=== PATIENT | female | born 1970 | race Caucasian/White ===

== ENCOUNTER 2017-05-11 08:45 | Outpatient (RCR) | payer MEDICAID, SELFPAY | END 2017-06-03 23:59 | LOC: NS 08:45 | PROVIDERS: Family Provider Family Medicine; PCP Family Medicine; Visit Provider Family Medicine | DX: E66.01 Morbid (severe) obesity due to excess calories (principal); Z68.41 Body mass index [BMI] 40.0-44.9, adult; Z71.3 Dietary counseling and surveillance | CPT/HCPCS: 97803 ==

== ENCOUNTER → 2017-06-09 14:36 | Outpatient (CLI) | payer MEDICAID, SELFPAY ==
[2017-06-09 14:39] LABS: Bacteria 0 SEEN /hpf (None Seen); Mucous, Urine 0 SEEN /hpf (<or=2+); Red Blood Cells-Urine 0 SEEN /hpf (0-5)
[2017-06-09 15:11] LABS: Color, Urine Yellow (Yellow); Glucose, Dipstick Normal (Normal); Ketone-Dipstick Negative (Negative); Leukocyte Esterase-Dipstick 25 /ul (Negative); Nitrite-Dipstick Negative (Negative); Occult Blood-Urine Negative /ul (Negative); Protein-Dipstick Negative (Negative); Urine Bilirubin Dipstick Negative (Negative); Urine Clarity Sl. Cloudy (Clear); Urine Urobilinogen Normal (Normal)
[2017-06-09 15:24] LABS: Squamous Epithelial Cells - UA 0-5 SEEN /hpf (5-10); White Blood Cells 0-5 SEEN /hpf (0-5)
== END ==
PROVIDERS: Family Provider Family Medicine; Visit Provider Physician Assistant Surgical
DX: R30.0 Dysuria (principal); J02.9 Acute pharyngitis, unspecified
CPT/HCPCS: 81001; 87081; 87086

== ENCOUNTER 2017-07-03 10:59 | Emergency (ER) | payer MEDICAID, SELFPAY ==
[2017-07-03 11:00] VITALS: BP 158/98; PULSE 75; RESP 18; TEMP 36.6; O2SAT 97; BMI 42.2
--- NOTE | 2017-07-03 11:25 | CT_ITS ---
STUDY: CT FACIAL BONES WITHOUT CONTRAST REASON FOR EXAM: Female, 46 years old. Trauma RADIATION DOSAGE (If Supplied By Facility): CTDIvol = ( 29.38 ) mGy, DLP = ( 525.42 ) mGycm TECHNIQUE: The patient was scanned in a multi detector CT scanner. Sagittal and coronal images were reconstructed. Individualized dose optimization techniques were used for this CT. COMPARISON: None. FINDINGS: Normal soft tissue structures. Normal orbital jalloh and orbital contents. Normal nasal bones and anterior nasal spine. Normal facial bones. There is no demonstrated fracture. Normal visualized paranasal sinuses. CT/Sinus/Facial Bone IMPRESSION: Normal unenhanced CT of the facial bones. Electronically Signed: Nino Ricci MD at 12:21 EDT , Service support ,
[2017-07-03] MEDS: proMETHazine 25 MG/ML Syringe 12.5 MG IV (11:50)
[2017-07-03] MEDS: DiphenhydrAMINE 50 MG/ML Syringe 25 MG IV (11:50)
[2017-07-03] MEDS: Ketorolac 30 MG/ML Syringe IV (11:50)
[2017-07-03] MEDS: 0.9% Normal Saline 1,000 ML 1000 ML IV (11:50)
--- NOTE | 2017-07-03 12:37 | ED.DCSUM_ITS ---
- ER Visit Summary Date of Service: 07/03/17 Chief Complaint: [Head injury and headache] History of Present Illness: The patient is a 46 F [presents to the emergency department with an injury that occurred yesterday. Patient states that she was getting something out of the trunk of her car when she accidentally slammed her face against the hatchback trunk. Patient states she had bleeding from the right side of her nose. She denies loss of consciousness. Patient subsequently developed a headache with nausea and photophobia. Patient thought that she was having a typical migraine but given her head injury she became concerned and comes in for evaluation. HEENT-PERRLA, EOMI. Cranial nerves II through XII grossly intact. TMs clear. Mucous membranes moist. No adenopathy. She has tenderness over the right inferior medial orbit as well as over the nasal bone. No obvious deformity. No ecchymosis or bruising noted. Patient did have small amount of dried blood within the right nasal vault. Cardiovascular-regular rate and rhythm without murmur or ectopy Lungs-clear to auscultation, chest wall stable without crepitus or subcu emphysema Abdomen-normoactive bowel sounds, soft, nontender, no rebound or rigidity, no peritoneal signs. Extremities-intact ?4, normal range of motion, normal pulses, atraumatic] Physical Examination: [] Test Results: [CT facial bones obtained showed no acute fractures] Emergency Department Course and Treatment: [Patient was medicated with Phenergan , Toradol, liter normal saline fluid bolus, and Benadryl and her headache mostly resolved. Treatment Plan: [Patient to follow-up with primary care physician 3-5 days.] Disposition: [Discharged home in stable condition] Impression: [Nasal contusion Migrainous cephalgia-resolved] This note was generated with [employer] dictation software. It may contain incorrect words, spelling, and punctuation that were not noted in review of the chart prior to signing ED Disposition - Plan for ED Patient: Chief Complaint: Head Injury Referrals: Misael Frank III, MD [Primary Care Provider] -
--- NOTE | 2017-07-03 12:37 | ED.DEP ---
ED Disposition - Plan for ED Patient: Chief Complaint: Head Injury Instructions: ED Contusion Face, ED Headache Migraine Referrals: Misael Frank III, MD [Primary Care Provider] - 3-5 Days
[2017-07-03 12:57] VITALS: BP 134/70; PULSE 88; RESP 14; O2SAT 96
== END 2017-07-03 12:59 | disposition home or self-care (01) ==
LOC: ED 11:36
PROVIDERS: Emergency Provider Emergency Medicine; Family Provider Family Medicine; PCP Family Medicine
DX: S00.33XA Contusion of nose, initial encounter (principal); G43.909 Migraine, unspecified, not intractable, without status migrainosus; W22.8XXA Striking against or struck by other objects, initial encounter; Y93.9 Activity, unspecified; Y92.9 Unspecified place or not applicable; I10 Essential (primary) hypertension; Z87.19 Personal history of other diseases of the digestive system; Z79.899 Other long term (current) drug therapy
CPT/HCPCS: 70486; 96361; 96374; 96375; 99283; J7030

== ENCOUNTER 2017-07-06 09:56 | Emergency (ER) | payer MEDICAID, SELFPAY ==
[2017-07-06 09:58] VITALS: BP 153/93; PULSE 90; RESP 16; TEMP 36.6; O2SAT 98; BMI 42.1
--- NOTE | 2017-07-06 10:07 | ED.DCSUM_ITS ---
- ER Visit Summary Date of Service: 07/06/17 Chief Complaint: Panic attack History of Present Illness: The patient is a 46 F who said that she had a panic attack that started 15 minutes ago. She had called the police to get her daughter to go to school today. This caused her a lot of anxiety. She took a Vistaril at home but it is not working. Her symptoms only started about 15 minutes ago. When I asked her if she had any thoughts of wanting to harm herself she states that she does not want to live.. She has no specific plan. She has a history of anxiety and manic depressive disorder. She does see a counselor. Physical Examination: Vital signs reviewed. HEENT exam unremarkable. Heart is regular rate and rhythm without murmurs. Lungs are clear to auscultation. Abdomen is soft and nontender. Extremities reveal no edema. Skin exam normal. Neurologic exam normal. Does appear to be anxious. She does voice suicidal thoughts. No specific plan. Test Results: Screening labs are negative Emergency Department Course and Treatment: Patient did admit that she was having thoughts of not wanting to live. I did consult crisis. They evaluated the patient. They will follow up with her as an outpatient. They, as well as myself, do not feel she needs to be admitted at this time. Treatment Plan: [] Disposition: Discharge Impression: Panic attack This note was generated with [employer] dictation software. It may contain incorrect words, spelling, and punctuation that were not noted in review of the chart prior to signing ED Disposition - Plan for ED Patient: Chief Complaint: Anxiety Referrals: Misael Frank III, MD [Primary Care Provider] -
[2017-07-06 10:44] LABS: Absolute Lymphocyte Count 2.44 X10^3/ul (0.83-4.51); Absolute Neutrophil Count 4.2 X10^3/uL (2.0-7.7); Basophil# 0.04 X10^3/uL; Basophil% 0.6 % (0-1); Eosinophil# 0.14 X10^3/uL; Eosinophils% 1.9 % (0-5); Hematocrit 39.3 % (37-47); Hemoglobin 13.2 g/dl (12.0-15.0); Lymphocyte # 2.44 X10^3/ul (4.0); Lymphocyte % 33.6 % (19-41); Mean Corp Hgb Conc 33.6 g/gl (32-36); Mean Corpuscular Hgb 31.6 pg (27.0-32.0); Mean Platelet Vol. 9.5 fl (6.2-12.0); Monocyte# 0.45 X10^3/uL; Monocyte% 6.2 % (0-10); Neutrophil # 4.19 X10^3/uL (2.7-7.7); Neutrophil % 57.6 % (47-70); Platelet Count 237 K/mm3 (150-450); RBC Distribution Width SD 40.2 fl (35.1-43.9); Red Blood Count 4.18 M/mm3 (4.2-5.4); White Blood Count 7.3 K/mm3 (4.4-11.0)
[2017-07-06 10:45] LABS: POSITIVE COUNT NO; POSITIVE DIFFERENTIAL NO; POSITIVE MORPHOLOGY NO
[2017-07-06 10:55] VITALS: PULSE 91; RESP 18; O2SAT 97
[2017-07-06 10:56] LABS: ALB/GLOB Ratio 1.2 RATIO (0.9-2.4); AST(SGOT) 16 U/L (15-37); Alanine Aminotransfer ALT/SGPT 24 U/L (13-56); Albumin, Serum 3.6 g/dL (3.2-5.0); Alkaline Phosphatase 70 U/L (45-117); Anion Gap 6 (5-15); BUN 13 mg/dL (7-18); Calcium,Total 8.5 mg/dL (8.5-10.1); Chloride 109 mmol/L (98-107); Creatinine, Serum 0.62 mg/dL (0.55-1.02); EST Glomerular Filtration Rate 111 mL/min (>60); Est Glom Filt Rate - Afr Amer 134 mL/min (>60); Estimated Creatinine Clearance 99.99 ml/min; Globulin 3.1 g/dL (2.2-4.2); Glucose 72 mg/dL (74-106); Potassium 3.9 mmol/L (3.5-5.1); Protein, Total 6.7 g/dL (6.4-8.2); Sodium Level 141 mmol/L (136-145)
[2017-07-06 11:02] LABS: Pregnancy, Serum, hCG Quali. NEGATIVE Negative (0-9 Nonpreg)
[2017-07-06 11:05] LABS: Amphetamine Urine VISTA NEGATIVE (<1000 ng/mL); Barbiturate Urine VISTA NEGATIVE (< 200 ng/mL); Benzodiazepine Urine VISTA NEGATIVE (< 200 ng/mL); Cocaine Urine VISTA NEGATIVE (< 300 ng/mL); Ecstacy Urine VISTA NEGATIVE (< 500 ng/mL); Methadone Urine VISTA NEGATIVE (< 300 ng/mL); PCP Urine VISTA NEGATIVE (< 25 ng/mL); THC Urine VISTA NEGATIVE (< 50 ng/mL); Vista UDS pH Range 7
[2017-07-06 11:32] VITALS: RESP 18
--- NOTE | 2017-07-06 11:58 | ED.RN ---
SPOKE WITH SARAH WITH [facility]; THEY WILL HAVE SOMEONE OVER TO EVALUATE PT
[2017-07-06 12:09] VITALS: BP 105/61; PULSE 65; RESP 18; O2SAT 98
[2017-07-06 13:00] VITALS: RESP 18
--- NOTE | 2017-07-06 13:20 | ED.RN ---
[facility]EDSIDE
--- NOTE | 2017-07-06 14:09 | ED.DEP ---
ED Disposition - Plan for ED Patient: Disposition: Home or Assisted Living Chief Complaint: Suicidal Instructions: ED Panic Attack Referrals: Misael Frank III, MD [Primary Care Provider] -
[2017-07-06 14:22] VITALS: BP 117/59; PULSE 71; RESP 16; O2SAT 99
== END 2017-07-06 14:23 | disposition home or self-care (01) ==
PROVIDERS: Emergency Provider Emergency Medicine; Family Provider Family Medicine; PCP Family Medicine
DX: F41.0 Panic disorder [episodic paroxysmal anxiety] (principal); R45.851 Suicidal ideations; K21.9 Gastro-esophageal reflux disease without esophagitis; I10 Essential (primary) hypertension; F33.9 Major depressive disorder, recurrent, unspecified; Z79.899 Other long term (current) drug therapy
CPT/HCPCS: 80053; 80307; 80320; 84703; 85025; 99284; J7030; G0480

== ENCOUNTER 2017-07-07 18:40 | Emergency (ER) | payer MEDICAID, SELFPAY ==
[2017-07-07 18:41] VITALS: BP 132/70; PULSE 79; RESP 14; TEMP 36.7; O2SAT 97; BMI 40.7
[2017-07-07 20:01] LABS: Absolute Lymphocyte Count 2.59 X10^3/ul (0.83-4.51); Absolute Neutrophil Count 4.7 X10^3/uL (2.0-7.7); Basophil# 0.03 X10^3/uL; Basophil% 0.4 % (0-1); Eosinophil# 0.24 X10^3/uL; Hematocrit 41.7 % (37-47); Hemoglobin 13.7 g/dl (12.0-15.0); Lymphocyte # 2.59 X10^3/ul (4.0); Mean Corp Hgb Conc 32.9 g/gl (32-36); Mean Corpuscular Hgb 31.2 pg (27.0-32.0); Mean Platelet Vol. 9.6 fl (6.2-12.0); Monocyte# 0.54 X10^3/uL; Monocyte% 6.7 % (0-10); Neutrophil # 4.69 X10^3/uL (2.7-7.7); Neutrophil % 57.8 % (47-70); Platelet Count 233 K/mm3 (150-450); RBC Distribution Width CV 12.2 % (11.6-14.6); RBC Distribution Width SD 41.9 fl (35.1-43.9); Red Blood Count 4.39 M/mm3 (4.2-5.4); White Blood Count 8.1 K/mm3 (4.4-11.0)
[2017-07-07 20:16] LABS: POSITIVE COUNT NO; POSITIVE DIFFERENTIAL NO; POSITIVE MORPHOLOGY NO
[2017-07-07 20:19] LABS: Anion Gap 8 (5-15); BUN 14 mg/dL (7-18); BUN/Creat Ratio 22.8 RATIO (10-20); Calcium,Total 9.3 mg/dL (8.5-10.1); Chloride 109 mmol/L (98-107); Creatinine, Serum 0.61 mg/dL (0.55-1.02); EST Glomerular Filtration Rate 112 mL/min (>60); Est Glom Filt Rate - Afr Amer 136 mL/min (>60); Glucose 66 mg/dL (74-106); Potassium 3.8 mmol/L (3.5-5.1); Sodium Level 142 mmol/L (136-145)
[2017-07-07 20:26] LABS: Pregnancy, Serum, hCG Quali. NEGATIVE Negative (0-9 Nonpreg)
[2017-07-07 20:28] LABS: Alcohol, Blood (Medical)-Serum < 3.0 mg/dL
[2017-07-07 20:49] LABS: Amphetamine Urine VISTA NEGATIVE (<1000 ng/mL); Barbiturate Urine VISTA NEGATIVE (< 200 ng/mL); Benzodiazepine Urine VISTA NEGATIVE (< 200 ng/mL); Cocaine Urine VISTA NEGATIVE (< 300 ng/mL); Ecstacy Urine VISTA NEGATIVE (< 500 ng/mL); Methadone Urine VISTA NEGATIVE (< 300 ng/mL); PCP Urine VISTA NEGATIVE (< 25 ng/mL); THC Urine VISTA NEGATIVE (< 50 ng/mL); Vista UDS pH Range 5
[2017-07-07 22:10] VITALS: BP 140/67; PULSE 89; RESP 18; O2SAT 98
--- NOTE | 2017-07-07 22:21 | ED.DCSUM_ITS ---
- ER Visit Summary Date of Service: 07/07/17 Chief Complaint: Depression and suicidal ideation History of Present Illness: The patient is a 46 F who presents with depression and suicidal ideation. She states that she has had these ever since her father about 9 months ago. This has been increasing recently. Today she sent some text of family members stating that she wanted to . She reports suicidal thoughts but no specific plan. She has been hospitalized previously for similar symptoms. She denies any homicidal ideation. She denies any recent medical illness such as fever chest pain shortness of breath nausea vomiting diarrhea. Physical Examination: Afebrile vitals are stable Moist mucous membranes Heart regular rate and rhythm Lungs are clear Abdomen soft Alert and oriented Patient has normal speech pattern she does report suicidal ideations without specific plan. Test Results: CBC BMP unremarkable. Drug screen and alcohol normal. negative. Emergency Department Course and Treatment: She has been calm and cooperative here. This is her second visit in a short period of time for similar symptoms. We will have crisis evaluate the patient. Treatment Plan: [] Disposition: Pending crisis evaluation Impression: Depression Suicidal ideation This note was generated with [employer] dictation software. It may contain incorrect words, spelling, and punctuation that were not noted in review of the chart prior to signing ED Disposition - Plan for ED Patient: Chief Complaint: Suicidal Referrals: Misael Frank III, MD [Primary Care Provider] -
[2017-07-07 23:00] VITALS: BP 133/80; PULSE 78; RESP 16; O2SAT 98
--- NOTE | 2017-07-08 00:36 | ED.DEP ---
ED Disposition - Plan for ED Patient: Chief Complaint: Suicidal Instructions: ED Depression Referrals: Misael Frank III, MD [Primary Care Provider] -
--- NOTE | 2017-07-08 00:41 | ED.RN ---
DISCHARGE INSTRUCTIONS GIVEN TO AND REVIEWED WITH PATIENT, PATIENT DENIES QUESTIONS OR CONCERNS AND VOICES UNDERSTANDING OF DISCHARGE INSTRUCTIONS. PT AMBULATES OUT OF ROOM WITHOUT DIFFICULTY.
== END 2017-07-08 00:42 | disposition home or self-care (01) ==
PROVIDERS: Emergency Provider Emergency Medicine; Family Provider Family Medicine; PCP Family Medicine
DX: F32.9 Major depressive disorder, single episode, unspecified (principal); R45.851 Suicidal ideations; F31.9 Bipolar disorder, unspecified; I10 Essential (primary) hypertension; N39.3 Stress incontinence (female) (male); F43.10 Post-traumatic stress disorder, unspecified; Z87.19 Personal history of other diseases of the digestive system; Z79.899 Other long term (current) drug therapy
CPT/HCPCS: 80048; 80307; 80320; 84703; 85025; 99283; G0480

== ENCOUNTER 2017-07-25 11:00 | Outpatient (RCR) | payer MEDICAID, SELFPAY | END 2017-07-25 23:59 | LOC: NS 11:00 | PROVIDERS: Family Provider Family Medicine; PCP Family Medicine; Visit Provider Family Medicine | DX: E66.01 Morbid (severe) obesity due to excess calories (principal); Z68.41 Body mass index [BMI] 40.0-44.9, adult; Z71.3 Dietary counseling and surveillance | CPT/HCPCS: 97803 ==

== ENCOUNTER 2017-08-14 13:17 | Outpatient (RCR) | payer MEDICAID, SELFPAY ==
--- NOTE | 2017-08-14 13:17 | DT_ITS ---
This patient was seen during an EMR downtime August 07, 2017 - August 14, 2017. This patient may have a combination of paper and electronic documentation or all paper documentation. All documentation is viewable within the e-chart portion of the[employer] for each patient visit.
== END 2017-09-02 23:59 ==
LOC: NS 13:17
PROVIDERS: Family Provider Family Medicine; PCP Family Medicine; Visit Provider Family Medicine
DX: E66.01 Morbid (severe) obesity due to excess calories (principal); Z68.41 Body mass index [BMI] 40.0-44.9, adult; Z71.3 Dietary counseling and surveillance

== ENCOUNTER → 2017-11-08 13:26 | Outpatient (CLI) | payer MEDICAID, SELFPAY ==
[2017-11-08 15:06] LABS: Mucous, Urine 0 SEEN /hpf (<or=2+); Red Blood Cells-Urine 0 SEEN /hpf (0-5)
[2017-11-08 15:09] LABS: Color, Urine Yellow (Yellow); Glucose, Dipstick Normal (Normal); Ketone-Dipstick Negative (Negative); Leukocyte Esterase-Dipstick 25 /ul (Negative); Nitrite-Dipstick Negative (Negative); Occult Blood-Urine Negative /ul (Negative); Protein-Dipstick Negative (Negative); Specific Gravity, Urine 1.015 (1.002-1.030); Urine Bilirubin Dipstick Negative (Negative); Urine Clarity Clear (Clear); Urine Urobilinogen Normal (Normal)
[2017-11-08 15:18] LABS: Bacteria 2+ /hpf (None Seen); Squamous Epithelial Cells - UA 0-5 SEEN /hpf (5-10); White Blood Cells 0-5 SEEN /hpf (0-5)
== END ==
PROVIDERS: Family Provider Family Medicine; PCP Family Medicine; Visit Provider Physician Assistant Surgical
DX: R30.0 Dysuria (principal)
CPT/HCPCS: 81001; 87086

== ENCOUNTER → 2017-11-15 10:18 | Outpatient (CLI) | payer MEDICAID, SELFPAY ==
--- NOTE | 2017-11-15 10:22 | RAD_ITS ---
CLINICAL HISTORY: Female, 46 years old. Chronic right hip pain. PROCEDURE: ARTHROGRAM - RIGHT HIP CONSENT: The procedure as well as the benefits and possible complications including infection and bleeding were explained to the patient. Informed consent was obtained. FLUOROSCOPY TIME (if supplied): (0:42) minutes/seconds Injection Information: 10 cc of dilute Magnevist. Number of images obtained: 1 TECHNIQUE: (All elements of maximal sterile barrier technique followed, including US elements as applicable) The patient was in the supine position. The overlying skin was prepped and draped in usual sterile fashion. Following local anesthetic application and under direct fluoroscopic guidance, a 22-gauge spinal needle was advanced into the right hip joint. 2 cc of Isovue-300 was injected for confirmation. Following this, 10 cc of dilute Magnevist was injected. The patient tolerated the procedure well. MRI scan will follow. RAD/Arthrogram Hip w/ MRI IMPRESSION: Successful right hip injection for MRI examination. The patient tolerated the procedure well. Electronically Signed: Carlton Armas MD at 12:52 EDT Tel [phone], Service support ,
--- NOTE | 2017-11-15 10:54 | MRI_ITS ---
STUDY: MR RIGHT HIP ARTHROGRAPHY REASON FOR EXAM: Right hip pain and popping. TECHNIQUE: Standardized fat and water weighted pulse sequences were obtained in all 3 orthogonal planes after intra-articular instillation of dilute Magnevist. COMPARISON: Fluoroscopic view from arthrogram. FINDINGS: Normal hip joint without articular joint space narrowing. Normal acetabulum. Normal labrum. There is a dysplastic bump at the lateral aspect of the proximal femoral physeal scar (T2 coronal image 11). Normal femoral neck and intratrochanteric region. Normal gluteus minimus, medius and iliopsoas tendons and distal insertions. There is no trochanteric, iliopsoas or iliopectineal bursitis. Normal superior and inferior pubic rami. Normal pubic symphysis. Normal ischial tuberosity. Normal origin of the hamstring tendons. Normal visualized iliac wing. Normal visualized soft tissue structures of the pelvis. MRI/Lower Ext/Jt Only/W Contrast IMPRESSION: Dysplastic bump at the lateral aspect of the proximal femoral physeal scar, a possible MRI manifestation of femoroacetabular impingement. No demonstrated labral tear. Electronically Signed: Braxton Baeza MD at 12:48 EDT Tel , Service support ,
== END ==
PROVIDERS: Family Provider Family Medicine; PCP Family Medicine; Visit Provider Physician Assistant
DX: M25.551 Pain in right hip (principal)
CPT/HCPCS: 27093; 73722; 77002; A9577; Q9967

== ENCOUNTER 2018-01-02 12:01 | Emergency (ER) | payer MEDICAID, SELFPAY ==
[2018-01-02 12:01] VITALS: BP 149/102; PULSE 62; RESP 16; TEMP 36.7; O2SAT 99; BMI 40.7
--- NOTE | 2018-01-02 12:19 | ED.VISSUMM ---
- ER Visit Summary Date of Service: 01/02/18 Chief Complaint: Acute on chronic depression History of Present Illness: The patient is a 47 F history of depression and bipolar disorder. States the last 5 days she has been more depressed. States yesterday she has a considered suicide attempt but did not actually do anything. She was considering carbon monoxide poisoning. She states when she was 18 she had an actual attempt with a wrist laceration. Currently she is taking her bipolar and antidepressant medications. She is following up with a counseling center. She denies being suicidal today. She also states that she has some burning with urination. Physical Examination: Well-appearing middle-age female. Vital signs eyebrow. H EENT exam unremarkable atraumatic. Neck nontender no signs of trauma. Lungs clear to auscultation bilaterally. Heart regular rate and rhythm no murmur. Chest: Tender. Abdomen soft nontender. Normal bowel sounds no peritoneal signs. She is moving all 4 extremities. They are neurovascularly intact. Currently no signs of acute trauma. No track chavez. Normal range of motion. 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 Normal dorsi plantarflexion bilaterally. Back nontender. Neurologically she is awake and alert. Medically she is cleared. Test Results: BC normal. Chemistries normal. Normal gap and creatinine. UA normal no signs of infection. Serum test negative. Tox screen negative. Alcohol level negative. Emergency Department Course and Treatment: Patient will undergo ED mental health screening labs and urinalysis for her dysuria. She will be evaluated by the counseling center. Treatment Plan: Patient doing well on repeat exam at 1432. Crisis is in the emergency department and is evaluating her. Patient is willing to contract for safety with the crisis personnel. Again ensure close follow-up with her tomorrow morning. Both day, the patient and myself are comfortable with her being discharged home. Patient denies being suicidal at this time. Disposition: discharge Impression: Acute on chronic depression Suicidal ideation History depression and bipolar disorder This note was generated with [employer] software. It may contain incorrect words, spelling, and punctuation that were not noted in review of the chart prior to signing ED Disposition - Plan for ED Patient: Chief Complaint: Depression Referrals: Misael Frank III, MD [Primary Care Provider] -
--- NOTE | 2018-01-02 12:22 | ED.DCSUM_ITS ---
- ER Visit Summary Date of Service: 01/02/18 Chief Complaint: Acute on chronic depression History of Present Illness: The patient is a 47 F history of depression and bipolar disorder. States the last 5 days she has been more depressed. States yesterday she has a considered suicide attempt but did not actually do anything. She was considering carbon monoxide poisoning. She states when she was 18 she had an actual attempt with a wrist laceration. Currently she is taking her bipolar and antidepressant medications. She is following up with a counseling center. She denies being suicidal today. She also states that she has some burning with urination. Physical Examination: Well-appearing middle-age female. Vital signs eyebrow. H EENT exam unremarkable atraumatic. Neck nontender no signs of trauma. Lungs clear to auscultation bilaterally. Heart regular rate and rhythm no murmur. Chest: Tender. Abdomen soft nontender. Normal bowel sounds no peritoneal signs. She is moving all 4 extremities. They are neurovascularly intact. Currently no signs of acute trauma. No track chavez. Normal range of motion. 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 Normal dorsi plantarflexion bilaterally. Back nontender. Neurologically she is awake and alert. Medically she is cleare d. Test Results: BC normal. Chemistries normal. Normal gap and creatinine. UA normal no signs of infection. Serum test negative. Tox screen negative. Alcohol level negative. Emergency Department Course and Treatment: Patient will undergo ED mental health screening labs and urinalysis for her dysuria. She will be evaluated by the counseling center. Treatment Plan: Patient doing well on repeat exam at 1432. Crisis is in the emergency department and is evaluating her. Patient is willing to contract for safety with the crisis personnel. Again ensure close follow-up with her tomorrow morning. Both day, the patient and myself are comfortable with her being discharged home. Patient denies being suicidal at this time. Disposition: discharge Impression: Acute on chronic depression Suicidal ideation History depression and bipolar disorder This note was generated with [employer] software. It may contain incorrect words, spelling, and punctuation that were not noted in review of the chart prior to signing ED Disposition - Plan for ED Patient: Chief Complaint: Depression Referrals: Misael Frank III, MD [Primary Care Provider] -
--- NOTE | 2018-01-02 13:06 | NURSING ---
CALLED [facility]. LEFT MESSAGE WITH PERSON THAT ANSWERED PHONE
[2018-01-02 13:15] LABS: Bacteria 0 SEEN /hpf (None Seen); Mucous, Urine 0 SEEN /hpf (<or=2+); Red Blood Cells-Urine 0 SEEN /hpf (0-5); White Blood Cells 0 SEEN /hpf (0-5)
[2018-01-02 13:17] LABS: Color, Urine Yellow (Yellow); Glucose, Dipstick Normal (Normal); Ketone-Dipstick Negative (Negative); Leukocyte Esterase-Dipstick Negative /ul (Negative); Nitrite-Dipstick Negative (Negative); Occult Blood-Urine Negative /ul (Negative); Protein-Dipstick Negative (Negative); Urine Bilirubin Dipstick Negative (Negative); Urine Clarity Sl. Cloudy (Clear); Urine Urobilinogen Normal (Normal); Urine pH 6.5 (5.0 - 8.0)
[2018-01-02 13:17] LABS: Absolute Lymphocyte Count 2.66 X10^3/ul (0.83-4.51); Absolute Neutrophil Count 3.3 X10^3/uL (2.0-7.7); Basophil# 0.04 X10^3/uL; Basophil% 0.6 % (0-1); Eosinophil# 0.13 X10^3/uL; Hemoglobin 14.2 g/dl (12.0-15.0); Lymphocyte # 2.66 X10^3/ul (4.0); Lymphocyte % 40.8 % (19-41); Mean Corp Hgb Conc 33.8 g/gl (32-36); Mean Corpuscular Hgb 32.1 pg (27.0-32.0); Mean Corpuscular Volume 94.8 fL (81-99); Mean Platelet Vol. 9.5 fl (6.2-12.0); Monocyte# 0.34 X10^3/uL; Monocyte% 5.2 % (0-10); Neutrophil # 3.34 X10^3/uL (2.7-7.7); Neutrophil % 51.2 % (47-70); Platelet Count 218 K/mm3 (150-450); RBC Distribution Width CV 12.3 % (11.6-14.6); RBC Distribution Width SD 42.2 fl (35.1-43.9); Red Blood Count 4.43 M/mm3 (4.2-5.4); White Blood Count 6.5 K/mm3 (4.4-11.0)
[2018-01-02 13:18] LABS: POSITIVE COUNT NO; POSITIVE DIFFERENTIAL NO; POSITIVE MORPHOLOGY NO
[2018-01-02 13:24] LABS: Squamous Epithelial Cells - UA 0-5 SEEN /hpf (5-10)
[2018-01-02 13:29] LABS: Anion Gap 6 (5-15); BUN 12 mg/dL (7-18); Calcium,Total 8.8 mg/dL (8.5-10.1); Chloride 106 mmol/L (98-107); EST Glomerular Filtration Rate 96 mL/min (>60); Est Glom Filt Rate - Afr Amer 116 mL/min (>60); Estimated Creatinine Clearance 91.32 ml/min; Glucose 74 mg/dL (74-106); Potassium 3.9 mmol/L (3.5-5.1); Sodium Level 141 mmol/L (136-145)
[2018-01-02 13:38] LABS: Amphetamine Urine VISTA NEGATIVE (<1000 ng/mL); Barbiturate Urine VISTA NEGATIVE (< 200 ng/mL); Benzodiazepine Urine VISTA NEGATIVE (< 200 ng/mL); Cocaine Urine VISTA NEGATIVE (< 300 ng/mL); Ecstacy Urine VISTA NEGATIVE (< 500 ng/mL); Methadone Urine VISTA NEGATIVE (< 300 ng/mL); PCP Urine VISTA NEGATIVE (< 25 ng/mL); Pregnancy, Serum, hCG Quali. NEGATIVE Negative (0-9 Nonpreg); THC Urine VISTA NEGATIVE (< 50 ng/mL); Vista UDS pH Range 5
--- NOTE | 2018-01-02 14:00 | PCA ---
[facility] WILL BE HERE SHORTLY TO EVALUATE PT
--- NOTE | 2018-01-02 14:31 | NURSING ---
JENNIFER, [facility], HERE
--- NOTE | 2018-01-02 15:03 | ED.DEP ---
ED Disposition - Plan for ED Patient: Disposition: Home or Assisted Living Chief Complaint: Depression Instructions: ED Depression Referrals: Counseling,Center [GROUP OF PHYSICIANS] - 1 Day Additional Instructions: Return if feeling worse or feel like you may hurt yourself. Follow-up with a counseling center tomorrow.
== END 2018-01-02 15:50 | disposition home or self-care (01) ==
PROVIDERS: Emergency Provider Emergency Medicine; Family Provider Family Medicine; PCP Family Medicine
DX: F32.9 Major depressive disorder, single episode, unspecified (principal); R45.851 Suicidal ideations; F31.9 Bipolar disorder, unspecified; R30.0 Dysuria; R11.2 Nausea with vomiting, unspecified; Z98.84 Bariatric surgery status; Z79.899 Other long term (current) drug therapy
CPT/HCPCS: 80048; 80307; 80320; 81001; 84703; 85025; 99284; G0480

== ENCOUNTER → 2018-01-21 10:31 | Outpatient (CLI) | payer MEDICAID, SELFPAY ==
[2018-01-21 13:54] VITALS: BMI 40.6
[2018-01-22 10:39] LABS: Bacteria 0 SEEN /hpf (None Seen); Mucous, Urine 0 SEEN /hpf (<or=2+); Red Blood Cells-Urine 0 SEEN /hpf (0-5); White Blood Cells 0 SEEN /hpf (0-5)
[2018-01-22 10:46] LABS: Color, Urine Yellow (Yellow); Glucose, Dipstick Normal (Normal); Ketone-Dipstick Negative (Negative); Leukocyte Esterase-Dipstick Negative /ul (Negative); Nitrite-Dipstick Negative (Negative); Occult Blood-Urine Negative /ul (Negative); Protein-Dipstick Negative (Negative); Urine Bilirubin Dipstick Negative (Negative); Urine Clarity Sl. Cloudy (Clear); Urine Urobilinogen Normal (Normal)
[2018-01-22 11:14] LABS: Squamous Epithelial Cells - UA 0-5 SEEN /hpf (5-10)
== END ==
PROVIDERS: Family Provider Family Medicine; PCP Family Medicine; Referring Provider Nurse Practitioner Family; Visit Provider Nurse Practitioner Family
DX: Z87.440 Personal history of urinary (tract) infections (principal)
CPT/HCPCS: 81001; 87086

== ENCOUNTER → 2018-02-13 14:17 | Outpatient (CLI) | payer MEDICAID, SELFPAY ==
[2018-02-12 14:56] VITALS: BMI 40.6
[2018-02-13 15:07] LABS: Bacteria 0 SEEN /hpf (None Seen); Mucous, Urine 0 SEEN /hpf (<or=2+); Red Blood Cells-Urine 0 SEEN /hpf (0-5); White Blood Cells 0 SEEN /hpf (0-5)
[2018-02-13 15:21] LABS: Color, Urine Yellow (Yellow); Glucose, Dipstick Normal (Normal); Ketone-Dipstick Negative (Negative); Leukocyte Esterase-Dipstick Negative /ul (Negative); Nitrite-Dipstick Negative (Negative); Occult Blood-Urine Negative /ul (Negative); Protein-Dipstick Negative (Negative); Urine Bilirubin Dipstick Negative (Negative); Urine Clarity Clear (Clear); Urine Urobilinogen Normal (Normal)
[2018-02-13 16:10] LABS: Squamous Epithelial Cells - UA 0-5 SEEN /hpf (5-10)
--- OUTSIDE RECORDS SUMMARY | 2018-04-01 19:46 | XMS RPT_ITS ---
:1970 Author Organization OHIP Support Name Relationship Address Phone BORA, KIANA Unavailable [address] + [address] [facility] Unavailable [address] + [place] [address] DANNY AARON Unavailable [address] + [place] [address] BORA, KIANA Unavailable [address] + [place] [address] [facility] Unavailable [address] + [place] [address] DANNY AARON Unavailable [address] + [place] [address] BORA, KIANA Unavailable [address] + [place] [address] [facility] Unavailable [address] + [place] [address] DANNY AARON Unavailable [address] + [place] [address] BORA, KIANA Unavailable [address] + [place] [address] [facility] Unavailable [address] + [place] [address] DANNY AARON Unavailable [address] + [place] [address] BORA, KIANA Unavailable [address] + [place] [address] [facility] Unavailable [address] + [place] [address] TAWNYMILANADANNY CHANCE Unavailable [address] + [place] [address] BORA, KIANA Unavailable [address] + [address] [facility] Unavailable [address] + [place] [address] DANNY AARON Unavailable [address] + [place] [address] BORA, KIANA Unavailable [address] + [address] [facility] Unavailable [address] + [place] [address] SHASHIDANNY CHANCE Unavailable [address] + [place] [address] BORA, KIANA Unavailable [address] + [address] [facility] Unavailable [address] + [place] [address] SHASHIDANNY CHANCE Unavailable [address] + [place] [address] BORA, KIANA Unavailable [address] + [address] [facility] Unavailable [address] + [place] [address] SHASHIDANNY CHANCE Unavailable [address] + [place] [address] BORA, KIANA Unavailable [address] + [place] [phone] [facility] Unavailable [address] + [place] [address] SHASHIDANNY CHANCE Unavailable [address] + [place] [address] BORA, KIANA Unavailable [address] + [place] [phone] [facility] Unavailable [address] + [place] [address] SHASHIDANNY CHANCE Unavailable [address] + [place] [address] BORA, KIANA Unavailable [address] + [place] [address] [facility] Unavailable [address] + [place] [address] SHASHIDANNY CHANCE Unavailable [address] + [place] [address] BORA, KIANA Unavailable [address] + [place] [address] [facility] Unavailable [address] + [place] [address] SHASHIDANNY CHANCE Unavailable [address] + [place] [address] BORA, KIANA Unavailable [address] + [place] [address] [facility] Unavailable [address] + [place] [address] AGNIESZKADANNY Unavailable [address] + [place] [address] BORA, KIANA Unavailable [address] + [place] [address] [facility] Unavailable [address] + [place] [address] AGNIESZKADANNY Unavailable [address] + [place] [address] BORA, KIANA Unavailable [address] + [place] [address] [facility] Unavailable [address] +. [place] [address] DANNY AARON Unavailable [address] + [place] [address] BORA, KIANA Unavailable [address] + [place] [address] [facility] Unavailable [address] + [place] [address] DANNY AARON Unavailable [address] + [place] [address] BORA, KIANA Unavailable [address] + [place] [address] [facility] Unavailable [address] + [place] [address] AGNIESZKADANNY Unavailable [address] + [place] [address] BORA, KIANA Unavailable [phone] [place] [address] [facility] Unavailable [address] + [place] [address] AGNIESZKADANNY Unavailable [address] + [place] [address] BORA, KIANA Unavailable [address] + [place] [address] [facility] Unavailable [address] + [place] [address] AGNIESZKADANNY Unavailable [address] + [place] [address] BORA, KIANA Unavailable [phone] [place] [address] [facility] Unavailable [address] + [place] [address] AGNIESZKADANNY Unavailable [address] + [place] [address] BORA, KIANA Unavailable [phone] [place] [address] [facility] Unavailable [address] + [place] [address] SHASHIDANNY CHANCE Unavailable [address] + [place] [address] Care Team Providers Name Role Phone SANTI LOPES (LABELER) Attending Unavailable CEBUL IIINEIL Referring Unavailable SANTI LOPES (LABELER) Referring Unavailable MARTA PUENTES (PIPELINER) Attending Unavailable MARTA PUENTES (PIPELINER) Referring Unavailable CEBUL III, NEIL Thurman Attending Unavailable NATY IRWIN (PIPELINER) Referring Unavailable Sher Tristan Attending Unavailable Cebul III, Neil Referring Unavailable Sher Tristan Attending Unavailable Sher Tristan Referring Unavailable Cebul III, Neil Primary Care Unavailable Cebul III, Neil Attending Unavailable Cebul III, Neil Referring Unavailable Cebul III, Neil Primary Care Unavailable Sher Tristan Attending Unavailable Cebul III, Neil Referring Unavailable Cebul III, Neil Primary Care Unavailable Juan Carlos Carrion Attending Unavailable Cebul III, Neil Referring Unavailable Cebul III, Neil Primary Care Unavailable Juan Carlos Carrion Attending Unavailable Cebul III, Neil Primary Care Unavailable Juan Carlos Carrion Attending Unavailable Cebul III, Neil Primary Care Unavailable Cebul III, Neil Attending Unavailable Cebul III, Neil Referring Unavailable Cebul III, Neil Primary Care Unavailable Cebul III, Neil Primary Care Unavailable Tree Dickens Attending Unavailable Cebul III, Neil Primary Care Unavailable Abhi Harp Attending Unavailable Cebul III, Neil Primary Care Unavailable Luca Evangelista Attending Unavailable Cebul III, Neil Attending Unavailable Cebul III, Neil Referring Unavailable Cebul III, Neil Primary Care Unavailable Cebul III, Neil Attending Unavailable Cebul III, Neil Referring Unavailable Cebul III, Neil Primary Care Unavailable Sher Tristan Attending Unavailable Cebul III, Neil Referring Unavailable Cebul III, Neil Primary Care Unavailable Juan Carlos Carrion Attending Unavailable Cebul III, Neil Referring Unavailable Cebul III, Neil Primary Care Unavailable Juan Carlos Carrion Attending Unavailable Juan Carlos Carrion Referring Unavailable Cebul III, Neil Primary Care Unavailable Jason, Andrea Attending Unavailable Janjeny, Andrea Referring Unavailable Cebul III, Neil Primary Care Unavailable Cebul III, Neil Primary Care Unavailable Cristino Barraza Attending Unavailable Josep Romero LABELER-C Attending Unavailable Cebul III, Neil Referring Unavailable Josep Romero LABELER-C Attending Unavailable Romero, Josep LABELER-C Attending Unavailable Romero, Josep LABELER-C Referring Unavailable Cebul III, Neil Primary Care Unavailable Cebul III, Neil Primary Care Unavailable Atul Hayden Attending Unavailable PROBLEMS PROBLEMS DATE TYPE CONDITION / CODE ATTENDING STATUS SOURCE 02/13/2018 Unknown R30.0 - Dysuria / Sher Tristan Active [facility] R30.0(ICD-10) [facility] Rep[facility] 02/12/2018 Unknown N39.0 - Urinary Sher Tristan Active [facility] tract infection, Community site not specified Hospital / N39.0(ICD-10) Repository 01/22/2018 Unknown Z87.440 - Personal Josep Romero Active [facility] history of urinary LABELER-C Community (tract) infections Hospital / Z87.440(ICD-10) Repository 01/04/2018 Active Unspecified injury NA Active [facility] of left foot, [facility] initial encounter / Repository S99.922A(ICD-10) 09/20/2017 Unknown R35.0 - Frequency Sher Tristan Active [facility] of micturition / Community R35.0(ICD-10) Hospital Repository 08/31/2017 Active Encounter for Active [facility] gynecological [facility] examination Repository (general) (routine) without abnormal findings / Z01.419(ICD-10) 07/28/2017 Active Encounter for NA Active [facility] screening mammogram [facility] for malignant Repository neoplasm of breast / Z12.31(ICD-10) 01/03/2018 Unknown E66.01 - Morbid Cebul III, Active [facility] (severe) obesity [facility] due to excess Hospital calories / Repository E66.01(ICD-10) 11/25/2008 Active Vitamin D [facility] deficiency, [facility] unspecified / Repository E55.9(ICD-10) 07/12/2017 Active Unspecified NA Active [facility] disorder of nose [facility] and nasal sinuses / Repository J34.9(ICD-10) 07/12/2017 Active Cutaneous abscess NA Active [facility] of left axilla / [facility] L02.412(ICD-10) Repository 06/13/2017 Unknown J02.9 - Acute Murali, Juan Carlos Active [facility] pharyngitis, Community unspecified / Hospital J02.9(ICD-10) Repository 06/09/2017 Unknown J01.90 - Acute Murali, Juan Carlos Active [facility] sinusitis, Community unspecified / Hospital J01.90(ICD-10) Repository PROCEDURES PROCEDURES No Procedure Records FoundRESULTS RESULTS PROGRESS Observed: 03/19/2018 Status: COMPLETED Source: [place] 10:15 AM [facility] RE[facility] HNO ID: [id number] Author: Stevie Machado Service: (none) Author Type: Physician Type: Progress Notes Filed: 03/19/2018 10:33 AM Note Text: Patient presents with: Sinus Problem: sinus pressure and drainage, red and matting eyes x 2 weeks HPI: Feeling sick for 2 weeks. Her daughter has been sick 2 weeks also. Positive symptoms: Sinus pressure/headache, Nasal Congestion, Rhinorrhea, Post nasal drainage, AM eye discharge, Negative symptoms: Fever, Chills, OTC: aleve, flonase PAST MEDICAL HISTORY Diagnosis Date - Adjustment disorder with depressed mood ANXIETY/DEPRESSION - Arrhythmia as a child-no current problems - Bariatric surgery status 06-29-09 lrygbp - Benign hypertension 05/05/2015 - Bipolar 2 disorder (HCC) 04/12/2017 - Celiac disease 06/2005 - Excessive or frequent menstruation Heavy periods - Fatty liver disease, nonalcoholic 04/19/2012 - Generalized anxiety disorder - GERD (gastroesophageal reflux disease) - Hemorrhage of rectum and anus - Lumbago - Midline low back pain without sciatica 09/24/2014 - Migraine, unspecified, with intractable migraine, so stated, without mention of status migrainosus Migraine - Mild dysplasia of cervix 04/05/06 mild dysplasia of cervix on biopsy 12, 7 oclock - Morbid obesity (HCC) 05-19-09 BMI 51.83 Ht: 64.75 Wt: 309 lbs - Other and unspecified hyperlipidemia - Other chronic nonalcoholic liver disease - Other chronic nonalcoholic liver disease - Overactive bladder 12/11/2012 - Pain in joint, multiple sites knees,hips - Papanicolaou smear of cervix with low grade squamous intraepithelial lesion (LGSIL) 03/08/06 - PCOS (polycystic ovarian syndrome) - PMH - PAST MEDICAL HISTORY OF Carpal tunnel syndrome - PMH - PAST MEDICAL HISTORY OF PELVIC FLOOR DISORDER WITH URINARY RETENTION - Sleep apnea, obstructive 2010 resolved with weight loss - Snoring - Urinary tract infection, site not specified Recurrent UTI's - Vitamin D deficiency MEDICATIONS: Current Outpatient Prescriptions: sucralfate (CARAFATE) 1 gram tablet DISSOLVE 1 TABLET IN 2 TEASPOONS OF WATER, STIR, AND SWALLOW AND TAKE BEFORE MEALS AND BED naltrexone-bupropion (CONTRAVE) 8-90 mg TbER 1 po qAM x 1 wk. then 1 po BID ferrous sulfate EC 324 mg (65 mg iron) TbEC Take 1 tablet by mouth once daily. lisinopril (ZESTRIL, PRINIVIL) 5 mg tablet Take 1 tablet by mouth once daily. SUMAtriptan (IMITREX) 50 mg tablet TAKE 1 TABLET BY MOUTH NEEDED (MAY REPEAT DOSE IN 2 HOURS IF HEADACHE PERSISTS.). oxybutynin ER (DITROPAN XL) 10 mg 24 hr tablet Take 1 tablet by mouth once daily. Cholecalciferol, Vitamin D3, 5,000 unit cap Take 1 capsule by mouth once daily. cetirizine (ZYRTEC) 10 mg tablet Take 1 tablet by mouth once daily. DULoxetine (CYMBALTA) 60 mg capsule Take 1 capsule by mouth once daily. traZODone (DESYREL) 50 mg tablet Take 50 mg by mouth daily at bedtime. As needed lamoTRIgine (LAMICTAL) 25 mg tablet Take 25 mg by mouth twice daily. hydrOXYzine pamoate (VISTARIL) 25 mg capsule Take 1 capsule by mouth three times daily as needed for Anxiety. dibucaine (NUPERCAINAL) 1 % ointment 1 application as needed. Apply to the anus as needed before and following a bowel movement to decrease pain. calcium carbonate (CALTRATE 600) 600 mg (1,500 mg) tab Take 0.5 tablets by mouth once daily. ascorbic acid (VITAMIN C) 500 mg tablet Take 500 mg by mouth once daily. cyanocobalamin(VITAMIN B-12 1,000 MCG TAB) Take one(1) tablet daily. MULTIVITAMIN TAB Take one(1) tablet daily. No current facility-administered medications for this visit. ALLERGIES: ALLERGIES Allergen Reactions - Bees Intolerance - Asa [Salicylates] Rash - Asprin [Aspirin] Rash Also makes pt really sleepy - Ibuprofen Swelling throat swelling - Wheat Gluten GI Upset VITALS: BP 122/68 Pulse 64 Temp 36.2 ?C (97.2 ?F) (Tympanic) Resp 16 Wt 109.3 kg (241 lb) BMI 40.41 kg/m? PHYSICAL EXAM: GEN: mildly ill appearing HEENT: PERRL, EOMI, conjunctiva clear Ears: canals clear, TMs without erythema, bulge, or effusion Sinuses: non-tender frontal sinus, tender maxillary sinuses Throat: moist mucous membranes, mild erythema, no exudate Neck: supple, no thyromegaly, no lymphadenopathy HEART: regular rate and rhythm, no murmurs LUNGS: clear to auscultation, no wheezes or crackles, no increased WOB ASSESSMENT/PLAN: 1. Acute non-recurrent sinusitis, unspecified location - ICD9: 461.9, ICD10: J01.90 - Will begin treatment with - AMOXICILLIN 875 MG TABLET Stevie Machado MD CNOV Observed: 03/19/2018 Status: COMPLETED Source: [place] 10:00 AM [facility] REPOSITORY Office Visit (WSTR) KRYS AARON ([id number]) 1970 F Date Time Provider Department 03/19/18 10:00 AM STEVIE MACHADO [facility] During your visit today, we recorded the following information about you: Temperature Pulse Respiration Blood pressure 97.2 degrees 64/minute 16/minute 122/68 Weight 109.3 kg Stevie Machado MD 03/19/2018 10:33 AM Signed Patient presents with: Sinus Problem: sinus pressure and drainage, red and matting eyes x 2 weeks HPI: Feeling sick for 2 weeks. Her daughter has been sick 2 weeks also. Positive symptoms: Sinus pressure/headache, Nasal Congestion, Rhinorrhea, Post nasal drainage, AM eye discharge, Negative symptoms: Fever, Chills, OTC: aleve, flonase PAST MEDICAL HISTORY Diagnosis Date - Adjustment disorder with depressed mood ANXIETY/DEPRESSION - Arrhythmia as a child-no current problems - Bariatric surgery status 06-29-09 lrygbp - Benign hypertension 05/05/2015 - Bipolar 2 disorder (HCC) 04/12/2017 - Celiac disease 06/2005 - Excessive or frequent menstruation Heavy periods - Fatty liver disease, nonalcoholic 04/19/2012 - Generalized anxiety disorder - GERD (gastroesophageal reflux disease) - Hemorrhage of rectum and anus - Lumbago - Midline low back pain without sciatica 09/24/2014 - Migraine, unspecified, with intractable migraine, so stated, without mention of status migrainosus Migraine - Mild dysplasia of cervix 04/05/06 mild dysplasia of cervix on biopsy 12, 7 oclock - Morbid obesity (HCC) 316 BMI 51.83 Ht: 64.75 Wt: 309 lbs - Other and unspecified hyperlipidemia - Other chronic nonalcoholic liver disease - Other chronic nonalcoholic liver disease - Overactive bladder 12/11/2012 - Pain in joint, multiple sites knees,hips - Papanicolaou smear of cervix with low grade squamous intraepithelial lesion (LGSIL) 03/08/06 - PCOS (polycystic ovarian syndrome) - PMH - PAST MEDICAL HISTORY OF Carpal tunnel syndrome - PMH - PAST MEDICAL HISTORY OF PELVIC FLOOR DISORDER WITH URINARY RETENTION - Sleep apnea, obstructive 2010 resolved with weight loss - Snoring - Urinary tract infection, site not specified Recurrent UTI's - Vitamin D deficiency MEDICATIONS: Current Outpatient Prescriptions: sucralfate (CARAFATE) 1 gram tablet DISSOLVE 1 TABLET IN 2 TEASPOONS OF WATER, STIR, AND SWALLOW AND TAKE BEFORE MEALS AND BED naltrexone-bupropion (CONTRAVE) 8-90 mg TbER 1 po qAM x 1 wk. then 1 po BID ferrous sulfate EC 324 mg (65 mg iron) TbEC Take 1 tablet by mouth once daily. lisinopril (ZESTRIL, PRINIVIL) 5 mg tablet Take 1 tablet by mouth once daily. SUMAtriptan (IMITREX) 50 mg tablet TAKE 1 TABLET BY MOUTH NEEDED (MAY REPEAT DOSE IN 2 HOURS IF HEADACHE PERSISTS.). oxybutynin ER (DITROPAN XL) 10 mg 24 hr tablet Take 1 tablet by mouth once daily. Cholecalciferol, Vitamin D3, 5,000 unit cap Take 1 capsule by mouth once daily. cetirizine (ZYRTEC) 10 mg tablet Take 1 tablet by mouth once daily. DULoxetine (CYMBALTA) 60 mg capsule Take 1 capsule by mouth once daily. traZODone (DESYREL) 50 mg tablet Take 50 mg by mouth daily at bedtime. As needed lamoTRIgine (LAMICTAL) 25 mg tablet Take 25 mg by mouth twice daily. hydrOXYzine pamoate (VISTARIL) 25 mg capsule Take 1 capsule by mouth three times daily as needed for Anxiety. dibucaine (NUPERCAINAL) 1 % ointment 1 application as needed. Apply to the anus as needed before and following a bowel movement to decrease pain. calcium carbonate (CALTRATE 600) 600 mg (1,500 mg) tab Take 0.5 tablets by mouth once daily. ascorbic acid (VITAMIN C) 500 mg tablet Take 500 mg by mouth once daily. cyanocobalamin(VITAMIN B-12 1,000 MCG TAB) Take one(1) tablet daily. MULTIVITAMIN TAB Take one(1) tablet daily. No current facility-administered medications for this visit. ALLERGIES: ALLERGIES Allergen Reactions - Bees Intolerance - Asa [Salicylates] Rash - Asprin [Aspirin] Rash Also makes pt really sleepy - Ibuprofen Swelling throat swelling - Wheat Gluten GI Upset VITALS: BP 122/68 Pulse 64 Temp 36.2 ?C (97.2 ?F) (Tympanic) Resp 16 Wt 109.3 kg (241 lb) BMI 40.41 kg/m? PHYSICAL EXAM: GEN: mildly ill appearing HEENT: PERRL, EOMI, conjunctiva clear Ears: canals clear, TMs without erythema, bulge, or effusion Sinuses: non-tender frontal sinus, tender maxillary sinuses Throat: moist mucous membranes, mild erythema, no exudate Neck: supple, no thyromegaly, no lymphadenopathy HEART: regular rate and rhythm, no murmurs LUNGS: clear to auscultation, no wheezes or crackles, no increased WOB ASSESSMENT/PLAN: 1. Acute non-recurrent sinusitis, unspecified location - ICD9: 461.9, ICD10: J01.90 - Will begin treatment with - AMOXICILLIN 875 MG TABLET Stevie Machado MD Referring Provider: SELF [200] Allergies As of Date: 03/19/2018 Noted Allergy Reaction BEES 02/02/2005 5 - Intolerance ASA (SALICYLATES) 12/30/2004 2 - Rash ASPRIN (ASPIRIN) 03/07/2012 2 - Rash Comments: Also makes pt really sleepy IBUPROFEN 12/30/2004 7 - Swelling Comments: throat swelling WHEAT GLUTEN 11/25/2005 8 - GI Upset Date Reviewed: 03/19/2018 Reviewed by: Nicolle Coats Ma - Fully Assessed Reason for Visit: Sinus Problem [99] Cmt: sinus pressure and drainage, red and matting eyes x 2 weeks Primary Visit Diagnosis:Acute non-recurrent sinusitis, unspecified location [J01.90] Order(s):amoxicillin (AMOXIL) 875 mg tabletTake 1 tablet by mouth twice daily for 7 days.Disp: 14 tabletRfl: 0 Prescriptions as of 03/19/2018 Sig: SUCRALFATE 1 GRAM TABLET DISSOLVE 1 TABLET IN 2 TEASPO* NALTREXONE 8 MG-BUPROPION 90 * 1 po qAM x 1 wk. then 1 po BID FERROUS SULFATE 324 MG (65 MG* Take 1 tablet by mouth once d* LISINOPRIL 5 MG TABLET Take 1 tablet by mouth once d* SUMATRIPTAN 50 MG TABLET TAKE 1 TABLET BY MOUTH NEE* OXYBUTYNIN CHLORIDE ER 10 MG * Take 1 tablet by mouth once d* CHOLECALCIFEROL (VITAMIN D3) * Take 1 capsule by mouth once * CETIRIZINE 10 MG TABLET Take 1 tablet by mouth once d* DULOXETINE 60 MG CAPSULE,ABIGAIL* Take 1 capsule by mouth once * TRAZODONE 50 MG TABLET Take 50 mg by mouth daily at * LAMOTRIGINE 25 MG TABLET Take 25 mg by mouth twice lux* HYDROXYZINE PAMOATE 25 MG CAP* Take 1 capsule by mouth three* DIBUCAINE 1 % TOPICAL OINTMENT 1 application as needed. Appl* CALCIUM CARBONATE 600 MG CALC* Take 0.5 tablets by mouth onc* ASCORBIC ACID (VITAMIN C) 500* Take 500 mg by mouth once lux* VITAMIN B-12 1,000 MCG TABLET Take one(1) tablet daily. MULTIVITAMIN TABLET Take one(1) tablet daily. AMOXICILLIN 875 MG TABLET Take 1 tablet by mouth twice * Problem List As Of Date 03/19/2018 Noted Resolved Morbid obesity [E66.01] INVALID FOR*01/11/2011 Irregular menstrual cycle [N92.6] INVALID FOR*01/11/2011 BONE AND CARTILAGE DIS NOS [M89.9, M94.9] INVALID FOR* CELIAC DISEASE [K90.0] INVALID FOR* POLYCYSTIC OVARIES [E28.2] INVALID FOR* THREATENED ANTEPARTUM CONDITN/COMPL [O*INVALID FOR*01/11/2011 Supervision of other normal [Z34.80] INVALID FOR*01/11/2011 Unspecified high-risk [O09.90] INVALID FOR*01/11/2011 Dizziness and giddiness [R42] INVALID FOR*04/19/2012 Previous delivery, antepartum conditio*INVALID FOR*01/11/2011 Mild or unspecified pre-eclampsia, antepartum [*INVALID FOR*01/11/2011 MILD DYSPLASIA OF CERVIX [N87.0] INVALID FOR* Sprain of neck [S13.9XXA] INVALID FOR*04/19/2012 ADJUSTMENT DISORDER WITH DEPRESSED MOOD [F43.21]INVALID FOR* GENERALIZED ANXIETY DIS [F41.1] INVALID FOR* DYSMETABOLIC SYNDROME X [E88.81] INVALID FOR* Essential hypertension, benign [I10] INVALID FOR*04/19/2012 Sprain of ankle, unspecified site [S93.409A] INVALID FOR*04/19/2012 Eating disorder, unspecified [F50.9] INVALID FOR*04/19/2012 Major depressive disorder, recurrent episode, m*INVALID FOR*05/20/2016 Internal hemorrhoids without mention of complic*INVALID FOR*04/19/2012 Anal fissure [K60.2] INVALID FOR*04/19/2012 Bulimia nervosa [F50.2] INVALID FOR*04/19/2012 Vitamin D Deficiency [E55.9] INVALID FOR* GERD (Gastroesophageal Reflux Disease) [K21.9] INVALID FOR* More... RB (rectal bleeding) [K62.5] INVALID FOR*04/19/2012 Scoliosis (and kyphoscoliosis), idiopathic [M41*INVALID FOR* Sprain of lumbar region [S33.5XXA] INVALID FOR*04/19/2012 Sleep apnea, obstructive [G47.33] INVALID FOR*04/19/2012 Lump or mass in breast [N63.0] INVALID FOR*08/17/2015 Mastodynia [N64.4] INVALID FOR*08/17/2015 Galactorrhea not associated with childbirth [N6*INVALID FOR*08/17/2015 Abnormal mammogram, unspecified [R92.8] INVALID FOR*08/17/2015 Abnormal ultrasound of breast [R92.8] INVALID FOR*08/17/2015 Fatty liver disease, nonalcoholic [K76.0] INVALID FOR* Overactive bladder [N32.81] INVALID FOR* Arthritis, 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 Letter Text [facility] [address] [place] [id number] 03/19/2018 Krys Aaron [facility]# [id number] [facility] [address] TO WHOM IT MAY CONCERN: This is to confirm that Krys Aaron had an appointment and was seen at the [facility] in the Department of Urgent Care by Stevie Machado MD on 03/19/2018 for illness. Sincerely , Stevie Machado MD Encounter Status:Closed by STEVIE MACHADO MD on 03/19/18 URINALYSIS, COMPLETE Collected: 02/13/2018 Status: F Source: [facility] 3:06 PM [facility] REPOSITORY Order Comment: How was Urine Obtained? CLEAN CATCH TYPE CODE TESTS RESULT OUT OF RANGE REFERENCE UNITS LAB L400.3000 Yellow COLOR Normal Yellow LAB L400.3050 Clear Normal CLARITY Clear LAB L400.3200 Normal mg/dl Normal GLUCOSE, UR Normal LAB L400.3300 Negative mg/dL Normal BILIRUBIN URINE Negative LAB L400.3400 Negative mg/dl Normal KETONE UR Negative LAB L400.3465 1.002-1.030 Normal SP.GR. DIPSTX 1.020 LAB L400.3550 5.0 - 8.0 pH UR Normal 6.0 LAB L400.3600 Negative mg/dl PROT Normal DIPSTX Negative LAB L400.3700 Normal mg/dl Normal UROBILI Normal LAB L400.3750 Negative Normal NITRITE UR Negative LAB L400.3780 Negative /ul Normal OCCULT BLOOD-UR Negative LAB L400.3800 Negative /ul LEUK Normal ESTERASE Negative LAB L400.4050 0-5 /hpf WBC 0 Normal SEEN LAB L400.4100 0-5 /hpf 0 Normal RBC-UA SEEN LAB L400.4150 5-10 /hpf SQUAM Normal EPI 0-5 SEEN LAB L400.4300 None Seen /hpf 0 Normal BACTERIA SEEN LAB L400.4350 <or=2+ /hpf 0 Normal MUCUS, URINE SEEN Performed By: #### L400.0001 #### [facility] [address] [place], [address] Observed: 02/13/2018 Status: F Source: [place] CULTURE, URINE 3:06 PM [facility] REPOSITORY Urine Culture Below infection level. ORGANISM 1: Mixed Gram Positive Organisms Cinebar Count 1000-10,000 Performed By: #### M100.0650 #### [facility] [address] [place], [address] URGENT CARE VISIT Observed: 02/12/2018 Status: F Source: [place] REPORT 3:48 PM [facility] REPOSITORY [facility] [place] [address] OFFICE VISIT Date of Service: 02/12/18 MR#: [id number] Acct: [id number] Name: KRYS AARON Rep #: [id number] : 1970 Provider: Sher DUNHAM Age/Sex: 47/F Location[place] [facility] Status: Signed Intake Vital Signs02/12/18 Body Mass Index (BMI) 40.6 02/12/18 Height 5 ft 5 in Intake Visit Reasons: Urinary tract infection Chief Complaint: Dysuria Unload Associate Required: No Accompanied by: Daughter Is patient in pain?: No Allergies aspirin Allergy (Verified 02/12/18 14:55) Rash hydrocodone [From Vicodin] Allergy (Verified 02/12/18 14:55) Hives ibuprofen Allergy (Verified 02/12/18 14:55) Anaphylaxis venom-honey bee [bee venom (honey bee)] Allergy (Verified 02/12/18 14:55) Anaphylaxis gluten Adverse Reaction (Verified 02/12/18 14:55) Upset Stomach Medications Duloxetine Hcl [Cymbalta] 20 mg PO DAILY 12/30/12 [History Confirmed 01/21/18] Oxybutynin [Ditropan] 5 mg PO DAILY 02/01/13 [History Confirmed 01/21/18] Ferrous Sulfate 325 mg PO DAILY@0800 07/27/16 [History Confirmed 01/21/18] Fexofenadine/Pseudoephedrine [Katerin-D 24 Hour Tablet] 1 ea PO DAILY 07/27/16 [History Confirmed 01/21/18] hydrOXYzine pamoate capsule [Vistaril] 25 mg PO TID PRN PRN #10 cap 07/27/16 [Rx Confirmed 01/21/18] cholecalciferol (vitamin D3) 1,000 unit capsule 1,000 unit PO ONCE 02/17/17 [History Confirmed 01/21/18] cyanocobalamin (vit B-12) 1,000 mcg/mL oral drops 1,000 mcg PO QDAY 02/17/17 [History Confirmed 01/21/18] lisinopril 2.5 mg tablet 2.5 mg PO QDAY 02/17/17 [History Confirmed 01/21/18] multivitamin tablet 1 tab PO QAM 02/17/17 [History Confirmed 01/21/18] naproxen sodium 220 mg capsule 220 mg PO Q12H 02/17/17 [History Confirmed 01/21/18] Lamotrigine 25 mg PO DAILY 07/06/17 [History Confirmed 01/21/18] traZODone [Desyrel] 50 mg PO QHS PRN 07/07/17 [History Confirmed 01/21/18] PFSH Medical History Anemia (Acute) Arthritis (Acute) Back pain (Acute) Celiac disease (Acute) Hemorrhoids (Acute) Incontinence (Acute) Knee pain (Acute) Liver disease (Acute) Migraines (Acute) Shoulder pain (Acute) HTN (hypertension) (Chronic) Surgical History History of carpal tunnel surgery (Acute) History of sinus surgery (Acute) History of tonsillectomy and adenoidectomy (Acute) Personal history of gastric bypass (Acute) Family History Other Arthritis COPD (chronic obstructive pulmonary disease) Cancer Diabetes Osteoporosis Parkinson disease Social History Smoking Status: Never smoker alcohol intake: never HPI HPI Chief Complaint: Dysuria Details: KRYS AARON, is a 47 F who presents to the office today for 1 week history of intermittent mild dysuria. Patient notes no complaints of fever, chills, sweats, rash, cough, chest pain/shortness of breath, back pain, urethral/vaginal discharge. Patient notes otherwise being asymptomatic, taking no jsre-bga-xvjkcej products to assist with symptoms. She notes no other associated symptoms no other alleviating or aggravating factors. ROS Const Constitutional: No other (ROS negative x10 other than as noted above) Exam Const General: cooperative, healthy appearing, no acute distress, comfortable Nutritional Appearance: obese Orientation: alert, awake, oriented x3 HENMT Head: normocephalic, atraumatic Neck Neck: normal visual inspection, full ROM, no lymphadenopathy, no meningeal signs, supple Neck mass: No Thyroid: thyroid normal Lymphatic: no lymphadenopathy noted Chest Chest palpation AND inspection: normal inspection of the chest Resp Effort AND Inspection: normal respiratory effort, able to speak in complete sentences, symmetric chest movement Auscultation: Bilateral: Clear to Auscultation Cardio Palpation: normal PMI Rate: regular rate Rhythm: regular rhythm Heart Sounds: S1 normal, S2 normal, no gallops, no murmurs, no rubs Pulses: radial pulses present GI Inspection: normal to inspection Palpation: soft, no hepatosplenomegaly, nontender, not firm, no guarding General: No CVA tenderness, other (See urinalysis dip and urine hCG results) Skin General: no rashes or lesions noted Neuro General: alert, awake, oriented x3, gait normal Cognition: normal cognition Speech: speech normal Gait: normal gait Motor: muscle tone normal throughout Sensory Exam: no sensory deficits noted Extrem General: normal to inspection Psych Appearance: grossly normal Mental Status: mental status grossly normal Mood: congruent mood Affect: normal affect Speech and Movement: speech and movement normal Attitude: cooperative Thought Process: normal Thought Content: normal Judgment: judgment good Results [facility] Office Urine Color Yellow Last Edit by Tanvi Thorpe on 02/12/18 15:00 [facility] Office , Urine Negative Last Edit by Tanvi Thorpe on 02/12/18 15:00 Assessment AND Plan 1. Urinary tract infection N39.0 2. Dysuria R30.0 Plan Negative urine analysis dip and urine hCG results today; urine sample sent to lab for culture and sensitivity. Appropriate hygiene care is reinforced today. Follow-up with PCP in 3-5 days should symptoms not improve, sooner should symptoms worsen or any other concerns develop. Patient states acknowledging understanding all the above. This note was generated with Tsukulink dictation software. It may contain incorrect words, spelling, and punctuation that were not noted in checking the note before signing. Orders Orders: Coding Level of Care Code Off vis,est,level 3 Diagnoses Urinary tract infection N39.0 Dysuria R30.0 02/12/18 1548 <Electronically signed by Sher DUNHAM> Date Sher DUNHAM Cosigner Signature: Date (if applicable) CC: URGENT CARE VISIT Observed: 01/22/2018 Status: F Source: [place] REPORT 2:37 PM [facility] [address] [place] [address] [address] [place] [address] OFFICE VISIT Date of Service: 01/21/18 MR#: [id number] Acct: [id number] Name: KRYS AARON Rep #: [id number] : 1970 Provider: Josep Romero NP Age/Sex: 47/F Location[place] [facility] Status: Signed Intake Vital Signs01/21/18 Height 5 ft 5 in 01/21/18 Weight: 244 lb 01/21/18 Body Mass Index (BMI) 40.6 01/21/18 Blood Pressure 134/82 H Intake Visit Reasons: fever 3 weeks Chief Complaint: Cough and sinus drainage Unload Associate Required: No Accompanied by: self Is patient in pain?: No Allergies aspirin Allergy (Verified 01/21/18 13:56) Rash hydrocodone [From Vicodin] Allergy (Verified 01/21/18 13:56) Hives ibuprofen Allergy (Verified 01/21/18 13:56) Anaphylaxis venom-honey bee [bee venom (honey bee)] Allergy (Verified 01/21/18 13:56) Anaphylaxis gluten Adverse Reaction (Verified 01/21/18 13:56) Upset Stomach Medications Duloxetine Hcl [Cymbalta] 20 mg PO DAILY 12/30/12 [History Confirmed 01/21/18] Oxybutynin [Ditropan] 5 mg PO DAILY 02/01/13 [History Confirmed 01/21/18] Ferrous Sulfate 325 mg PO DAILY@0800 07/27/16 [History Confirmed 01/21/18] Fexofenadine/Pseudoephedrine [Katerin-D 24 Hour Tablet] 1 ea PO DAILY 07/27/16 [History Confirmed 01/21/18] hydrOXYzine pamoate capsule [Vistaril] 25 mg PO TID PRN PRN #10 cap 07/27/16 [Rx Confirmed 01/21/18] cholecalciferol (vitamin D3) 1,000 unit capsule 1,000 unit PO ONCE 02/17/17 [History Confirmed 01/21/18] cyanocobalamin (vit B-12) 1,000 mcg/mL oral drops 1,000 mcg PO QDAY 02/17/17 [History Confirmed 01/21/18] lisinopril 2.5 mg tablet 2.5 mg PO QDAY 02/17/17 [History Confirmed 01/21/18] multivitamin tablet 1 tab PO QAM 02/17/17 [History Confirmed 01/21/18] naproxen sodium 220 mg capsule 220 mg PO Q12H 02/17/17 [History Confirmed 01/21/18] Lamotrigine 25 mg PO DAILY 07/06/17 [History Confirmed 01/21/18] traZODone [Desyrel] 50 mg PO QHS PRN 07/07/17 [History Confirmed 01/21/18] amoxicillin 875 mg-potassium clavulanate 125 mg tablet 1 tab PO BID #14 tab 01/21/18 [Rx Confirmed 01/21/18] PFS Medical History Anemia (Acute) Arthritis (Acute) Back pain (Acute) Celiac disease (Acute) Hemorrhoids (Acute) Incontinence (Acute) Knee pain (Acute) Liver disease (Acute) Migraines (Acute) Shoulder pain (Acute) HTN (hypertension) (Chronic) Surgical History History of carpal tunnel surgery (Acute) History of sinus surgery (Acute) History of tonsillectomy and adenoidectomy (Acute) Personal history of gastric bypass (Acute) Family History Other Arthritis COPD (chronic obstructive pulmonary disease) Cancer Diabetes Osteoporosis Parkinson disease Social History Smoking Status: Never smoker alcohol intake: never HPI HPI Chief Complaint: Cough and sinus drainage Details: KRYS AARON, is a 47 F who presents to the office today for acute onset cough sinus drainage with intermittent subjective fever times 3 weeks. She has a past medical history is as above. The patient notes her symptoms of nonproductive cough, postnasal drainage, nasal congestion, sinus pressure, and occasional intermittent subjective fever has been going on for approximately 3 weeks now. She admits to pressure in the ethmoid sinus area. 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 She has attempted to remedy her symptoms with Tylenol Cold and sinus with mild relief. She denies any symptom aggravators or other alleviating factors. She denies any chest pain or shortness of breath. She does note that she has had UTI in the recent past and has had fever with UTIs before. The patient otherwise denies any chills, nausea, vomiting, shortness of breath, chest pain or pressure, palpitations, orthopnea, lower extremity edema, syncope or presyncopal episodes. ROS Const Constitutional: No fever(s), chills, weakness, change in appetite, sleep problems, fatigue, malaise or frequent falls Eyes Eyes: No blurry vision, change in vision, double vision or discharge ENT ENT: Positive for nasal discharge, sinus pain, sinus pressure and post nasal drip; no abnormal hearing, ear pain, ear pressure, dizziness/vertigo or sore throat Resp Respiratory: Positive for cough; no wheezing or shortness of breath Cardio Cardiology: No chest pain at rest, chest pain with exertion, shortness of breath, dyspnea on exertion, lightheadedness, irregular heart rhythm, fast heart rate, palpitations, orthopnea or generalized swelling Gastro GI: No abdominal pain, change in bowel habits, constipation, diarrhea, vomiting or nausea/dyspepsia Musc Musculoskeletal: No joint pain, back pain, limited range of motion, joint swelling, muscle weakness, tingling or numbness Skin Skin: No change in skin color, wounds, rash or itching Neuro Neurology: No weakness, frequent falls, abnormal hearing, tingling, numbness, unsteady gait/balance, dizziness, loss of vision or memory loss Psych Psychiatric: No change in appetite, No memory loss, No anxiety, No depression, No Thoughts of harming yourself/Others Endo Endocrine: No fatigue, increased thirst/drinking, increased urination, increased hunger or heat intolerance Aller/Imm Allergy/Immunologic: No wheezing, itchy eyes or seasonal allergy symptoms Cash/Lymp Hematologic/Lymphatic: No easy bleeding, easy bruising or enlarged lymph nodes Exam Const General: cooperative, comfortable, no acute distress Nutritional Appearance: average body habitus, well nourished Orientation: alert, oriented x3 Limitations: mental status not altered HENMT Head: normal to inspection, normocephalic Ears: hearing grossly normal bilaterally, TM's normal bilaterally Nose: external nose normal, mucous membranes and turbinates abnormal erythematous, nasal discharge clear bilaterally Face and sinus: sinus tenderness frontal and ethmoid Mouth: oral mucosae normal Throat: posterior oropharynx normal, postnasal drainage Neck Neck: no lymphadenopathy Resp Effort AND Inspection: normal respiratory effort, able to speak in complete sentences, normal respiratory pattern, symmetric chest movement, no audible wheezes, no cough Auscultation: Bilateral: Clear to Auscultation Cardio Palpation: normal PMI Rate: regular rate Heart Sounds: S1 normal, S2 normal, normal S1 and S2, no click, no gallops, no murmurs, no rubs Musc Musculoskeletal: No muscle weakness Skin General: no rashes or lesions noted, elasticity normal, turgor normal Lesions: no lesions Rashes: no rashes Extrem General: normal to inspection, normal gait, no edema, no pedal edema Psych Appearance: grossly normal Mental Status: mental status grossly normal Affect: normal affect Attitude: cooperative Thought Process: normal Assessment AND Plan Problems 1. Acute ethmoidal sinusitis J01.20 2. Fever R50.9 Plan Patient symptoms are consistent with acute ethmoidal sinusitis. She is currently afebrile in office and has had complaints of subject to fevers at home. A UA was negative, will send to lab for evaluation. Will empirically for sinusitis given the fact that the duration of her symptoms have been 3 weeks now. Rx sent in for Augmentin and discussed how to take this and potential side effects of medication. Also discussed conservative management as well such as increasing fluids, rest and hand hygiene. Advised on the use of fdip-pns-vxdcfip antipyretics if she does develop a measurable fever and on the use of Flonase for sinus pain and pressure. Discussed following up with PCP or ENT if condition progresses or worsens. This note was generated with Tsukulink dictation software. It may contain incorrect words, spelling, and punctuation that were not noted in checking the note before signing. Orders Orders: Medications New: amoxicillin-pot clavulanate 875-125 mg (Augmenti1 tab PO BID 14 tabs 0RF STORMY Wood n) Discontinued: amoxicillin-pot clavulanate 875-125 mg Discont1 tab PO Q12H 10 days 20 tabs 0RF J01.90 inued Reason: By Stop Date Plan Detail Follow Up PCP Coding Level of Care Code Off vis,est,level 3 Diagnoses Acute ethmoidal sinusitis J01.20 Fever R50.9 01/22/18 1437 <Electronically signed by Josep Romero LABELER-C> Date Josep Romero LABELER-C Cosigner Signature: Date (if applicable) CC: URINALYSIS, COMPLETE Collected: 01/22/2018 Status: F Source: [place]GER 10:39 AM [facility] Order Comment: How was Urine Obtained? CLEAN CATCH TYPE CODE TESTS RESULT OUT OF RANGE REFERENCE UNITS LAB L400.3000 Yellow COLOR Normal Yellow LAB L400.3050 Clear Normal CLARITY Sl. Cloudy LAB L400.3200 Normal mg/dl Normal GLUCOSE, UR Normal LAB L400.3300 Negative mg/dL Normal BILIRUBIN URINE Negative LAB L400.3400 Negative mg/dl Normal KETONE UR Negative LAB L400.3465 1.002-1.030 Normal SP.GR. DIPSTX 1.010 LAB L400.3550 5.0 - 8.0 pH UR Normal 6.0 LAB L400.3600 Negative mg/dl PROT Normal DIPSTX Negative LAB L400.3700 Normal mg/dl Normal UROBILI Normal LAB L400.3750 Negative Normal NITRITE UR Negative LAB L400.3780 Negative /ul Normal OCCULT BLOOD-UR Negative LAB L400.3800 Negative /ul LEUK Normal ESTERASE Negative LAB L400.4050 0-5 /hpf WBC 0 Normal SEEN LAB L400.4100 0-5 /hpf 0 Normal RBC-UA SEEN LAB L400.4150 5-10 /hpf SQUAM Normal EPI 0-5 SEEN LAB L400.4300 None Seen /hpf 0 Normal BACTERIA SEEN LAB L400.4350 <or=2+ /hpf 0 Normal MUCUS, URINE SEEN Performed By: #### L400.0001 #### [facility] [address] [place], [address] Observed: 01/22/2018 Status: F Source: [place] CULTURE, URINE 10:39 AM [facility] Urine Culture Culture exhibits no growth. Performed By: #### M100.0650 #### [facility] [address] [place], [address] PROGRESS Observed: 01/15/2018 Status: COMPLETED Source: JOINER 10:04 AM [facility] REPOSITORY HNO ID: [id number] Author: Domi Gomez (Francesca) Dinesh Service: (none) Author Type: Nurse Practitioner Type: Progress Notes Filed: 01/15/2018 10:05 AM Note Text: Subjective HPI Patient presents with: Head Congestion: cough, sore throat, ear pain, larynigitis x 10 days Admits ill contacts in the home. Denies any otc treatment for symptoms. Review of Systems Constitutional: Negative for chills, fever and malaise/fatigue. HENT: Positive for congestion, ear pain and sore throat (lose of voice). Eyes: Negative for discharge and redness. Respiratory: Positive for cough. Negative for hemoptysis, sputum production, shortness of breath and wheezing. Gastrointestinal: Negative for abdominal pain, diarrhea, nausea and vomiting. Skin: Negative for rash. Neurological: Negative for headaches. PAST MEDICAL HISTORY Diagnosis Date - Adjustment disorder with depressed mood ANXIETY/DEPRESSION - Arrhythmia as a child-no current problems - Bariatric surgery status 06-29-09 lrygbp - Benign hypertension 05/05/2015 - Bipolar 2 disorder (HCC) 04/12/2017 - Celiac disease 06/2005 - Excessive or frequent menstruation Heavy periods - Fatty liver disease, nonalcoholic 04/19/2012 - Generalized anxiety disorder - GERD (gastroesophageal reflux disease) - Hemorrhage of rectum and anus - Lumbago - Midline low back pain without sciatica 09/24/2014 - Migraine, unspecified, with intractable migraine, so stated, without mention of status migrainosus Migraine - Mild dysplasia of cervix 04/05/06 mild dysplasia of cervix on biopsy 12, 7 oclock - Morbid obesity (HCC) 316- BMI 51.83 Ht: 64.75 Wt: 309 lbs - Other and unspecified hyperlipidemia - Other chronic nonalcoholic liver disease - Other chronic nonalcoholic liver disease - Overactive bladder 12/11/2012 - Pain in joint, multiple sites knees,hips - Papanicolaou smear of cervix with low grade squamous intraepithelial lesion (LGSIL) 03/08/06 - PCOS (polycystic ovarian syndrome) - PMH - PAST MEDICAL HISTORY OF Carpal tunnel syndrome - PMH - PAST MEDICAL HISTORY OF PELVIC FLOOR DISORDER WITH URINARY RETENTION - Sleep apnea, obstructive 2010 resolved with weight loss - Snoring - Urinary tract infection, site not specified Recurrent UTI's - Vitamin D deficiency PAST SURGICAL HISTORY Procedure Laterality Date - BX OF BREAST; INCISIONAL 04-04-12 left - DELIVERY ONLY 2003; 2006 , low cervical X2 - COLONOSCOP W/ OR W/O BRSH SPEC 03/31/2014 Colonoscopy - COLPOSCOPY W BX CERVIX 04/05/06 mild dysplasia of cervix - DANDC, DIAG AND/OR THERAPEUTIC Dilation AND curettage - EGD W/O OR W/BRUSH/WASH 03/28/2016 EGD - FNA WITH IMAGING 10/16/12 Left breast retroareolar old hematoma cavity - LAP GASTRIC BYPASS/BRISA-EN-Y 06-29-09 P Lauren - LIGATE FALLOPIAN TUBE Tubal ligation 2006 - PAST SURGICAL HISTORY OF BILATERAL carpal tunnel surgery - PAST SURGICAL HISTORY OF Sinus surgery - REMOVAL ADENOIDS,PRIMARY,<12 Y/O Adenoidectomy - REMOVAL OF TONSILS,<12 Y/O Tonsillectomy - SIGMOIDOSCOPY FLEX DIAG 02/03/10 Min. internal hemorrhoids ALLERGIES Bees; Asa [Salicylates]; Asprin [Aspirin]; Ibuprofen; Wheat Gluten MEDICATIONS sucralfate (CARAFATE) 1 gram tablet DISSOLVE 1 TABLET IN 2 TEASPOONS OF WATER, STIR, AND SWALLOW AND TAKE BEFORE MEALS AND BED naltrexone-bupropion (CONTRAVE) 8-90 mg TbER 1 po qAM x 1 wk. then 1 po BID ferrous sulfate EC 324 mg (65 mg iron) TbEC Take 1 tablet by mouth once daily. lisinopril (ZESTRIL, PRINIVIL) 5 mg tablet Take 1 tablet by mouth once daily. SUMAtriptan (IMITREX) 50 mg tablet TAKE 1 TABLET BY MOUTH NEEDED (MAY REPEAT DOSE IN 2 HOURS IF HEADACHE PERSISTS.). oxybutynin ER (DITROPAN XL) 10 mg 24 hr tablet Take 1 tablet by mouth once daily. Cholecalciferol, Vitamin D3, 5,000 unit cap Take 1 capsule by mouth once daily. cetirizine (ZYRTEC) 10 mg tablet Take 1 tablet by mouth once daily. DULoxetine (CYMBALTA) 60 mg capsule Take 1 capsule by mouth once daily. traZODone (DESYREL) 50 mg tablet Take 50 mg by mouth daily at bedtime. As needed lamoTRIgine (LAMICTAL) 25 mg tablet Take 25 mg by mouth twice daily. hydrOXYzine pamoate (VISTARIL) 25 mg capsule Take 1 capsule by mouth three times daily as needed for Anxiety. dibucaine (NUPERCAINAL) 1 % ointment 1 application as needed. Apply to the anus as needed before and following a bowel movement to decrease pain. calcium carbonate (CALTRATE 600) 600 mg (1,500 mg) tab Take 0.5 tablets by mouth once daily. ascorbic acid (VITAMIN C) 500 mg tablet Take 500 mg by mouth once daily. cyanocobalamin(VITAMIN B-12 1,000 MCG TAB) Take one(1) tablet daily. MULTIVITAMIN TAB Take one(1) tablet daily. predniSONE (DELTASONE) 20 mg tablet Take 2 tablets by mouth once daily for 5 days. Take daily with food. Qajqrzoszgztkup-Abtowvvqy-YM (BROMFED DM) 2-30-10 mg/5 mL syrup Take 10 mL by mouth four times daily as needed for up to 7 days. FAMILY HISTORY Problem Relation Age of Onset - Hypertension Mother - other (Parkinson's disease) Mother - other (COPD, smoker) Father - Cervical Cancer Paternal Grandmother - Stroke Paternal Grandmother DVT - Cancer Paternal Grandfather LUNG - Hypertension Brother - Diabetes Brother - Cancer Brother KIDNEY - Cancer Brother BONE - Heart Paternal Uncle - Cerebral Embolism Other - Breast Cancer Paternal Aunt Social History Substance Use Topics - Smoking status: Never Smoker - Smokeless tobacco: Never Used - Alcohol use Yes Comment: rare Objective Physical Exam Constitutional: She is well-developed, well-nourished, and in no distress. HENT: Head: Normocephalic. Right Ear: Tympanic membrane, external ear and ear canal normal. Left Ear: Tympanic membrane, external ear and ear canal normal. Nose: Rhinorrhea present. Right sinus exhibits no maxillary sinus tenderness and no frontal sinus tenderness. Left sinus exhibits no maxillary sinus tenderness and no frontal sinus tenderness. Mouth/Throat: Posterior oropharyngeal erythema (PND) present. Eyes: Conjunctivae are normal. Neck: Normal range of motion. Neck supple. Cardiovascular: Normal rate, regular rhythm and normal heart sounds. Pulmonary/Chest: Effort normal and breath sounds normal. No respiratory distress. She has no wheezes. Abdominal: Soft. She exhibits no distension. There is no tenderness. Lymphadenopathy: She has no cervical adenopathy. Skin: Skin is warm and dry. No rash noted. Nursing note and vitals reviewed. ASSESSMENT/PLAN: 1. Viral URI with cough - ICD9: 465.9, ICD10: J06.9, B97.89 - Discussed viral etiology and rationale for treatment. - Symptomatic treatment with prn analgesia - Supportive care with fluids and rest - The patient may also use OTC decongestants prn, OTC cough and cold meds as needed, warm salt water gargles, throat lozenges and/or OTC throat spray as needed and nasal saline gtts and suction prn. - Follow up in 3-5 days if symptoms persist or sooner if worsening of symptoms Prescription instructions reviewed with patient as applicable. Patient advised if symptoms do not improve or if symptoms worsen sooner, to contact their primary care physician. Potential red flag symptoms discussed with the patient. Reviewed appropriate action plan to take if red flag symptoms occur. Patient agreeable to treatment plan. Domi Montiel APRN.PIPELINER CNOV Observed: 01/15/2018 Status: COMPLETED Source: [place]UBURN 9:45 AM [facility] REPOSITORY Office Visit (WSTR) KRYS AARON ([id number]) 1970 F Date Time Provider Department 01/15/18 9:45 AM DOMI MONTIEL (LABELER) WSTR During your visit today, we recorded the following information about you: Temperature Pulse Respiration Blood pressure 97 degrees 74/minute 16/minute 128/82 Weight 111.1 kg Domi Montiel APRN.CNP 01/15/2018 9:54 AM Signed Treatment for Viral Upper Respiratory Tract Infections Your body will kill off the virus by itself. Additionally, you can prime your body's immune system. This may help you get better more quickly. 1. Drink lots of fluids - at least one gallon of non-caffeinated liquids per day 2. Make sure you are eating well 3. Get plenty of rest - at least 8 hours of sleep per night for adults and more for children We do not have any medications that kill off these viruses. Antibiotics are used to treat bacterial infections; however, they are not active against viral infections. There are some things that might help you feel better, though. 1. Vaporizers, humidifiers, hot showers, and hot fluids help open respiratory and sinus passages 2. Sudafed is a safe and effective decongestant 3. [place] Nasal Locke may offer relief of nasal and head congestion 4. Lavelle's Vapor Rub placed on a hot towel and draped over the head may relieve congestion 5. Tylenol and Advil help control fevers and headaches 6. Salt water gargles help relieve sore throats 7. Chloraceptic spray or throat lozenges may also help relieve sore throat symptoms 8. Robitussin DM will help loosen up secretions and also provide relief from a cough Occasionally, viral infections turn into something more serious. You should see your doctor or return to the Urgent Care if: 1. You have fevers for longer than five days 2. You have fevers above 102 degrees 3. You are still sick after 10 days 4. You have shortness of breath or wheezing 5. After several days you are getting worse rather than better Domi Montiel APRN.OFELIA 01/15/2018 10:05 AM Signed Subjective HPI Patient presents with: Head Congestion: cough, sore throat, ear pain, larynigitis x 10 days Admits ill contacts in the home. Denies any otc treatment for symptoms. Review of Systems Constitutional: Negative for chills, fever and malaise/fatigue. HENT: Positive for congestion, ear pain and sore throat (lose of voice). Eyes: Negative for discharge and redness. Respiratory: Positive for cough. Negative for hemoptysis, sputum production, shortness of breath and wheezing. Gastrointestinal: Negative for abdominal pain, diarrhea, nausea and vomiting. Skin: Negative for rash. Neurological: Negative for headaches. PAST MEDICAL HISTORY Diagnosis Date - Adjustment disorder with depressed mood ANXIETY/DEPRESSION - Arrhythmia as a child-no current problems - Bariatric surgery status 06-29-09 lrygbp - Benign hypertension 05/05/2015 - Bipolar 2 disorder (HCC) 04/12/2017 - Celiac disease 06/2005 - Excessive or frequent menstruation Heavy periods - Fatty liver disease, nonalcoholic 04/19/2012 - Generalized anxiety disorder - GERD (gastroesophageal reflux disease) - Hemorrhage of rectum and anus - Lumbago - Midline low back pain without sciatica 09/24/2014 - Migraine, unspecified, with intractable migraine, so stated, without mention of status migrainosus Migraine - Mild dysplasia of cervix 04/05/06 mild dysplasia of cervix on biopsy 12, 7 oclock - Morbid obesity (HCC) 05-19-09 BMI 51.83 Ht: 64.75 Wt: 309 lbs - Other and unspecified hyperlipidemia - Other chronic nonalcoholic liver disease - Other chronic nonalcoholic liver disease - Overactive bladder 12/11/2012 - Pain in joint, multiple sites knees,hips - Papanicolaou smear of cervix with low grade squamous intraepithelial lesion (LGSIL) 03/08/06 - PCOS (polycystic ovarian syndrome) - PMH - PAST MEDICAL HISTORY OF Carpal tunnel syndrome - PMH - PAST MEDICAL HISTORY OF PELVIC FLOOR DISORDER WITH URINARY RETENTION - Sleep apnea, obstructive 2010 resolved with weight loss - Snoring - Urinary tract infection, site not specified Recurrent UTI's - Vitamin D deficiency PAST SURGICAL HISTORY Procedure Laterality Date - BX OF BREAST; INCISIONAL 04-04-12 left - DELIVERY ONLY 2003; 2006 , low cervical X2 - COLONOSCOP W/ OR W/O BRSH SPEC 03/31/2014 Colonoscopy - COLPOSCOPY W BX CERVIX 04/05/06 mild dysplasia of cervix - DANDC, DIAG AND/OR THERAPEUTIC Dilation AND curettage - EGD W/O OR W/BRUSH/WASH 03/28/2016 EGD - FNA WITH IMAGING 10/16/12 Left breast retroareolar old hematoma cavity - LAP GASTRIC BYPASS/BRISA-EN-Y 06-29-09 P Lauren - LIGATE FALLOPIAN TUBE Tubal ligation 2006 - PAST SURGICAL HISTORY OF BILATERAL carpal tunnel surgery - PAST SURGICAL HISTORY OF Sinus surgery - REMOVAL ADENOIDS,PRIMARY,<12 Y/O Adenoidectomy - REMOVAL OF TONSILS,<12 Y/O Tonsillectomy - SIGMOIDOSCOPY FLEX DIAG 02/03/10 Min. internal hemorrhoids ALLERGIES Bees; Asa [Salicylates]; Asprin [Aspirin]; Ibuprofen; Wheat Gluten MEDICATIONS sucralfate (CARAFATE) 1 gram tablet DISSOLVE 1 TABLET IN 2 TEASPOONS OF WATER, STIR, AND SWALLOW AND TAKE BEFORE MEALS AND BED naltrexone-bupropion (CONTRAVE) 8-90 mg TbER 1 po qAM x 1 wk. then 1 po BID ferrous sulfate EC 324 mg (65 mg iron) TbEC Take 1 tablet by mouth once daily. lisinopril (ZESTRIL, PRINIVIL) 5 mg tablet Take 1 tablet by mouth once daily. SUMAtriptan (IMITREX) 50 mg tablet TAKE 1 TABLET BY MOUTH NEEDED (MAY REPEAT DOSE IN 2 HOURS IF HEADACHE PERSISTS.). oxybutynin ER (DITROPAN XL) 10 mg 24 hr tablet Take 1 tablet by mouth once daily. Cholecalciferol, Vitamin D3, 5,000 unit cap Take 1 capsule by mouth once daily. cetirizine (ZYRTEC) 10 mg tablet Take 1 tablet by mouth once daily. DULoxetine (CYMBALTA) 60 mg capsule Take 1 capsule by mouth once daily. traZODone (DESYREL) 50 mg tablet Take 50 mg by mouth daily at bedtime. As needed lamoTRIgine (LAMICTAL) 25 mg tablet Take 25 mg by mouth twice daily. hydrOXYzine pamoate (VISTARIL) 25 mg capsule Take 1 capsule by mouth three times daily as needed for Anxiety. dibucaine (NUPERCAINAL) 1 % ointment 1 application as needed. Apply to the anus as needed before and following a bowel movement to decrease pain. calcium carbonate (CALTRATE 600) 600 mg (1,500 mg) tab Take 0.5 tablets by mouth once daily. ascorbic acid (VITAMIN C) 500 mg tablet Take 500 mg by mouth once daily. cyanocobalamin(VITAMIN B-12 1,000 MCG TAB) Take one(1) tablet daily. MULTIVITAMIN TAB Take one(1) tablet daily. predniSONE (DELTASONE) 20 mg tablet Take 2 tablets by mouth once daily for 5 days. Take daily with food. Ltnmatrnjvrwask-Virsgweyb-RL (BROMFED DM) 2-30-10 mg/5 mL syrup Take 10 mL by mouth four times daily as needed for up to 7 days. FAMILY HISTORY Problem Relation Age of Onset - Hypertension Mother - other (Parkinson's disease) Mother - other (COPD, smoker) Father - Cervical Cancer Paternal Grandmother - Stroke Paternal Grandmother DVT - Cancer Paternal Grandfather LUNG - Hypertension Brother - Diabetes Brother - Cancer Brother KIDNEY - Cancer Brother BONE - Heart Paternal Uncle - Cerebral Embolism Other - Breast Cancer Paternal Aunt Social History Substance Use Topics - Smoking status: Never Smoker - Smokeless tobacco: Never Used - Alcohol use Yes Comment: rare Objective Physical Exam Constitutional: She is well-developed, well-nourished, and in no distress. HENT: Head: Normocephalic. Right Ear: Tympanic membrane, external ear and ear canal normal. Left Ear: Tympanic membrane, external ear and ear canal normal. Nose: Rhinorrhea present. Right sinus exhibits no maxillary sinus tenderness and no frontal sinus tenderness. Left sinus exhibits no maxillary sinus tenderness and no frontal sinus tenderness. Mouth/Throat: Posterior oropharyngeal erythema (PND) present. Eyes: Conjunctivae are normal. Neck: Normal range of motion. Neck supple. Cardiovascular: Normal rate, regular rhythm and normal heart sounds. Pulmonary/Chest: Effort normal and breath sounds normal. No respiratory distress. She has no wheezes. Abdominal: Soft. She exhibits no distension. There is no tenderness. Lymphadenopathy: She has no cervical adenopathy. Skin: Skin is warm and dry. No rash noted. Nursing note and vitals reviewed. ASSESSMENT/PLAN: 1. Viral URI with cough - ICD9: 465.9, ICD10: J06.9, B97.89 - Discussed viral etiology and rationale for treatment. - Symptomatic treatment with prn analgesia - Supportive care with fluids and rest - The patient may also use OTC decongestants prn, OTC cough and cold meds as needed, warm salt water gargles, throat lozenges and/or OTC throat spray as needed and nasal saline gtts and suction prn. - Follow up in 3-5 days if symptoms persist or sooner if worsening of symptoms Prescription instructions reviewed with patient as applicable. Patient advised if symptoms do not improve or if symptoms worsen sooner, to contact their primary care physician. Potential red flag symptoms discussed with the patient. Reviewed appropriate action plan to take if red flag symptoms occur. Patient agreeable to treatment plan. Domi Montiel APRN.PIPELINER Referring Provider: SELF [[id number]] Allergies As of Date: 01/15/2018 Noted Allergy Reaction BEES 02/02/2005 5 - Intolerance ASA (SALICYLATES) 12/30/2004 2 - Rash ASPRIN (ASPIRIN) 03/07/2012 2 - Rash Comments: Also makes pt really sleepy IBUPROFEN 12/30/2004 7 - Swelling Comments: throat swelling WHEAT GLUTEN 11/25/2005 8 - GI Upset Date Reviewed: 01/15/2018 Reviewed by: Nicolle Coats Ma - Fully Assessed Reason for Visit: Head Congestion [234] Cmt: cough, sore throat, ear pain, larynigitis x 10 days Primary Visit Diagnosis:Viral URI with cough [J06.9, B97.89] Order(s):predniSONE (DELTASONE) 20 mg tabletTake 2 tablets by mouth once daily for 5 days. Take daily with food.Disp: 10 tabletRfl: 0 Ouainuyfhwskwum-Lxsxysiml-JX (BROMFED DM) 2-30-10 mg/5 mL syrupTake 10 mL by mouth four times daily as needed for up to 7 days.Disp: 240 mLRfl: 0 Prescriptions as of 01/15/2018 Sig: SUCRALFATE 1 GRAM TABLET DISSOLVE 1 TABLET IN 2 TEASPO* NALTREXONE 8 MG-BUPROPION 90 * 1 po qAM x 1 wk. then 1 po BID FERROUS SULFATE 324 MG (65 MG* Take 1 tablet by mouth once d* LISINOPRIL 5 MG TABLET Take 1 tablet by mouth once d* SUMATRIPTAN 50 MG TABLET TAKE 1 TABLET BY MOUTH NEE* OXYBUTYNIN CHLORIDE ER 10 MG * Take 1 tablet by mouth once d* CHOLECALCIFEROL (VITAMIN D3) * Take 1 capsule by mouth once * CETIRIZINE 10 MG TABLET Take 1 tablet by mouth once d* DULOXETINE 60 MG CAPSULE,ABIGAIL* Take 1 capsule by mouth once * TRAZODONE 50 MG TABLET Take 50 mg by mouth daily at * LAMOTRIGINE 25 MG TABLET Take 25 mg by mouth twice lux* HYDROXYZINE PAMOATE 25 MG CAP* Take 1 capsule by mouth three* DIBUCAINE 1 % TOPICAL OINTMENT 1 application as needed. Appl* CALCIUM CARBONATE 600 MG CALC* Take 0.5 tablets by mouth onc* ASCORBIC ACID (VITAMIN C) 500* Take 500 mg by mouth once lux* VITAMIN B-12 1,000 MCG TABLET Take one(1) tablet daily. MULTIVITAMIN TABLET Take one(1) tablet daily. PREDNISONE 20 MG TABLET Take 2 tablets by mouth once * BROMPHENIRAMINE-PSEUDOEPHEDRI* Take 10 mL by mouth four time* Problem List As Of Date 01/15/2018 Noted Resolved Morbid obesity [E66.01] INVALID FOR*01/11/2011 Irregular menstrual cycle [N92.6] INVALID FOR*01/11/2011 BONE AND CARTILAGE DIS NOS [M89.9, M94.9] INVALID FOR* CELIAC DISEASE [K90.0] INVALID FOR* POLYCYSTIC OVARIES [E28.2] INVALID FOR* THREATENED ANTEPARTUM CONDITN/COMPL [O*INVALID FOR*01/11/2011 Supervision of other normal [Z34.80] INVALID FOR*01/11/2011 Unspecified high-risk [O09.90] INVALID FOR*01/11/2011 Dizziness and giddiness [R42] INVALID FOR*04/19/2012 Previous delivery, antepartum conditio*INVALID FOR*01/11/2011 Mild or unspecified pre-eclampsia, antepartum [*INVALID FOR*01/11/2011 MILD DYSPLASIA OF CERVIX [N87.0] INVALID FOR* Sprain of neck [S13.9XXA] INVALID FOR*04/19/2012 ADJUSTMENT DISORDER WITH DEPRESSED MOOD [F43.21]INVALID FOR* GENERALIZED ANXIETY DIS [F41.1] INVALID FOR* DYSMETABOLIC SYNDROME X [E88.81] INVALID FOR* Essential hypertension, benign [I10] INVALID FOR*04/19/2012 Sprain of ankle, unspecified site [S93.409A] INVALID FOR*04/19/2012 Eating disorder, unspecified [F50.9] INVALID FOR*04/19/2012 Major depressive disorder, recurrent episode, m*INVALID FOR*05/20/2016 Internal hemorrhoids without mention of complic*INVALID FOR*04/19/2012 Anal fissure [K60.2] INVALID FOR*04/19/2012 Bulimia nervosa [F50.2] INVALID FOR*04/19/2012 Vitamin D Deficiency [E55.9] INVALID FOR* GERD (Gastroesophageal Reflux Disease) [K21.9] INVALID FOR* More... RB (rectal bleeding) [K62.5] INVALID FOR*04/19/2012 Scoliosis (and kyphoscoliosis), idiopathic [M41*INVALID FOR* Sprain of lumbar region [S33.5XXA] INVALID FOR*04/19/2012 Sleep apnea, obstructive [G47.33] INVALID FOR*04/19/2012 Lump or mass in breast [N63.0] INVALID FOR*08/17/2015 Mastodynia [N64.4] INVALID FOR*08/17/2015 Galactorrhea not associated with childbirth [N6*INVALID FOR*08/17/2015 Abnormal mammogram, unspecified [R92.8] INVALID FOR*08/17/2015 Abnormal ultrasound of breast [R92.8] INVALID FOR*08/17/2015 Fatty liver disease, nonalcoholic [K76.0] INVALID FOR* Overactive bladder [N32.81] INVALID FOR* Arthritis, lumbar spine [M47.816] INVALID FOR* Benign hypertension [I10] INVALID FOR* Occipital neuralgia of left side [M54.81] INVALID FOR*05/20/2016 Migraine with aura and without status migrainos*INVALID FOR* RUQ pain [R10.11] INVALID FOR*05/20/2016 Morbid obesity due to excess calories (HCC) [E6*INVALID FOR* History of bariatric surgery [Z98.84] INVALID FOR* Dyspepsia [R10.13] INVALID FOR* Other instructions from your clinician: Treatment for Viral Upper Respiratory Tract Infections Your body will kill off the virus by itself. Additionally, you can prime your body's immune system. This may help you get better more quickly. 1. Drink lots of fluids - at least one gallon of non-caffeinated liquids per day 2. Make sure you are eating well 3. Get plenty of rest - at least 8 hours of sleep per night for adults and more for children We do not have any medications that kill off these viruses. Antibiotics are used to treat bacterial infections; however, they are not active against viral infections. There are some things that might help you feel better, though. 1. Vaporizers, humidifiers, hot showers, and hot fluids help open respiratory and sinus passages 2. Sudafed is a safe and effective decongestant 3. [place] Nasal [place] may offer relief of nasal and head congestion 4. Lavelle's Vapor Rub placed on a hot towel and draped over the head may relieve congestion 5. Tylenol and Advil help control fevers and headaches 6. Salt water gargles help relieve sore throats 7. Chloraceptic spray or throat lozenges may also help relieve sore throat symptoms 8. Robitussin DM will help loosen up secretions and also provide relief from a cough Occasionally, viral infections turn into something more serious. You should see your doctor or return to the Urgent Care if: 1. You have fevers for longer than five days 2. You have fevers above 102 degrees 3. You are still sick after 10 days 4. You have shortness of breath or wheezing 5. After several days you are getting worse rather than better Prescriptions ordered this encounter Disp Refills Start End PREDNISONE 20 MG TABLET 10 t* 0 01/15/2018 01/20/2018 Route: ORAL Sig: Take 2 tablets by mouth once daily for 5 days. Take daily with food. DHJAVNMKYEUCGES-JRTWZCAGHOZPJAR-DI 2* 240 * 0 01/15/2018 01/22/2018 Route: ORAL Sig: Take 10 mL by mouth four times daily as needed for up to 7 days. Disposition: Return if symptoms worsen or fail to improve. Follow-up and Disposition History Recorded Letter Text Domi Montiel APRN.[facility] [address] [facility] [address] Dept: [phone] 01/15/2018 Krys Aaron [address] [facility] [address] To Whom it May Concern: This is to certify that Krys Aaron was seen at our office for medical care. Krys may return to work on 01/16/2018. If you have any questions please feel free to call. Sincerely: Domi Montiel APRN.[facility] Encounter Status:Closed by DOMI MONTIEL on 01/15/18 XR TOE 3V AP/LAT/OBL Observed: 01/04/2018 Status: F Source: [facility] 3:27 PM [facility] REPOSITORY * * *Final Report* * * DATE OF EXAM: Jan 04 2018 3:27PM WOX [id number] - XR TOE 3V AP/LAT/OBL LT / PROCEDURE REASON: Toe injury, left, initial encounter * * * * Physician Interpretation * * * * EXAM: XR TOE 3V AP/LAT/OBL LT HISTORY: Toe injury, left, initial encounter . VIEWS: AP, oblique and lateral left second toe. COMPARISON: No relevant comparison. FINDINGS: Oblique nonarticular fracture through the midshaft of left second toe proximal phalanx. Joint spaces are preserved. No soft tissue calcification. IMPRESSION: Fractured left second toe proximal phalanx. Internet Architect: PSCB Transcribe Date/Time: Jan 04 2018 3:33P Dictated by : Rylee NAVARRETE MD This examination was interpreted and the report reviewed and electronically signed by: Rylee NAVARRETE MD on Jan 04 2018 3:34PM EST [id number] PROGRESS Observed: 01/04/2018 Status: COMPLETED Source: [place] 3:14 PM [facility] REPOSITORY HNO ID: [id number] Author: Nasrin Goodman Service: (none) Author Type: (none) Type: Progress Notes Filed: 01/04/2018 3:27 PM Note Text: Radiology Service Progress Note PATIENT NAME: Krys Aaron DATE OF SERVICE: January 04, 2018 TIME: 3:14 PM PATIENT IDENTITY VERIFICATION COMPLETED USING TWO (2) METHODS: Patient confirmed name verbally and Date of . PATIENT GENDER DATA: Female. status: : No status: NO. PATIENT RELEVANT IMPLANT DATA REVIEWED: Not Applicable RADIOLOGY DEPARTMENT: General X-ray: Exam(s) Completed: Lower Extremity X-Ray(s): Toes, Left: 2nd PERIPHERAL IV DATA: Not applicable SIGNED BY: Nasrin Goodman January 04, 2018 3:14 PM PROGRESS Observed: 01/04/2018 Status: COMPLETED Source: [place] 3:12 PM [facility] REPOSITORY HNO ID: [id number] Author: Naty Irwin Service: (none) Author Type: Nurse Practitioner Type: Progress Notes Filed: 01/04/2018 4:32 PM Note Text: Subjective The history is provided by the patient. Krys Aaron is a 47 year old female who presents with pain in her left 2nd toe, she hit her toe against a coffee table. She has some bruising and swelling. She has taken Aleve for pain. She rates the pain 5/10. She also states she has a vaginal yeast infection, has recently been on an antibiotic for an ear infection. She has had itching and increased vaginal discharge. Review of Systems Constitutional: Negative. Negative for fever. Musculoskeletal: Positive for joint pain. See HPI Skin: Negative. BP 112/84 Pulse 62 Temp (!) 35.8 ?C (96.5 ?F) (Left Tympanic) Resp 16 Wt 110.4 kg (243 lb 6.4 oz) SpO2 98% BMI 40.82 kg/m? PAST MEDICAL HISTORY Diagnosis Date - Adjustment disorder with depressed mood ANXIETY/DEPRESSION - Arrhythmia as a child-no current problems - Bariatric surgery status 06-29-09 lrygbp - Benign hypertension 05/05/2015 - Bipolar 2 disorder (HCC) 04/12/2017 - Celiac disease 06/2005 - Excessive or frequent menstruation Heavy periods - Fatty liver disease, nonalcoholic 04/19/2012 - Generalized anxiety disorder - GERD (gastroesophageal reflux disease) - Hemorrhage of rectum and anus - Lumbago - Midline low back pain without sciatica 09/24/2014 - Migraine, unspecified, with intractable migraine, so stated, without mention of status migrainosus Migraine - Mild dysplasia of cervix 04/05/06 mild dysplasia of cervix on biopsy 12, 7 oclock - Morbid obesity (HCC) 05-19-09 BMI 51.83 Ht: 64.75 Wt: 309 lbs - Other and unspecified hyperlipidemia - Other chronic nonalcoholic liver disease - Other chronic nonalcoholic liver disease - Overactive bladder 12/11/2012 - Pain in joint, multiple sites knees,hips - Papanicolaou smear of cervix with low grade squamous intraepithelial lesion (LGSIL) 03/08/06 - PCOS (polycystic ovarian syndrome) - PMH - PAST MEDICAL HISTORY OF Carpal tunnel syndrome - PMH - PAST MEDICAL HISTORY OF PELVIC FLOOR DISORDER WITH URINARY RETENTION - Sleep apnea, obstructive 2010 resolved with weight loss - Snoring - Urinary tract infection, site not specified Recurrent UTI's - Vitamin D deficiency PAST SURGICAL HISTORY Procedure Laterality Date - BX OF BREAST; INCISIONAL 04-04-12 left - DELIVERY ONLY 2003; 2006 , low cervical X2 - COLONOSCOP W/ OR W/O BRSH SPEC 03/31/2014 Colonoscopy - COLPOSCOPY W BX CERVIX 1/31/07 mild dysplasia of cervix - DANDC, DIAG AND/OR THERAPEUTIC Dilation AND curettage - EGD W/O OR W/BRUSH/WASH 03/28/2016 EGD - FNA WITH IMAGING 10/16/12 Left breast retroareolar old hematoma cavity - LAP GASTRIC BYPASS/BRISA-EN-Y 06-29-09 P Lauren - LIGATE FALLOPIAN TUBE Tubal ligation 2006 - PAST SURGICAL HISTORY OF BILATERAL carpal tunnel surgery - PAST SURGICAL HISTORY OF Sinus surgery - REMOVAL ADENOIDS,PRIMARY,<12 Y/O Adenoidectomy - REMOVAL OF TONSILS,<12 Y/O Tonsillectomy - SIGMOIDOSCOPY FLEX DIAG 02/03/10 Min. internal hemorrhoids ALLERGIES Bees; Asa [Salicylates]; Asprin [Aspirin]; Ibuprofen; Wheat Gluten MEDICATIONS naltrexone-bupropion (CONTRAVE) 8-90 mg TbER 1 po qAM x 1 wk. then 1 po BID ferrous sulfate EC 324 mg (65 mg iron) TbEC Take 1 tablet by mouth once daily. lisinopril (ZESTRIL, PRINIVIL) 5 mg tablet Take 1 tablet by mouth once daily. sucralfate (CARAFATE) 1 gram tablet Take 1 tablet by mouth before meals and at bedtime. Dissolve one tablet in 2 teaspoons of water, stir and swallow. SUMAtriptan (IMITREX) 50 mg tablet TAKE 1 TABLET BY MOUTH NEEDED (MAY REPEAT DOSE IN 2 HOURS IF HEADACHE PERSISTS.). oxybutynin ER (DITROPAN XL) 10 mg 24 hr tablet Take 1 tablet by mouth once daily. Cholecalciferol, Vitamin D3, 5,000 unit cap Take 1 capsule by mouth once daily. cetirizine (ZYRTEC) 10 mg tablet Take 1 tablet by mouth once daily. DULoxetine (CYMBALTA) 60 mg capsule Take 1 capsule by mouth once daily. traZODone (DESYREL) 50 mg tablet Take 50 mg by mouth daily at bedtime. As needed lamoTRIgine (LAMICTAL) 25 mg tablet Take 25 mg by mouth twice daily. hydrOXYzine pamoate (VISTARIL) 25 mg capsule Take 1 capsule by mouth three times daily as needed for Anxiety. dibucaine (NUPERCAINAL) 1 % ointment 1 application as needed. Apply to the anus as needed before and following a bowel movement to decrease pain. calcium carbonate (CALTRATE 600) 600 mg (1,500 mg) tab Take 0.5 tablets by mouth once daily. ascorbic acid (VITAMIN C) 500 mg tablet Take 500 mg by mouth once daily. cyanocobalamin(VITAMIN B-12 1,000 MCG TAB) Take one(1) tablet daily. MULTIVITAMIN TAB Take one(1) tablet daily. fluconazole (DIFLUCAN) 150 mg tablet Take 1 tablet by mouth once daily for 1 day. FAMILY HISTORY Problem Relation Age of Onset - Hypertension Mother - other (Parkinson's disease) Mother - other (COPD, smoker) Father - Cervical Cancer Paternal Grandmother - Stroke Paternal Grandmother DVT - Cancer Paternal Grandfather LUNG - Hypertension Brother - Diabetes Brother - Cancer Brother KIDNEY - Cancer Brother BONE - Heart Paternal Uncle - Cerebral Embolism Other - Breast Cancer Paternal Aunt Social History Substance Use Topics - Smoking status: Never Smoker - Smokeless tobacco: Never Used - Alcohol use Yes Comment: rare Objective Physical Exam Constitutional: She is well-developed, well-nourished, and in no distress. Genitourinary: Genitourinary Comments: Exam deferred. Musculoskeletal: Left foot: There is tenderness, bony tenderness and swelling. There is normal range of motion, normal capillary refill, no crepitus and no deformity. Feet: Skin: Skin is warm and dry. No erythema. Nursing note and vitals reviewed. ASSESSMENT/PLAN: 1. Antibiotic-induced yeast infection - ICD9: 112.9, E930.9, ICD10: B37.9, T36.95XA (primary diagnosis) - will treat based on symptoms - FLUCONAZOLE 150 MG TABLET 2. Toe injury, left, initial encounter - ICD9: 959.7, ICD10: S99.922A - XR TOE AP/LAT/OBL LT. My reading: fracture (nondisplaced) at proximal phalanx left 2nd toe. Radiologist FINDINGS: Oblique nonarticular fracture through the midshaft of left second toe proximal phalanx. ?Joint spaces are preserved. ?No soft tissue calcification. Impression IMPRESSION: Fractured left second toe proximal phalanx. Dictated by : Rylee NAVARRETE MD This examination was interpreted and the report reviewed and electronically signed by: Rylee NAVARRETE MD on Jan ?2017 ?3:34PM ?EST - CONSULT TO PODIATRY - Post op shoe applied. - 2nd and 3rd toes tamiko taped. - RICE therapy as directed. - Follow-up with podiatry if symptoms have not improved or sooner if symptoms worsen - Discussed red flags and need for immediate medical evaluation if any occur. - Discussed supportive care treatment with fluids, rest and analgesia. - Discussed expected course of illness Naty Irwin APRN.CNP CNOV Observed: 01/04/2018 Status: COMPLETED Source: [place] 3:00 PM [facility] REPOSITORY Office Visit (WSTR) KRYS AARON ([id number]) 1970 F Date Time Provider Department 01/04/18 3:00 PM NATY IRWIN (OFELIA) [facility] During your visit today, we recorded the following information about you: Temperature Pulse Respiration Blood pressure 96.5 degrees 62/minute 16/minute 112/84 Weight 110.4 kg Naty Irwin APRN.CNP 01/04/2018 4:32 PM Signed Subjective The history is provided by the patient. Krys Aaron is a 47 year old female who presents with pain in her left 2nd toe, she hit her toe against a coffee table. She has some bruising and swelling. She has taken Aleve for pain. She rates the pain 5/10. She also states she has a vaginal yeast infection, has recently been on an antibiotic for an ear infection. She has had itching and increased vaginal discharge. Review of Systems Constitutional: Negative. Negative for fever. Musculoskeletal: Positive for joint pain. See HPI Skin: Negative. BP 112/84 Pulse 62 Temp (!) 35.8 ?C (96.5 ?F) (Left Tympanic) Resp 16 Wt 110.4 kg (243 lb 6.4 oz) SpO2 98% BMI 40.82 kg/m? PAST MEDICAL HISTORY Diagnosis Date - Adjustment disorder with depressed mood ANXIETY/DEPRESSION - Arrhythmia as a child-no current problems - Bariatric surgery status 06-29-09 lrygbp - Benign hypertension 05/05/2015 - Bipolar 2 disorder (HCC) 04/12/2017 - Celiac disease 06/2005 - Excessive or frequent menstruation Heavy periods - Fatty liver disease, nonalcoholic 04/19/2012 - Generalized anxiety disorder - GERD (gastroesophageal reflux disease) - Hemorrhage of rectum and anus - Lumbago - Midline low back pain without sciatica 09/24/2014 - Migraine, unspecified, with intractable migraine, so stated, without mention of status migrainosus Migraine - Mild dysplasia of cervix 04/05/06 mild dysplasia of cervix on biopsy 12, 7 oclock - Morbid obesity (HCC) 05-19-09 BMI 51.83 Ht: 64.75 Wt: 309 lbs - Other and unspecified hyperlipidemia - Other chronic nonalcoholic liver disease - Other chronic nonalcoholic liver disease - Overactive bladder 12/11/2012 - Pain in joint, multiple sites knees,hips - Papanicolaou smear of cervix with low grade squamous intraepithelial lesion (LGSIL) 03/08/06 - PCOS (polycystic ovarian syndrome) - PMH - PAST MEDICAL HISTORY OF Carpal tunnel syndrome - PMH - PAST MEDICAL HISTORY OF PELVIC FLOOR DISORDER WITH URINARY RETENTION - Sleep apnea, obstructive 2010 resolved with weight loss - Snoring - Urinary tract infection, site not specified Recurrent UTI's - Vitamin D deficiency PAST SURGICAL HISTORY Procedure Laterality Date - BX OF BREAST; INCISIONAL 04-04-12 left - DELIVERY ONLY 2003; 2006 , low cervical X2 - COLONOSCOP W/ OR W/O BRSH SPEC 03/31/2014 Colonoscopy - COLPOSCOPY W BX CERVIX 04/05/06 mild dysplasia of cervix - DANDC, DIAG AND/OR THERAPEUTIC Dilation AND curettage - EGD W/O OR W/BRUSH/WASH 03/28/2016 EGD - FNA WITH IMAGING 10/16/12 Left breast retroareolar old hematoma cavity - LAP GASTRIC BYPASS/BRISA-EN-Y 06-29-09 P Lauren - LIGATE FALLOPIAN TUBE Tubal ligation 2006 - PAST SURGICAL HISTORY OF BILATERAL carpal tunnel surgery - PAST SURGICAL HISTORY OF Sinus surgery - REMOVAL ADENOIDS,PRIMARY,<12 Y/O Adenoidectomy - REMOVAL OF TONSILS,<12 Y/O Tonsillectomy - SIGMOIDOSCOPY FLEX DIAG 02/03/10 Min. internal hemorrhoids ALLERGIES Bees; Asa [Salicylates]; Asprin [Aspirin]; Ibuprofen; Wheat Gluten MEDICATIONS naltrexone-bupropion (CONTRAVE) 8-90 mg TbER 1 po qAM x 1 wk. then 1 po BID ferrous sulfate EC 324 mg (65 mg iron) TbEC Take 1 tablet by mouth once daily. lisinopril (ZESTRIL, PRINIVIL) 5 mg tablet Take 1 tablet by mouth once daily. sucralfate (CARAFATE) 1 gram tablet Take 1 tablet by mouth before meals and at bedtime. Dissolve one tablet in 2 teaspoons of water, stir and swallow. SUMAtriptan (IMITREX) 50 mg tablet TAKE 1 TABLET BY MOUTH NEEDED (MAY REPEAT DOSE IN 2 HOURS IF HEADACHE PERSISTS.). oxybutynin ER (DITROPAN XL) 10 mg 24 hr tablet Take 1 tablet by mouth once daily. Cholecalciferol, Vitamin D3, 5,000 unit cap Take 1 capsule by mouth once daily. cetirizine (ZYRTEC) 10 mg tablet Take 1 tablet by mouth once daily. DULoxetine (CYMBALTA) 60 mg capsule Take 1 capsule by mouth once daily. traZODone (DESYREL) 50 mg tablet Take 50 mg by mouth daily at bedtime. As needed lamoTRIgine (LAMICTAL) 25 mg tablet Take 25 mg by mouth twice daily. hydrOXYzine pamoate (VISTARIL) 25 mg capsule Take 1 capsule by mouth three times daily as needed for Anxiety. dibucaine (NUPERCAINAL) 1 % ointment 1 application as needed. Apply to the anus as needed before and following a bowel movement to decrease pain. calcium carbonate (CALTRATE 600) 600 mg (1,500 mg) tab Take 0.5 tablets by mouth once daily. ascorbic acid (VITAMIN C) 500 mg tablet Take 500 mg by mouth once daily. cyanocobalamin(VITAMIN B-12 1,000 MCG TAB) Take one(1) tablet daily. MULTIVITAMIN TAB Take one(1) tablet daily. fluconazole (DIFLUCAN) 150 mg tablet Take 1 tablet by mouth once daily for 1 day. FAMILY HISTORY Problem Relation Age of Onset - Hypertension Mother - other (Parkinson's disease) Mother - other (COPD, smoker) Father - Cervical Cancer Paternal Grandmother - Stroke Paternal Grandmother DVT - Cancer Paternal Grandfather LUNG - Hypertension Brother - Diabetes Brother - Cancer Brother KIDNEY - Cancer Brother BONE - Heart Paternal Uncle - Cerebral Embolism Other - Breast Cancer Paternal Aunt Social History Substance Use Topics - Smoking status: Never Smoker - Smokeless tobacco: Never Used - Alcohol use Yes Comment: rare Objective Physical Exam Constitutional: She is well-developed, well-nourished, and in no distress. Genitourinary: Genitourinary Comments: Exam deferred. Musculoskeletal: Left foot: There is tenderness, bony tenderness and swelling. There is normal range of motion, normal capillary refill, no crepitus and no deformity. Feet: Skin: Skin is warm and dry. No erythema. Nursing note and vitals reviewed. ASSESSMENT/PLAN: 1. Antibiotic-induced yeast infection - ICD9: 112.9, E930.9, ICD10: B37.9, T36.95XA (primary diagnosis) - will treat based on symptoms - FLUCONAZOLE 150 MG TABLET 2. Toe injury, left, initial encounter - ICD9: 959.7, ICD10: S99.922A - XR TOE AP/LAT/OBL LT. My reading: fracture (nondisplaced) at proximal phalanx left 2nd toe. Radiologist FINDINGS: Oblique nonarticular fracture through the midshaft of left second toe proximal phalanx. ?Joint spaces are preserved. ?No soft tissue calcification. Impression IMPRESSION: Fractured left second toe proximal phalanx. Dictated by : Rylee NAVARRETE MD This examination was interpreted and the report reviewed and electronically signed by: Rylee NAVARRETE MD on Jan ?2017 ?3:34PM ?EST - CONSULT TO PODIATRY - Post op shoe applied. - 2nd and 3rd toes tamiko taped. - RICE therapy as directed. - Follow-up with podiatry if symptoms have not improved or sooner if symptoms worsen - Discussed red flags and need for immediate medical evaluation if any occur. - Discussed supportive care treatment with fluids, rest and analgesia. - Discussed expected course of illness ANITA Tsang APRN.OFELIA 01/04/2018 4:02 PM Signed FINDINGS: Oblique nonarticular fracture through the midshaft of left second toe proximal phalanx. ?Joint spaces are preserved. ?No soft tissue calcification. Impression IMPRESSION: Fractured left second toe proximal phalanx. Internet Architect: KARLIE ? Transcribe Date/Time: Jan ?3:33P Dictated by : Rylee NAVARRETE MD FRACTURES GENERAL INFORMATION: A fracture is a break in a bone. The length of time the cast will be on depends on how much time is needed for the bone to heal. Sometimes a temporary splint is placed to allow the swelling to come down. If this is the case, you must follow up to have the actual cast applied. INSTRUCTIONS: 1. To minimize swelling, keep the injured limb above the level of your heart as much as possible. 2. Apply ice to the injury for 15 minutes each hour for the first two days. Put the ice in a plastic bag and place a thin towel between the bag of ice and your cast. 3. Keep your cast or splint dry. It can be protected during bathing with a plastic bag. If a fiberglass cast gets a little wet, it can be dried with a language and literature division chair. 4. Do not put pressure on any part of your cast or splint as it may break. 5. Plaster or fiberglass cast: Do not try to scratch the skin under the cast using a sharp or pointed object. Check the skin around the cast every day. You may put lotion on any red or sore area. Plaster splint: Wear the splint until you are seen in follow-up. If your fingers or toes become numb or tingle, you may loosen the elastic around your splint. If you broke your toe, it has been taped to the toe next to it. After bathing you may place a small piece of cotton between the toes and retape them. 6. You may take ibuprofen, acetaminophen, or other prescribed pain medication as needed. 7. If you have been instructed to use crutches, do not bear weight and use crutches until the orthopedist tells you to stop. 8. If you are a woman who is post-menopausal or a man greater than 50 years old, contact your Primary Care Physician about having a bone density test. CONTACT YOUR DOCTOR OR RETURN TO THE ED IF: 1. Your cast gets damaged or breaks. 2. You have continued severe pain or more swelling than you did before the cast was placed. 3. Your skin or nails turn blue, gorman, or feel cold or numb. 4. There is a bad smell or discharge coming from under the cast. Referring Provider: SELF [200] Allergies As of Date: 01/04/2018 Noted Allergy Reaction BEES 02/02/2005 5 - Intolerance ASA (SALICYLATES) 12/30/2004 2 - Rash ASPRIN (ASPIRIN) 03/07/2012 2 - Rash Comments: Also makes pt really sleepy IBUPROFEN 12/30/2004 7 - Swelling Comments: throat swelling WHEAT GLUTEN 11/25/2005 8 - GI Upset Date Reviewed: 01/04/2018 Reviewed by: Amira Conti Ma - Fully Assessed Reason for Visit: Toe Injury [1995] Cmt: 2nd toe on left foot x 2 days Primary Visit Diagnosis:Antibiotic-induced yeast infection [B37.9, T36.95XA] Other Visit Diagnosis:Toe injury, left, initial encounter [S99.922A] Order(s):fluconazole (DIFLUCAN) 150 mg tabletTake 1 tablet by mouth once daily for 1 day.Disp: 1 tabletRfl: 0 XR TOE AP/LAT/OBL LT [9082813] Order #: [id number] FUTURE CONSULT TO PODIATRY [9034] Order #: [id number]: 1 Prescriptions as of 01/04/2018 Sig: NALTREXONE 8 MG-BUPROPION 90 * 1 po qAM x 1 wk. then 1 po BID FERROUS SULFATE 324 MG (65 MG* Take 1 tablet by mouth once d* LISINOPRIL 5 MG TABLET Take 1 tablet by mouth once d* SUCRALFATE 1 GRAM TABLET Take 1 tablet by mouth before* SUMATRIPTAN 50 MG TABLET TAKE 1 TABLET BY MOUTH NEE* OXYBUTYNIN CHLORIDE ER 10 MG * Take 1 tablet by mouth once d* CHOLECALCIFEROL (VITAMIN D3) * Take 1 capsule by mouth once * CETIRIZINE 10 MG TABLET Take 1 tablet by mouth once d* DULOXETINE 60 MG CAPSULE,ABIGAIL* Take 1 capsule by mouth once * TRAZODONE 50 MG TABLET Take 50 mg by mouth daily at * LAMOTRIGINE 25 MG TABLET Take 25 mg by mouth twice lux* HYDROXYZINE PAMOATE 25 MG CAP* Take 1 capsule by mouth three* DIBUCAINE 1 % TOPICAL OINTMENT 1 application as needed. Appl* CALCIUM CARBONATE 600 MG CALC* Take 0.5 tablets by mouth onc* ASCORBIC ACID (VITAMIN C) 500* Take 500 mg by mouth once lux* VITAMIN B-12 1,000 MCG TABLET Take one(1) tablet daily. MULTIVITAMIN TABLET Take one(1) tablet daily. FLUCONAZOLE 150 MG TABLET Take 1 tablet by mouth once d* Problem List As Of Date 01/04/2018 Noted Resolved Morbid obesity [E66.01] INVALID FOR*01/11/2011 Irregular menstrual cycle [N92.6] INVALID FOR*01/11/2011 BONE AND CARTILAGE DIS NOS [M89.9, M94.9] INVALID FOR* CELIAC DISEASE [K90.0] INVALID FOR* POLYCYSTIC OVARIES [E28.2] INVALID FOR* THREATENED ANTEPARTUM CONDITN/COMPL [O*INVALID FOR*01/11/2011 Supervision of other normal [Z34.80] INVALID FOR*01/11/2011 Unspecified high-risk [O09.90] INVALID FOR*01/11/2011 Dizziness and giddiness [R42] INVALID FOR*04/19/2012 Previous delivery, antepartum conditio*INVALID FOR*01/11/2011 Mild or unspecified pre-eclampsia, antepartum [*INVALID FOR*01/11/2011 MILD DYSPLASIA OF CERVIX [N87.0] INVALID FOR* Sprain of neck [S13.9XXA] INVALID FOR*04/19/2012 ADJUSTMENT DISORDER WITH DEPRESSED MOOD [F43.21]INVALID FOR* GENERALIZED ANXIETY DIS [F41.1] INVALID FOR* DYSMETABOLIC SYNDROME X [E88.81] INVALID FOR* Essential hypertension, benign [I10] INVALID FOR*04/19/2012 Sprain of ankle, unspecified site [S93.409A] INVALID FOR*04/19/2012 Eating disorder, unspecified [F50.9] INVALID FOR*04/19/2012 Major depressive disorder, recurrent episode, m*INVALID FOR*05/20/2016 Internal hemorrhoids without mention of complic*INVALID FOR*04/19/2012 Anal fissure [K60.2] INVALID FOR*04/19/2012 Bulimia nervosa [F50.2] INVALID FOR*04/19/2012 Vitamin D Deficiency [E55.9] INVALID FOR* GERD (Gastroesophageal Reflux Disease) [K21.9] INVALID FOR* More... RB (rectal bleeding) [K62.5] INVALID FOR*04/19/2012 Scoliosis (and kyphoscoliosis), idiopathic [M41*INVALID FOR* Sprain of lumbar region [S33.5XXA] INVALID FOR*04/19/2012 Sleep apnea, obstructive [G47.33] INVALID FOR*04/19/2012 Lump or mass in breast [N63.0] INVALID FOR*08/17/2015 Mastodynia [N64.4] INVALID FOR*08/17/2015 Galactorrhea not associated with childbirth [N6*INVALID FOR*08/17/2015 Abnormal mammogram, unspecified [R92.8] INVALID FOR*08/17/2015 Abnormal ultrasound of breast [R92.8] INVALID FOR*08/17/2015 Fatty liver disease, nonalcoholic [K76.0] INVALID FOR* Overactive bladder [N32.81] INVALID FOR* Arthritis, lumbar spine [M47.816] INVALID FOR* Benign hypertension [I10] INVALID FOR* Occipital neuralgia of left side [M54.81] INVALID FOR*05/20/2016 Migraine with aura and without status migrainos*INVALID FOR* RUQ pain [R10.11] INVALID FOR*05/20/2016 Morbid obesity due to excess calories (HCC) [E6*INVALID FOR* History of bariatric surgery [Z98.84] INVALID FOR* Dyspepsia [R10.13] INVALID FOR* Other instructions from your clinician: FINDINGS: Oblique nonarticular fracture through the midshaft of left second toe proximal phalanx. ?Joint spaces are preserved. ?No soft tissue calcification. Impression IMPRESSION: Fractured left second toe proximal phalanx. Internet Architect: KARLIE ? Transcribe Date/Time: Jan ?2017 ?3:33P Dictated by : Rylee NAVARRETE MD FRACTURES GENERAL INFORMATION: A fracture is a break in a bone. The length of time the cast will be on depends on how much time is needed for the bone to heal. Sometimes a temporary splint is placed to allow the swelling to come down. If this is the case, you must follow up to have the actual cast applied. INSTRUCTIONS: 1. To minimize swelling, keep the injured limb above the level of your heart as much as possible. 2. Apply ice to the injury for 15 minutes each hour for the first two days. Put the ice in a plastic bag and place a thin towel between the bag of ice and your cast. 3. Keep your cast or splint dry. It can be protected during bathing with a plastic bag. If a fiberglass cast gets a little wet, it can be dried with a language and literature division chair. 4. Do not put pressure on any part of your cast or splint as it may break. 5. Plaster or fiberglass cast: Do not try to scratch the skin under the cast using a sharp or pointed object. Check the skin around the cast every day. You may put lotion on any red or sore area. Plaster splint: Wear the splint until you are seen in follow-up. If your fingers or toes become numb or tingle, you may loosen the elastic around your splint. If you broke your toe, it has been taped to the toe next to it. After bathing you may place a small piece of cotton between the toes and retape them. 6. You may take ibuprofen, acetaminophen, or other prescribed pain medication as needed. 7. If you have been instructed to use crutches, do not bear weight and use crutches until the orthopedist tells you to stop. 8. If you are a woman who is post-menopausal or a man greater than 50 years old, contact your Primary Care Physician about having a bone density test. CONTACT YOUR DOCTOR OR RETURN TO THE ED IF: 1. Your cast gets damaged or breaks. 2. You have continued severe pain or more swelling than you did before the cast was placed. 3. Your skin or nails turn blue, gorman, or feel cold or numb. 4. There is a bad smell or discharge coming from under the cast. Prescriptions ordered this encounter Disp Refills Start End FLUCONAZOLE 150 MG TABLET 1 ta* 0 01/04/2018 01/05/2018 Route: ORAL Sig: Take 1 tablet by mouth once daily for 1 day. Letter Text Naty Irwin APRN.CNP Urgent Care [address] [facility] [address] Dept: [phone] 01/04/2018 Krys Aaron [address] [facility] [address] To Whom it May Concern: This is to certify that Krys Islasmilanamukesh was seen at our office for medical care. Krys may return to work on 01/08/2018. If you have any questions please feel free to call. Sincerely: Naty Irwin APRN.CNP Encounter Status:Closed by NATY IRWIN on 01/04/18 DISCHARGE INSTRUCTION Observed: 01/02/2018 Status: F Source: [place] 5:21 PM [facility] REPOSITORY [facility] Medical Records Department [address] [place] [address] Discharge Instruction 01/02/18 1503 MR#: [id number] Acct: [id number] Name: KRYS AARON Rep #: [id number] : 1970 47 From: Cristino Barraza MD PCP: Neil Benjamin III, MD Status: DEP ER ED Disposition - Plan for ED Patient: Disposition: Home or Assisted Living Chief Complaint: Depression Instructions: ED Depression Referrals: Counseling,Center [GROUP OF PHYSICIANS] - 1 Day Additional Instructions: Return if feeling worse or feel like you may hurt yourself. Follow-up with a counseling center tomorrow. What to do if you have Problems For any increased pain, shortness of breath, bleeding, nausea or vomiting, chest pain, or any unexpected problems, contact your Primary Care Provider. Call [employer] ([phone]) or report to the closest Emergency Room. Call 911 if necessary. 01/02/18 1721 <Electronically signed by Cristino Barraza MD> Date Cristino Barraza MD Cosigner Signature (If Indicated): Date CC: Neil Benjamin III, MD EMERGENCY DEPARTMENT Observed: 01/02/2018 Status: F Source: [place] SUMMARY 5:21 PM [facility] REPOSITORY [facility] Medical Records Department [address] [place] [address] Emergency Department Summary 01/02/18 1219 MR#: [id number] Acct: [id number] Name: KRYS AARON Rep #: [id number] : 1970 47 From: Cristino Barraza MD PCP: Neil Benjamin III, MD Status: DEP ER - ER Visit Summary Date of Service: 01/02/18 Chief Complaint: Acute on chronic depression History of Present Illness: The patient is a 47 F history of depression and bipolar disorder. States the last 5 days she has been more depressed. States yesterday she has a considered suicide attempt but did not actually do anything. She was considering carbon monoxide poisoning. She states when she was 18 she had an actual attempt with a wrist laceration. Currently she is taking her bipolar and antidepressant medications. She is following up with a counseling center. She denies being suicidal today. She also states that she has some burning with urination. Physical Examination: Well-appearing middle-age female. Vital signs eyebrow. H EENT exam unremarkable atraumatic. Neck nontender no signs of trauma. Lungs clear to auscultation bilaterally. Heart regular rate and rhythm no murmur. Chest: Tender. Abdomen soft nontender. Normal bowel sounds no peritoneal signs. She is moving all 4 extremities. They are neurovascularly intact. Currently no signs of acute trauma. No track chavez. Normal range of motion. Normal application release manager strength bilaterally. Normal dorsi plantarflexion bilaterally. Back nontender. Neurologically she is awake and alert. Medically she is cleared. Test Results: BC normal. Chemistries normal. Normal gap and creatinine. UA normal no signs of infection. Serum test negative. Tox screen negative. Alcohol level negative. Emergency Department Course and Treatment: Patient will undergo ED mental health screening labs and urinalysis for her dysuria. She will be evaluated by the counseling center. Treatment Plan: Patient doing well on repeat exam at 1432. Crisis is in the emergency department and is evaluating her. Patient is willing to contract for safety with the crisis personnel. Again ensure close follow-up with her tomorrow morning. Both day, the patient and myself are comfortable with her being discharged home. Patient denies being suicidal at this time. Disposition: discharge Impression: Acute on chronic depression Suicidal ideation History depression and bipolar disorder This note was generated with Zingkuation software. It may contain incorrect words, spelling, and punctuation that were not noted in review of the chart prior to signing ED Disposition - Plan for ED Patient: Chief Complaint: Depression Referrals: Neil Benjamin III, MD [Primary Care Provider] - What to do if you have Problems For any increased pain, shortness of breath, bleeding, nausea or vomiting, chest pain, or any unexpected problems, contact your Primary Care Provider. Call [facility] ([phone]) or report to the closest Emergency Room. Call 911 if necessary. 01/02/18 1721 <Electronically signed by Cristino Barraza MD> Date Cristino Barraza MD Cosigner Signature (If Indicated): Date CC: Neil Benjamin III, MD URINE DRUG SCREEN Collected: 01/02/2018 Status: F Source: [place] (VISTA) 1:10 PM [facility] REPOSITORY TYPE CODE TESTS RESULT OUT OF RANGE REFERENCE UNITS LAB L505.0075 TO BE Normal CONFIRMED Result Comment: CONFIRMATORY TESTING FOR ALL POSITIVE URINE DRUG SCREEN RESULTS WILL ONLY BE SENT OUT UPON PHYSICIAN ORDER. VISTA Urine Drug Screen methods provide only preliminary analytical test results. A more specific alternate chemical method must be used in order to obtain a confirmed analytical result. Gas chromatography/mass spectrometery (GC/MS) is the preferred confirmatory method. Clinical consideration and professional judgement should be applied to any drug of abuse test result, particularly when preliminary positive results are used. URINE TCA TESTING MUST BE ORDERED SEPARATELY. USE TEST MNEMONIC: [facility] LAB L505.5005 VISTA UDS PH 5 Normal LAB L505.5015 <1000 ng/mL AMPHETAMINES Normal NEGATIVE LAB L505.5025 < 200 ng/mL BARBITIURATES Normal NEGATIVE LAB L505.5035 < 200 ng/mL BENZODIAZIPINE Normal NEGATIVE LAB L505.5045 < 300 ng/mL COCAINE Normal NEGATIVE LAB L505.5055 < 500 ng/mL ECSTACY Normal NEGATIVE LAB L505.5065 < 300 ng/mL METHADONE Normal NEGATIVE LAB L505.5075 < 300 ng/mL OPIATES Normal NEGATIVE LAB L505.5085 < 25 ng/mL PCP Normal NEGATIVE LAB L505.5095 < 50 ng/mL THC Normal NEGATIVE Performed By: #### L505.5000 #### [facility] [address] [place], [address] CBC W/DIFF, AUTOMATED Collected: 01/02/2018 Status: F Source: [place] 1:10 PM [facility] REPOSITORY TYPE CODE TESTS RESULT OUT OF RANGE REFERENCE UNITS LAB L100.1000 4.4-11.0 K/mm3 Normal WBC 6.5 LAB L100.1200 4.2-5.4 M/mm3 Normal RBC 4.43 LAB L100.1300 12.0-15.0 g/dl Normal HGB 14.2 LAB L100.1400 37-47 % Normal HCT 42.0 LAB L100.1500 81-99 fL Normal MCV 94.8 LAB L100.1600 27.0-32.0 pg High MCH 32.1 LAB L100.1700 32-36 g/gl Normal MCHC 33.8 LAB L100.1810 11.6-14.6 % Normal RDW CV 12.3 LAB L100.1820 35.1-43.9 fl Normal RDW SD 42.2 LAB L100.1900 150-450 K/mm3 Normal PLT 218 LAB L100.2000 6.2-12.0 fl Normal MPV 9.5 LAB L100.2100 47-70 % Normal NEUT% 51.2 LAB L100.2200 19-41 % Normal LY% 40.8 LAB L100.2300 0-10 % Normal MONO% 5.2 LAB L100.2400 0-5 % Normal EO% 2.0 LAB L100.2500 0-1 % Normal BASO% 0.6 LAB L100.2550 0.0-0.9 % Normal IM GRAN % 0.200 Result Comment: IG% - Immature Granulocytes (promyelocytes, myelocytes and metamyelocytes) > 1% indicates that a LEFT SHIFT is Present. LAB L100.2620 2.0-7.7 X10 3/uL Normal Absolute Neut 3.3 LAB L100.2720 0.83-4.51 X10 3/ul Normal Absolute Lymph 2.66 Performed By: #### L100.0100 #### [facility] [address] [place], [address] BASIC METABOLIC Collected: 01/02/2018 Status: F Source: BRIDGER PROFILE (BMP) 1:10 PM [facility] REPOSITORY TYPE CODE TESTS RESULT OUT OF RANGE REFERENCE UNITS LAB L501.0100 74-106 mg/dL Normal GLU 74 Result Comment: Please note revised GLUCOSE reference range effective 2017. LAB L501.1000 7-18 mg/dL Normal BUN 12 LAB L501.1100 0.55-1.02 mg/dL Normal CREAT,SERUM 0.70 Result Comment: The validity of the calculated GFR AND GFRAA in patients over 70 years has not been determined. Clinical correlation is essential. LAB L501.1110 >60 mL/min Normal EST GFR 96 Result Comment: Non- GFR Calc LAB L501.1115 >60 mL/min Normal EST GFR - AA 116 Result Comment: GFR Calc LAB L501.1255 ml/min Normal Estimated CRCL 91.32 LAB L501.1300 10-20 RATIO Normal BUN/CRE 17.0 LAB L501.2200 8.5-10 mg/dL Normal .1 CA 8.8 LAB L501.5300 136-14 mmol/L Normal 5 NA 141 LAB L501.5600 3.5-5. mmol/L Normal 1 K 3.9 LAB L501.5900 98-107 mmol/L Normal CL 106 LAB L501.6100 21.0-3 mmol/L Normal 2.0 CO2 29.0 LAB L501.6200 5-15 Normal GAP 6 Performed By: #### L500.2500 #### [facility] [address] [facility] [place], [place], [id number] ALCOHOL, BLOOD Collected: 01/02/2018 Status: F Source: BRIDGER (MEDICAL)-SERUM 1:10 PM [facility] REPOSITORY TYPE CODE TESTS RESULT OUT OF RANGE REFERENCE UNITS LAB L501.9100 mg/dL Normal SERUM 4.0 ETOH Result Comment: The serum:whole blood ethanol ratio is approximately 1.14 and varies slightly with hematocrit. Medical Alcohol reference interval and critical value in non-tolerant individuals; 50 - 100 Impairment 100 Intoxication 100 - 250 Severe Poisoning 250 - 400 Deep/possible fatal coma Performed By: #### L501.9100 #### [facility] [address] [place], [place], [id number] ,SERUM,HCG QUALI. Collected: Status: C Source: GILBERT 01/02/2018 1:10 PM [facility] REPOSITORY TYPE CODE TESTS RESULT OUT OF REFERENCE UNITS RANGE LAB L700.6700 =>Qualitative mIU/mL Normal HCG Qual 1 triggr LAB L700.7000 0-9 Nonpreg Negative Normal HCGSQUAL NEGATIVE Performed By: #### L700.6800 #### [facility] [address] [place], [place], [address] URINALYSIS, COMPLETE Collected: 01/02/2018 Status: F Source: GILBERT 12:50 PM [facility] REPOSITORY Order Comment: How was Urine Obtained? CLEAN CATCH TYPE CODE TESTS RESULT OUT OF RANGE REFERENCE UNITS LAB L400.3000 Yellow COLOR Normal Yellow LAB L400.3050 Clear Normal CLARITY Sl. Cloudy LAB L400.3200 Normal mg/dl Normal GLUCOSE, UR Normal LAB L400.3300 Negative mg/dL Normal BILIRUBIN URINE Negative LAB L400.3400 Negative mg/dl Normal KETONE UR Negative LAB L400.3465 1.002-1.030 Normal SP.GR. DIPSTX 1.010 LAB L400.3550 5.0 - 8.0 pH UR Normal 6.5 LAB L400.3600 Negative mg/dl PROT Normal DIPSTX Negative LAB L400.3700 Normal mg/dl Normal UROBILI Normal LAB L400.3750 Negative Normal NITRITE UR Negative LAB L400.3780 Negative /ul Normal OCCULT BLOOD-UR Negative LAB L400.3800 Negative /ul LEUK Normal ESTERASE Negative LAB L400.4050 0-5 /hpf WBC 0 Normal SEEN LAB L400.4100 0-5 /hpf 0 Normal RBC-UA SEEN LAB L400.4150 5-10 /hpf SQUAM Normal EPI 0-5 SEEN LAB L400.4300 None Seen /hpf 0 Normal BACTERIA SEEN LAB L400.4350 <or=2+ /hpf 0 Normal MUCUS, URINE SEEN Performed By: #### L400.0001 #### [facility] [address] [place], [place], [address] PROGRESS Observed: 12/18/2017 Status: COMPLETED Source: [place] 6:45 PM [facility] REPOSITORY HNO ID: [id number] Author: Sarai Hernandez Service: (none) Author Type: Nurse Practitioner Type: Progress Notes Filed: 12/18/2017 8:22 PM Note Text: Subjective HPI HPI Krys Aaron is a 47 year old female who presents today for CC of bilateral ear pain. This started 10 days ago. Has tried otc medication without relief. Symptoms are worsened by nothing. Risk factors hx of ear problems/infections. .Patient presents with: Ear Pain: bilateral left worse x 10 days PAST MEDICAL HISTORY Diagnosis Date - Adjustment disorder with depressed mood ANXIETY/DEPRESSION - Arrhythmia as a child-no current problems - Bariatric surgery status 06-29-09 lrygbp - Benign hypertension 05/05/2015 - Bipolar 2 disorder (HCC) 04/12/2017 - Celiac disease 06/2005 - Excessive or frequent menstruation Heavy periods - Fatty liver disease, nonalcoholic 04/19/2012 - Generalized anxiety disorder - GERD (gastroesophageal reflux disease) - Hemorrhage of rectum and anus - Lumbago - Midline low back pain without sciatica 09/24/2014 - Migraine, unspecified, with intractable migraine, so stated, without mention of status migrainosus Migraine - Mild dysplasia of cervix 04/05/06 mild dysplasia of cervix on biopsy 12, 7 oclock - Morbid obesity (HCC) 05-19-09 BMI 51.83 Ht: 64.75 Wt: 309 lbs - Other and unspecified hyperlipidemia - Other chronic nonalcoholic liver disease - Other chronic nonalcoholic liver disease - Overactive bladder 12/11/2012 - Pain in joint, multiple sites knees,hips - Papanicolaou smear of cervix with low grade squamous intraepithelial lesion (LGSIL) 03/08/06 - PCOS (polycystic ovarian syndrome) - PMH - PAST MEDICAL HISTORY OF Carpal tunnel syndrome - PMH - PAST MEDICAL HISTORY OF PELVIC FLOOR DISORDER WITH URINARY RETENTION - Sleep apnea, obstructive 2010 resolved with weight loss - Snoring - Urinary tract infection, site not specified Recurrent UTI's - Vitamin D deficiency PAST SURGICAL HISTORY Procedure Laterality Date - BX OF BREAST; INCISIONAL 04-04-12 left - DELIVERY ONLY 2003; 2006 , low cervical X2 - COLONOSCOP W/ OR W/O BRSH SPEC 03/31/2014 Colonoscopy - COLPOSCOPY W BX CERVIX 04/05/06 mild dysplasia of cervix - DANDC, DIAG AND/OR THERAPEUTIC Dilation AND curettage - EGD W/O OR W/BRUSH/WASH 03/28/2016 EGD - FNA WITH IMAGING 10/16/12 Left breast retroareolar old hematoma cavity - LAP GASTRIC BYPASS/BRISA-EN-Y 06-29-09 P Lauren - LIGATE FALLOPIAN TUBE Tubal ligation 2006 - PAST SURGICAL HISTORY OF BILATERAL carpal tunnel surgery - PAST SURGICAL HISTORY OF Sinus surgery - REMOVAL ADENOIDS,PRIMARY,<12 Y/O Adenoidectomy - REMOVAL OF TONSILS,<12 Y/O Tonsillectomy - SIGMOIDOSCOPY FLEX DIAG 02/03/10 Min. internal hemorrhoids ALLERGIES Bees; Asa [Salicylates]; Asprin [Aspirin]; Ibuprofen; Wheat Gluten MEDICATIONS naltrexone-bupropion (CONTRAVE) 8-90 mg TbER 1 po qAM x 1 wk. then 1 po BID ferrous sulfate EC 324 mg (65 mg iron) TbEC Take 1 tablet by mouth once daily. lisinopril (ZESTRIL, PRINIVIL) 5 mg tablet Take 1 tablet by mouth once daily. sucralfate (CARAFATE) 1 gram tablet Take 1 tablet by mouth before meals and at bedtime. Dissolve one tablet in 2 teaspoons of water, stir and swallow. SUMAtriptan (IMITREX) 50 mg tablet TAKE 1 TABLET BY MOUTH NEEDED (MAY REPEAT DOSE IN 2 HOURS IF HEADACHE PERSISTS.). oxybutynin ER (DITROPAN XL) 10 mg 24 hr tablet Take 1 tablet by mouth once daily. Cholecalciferol, Vitamin D3, 5,000 unit cap Take 1 capsule by mouth once daily. cetirizine (ZYRTEC) 10 mg tablet Take 1 tablet by mouth once daily. DULoxetine (CYMBALTA) 60 mg capsule Take 1 capsule by mouth once daily. traZODone (DESYREL) 50 mg tablet Take 50 mg by mouth daily at bedtime. As needed lamoTRIgine (LAMICTAL) 25 mg tablet Take 25 mg by mouth twice daily. hydrOXYzine pamoate (VISTARIL) 25 mg capsule Take 1 capsule by mouth three times daily as needed for Anxiety. dibucaine (NUPERCAINAL) 1 % ointment 1 application as needed. Apply to the anus as needed before and following a bowel movement to decrease pain. calcium carbonate (CALTRATE 600) 600 mg (1,500 mg) tab Take 0.5 tablets by mouth once daily. ascorbic acid (VITAMIN C) 500 mg tablet Take 500 mg by mouth once daily. cyanocobalamin(VITAMIN B-12 1,000 MCG TAB) Take one(1) tablet daily. MULTIVITAMIN TAB Take one(1) tablet daily. FAMILY HISTORY Problem Relation Age of Onset - Hypertension Mother - other (Parkinson's disease) Mother - other (COPD, smoker) Father - Cervical Cancer Paternal Grandmother - Stroke Paternal Grandmother DVT - Cancer Paternal Grandfather LUNG - Hypertension Brother - Diabetes Brother - Cancer Brother KIDNEY - Cancer Brother BONE - Heart Paternal Uncle - Cerebral Embolism Other - Breast Cancer Paternal Aunt Social History Substance Use Topics - Smoking status: Never Smoker - Smokeless tobacco: Never Used - Alcohol use Yes Comment: rare Review of Systems Constitutional: Negative for chills, fever and weight loss. HENT: Positive for congestion and ear pain. Negative for ear discharge, nosebleeds and sore throat. Respiratory: Negative for cough, shortness of breath and wheezing. Musculoskeletal: Negative for neck pain. Objective Blood pressure 124/72, pulse 70, temperature 36.7 ?C (98 ?F), temperature source Tympanic, resp. rate 16, weight 109.8 kg (242 lb). Physical Exam Constitutional: She is oriented to person, place, and time and well-developed, well-nourished, and in no distress. Non-toxic appearance. She does not have a sickly appearance. No distress. HENT: Head: Normocephalic and atraumatic. Right Ear: Hearing, external ear and ear canal normal. Tympanic membrane is erythematous and bulging. Tympanic membrane is not perforated. Left Ear: Hearing, external ear and ear canal normal. Tympanic membrane is erythematous and bulging. Tympanic membrane is not perforated. Nose: Nose normal. Mouth/Throat: Uvula is midline, oropharynx is clear and moist and mucous membranes are normal. Eyes: Pupils are equal, round, and reactive to light. Conjunctivae and lids are normal. Right eye exhibits no discharge. Left eye exhibits no discharge. No scleral icterus. Neck: Trachea normal and normal range of motion. Neck supple. Cardiovascular: Normal rate, regular rhythm and normal heart sounds. Pulmonary/Chest: Effort normal and breath sounds normal. Lymphadenopathy: She has no cervical adenopathy. Neurological: She is alert and oriented to person, place, and time. Skin: No rash noted. She is not diaphoretic. ASSESSMENT/PLAN: 1. Acute otitis media, bilateral - ICD9: 382.9, ICD10: H66.93 - Will begin treatment with Amoxicillin for 10 days - Supportive care with plenty of fluids, rest, and analgesia prn. - Follow up in 3-5 days if symptoms persist or worsen. - AMOXICILLIN 875 MG TABLET Prescription instructions reviewed with patient as applicable. Patient advised if symptoms do not improve or if symptoms worsen sooner, to contact the office for further evaluation by their primary care physician. Potential red flag symptoms discussed with the patient. Reviewed appropriate action plan to take if red flag symptoms occur. Patient agreeable to treatment plan. ANITA VazquezOV Observed: 12/18/2017 Status: COMPLETED Source: [place] 6:30 PM [facility] REPOSITORY Office Visit ([facility]) KRYS AARON ([id number]) 1970 F Date Time Provider Department 12/18/17 6:30 PM SARAI HERNANDEZ (OFELIA) [facility] During your visit today, we recorded the following information about you: Temperature Pulse Respiration Blood pressure 98 degrees 70/minute 16/minute 124/72 Weight 109.8 kg Sarai Hernandez APRN.CNP 12/18/2017 8:22 PM Signed Subjective HPI HPI Krys Matutesaramukesh is a 47 year old female who presents today for CC of bilateral ear pain. This started 10 days ago. Has tried otc medication without relief. Symptoms are worsened by nothing. Risk factors hx of ear problems/infections. .Patient presents with: Ear Pain: bilateral left worse x 10 days PAST MEDICAL HISTORY Diagnosis Date - Adjustment disorder with depressed mood ANXIETY/DEPRESSION - Arrhythmia as a child-no current problems - Bariatric surgery status 4-10 lrygbp - Benign hypertension 05/05/2015 - Bipolar 2 disorder (HCC) 04/12/2017 - Celiac disease 06/2005 - Excessive or frequent menstruation Heavy periods - Fatty liver disease, nonalcoholic 04/19/2012 - Generalized anxiety disorder - GERD (gastroesophageal reflux disease) - Hemorrhage of rectum and anus - Lumbago - Midline low back pain without sciatica 09/24/2014 - Migraine, unspecified, with intractable migraine, so stated, without mention of status migrainosus Migraine - Mild dysplasia of cervix 04/05/06 mild dysplasia of cervix on biopsy 12, 7 oclock - Morbid obesity (HCC) 3-16-10 BMI 51.83 Ht: 64.75 Wt: 309 lbs - Other and unspecified hyperlipidemia - Other chronic nonalcoholic liver disease - Other chronic nonalcoholic liver disease - Overactive bladder 12/11/2012 - Pain in joint, multiple sites knees,hips - Papanicolaou smear of cervix with low grade squamous intraepithelial lesion (LGSIL) 03/08/06 - PCOS (polycystic ovarian syndrome) - PMH - PAST MEDICAL HISTORY OF Carpal tunnel syndrome - PMH - PAST MEDICAL HISTORY OF PELVIC FLOOR DISORDER WITH URINARY RETENTION - Sleep apnea, obstructive 2010 resolved with weight loss - Snoring - Urinary tract infection, site not specified Recurrent UTI's - Vitamin D deficiency PAST SURGICAL HISTORY Procedure Laterality Date - BX OF BREAST; INCISIONAL 04-04-12 left - DELIVERY ONLY 2003; 2006 , low cervical X2 - COLONOSCOP W/ OR W/O BRSH SPEC 03/31/2014 Colonoscopy - COLPOSCOPY W BX CERVIX 04/05/06 mild dysplasia of cervix - DANDC, DIAG AND/OR THERAPEUTIC Dilation AND curettage - EGD W/O OR W/BRUSH/WASH 03/28/2016 EGD - FNA WITH IMAGING 10/16/12 Left breast retroareolar old hematoma cavity - LAP GASTRIC BYPASS/BRISA-EN-Y 06-29-09 P Lauren - LIGATE FALLOPIAN TUBE Tubal ligation 2006 - PAST SURGICAL HISTORY OF BILATERAL carpal tunnel surgery - PAST SURGICAL HISTORY OF Sinus surgery - REMOVAL ADENOIDS,PRIMARY,<12 Y/O Adenoidectomy - REMOVAL OF TONSILS,<12 Y/O Tonsillectomy - SIGMOIDOSCOPY FLEX DIAG 02/03/10 Min. internal hemorrhoids ALLERGIES Bees; Asa [Salicylates]; Asprin [Aspirin]; Ibuprofen; Wheat Gluten MEDICATIONS naltrexone-bupropion (CONTRAVE) 8-90 mg TbER 1 po qAM x 1 wk. then 1 po BID ferrous sulfate EC 324 mg (65 mg iron) TbEC Take 1 tablet by mouth once daily. lisinopril (ZESTRIL, PRINIVIL) 5 mg tablet Take 1 tablet by mouth once daily. sucralfate (CARAFATE) 1 gram tablet Take 1 tablet by mouth before meals and at bedtime. Dissolve one tablet in 2 teaspoons of water, stir and swallow. SUMAtriptan (IMITREX) 50 mg tablet TAKE 1 TABLET BY MOUTH NEEDED (MAY REPEAT DOSE IN 2 HOURS IF HEADACHE PERSISTS.). oxybutynin ER (DITROPAN XL) 10 mg 24 hr tablet Take 1 tablet by mouth once daily. Cholecalciferol, Vitamin D3, 5,000 unit cap Take 1 capsule by mouth once daily. cetirizine (ZYRTEC) 10 mg tablet Take 1 tablet by mouth once daily. DULoxetine (CYMBALTA) 60 mg capsule Take 1 capsule by mouth once daily. traZODone (DESYREL) 50 mg tablet Take 50 mg by mouth daily at bedtime. As needed lamoTRIgine (LAMICTAL) 25 mg tablet Take 25 mg by mouth twice daily. hydrOXYzine pamoate (VISTARIL) 25 mg capsule Take 1 capsule by mouth three times daily as needed for Anxiety. dibucaine (NUPERCAINAL) 1 % ointment 1 application as needed. Apply to the anus as needed before and following a bowel movement to decrease pain. calcium carbonate (CALTRATE 600) 600 mg (1,500 mg) tab Take 0.5 tablets by mouth once daily. ascorbic acid (VITAMIN C) 500 mg tablet Take 500 mg by mouth once daily. cyanocobalamin(VITAMIN B-12 1,000 MCG TAB) Take one(1) tablet daily. MULTIVITAMIN TAB Take one(1) tablet daily. FAMILY HISTORY Problem Relation Age of Onset - Hypertension Mother - other (Parkinson's disease) Mother - other (COPD, smoker) Father - Cervical Cancer Paternal Grandmother - Stroke Paternal Grandmother DVT - Cancer Paternal Grandfather LUNG - Hypertension Brother - Diabetes Brother - Cancer Brother KIDNEY - Cancer Brother BONE - Heart Paternal Uncle - Cerebral Embolism Other - Breast Cancer Paternal Aunt Social History Substance Use Topics - Smoking status: Never Smoker - Smokeless tobacco: Never Used - Alcohol use Yes Comment: rare Review of Systems Constitutional: Negative for chills, fever and weight loss. HENT: Positive for congestion and ear pain. Negative for ear discharge, nosebleeds and sore throat. Respiratory: Negative for cough, shortness of breath and wheezing. Musculoskeletal: Negative for neck pain. Objective Blood pressure 124/72, pulse 70, temperature 36.7 ?C (98 ?F), temperature source Tympanic, resp. rate 16, weight 109.8 kg (242 lb). Physical Exam Constitutional: She is oriented to person, place, and time and well-developed, well-nourished, and in no distress. Non-toxic appearance. She does not have a sickly appearance. No distress. HENT: Head: Normocephalic and atraumatic. Right Ear: Hearing, external ear and ear canal normal. Tympanic membrane is erythematous and bulging. Tympanic membrane is not perforated. Left Ear: Hearing, external ear and ear canal normal. Tympanic membrane is erythematous and bulging. Tympanic membrane is not perforated. Nose: Nose normal. Mouth/Throat: Uvula is midline, oropharynx is clear and moist and mucous membranes are normal. Eyes: Pupils are equal, round, and reactive to light. Conjunctivae and lids are normal. Right eye exhibits no discharge. Left eye exhibits no discharge. No scleral icterus. Neck: Trachea normal and normal range of motion. Neck supple. Cardiovascular: Normal rate, regular rhythm and normal heart sounds. Pulmonary/Chest: Effort normal and breath sounds normal. Lymphadenopathy: She has no cervical adenopathy. Neurological: She is alert and oriented to person, place, and time. Skin: No rash noted. She is not diaphoretic. ASSESSMENT/PLAN: 1. Acute otitis media, bilateral - ICD9: 382.9, ICD10: H66.93 - Will begin treatment with Amoxicillin for 10 days - Supportive care with plenty of fluids, rest, and analgesia prn. - Follow up in 3-5 days if symptoms persist or worsen. - AMOXICILLIN 875 MG TABLET Prescription instructions reviewed with patient as applicable. Patient advised if symptoms do not improve or if symptoms worsen sooner, to contact the office for further evaluation by their primary care physician. Potential red flag symptoms discussed with the patient. Reviewed appropriate action plan to take if red flag symptoms occur. Patient agreeable to treatment plan. Sarai Hernandez APRN.OFELIA Hernandez APRN.CNP 12/18/2017 6:58 PM Signed OTITIS MEDIA GENERAL INFORMATION: Otitis media is an infection of the middle ear. The middle ear sits behind the eardrum. This infection may be caused by a virus or bacteria and often follows a cold. Children often have repeat ear infections. Otitis media is not contagious. INSTRUCTIONS: 1. An antibiotic has been prescribed. It should be taken exactly as prescribed. Do not stop the medicine even if the symptoms go away. 2. Sexn-dve-xikktdx pain medication may be taken or other pain medication as prescribed by the doctor. 3. Nothing should be placed in the ear unless instructed by your doctor. 4. The patient may return to school/daycare or work when the temperature is normal (98.6 F or 37 C). 5. The patient should not swim while the ear is infected. CONTACT YOUR DOCTOR IF YOU OR YOUR CHILD: 1. Does not feel better within 36 hours. 2. Develops a temperature over 102E F (39E C). 3. Starts vomiting or has diarrhea. 4. Develops drainage from the affected ear. 5. Has any new problem that may be related to the medicine prescribed. RETURN TO THE ED IF: 1. You or your child has a severe headache or pain around the ear. 2. You or your child notice swelling around the ear. 3. You or your child has a seizure (convulsion), twitching of the facial muscles, or passes out. 4. You or your child is dizzy, has a stiff neck, or cannot walk or talk normally. 5. Your child becomes more irritable or listless (not interested in his or her surroundings, does not get soothed by you holding him or her). Referring Provider: SELF [[id number]] Allergies As of Date: 12/18/2017 Noted Allergy Reaction BEES 02/02/2005 5 - Intolerance ASA (SALICYLATES) 12/30/2004 2 - Rash ASPRIN (ASPIRIN) 03/07/2012 2 - Rash Comments: Also makes pt really sleepy IBUPROFEN 12/30/2004 7 - Swelling Comments: throat swelling WHEAT GLUTEN 11/25/2005 8 - GI Upset Date Reviewed: 12/18/2017 Reviewed by: Sarai (Emma Hernandez - Fully Assessed Reason for Visit: Ear Pain [817] Cmt: bilateral left worse x 10 days Primary Visit Diagnosis:Acute otitis media, bilateral [H66.93] Order(s):amoxicillin (AMOXIL) 875 mg tabletTake 1 tablet by mouth twice daily for 10 days.Disp: 20 tabletRfl: 0 Prescriptions as of 12/18/2017 Sig: NALTREXONE 8 MG-BUPROPION 90 * 1 po qAM x 1 wk. then 1 po BID FERROUS SULFATE 324 MG (65 MG* Take 1 tablet by mouth once d* LISINOPRIL 5 MG TABLET Take 1 tablet by mouth once d* SUCRALFATE 1 GRAM TABLET Take 1 tablet by mouth before* SUMATRIPTAN 50 MG TABLET TAKE 1 TABLET BY MOUTH NEE* OXYBUTYNIN CHLORIDE ER 10 MG * Take 1 tablet by mouth once d* CHOLECALCIFEROL (VITAMIN D3) * Take 1 capsule by mouth once * CETIRIZINE 10 MG TABLET Take 1 tablet by mouth once d* DULOXETINE 60 MG CAPSULE,ABIGAIL* Take 1 capsule by mouth once * TRAZODONE 50 MG TABLET Take 50 mg by mouth daily at * LAMOTRIGINE 25 MG TABLET Take 25 mg by mouth twice lux* HYDROXYZINE PAMOATE 25 MG CAP* Take 1 capsule by mouth three* DIBUCAINE 1 % TOPICAL OINTMENT 1 application as needed. Appl* CALCIUM CARBONATE 600 MG CALC* Take 0.5 tablets by mouth onc* ASCORBIC ACID (VITAMIN C) 500* Take 500 mg by mouth once lux* VITAMIN B-12 1,000 MCG TABLET Take one(1) tablet daily. MULTIVITAMIN TABLET Take one(1) tablet daily. AMOXICILLIN 875 MG TABLET Take 1 tablet by mouth twice * Problem List As Of Date 12/18/2017 Noted Resolved Morbid obesity [E66.01] INVALID FOR*01/11/2011 Irregular menstrual cycle [N92.6] INVALID FOR*01/11/2011 BONE AND CARTILAGE DIS NOS [M89.9, M94.9] INVALID FOR* CELIAC DISEASE [K90.0] INVALID FOR* POLYCYSTIC OVARIES [E28.2] INVALID FOR* THREATENED ANTEPARTUM CONDITN/COMPL [O*INVALID FOR*01/11/2011 Supervision of other normal [Z34.80] INVALID FOR*01/11/2011 Unspecified high-risk [O09.90] INVALID FOR*01/11/2011 Dizziness and giddiness [R42] INVALID FOR*04/19/2012 Previous delivery, antepartum conditio*INVALID FOR*01/11/2011 Mild or unspecified pre-eclampsia, antepartum [*INVALID FOR*01/11/2011 MILD DYSPLASIA OF CERVIX [N87.0] INVALID FOR* Sprain of neck [S13.9XXA] INVALID FOR*04/19/2012 ADJUSTMENT DISORDER WITH DEPRESSED MOOD [F43.21]INVALID FOR* GENERALIZED ANXIETY DIS [F41.1] INVALID FOR* DYSMETABOLIC SYNDROME X [E88.81] INVALID FOR* Essential hypertension, benign [I10] INVALID FOR*04/19/2012 Sprain of ankle, unspecified site [S93.409A] INVALID FOR*04/19/2012 Eating disorder, unspecified [F50.9] INVALID FOR*04/19/2012 Major depressive disorder, recurrent episode, m*INVALID FOR*05/20/2016 Internal hemorrhoids without mention of complic*INVALID FOR*04/19/2012 Anal fissure [K60.2] INVALID FOR*04/19/2012 Bulimia nervosa [F50.2] INVALID FOR*04/19/2012 Vitamin D Deficiency [E55.9] INVALID FOR* GERD (Gastroesophageal Reflux Disease) [K21.9] INVALID FOR* More... RB (rectal bleeding) [K62.5] INVALID FOR*04/19/2012 Scoliosis (and kyphoscoliosis), idiopathic [M41*INVALID FOR* Sprain of lumbar region [S33.5XXA] INVALID FOR*04/19/2012 Sleep apnea, obstructive [G47.33] INVALID FOR*04/19/2012 Lump or mass in breast [N63.0] INVALID FOR*08/17/2015 Mastodynia [N64.4] INVALID FOR*08/17/2015 Galactorrhea not associated with childbirth [N6*INVALID FOR*08/17/2015 Abnormal mammogram, unspecified [R92.8] INVALID FOR*08/17/2015 Abnormal ultrasound of breast [R92.8] INVALID FOR*08/17/2015 Fatty liver disease, nonalcoholic [K76.0] INVALID FOR* Overactive bladder [N32.81] INVALID FOR* Arthritis, lumbar spine [M47.816] INVALID FOR* Benign hypertension [I10] INVALID FOR* Occipital neuralgia of left side [M54.81] INVALID FOR*05/20/2016 Migraine with aura and without status migrainos*INVALID FOR* RUQ pain [R10.11] INVALID FOR*05/20/2016 Morbid obesity due to excess calories (HCC) [E6*INVALID FOR* History of bariatric surgery [Z98.84] INVALID FOR* Dyspepsia [R10.13] INVALID FOR* Other instructions from your clinician: OTITIS MEDIA GENERAL INFORMATION: Otitis media is an infection of the middle ear. The middle ear sits behind the eardrum. This infection may be caused by a virus or bacteria and often follows a cold. Children often have repeat ear infections. Otitis media is not contagious. INSTRUCTIONS: 1. An antibiotic has been prescribed. It should be taken exactly as prescribed. Do not stop the medicine even if the symptoms go away. 2. Ezmj-top-auakikd pain medication may be taken or other pain medication as prescribed by the doctor. 3. Nothing should be placed in the ear unless instructed by your doctor. 4. The patient may return to school/daycare or work when the temperature is normal (98.6 F or 37 C). 5. The patient should not swim while the ear is infected. CONTACT YOUR DOCTOR IF YOU OR YOUR CHILD: 1. Does not feel better within 36 hours. 2. Develops a temperature over 102E F (39E C). 3. Starts vomiting or has diarrhea. 4. Develops drainage from the affected ear. 5. Has any new problem that may be related to the medicine prescribed. RETURN TO THE ED IF: 1. You or your child has a severe headache or pain around the ear. 2. You or your child notice swelling around the ear. 3. You or your child has a seizure (convulsion), twitching of the facial muscles, or passes out. 4. You or your child is dizzy, has a stiff neck, or cannot walk or talk normally. 5. Your child becomes more irritable or listless (not interested in his or her surroundings, does not get soothed by you holding him or her). Prescriptions ordered this encounter Disp Refills Start End AMOXICILLIN 875 MG TABLET 20 t* 0 12/18/2017 12/28/2017 Route: ORAL Sig: Take 1 tablet by mouth twice daily for 10 days. Encounter Status:Closed by SARAI HERNANDEZ CNP on 12/18/17 LOWER EXT/JT ONLY/W Observed: 11/15/2017 Status: F Source: [place] CONTRAST 10:54 AM [facility] [place] REPOSITORY [facility] Imaging Services [address] [place] [address] Lower Ext/Jt Only/W Contrast MR#: [id number] Acct: [id number] Name: KRYS AARON Rep #: [id number] : 1970 F 46 From: Braxton Baeza MD PCP: Neil Benjamin III, MD Status: REG CLI Study: Lower Ext/Jt Only/W Contrast Date of Exam: 11/15/17 Exam# [id number] Ordering Dr: Andrea Gomez PA-C STUDY: MR RIGHT HIP ARTHROGRAPHY REASON FOR EXAM: Right hip pain and popping. TECHNIQUE: Standardized fat and water weighted pulse sequences were obtained in all 3 orthogonal planes after intra-articular instillation of dilute Magnevist. COMPARISON: Fluoroscopic view from arthrogram. FINDINGS: Normal hip joint without articular joint space narrowing. Normal acetabulum. Normal labrum. There is a dysplastic bump at the lateral aspect of the proximal femoral physeal scar (T2 coronal image 11). Normal femoral neck and intratrochanteric region. Normal gluteus minimus, medius and iliopsoas tendons and distal insertions. There is no trochanteric, iliopsoas or iliopectineal bursitis. Normal superior and inferior pubic rami. Normal pubic symphysis. Normal ischial tuberosity. Normal origin of the hamstring tendons. Normal visualized iliac wing. Normal visualized soft tissue structures of the pelvis. MRI/Lower Ext/Jt Only/W Contrast IMPRESSION: Dysplastic bump at the lateral aspect of the proximal femoral physeal scar, a possible MRI manifestation of femoroacetabular impingement. No demonstrated labral tear. Electronically Signed: Braxton Baeza MD at 12:48 EDT Tel , Service support , CC: Neil Benjamin III, MD; Andrea DUNHAM Internet Architect: Signed ARTHROGRAM HIP W/ MRI Observed: 11/15/2017 Status: F Source: BR[place]GER 10:22 AM [facility] [place] REPOSITORY [facility] Imaging Services [address] [place] [address] Arthrogram Hip w/ MRI MR#: [id number] Acct: [id number] Name: KRYS AARON Rep #: [id number] : 1970 F 46 From: Carlton Armas MD PCP: Neil Benjamin III, MD Status: REG CLI Study: Arthrogram Hip w/ MRI Date of Exam: 11/15/17 Exam# [id number] Ordering Dr: Andrea Gomez PA-C CLINICAL HISTORY: Female, 46 years old. Chronic right hip pain. PROCEDURE: ARTHROGRAM - RIGHT HIP CONSENT: The procedure as well as the benefits and possible complications including infection and bleeding were explained to the patient. Informed consent was obtained. FLUOROSCOPY TIME (if supplied): (0:42) minutes/seconds Injection Information: 10 cc of dilute Magnevist. Number of images obtained: 1 TECHNIQUE: (All elements of maximal sterile barrier technique followed, including US elements as applicable) The patient was in the supine position. The overlying skin was prepped and draped in usual sterile fashion. Following local anesthetic application and under direct fluoroscopic guidance, a 22-gauge spinal needle was advanced into the right hip joint. 2 cc of Isovue-300 was injected for confirmation. Following this, 10 cc of dilute Magnevist was injected. The patient tolerated the procedure well. MRI scan will follow. RAD/Arthrogram Hip w/ MRI IMPRESSION: Successful right hip injection for MRI examination. The patient tolerated the procedure well. Electronically Signed: Carlton Armas MD at 12:52 EDT Tel [phone], Service support , CC: eNil Benjamin III, MD; Andrea DUNHAM Internet Architect: Signed URINALYSIS, COMPLETE Collected: 11/08/2017 Status: F Source: BR[place]GER 3:05 PM [facility] REPOSITORY Order Comment: How was Urine Obtained? CLEAN CATCH TYPE CODE TESTS RESULT OUT OF RANGE REFERENCE UNITS LAB L400.3000 Yellow COLOR Normal Yellow LAB L400.3050 Clear Normal CLARITY Clear LAB L400.3200 Normal mg/dl Normal GLUCOSE, UR Normal LAB L400.3300 Negative mg/dL Normal BILIRUBIN URINE Negative LAB L400.3400 Negative mg/dl Normal KETONE UR Negative LAB L400.3465 1.002-1.030 Normal SP.GR. DIPSTX 1.015 LAB L400.3550 5.0 - 8.0 pH UR Normal 5.0 LAB L400.3600 Negative mg/dl PROT Normal DIPSTX Negative LAB L400.3700 Normal mg/dl Normal UROBILI Normal LAB L400.3750 Negative Normal NITRITE UR Negative LAB L400.3780 Negative /ul Normal OCCULT BLOOD-UR Negative LAB L400.3800 Negative /ul High LEUK 25 ESTERASE LAB L400.4050 0-5 /hpf WBC Normal 0-5 SEEN LAB L400.4100 0-5 /hpf 0 Normal RBC-UA SEEN LAB L400.4150 5-10 /hpf SQUAM Normal EPI 0-5 SEEN LAB L400.4300 None Seen /hpf 2+ Normal BACTERIA LAB L400.4350 <or=2+ /hpf 0 Normal MUCUS, URINE SEEN Performed By: #### L400.0001 #### [facility] [address] [place], [place], [address] Observed: 11/08/2017 Status: F Source: [place] CULTURE, URINE 3:05 PM [facility] REPOSITORY Urine Culture Culture exhibits no growth. Performed By: #### M100.0650 #### [facility] [address] [place], [place], [address] URGENT CARE VISIT Observed: 11/07/2017 Status: F Source: [place] REPORT 5:21 PM [facility] REPOSITORY Now [address] [place] [address] OFFICE VISIT Date of Service: 11/07/17 MR#: [id number] Acct: [id number] Name: KRYS AARON Rep #: [id number] : 1970 Provider: Juan Carlos DUNHAM Age/Sex: 46/F Location: [facility] Status: Signed Intake Vital Signs11/07/17 Height 5 ft 5 in 11/07/17 Weight: 246 lb 11/07/17 Body Mass Index (BMI) 40.9 11/07/17 Blood Pressure 124/82 Intake Visit Reasons: UTI/SORE INSIDE NOSE/ THINKS ITS MRSA Chief Complaint: Possible UTI, sore in nose Accompanied by: self Is patient in pain?: No Allergies aspirin Allergy (Verified 11/07/17 17:14) Rash hydrocodone [From Vicodin] Allergy (Verified 11/07/17 17:14) Hives ibuprofen Allergy (Verified 11/07/17 17:14) Anaphylaxis venom-honey bee [bee venom (honey bee)] Allergy (Verified 11/07/17 17:14) Anaphylaxis gluten Adverse Reaction (Verified 11/07/17 17:14) Upset Stomach Medications Duloxetine Hcl [Cymbalta] 20 mg PO DAILY 12/30/12 [History Confirmed 11/07/17] Oxybutynin [Ditropan] 5 mg PO DAILY 02/01/13 [History Confirmed 11/07/17] Ferrous Sulfate 325 mg PO DAILY@0800 07/27/16 [History Confirmed 11/07/17] Fexofenadine/Pseudoephedrine [Katerin-D 24 Hour Tablet] 1 ea PO DAILY 07/27/16 [History Confirmed 11/07/17] hydrOXYzine pamoate capsule [Vistaril] 25 mg PO TID PRN PRN #10 cap 07/27/16 [Rx Confirmed 11/07/17] cholecalciferol (vitamin D3) 1,000 unit capsule 1,000 unit PO ONCE 02/17/17 [History Confirmed 11/07/17] cyanocobalamin (vit B-12) 1,000 mcg/mL oral drops 1,000 mcg PO QDAY 02/17/17 [History Confirmed 11/07/17] lisinopril 2.5 mg tablet 2.5 mg PO QDAY 02/17/17 [History Confirmed 11/07/17] multivitamin tablet 1 tab PO QAM 02/17/17 [History Confirmed 11/07/17] naproxen sodium 220 mg capsule 220 mg PO Q12H 02/17/17 [History Confirmed 11/07/17] Lamotrigine [Lamotrigine] 25 mg PO DAILY 07/06/17 [History Confirmed 11/07/17] traZODone [Desyrel] 50 mg PO QHS PRN 07/07/17 [History Confirmed 11/07/17] clindamycin HCl 300 mg capsule 300 mg PO TID #30 cap 09/20/17 [Rx Confirmed 11/07/17] mupirocin 2 % nasal ointment 1 applic INTRANASAL BID 5 Days #10 g 11/07/17 [Rx Confirmed 11/07/17] sulfamethoxazole 800 mg-trimethoprim 160 mg tablet 1 tab PO Q12H 7 Days #14 tab 11/07/17 [Rx Confirmed 11/07/17] PFSH Medical History Anemia (Acute) Arthritis (Acute) Back pain (Acute) Celiac disease (Acute) Hemorrhoids (Acute) Incontinence (Acute) Knee pain (Acute) Liver disease (Acute) Migraines (Acute) Shoulder pain (Acute) HTN (hypertension) (Chronic) Surgical History History of carpal tunnel surgery (Acute) History of sinus surgery (Acute) History of tonsillectomy and adenoidectomy (Acute) Personal history of gastric bypass (Acute) Family History Other Arthritis COPD (chronic obstructive pulmonary disease) Cancer Diabetes Osteoporosis Parkinson disease Social History Smoking Status: Never smoker alcohol intake: never HPI HPI Chief Complaint: Possible UTI, sore in nose Details: KRYS AARON, is a 46 F who presents to the office today for concern for a sore to the left nostril. Patient reports a history of MRSA in the same nostril which was treated effectively with Bactroban. Patient states that she has had the soreness to the left nostril for approximately the last 5 weeks. She denies any epistaxis or nasal drainage. No fever, chills, sweats. No nausea, vomiting, diarrhea. Patient does have secondary complaint of dysuria and painful wiping. She states that she had this has been present for the past 2-3 days however also reports a small abrasion to the inside of her vagina. No other associated symptoms or alleviating/aggravating factors. ROS Const Constitutional: No body ache, chills or fever(s) ENT ENT: Positive for nose pain; no nosebleed/epistaxis, nasal congestion or nasal obstruction Resp Respiratory: No shortness of breath Cardio Cardiology: No lightheadedness, palpitations or irregular heart rhythm Gastro GI: No abdominal pain Genitourinary-Female: Positive for painful urination and genital lesions; no burning urination, pelvic pain, painful intercourse, blood in urine or urinary frequency Neuro Neurology: No confusion or behavioral changes Psych Psychiatric: No confusion, No behavioral changes Exam Const General: cooperative, healthy appearing [facility] Head: normal to inspection Nose: external nose normal, septum abnormal (Erythema and mild swelling to the left nostril particularly around the sept) Mouth: oral mucosae normal Throat: posterior oropharynx normal Resp Effort AND Inspection: normal respiratory effort Auscultation: Bilateral: Clear to Auscultation Cardio Rate: regular rate Rhythm: regular rhythm GI Auscultation: normal bowel sounds General: No CVA tenderness Psych Appearance: grossly normal Mental Status: mental status grossly normal Results [facility] Office Urine Color Yellow Last Edit by Desiree Vaughan on 11/07/17 17:18 Assessment AND Plan Problems 1. Nose colonized with MRSA Z22.322 Status Acute 2. Dysuria R30.0 Plan Bactrim and refrozen nasal ointment as prescribed today. Patient advised to follow-up with her PCP in 5-7 days if no better or sooner if worse. Patient advised to follow-up with her [facility] if the dysuria does not clear up with the antibiotic treatment today. Patient verbalized understanding and agreement with all the above. Orders Orders: Medications New: sulfamethoxazole-trimethoprim 800-160 mg (Bactrim D1 tab PO Q12H 7 days Z22.322 S) Coding Level of Care Code Off vis,est,level 4 Diagnoses Nose colonized with MRSA Z22.322 Dysuria R30.0 11/07/17 1721 <Electronically signed by Juan Carlos DUNHAM> Date Juan Carlos DUNHAM Cosigner Signature: Date (if applicable) CC: PROGRESS Observed: 10/17/2017 Status: COMPLETED Source: [place] 9:15 AM [facility] REPOSITORY HNO ID: [id number] Author: Neil Benjamin III Service: (none) Author Type: Physician Type: Progress Notes Filed: 10/17/2017 12:09 PM Note Text: SUBJECTIVE: This is a 46 year old female that is here today for Chronic Medical Conditions. 1. morbid obesity--sustained weight loss since last yr. More difficult since on lamictal 2. bipolar depression--improved control on lamictal, cymbalta. Uses trazodone occasionally. She is treated through the counseling Center. She does feel better controlled since Lamictal has been initiated. We did discuss the need for control of her cravings which she says is difficult. Her insurance coverage for dietary counseling has . We did discuss having her try to keep healthier snacks at home so her cravings must be satisfied by healthier foods. We discussed possibly starting contrave but hesitated due to warnings of interactions with her meds. 3. Vitamin D deficiency. She has been on vitamin D 50,000 units weekly. Most recent vitamin D level is now normal. We decided to switch to 5000 units daily. She is status post gastric bypass surgery with decreased vitamin D absorption PAST MEDICAL HISTORY Diagnosis Date - Adjustment disorder with depressed mood ANXIETY/DEPRESSION - Arrhythmia as a child-no current problems - Bariatric surgery status 4 lrygbp - Benign hypertension 05/05/2015 - Bipolar 2 disorder (HCC) 04/12/2017 - Celiac disease 06/2005 - Excessive or frequent menstruation Heavy periods - Fatty liver disease, nonalcoholic 04/19/2012 - Generalized anxiety disorder - GERD (gastroesophageal reflux disease) - Hemorrhage of rectum and anus - Lumbago - Midline low back pain without sciatica 09/24/2014 - Migraine, unspecified, with intractable migraine, so stated, without mention of status migrainosus Migraine - Mild dysplasia of cervix 04/05/06 mild dysplasia of cervix on biopsy 12, 7 oclock - Morbid obesity (HCC) 3-16-10 BMI 51.83 Ht: 64.75 Wt: 309 lbs - Other and unspecified hyperlipidemia - Other chronic nonalcoholic liver disease - Other chronic nonalcoholic liver disease - Overactive bladder 12/11/2012 - Pain in joint, multiple sites knees,hips - Papanicolaou smear of cervix with low grade squamous intraepithelial lesion (LGSIL) 03/08/06 - PCOS (polycystic ovarian syndrome) - PMH - PAST MEDICAL HISTORY OF Carpal tunnel syndrome - PMH - PAST MEDICAL HISTORY OF PELVIC FLOOR DISORDER WITH URINARY RETENTION - Sleep apnea, obstructive 2010 resolved with weight loss - Snoring - Urinary tract infection, site not specified Recurrent UTI's - Vitamin D deficiency Current Outpatient Prescriptions on File Prior to Visit: cetirizine (ZYRTEC) 10 mg tablet Take 1 tablet by mouth once daily. DULoxetine (CYMBALTA) 60 mg capsule Take 1 capsule by mouth once daily. traZODone (DESYREL) 50 mg tablet Take 50 mg by mouth daily at bedtime. As needed lamoTRIgine (LAMICTAL) 25 mg tablet Take 25 mg by mouth twice daily. oxybutynin ER (DITROPAN XL) 10 mg 24 hr tablet TAKE 1 TABLET BY MOUTH DAILY SUMAtriptan (IMITREX) 50 mg tablet TAKE 1 TABLET BY MOUTH NEEDED (MAY REPEAT DOSE IN 2 HOURS IF HEADACHE PERSISTS.). sucralfate (CARAFATE) 1 gram tablet Take 1 tablet by mouth before meals and at bedtime. Dissolve one tablet in 2 teaspoons of water, stir and swallow. hydrOXYzine pamoate (VISTARIL) 25 mg capsule Take 1 capsule by mouth three times daily as needed for Anxiety. ferrous sulfate EC 324 mg (65 mg iron) TbEC TAKE 1 TABLET BY MOUTH ONCE DAILY. lisinopril (ZESTRIL, PRINIVIL) 5 mg tablet Take 1 tablet by mouth once daily. dibucaine (NUPERCAINAL) 1 % ointment 1 application as needed. Apply to the anus as needed before and following a bowel movement to decrease pain. calcium carbonate (CALTRATE 600) 600 mg (1,500 mg) tab Take 0.5 tablets by mouth once daily. ascorbic acid (VITAMIN C) 500 mg tablet Take 500 mg by mouth once daily. cyanocobalamin(VITAMIN B-12 1,000 MCG TAB) Take one(1) tablet daily. MULTIVITAMIN TAB Take one(1) tablet daily. [DISCONTINUED] cholecalciferol, Vitamin D3, (VITAMIN D3) 50,000 unit cap capsule Take 1 capsule by mouth once each week. No current facility-administered medications on file prior to visit. FAMILY HISTORY Problem Relation Age of Onset - Hypertension Mother - other (Parkinson's disease) Mother - other (COPD, smoker) Father - Cervical Cancer Paternal Grandmother - Stroke Paternal Grandmother DVT - Cancer Paternal Grandfather LUNG - Hypertension Brother - Diabetes Brother - Cancer Brother KIDNEY - Cancer Brother BONE - Heart Paternal Uncle - Cerebral Embolism Other - Breast Cancer Paternal Aunt Social History Substance Use Topics - Smoking status: Never Smoker - Smokeless tobacco: Never Used - Alcohol use Yes Comment: rare BP 112/72 Pulse 75 Resp 16 Wt 108.4 kg (239 lb) LMP 07/17/2017 (Approximate) BMI 40.08 kg/m? . OBJECTIVE: APPEARANCE Well appearing, alert, in no acute distress, well-hydrated, well nourished. and Morbidly obese ASSESSMENT: Morbid obesity Bipolar disorder?stable Overactive bladder?oxybutynin once per day does help PLAN: healthy weight losing diet and regular exercise eat less sugar, bread, potato, pasta, rice, corn, corn syrup, saturated fats same medications follow up with counseling center work on non-medicinal techniques to control craving Neil Benjamin III MD CNOV Observed: 10/17/2017 Status: COMPLETED Source: [place] 8:00 AM [facility] REPOSITORY Office Visit (FAMPWS) KRYS AARON ([id number]) 1970 F Date Time Provider Department 10/17/17 8:00 AM NEIL BENJAMIN III During your visit today, we recorded the following information about you: Pulse Respiration Blood pressure Weight 75/minute 16/minute 112/72 108.4 kg Last Period 07/17/17 Neil Benjamin III MD 10/17/2017 12:09 PM Signed SUBJECTIVE: This is a 46 year old female that is here today for Chronic Medical Conditions. 1. morbid obesity--sustained weight loss since last yr. More difficult since on lamictal 2. bipolar depression--improved control on lamictal, cymbalta. Uses trazodone occasionally. She is treated through the counseling Center. She does feel better controlled since Lamictal has been initiated. We did discuss the need for control of her cravings which she says is difficult. Her insurance coverage for dietary counseling has . We did discuss having her try to keep healthier snacks at home so her cravings must be satisfied by healthier foods. We discussed possibly starting contrave but hesitated due to warnings of interactions with her meds. 3. Vitamin D deficiency. She has been on vitamin D 50,000 units weekly. Most recent vitamin D level is now normal. We decided to switch to 5000 units daily. She is status post gastric bypass surgery with decreased vitamin D absorption PAST MEDICAL HISTORY Diagnosis Date - Adjustment disorder with depressed mood ANXIETY/DEPRESSION - Arrhythmia as a child-no current problems - Bariatric surgery status 06-29-09 lrygbp - Benign hypertension 05/05/2015 - Bipolar 2 disorder (HCC) 04/12/2017 - Celiac disease 06/2005 - Excessive or frequent menstruation Heavy periods - Fatty liver disease, nonalcoholic 04/19/2012 - Generalized anxiety disorder - GERD (gastroesophageal reflux disease) - Hemorrhage of rectum and anus - Lumbago - Midline low back pain without sciatica 09/24/2014 - Migraine, unspecified, with intractable migraine, so stated, without mention of status migrainosus Migraine - Mild dysplasia of cervix 04/05/06 mild dysplasia of cervix on biopsy 12, 7 oclock - Morbid obesity (HCC) 16-10 BMI 51.83 Ht: 64.75 Wt: 309 lbs - Other and unspecified hyperlipidemia - Other chronic nonalcoholic liver disease - Other chronic nonalcoholic liver disease - Overactive bladder 12/11/2012 - Pain in joint, multiple sites knees,hips - Papanicolaou smear of cervix with low grade squamous intraepithelial lesion (LGSIL) 03/08/06 - PCOS (polycystic ovarian syndrome) - PMH - PAST MEDICAL HISTORY OF Carpal tunnel syndrome - PMH - PAST MEDICAL HISTORY OF PELVIC FLOOR DISORDER WITH URINARY RETENTION - Sleep apnea, obstructive 2010 resolved with weight loss - Snoring - Urinary tract infection, site not specified Recurrent UTI's - Vitamin D deficiency Current Outpatient Prescriptions on File Prior to Visit: cetirizine (ZYRTEC) 10 mg tablet Take 1 tablet by mouth once daily. DULoxetine (CYMBALTA) 60 mg capsule Take 1 capsule by mouth once daily. traZODone (DESYREL) 50 mg tablet Take 50 mg by mouth daily at bedtime. As needed lamoTRIgine (LAMICTAL) 25 mg tablet Take 25 mg by mouth twice daily. oxybutynin ER (DITROPAN XL) 10 mg 24 hr tablet TAKE 1 TABLET BY MOUTH DAILY SUMAtriptan (IMITREX) 50 mg tablet TAKE 1 TABLET BY MOUTH NEEDED (MAY REPEAT DOSE IN 2 HOURS IF HEADACHE PERSISTS.). sucralfate (CARAFATE) 1 gram tablet Take 1 tablet by mouth before meals and at bedtime. Dissolve one tablet in 2 teaspoons of water, stir and swallow. hydrOXYzine pamoate (VISTARIL) 25 mg capsule Take 1 capsule by mouth three times daily as needed for Anxiety. ferrous sulfate EC 324 mg (65 mg iron) TbEC TAKE 1 TABLET BY MOUTH ONCE DAILY. lisinopril (ZESTRIL, PRINIVIL) 5 mg tablet Take 1 tablet by mouth once daily. dibucaine (NUPERCAINAL) 1 % ointment 1 application as needed. Apply to the anus as needed before and following a bowel movement to decrease pain. calcium carbonate (CALTRATE 600) 600 mg (1,500 mg) tab Take 0.5 tablets by mouth once daily. ascorbic acid (VITAMIN C) 500 mg tablet Take 500 mg by mouth once daily. cyanocobalamin(VITAMIN B-12 1,000 MCG TAB) Take one(1) tablet daily. MULTIVITAMIN TAB Take one(1) tablet daily. [DISCONTINUED] cholecalciferol, Vitamin D3, (VITAMIN D3) 50,000 unit cap capsule Take 1 capsule by mouth once each week. No current facility-administered medications on file prior to visit. FAMILY HISTORY Problem Relation Age of Onset - Hypertension Mother - other (Parkinson's disease) Mother - other (COPD, smoker) Father - Cervical Cancer Paternal Grandmother - Stroke Paternal Grandmother DVT - Cancer Paternal Grandfather LUNG - Hypertension Brother - Diabetes Brother - Cancer Brother KIDNEY - Cancer Brother BONE - Heart Paternal Uncle - Cerebral Embolism Other - Breast Cancer Paternal Aunt Social History Substance Use Topics - Smoking status: Never Smoker - Smokeless tobacco: Never Used - Alcohol use Yes Comment: rare BP 112/72 Pulse 75 Resp 16 Wt 108.4 kg (239 lb) LMP 07/17/2017 (Approximate) BMI 40.08 kg/m? . OBJECTIVE: APPEARANCE Well appearing, alert, in no acute distress, well- hydrated, well nourished. and Morbidly obese ASSESSMENT: Morbid obesity Bipolar disorder?stable Overactive bladder?oxybutynin once per day does help PLAN: healthy weight losing diet and regular exercise eat less sugar, bread, potato, pasta, rice, corn, corn syrup, saturated fats same medications follow up with counseling center work on non-medicinal techniques to control craving SOLITARIO Bradley MD, III MD 10/17/2017 9:32 AM Signed PLAN: healthy weight losing diet and regular exercise eat less sugar, bread, potato, pasta, rice, corn, corn syrup, saturated fats same medications follow up with counseling center work on non-medicinal techniques to control craving Neil eBnjamin III MD Referring Provider: SELF [200] Allergies As of Date: 10/17/2017 Noted Allergy Reaction BEES 02/02/2005 5 - Intolerance ASA (SALICYLATES) 12/30/2004 2 - Rash ASPRIN (ASPIRIN) 03/07/2012 2 - Rash Comments: Also makes pt really sleepy IBUPROFEN 12/30/2004 7 - Swelling Comments: throat swelling WHEAT GLUTEN 11/25/2005 8 - GI Upset Date Reviewed: 10/17/2017 Reviewed by: Sara ([facility]) ARMANI Holm - Fully Assessed Reason for Visit: Weight Loss [882] Cmt: gastric bypass 6 years ago, has gained some weight back, saw dietitician with little success, craving snacks Primary Visit Diagnosis:Benign hypertension [I10] Other Visit Diagnoses:Gastro-esophageal reflux disease with esophagitis [K21.0] Vitamin D deficiency [E55.9] Morbid obesity due to excess calories (HCC) [E66.01] History of bariatric surgery [Z98.84] Order(s):ferrous sulfate EC 324 mg (65 mg iron) TbECTake 1 tablet by mouth once daily.Disp: 90 tabletRfl: 4 lisinopril (ZESTRIL, PRINIVIL) 5 mg tabletTake 1 tablet by mouth once daily.Disp: 90 tabletRfl: 3 sucralfate (CARAFATE) 1 gram tabletTake 1 tablet by mouth before meals and at bedtime. Dissolve one tablet in 2 teaspoons of water, stir and swallow.Disp: 120 tabletRfl: 2 SUMAtriptan (IMITREX) 50 mg tabletTAKE 1 TABLET BY MOUTH NEEDED (MAY REPEAT DOSE IN 2 HOURS IF HEADACHE PERSISTS.).Disp: 9 tabletRfl: 3 oxybutynin ER (DITROPAN XL) 10 mg 24 hr tabletTake 1 tablet by mouth once daily.Disp: 30 tabletRfl: 11 Cholecalciferol, Vitamin D3, 5,000 unit capTake 1 capsule by mouth once daily.Disp: 90 capsuleRfl: 3 Prescriptions as of 10/17/2017 Sig: FERROUS SULFATE 324 MG (65 MG* Take 1 tablet by mouth once d* LISINOPRIL 5 MG TABLET Take 1 tablet by mouth once d* SUCRALFATE 1 GRAM TABLET Take 1 tablet by mouth before* SUMATRIPTAN 50 MG TABLET TAKE 1 TABLET BY MOUTH NEE* OXYBUTYNIN CHLORIDE ER 10 MG * Take 1 tablet by mouth once d* CETIRIZINE 10 MG TABLET Take 1 tablet by mouth once d* DULOXETINE 60 MG CAPSULE,ABIGAIL* Take 1 capsule by mouth once * TRAZODONE 50 MG TABLET Take 50 mg by mouth daily at * LAMOTRIGINE 25 MG TABLET Take 25 mg by mouth twice lux* HYDROXYZINE PAMOATE 25 MG CAP* Take 1 capsule by mouth three* DIBUCAINE 1 % TOPICAL OINTMENT 1 application as needed. Appl* CALCIUM CARBONATE 600 MG CALC* Take 0.5 tablets by mouth onc* ASCORBIC ACID (VITAMIN C) 500* Take 500 mg by mouth once lux* VITAMIN B-12 1,000 MCG TABLET Take one(1) tablet daily. MULTIVITAMIN TABLET Take one(1) tablet daily. CHOLECALCIFEROL (VITAMIN D3) * Take 1 capsule by mouth once * Problem List As Of Date 10/17/2017 Noted Resolved Morbid obesity [E66.01] INVALID FOR*01/11/2011 Irregular menstrual cycle [N92.6] INVALID FOR*01/11/2011 BONE AND CARTILAGE DIS NOS [M89.9, M94.9] INVALID FOR* CELIAC DISEASE [K90.0] INVALID FOR* POLYCYSTIC OVARIES [E28.2] INVALID FOR* THREATENED ANTEPARTUM CONDITN/COMPL [O*INVALID FOR*01/11/2011 Supervision of other normal [Z34.80] INVALID FOR*01/11/2011 Unspecified high-risk [O09.90] INVALID FOR*01/11/2011 Dizziness and giddiness [R42] INVALID FOR*04/19/2012 Previous delivery, antepartum conditio*INVALID FOR*01/11/2011 Mild or unspecified pre-eclampsia, antepartum [*INVALID FOR*01/11/2011 MILD DYSPLASIA OF CERVIX [N87.0] INVALID FOR* Sprain of neck [S13.9XXA] INVALID FOR*04/19/2012 ADJUSTMENT DISORDER WITH DEPRESSED MOOD [F43.21]INVALID FOR* GENERALIZED ANXIETY DIS [F41.1] INVALID FOR* DYSMETABOLIC SYNDROME X [E88.81] INVALID FOR* Essential hypertension, benign [I10] INVALID FOR*04/19/2012 Sprain of ankle, unspecified site [S93.409A] INVALID FOR*04/19/2012 Eating disorder, unspecified [F50.9] INVALID FOR*04/19/2012 Major depressive disorder, recurrent episode, m*INVALID FOR*05/20/2016 Internal hemorrhoids without mention of complic*INVALID FOR*04/19/2012 Anal fissure [K60.2] INVALID FOR*04/19/2012 Bulimia nervosa [F50.2] INVALID FOR*04/19/2012 Vitamin D Deficiency [E55.9] INVALID FOR* GERD (Gastroesophageal Reflux Disease) [K21.9] INVALID FOR* More... RB (rectal bleeding) [K62.5] INVALID FOR*04/19/2012 Scoliosis (and kyphoscoliosis), idiopathic [M41*INVALID FOR* Sprain of lumbar region [S33.5XXA] INVALID FOR*04/19/2012 Sleep apnea, obstructive [G47.33] INVALID FOR*04/19/2012 Lump or mass in breast [N63.0] INVALID FOR*08/17/2015 Mastodynia [N64.4] INVALID FOR*08/17/2015 Galactorrhea not associated with childbirth [N6*INVALID FOR*08/17/2015 Abnormal mammogram, unspecified [R92.8] INVALID FOR*08/17/2015 Abnormal ultrasound of breast [R92.8] INVALID FOR*08/17/2015 Fatty liver disease, nonalcoholic [K76.0] INVALID FOR* Overactive bladder [N32.81] INVALID FOR* Arthritis, lumbar spine [M46.96] INVALID FOR* Benign hypertension [I10] INVALID FOR* Occipital neuralgia of left side [M54.81] INVALID FOR*05/20/2016 Migraine with aura and without status migrainos*INVALID FOR* RUQ pain [R10.11] INVALID FOR*05/20/2016 Morbid obesity due to excess calories (HCC) [E6*INVALID FOR* History of bariatric surgery [Z98.84] INVALID FOR* Dyspepsia [R10.13] INVALID FOR* Other instructions from your clinician: PLAN: healthy weight losing diet and regular exercise eat less sugar, bread, potato, pasta, rice, corn, corn syrup, saturated fats same medications follow up with counseling center work on non-medicinal techniques to control craving Neil Benjamin III MD Prescriptions ordered this encounter Disp Refills Start End FERROUS SULFATE 324 MG (65 MG IRON) * 90 t* 4 10/17/2017 Route: ORAL Sig: Take 1 tablet by mouth once daily. LISINOPRIL 5 MG TABLET 90 t* 3 10/17/2017 Route: ORAL Sig: Take 1 tablet by mouth once daily. SUCRALFATE 1 GRAM TABLET 120 * 2 10/17/2017 Route: ORAL Sig: Take 1 tablet by mouth before meals and at bedtime. Dissolve one tablet in 2 teaspoons of water, stir and swallow. SUMATRIPTAN 50 MG TABLET 9 ta* 3 10/17/2017 Sig: TAKE 1 TABLET BY MOUTH NEEDED (MAY REPEAT DOSE IN 2 HOURS IF HEADACHE PERSISTS.). OXYBUTYNIN CHLORIDE ER 10 MG TABLET,* 30 t* 11 10/17/2017 Route: ORAL Sig: Take 1 tablet by mouth once daily. CHOLECALCIFEROL (VITAMIN D3) 5,000 U* 90 c* 3 10/17/2017 Route: ORAL Sig: Take 1 capsule by mouth once daily. Medications Discontinued During This Encounter cholecalciferol, Vitamin D3, (VITAMI* 4 ca* 3 03/13/2017 10/17/2017 Route: ORAL Sig: Take 1 capsule by mouth once each week. Disc: Dosage adjustment ferrous sulfate EC 324 mg (65 mg iro* 90 t* 4 09/16/2016 10/17/2017 Sig: TAKE 1 TABLET BY MOUTH ONCE DAILY. Disc: Reason for discontinue is not on file. lisinopril (ZESTRIL, PRINIVIL) 5 mg * 90 t* 3 05/20/2016 10/17/2017 Route: ORAL Sig: Take 1 tablet by mouth once daily. Disc: Reason for discontinue is not on file. sucralfate (CARAFATE) 1 gram tablet 120 * 2 11/22/2016 10/17/2017 Route: ORAL Sig: Take 1 tablet by mouth before meals and at bedtime. Dissolve one tablet in 2 teaspoons of water, stir and swallow. Disc: Reason for discontinue is not on file. SUMAtriptan (IMITREX) 50 mg tablet 9 ta* 3 01/02/2017 10/17/2017 Sig: TAKE 1 TABLET BY MOUTH NEEDED (MAY REPEAT DOSE IN 2 HOURS IF HEADACHE PERSISTS.). Disc: Reason for discontinue is not on file. oxybutynin ER (DITROPAN XL) 10 mg 24* 30 t* 11 03/03/2017 10/17/2017 Sig: TAKE 1 TABLET BY MOUTH DAILY Disc: Reason for discontinue is not on file. Encounter Status:Closed by NEIL BENJAMIN III, MD on 10/17/17 URGENT CARE VISIT Observed: 09/20/2017 Status: F Source: [place] REPORT 3:00 PM [facility] [place] REPOSITORY [facility] [address] [place], [place] [id number] OFFICE VISIT Date of Service: 09/20/17 MR#: [id number] Acct: [id number] Name: JOSE AARONLY Rep #: [id number] : 1970 Provider: Sher DUNHAM Age/Sex: 46/F Location[place] [facility] Status: Signed Intake Vital Signs09/20/17 Height 5 ft 5 in Intake Visit Reasons: Urinary tract infection/EAR ACHE Chief Complaint: Possible UTI, possible left ear infection Allergies aspirin Allergy (Verified 09/20/17 14:22) Rash hydrocodone [From Vicodin] Allergy (Verified 09/20/17 14:22) Hives ibuprofen Allergy (Verified 09/20/17 14:22) Anaphylaxis venom-honey bee [bee venom (honey bee)] Allergy (Verified 09/20/17 14:22) Anaphylaxis gluten Adverse Reaction (Verified 09/20/17 14:22) Upset Stomach Medications Duloxetine Hcl [Cymbalta] 20 mg PO DAILY 12/30/12 [History Confirmed 09/20/17] Oxybutynin [Ditropan] 5 mg PO DAILY 02/01/13 [History Confirmed 09/20/17] Ferrous Sulfate 325 mg PO DAILY@0800 07/27/16 [History Confirmed 09/20/17] Fexofenadine/Pseudoephedrine [Katerin-D 24 Hour Tablet] 1 ea PO DAILY 07/27/16 [History Confirmed 09/20/17] hydrOXYzine pamoate capsule [Vistaril] 25 mg PO TID PRN PRN #10 cap 07/27/16 [Rx Confirmed 09/20/17] cholecalciferol (vitamin D3) 1,000 unit capsule 1,000 unit PO ONCE 02/17/17 [History Confirmed 09/20/17] cyanocobalamin (vit B-12) 1,000 mcg/mL oral drops 1,000 mcg PO QDAY 02/17/17 [History Confirmed 09/20/17] lisinopril 2.5 mg tablet 2.5 mg PO QDAY 02/17/17 [History Confirmed 09/20/17] multivitamin tablet 1 tab PO QAM 02/17/17 [History Confirmed 09/20/17] naproxen sodium 220 mg capsule 220 mg PO Q12H 02/17/17 [History Confirmed 09/20/17] Lamotrigine [Lamotrigine] 25 mg PO DAILY 07/06/17 [History Confirmed 09/20/17] traZODone [Desyrel] 50 mg PO QHS PRN 07/07/17 [History Confirmed 09/20/17] clindamycin HCl 300 mg capsule 300 mg PO TID #30 cap 09/20/17 [Rx Confirmed 09/20/17] PFSH Medical History Anemia (Acute) Arthritis (Acute) Back pain (Acute) Celiac disease (Acute) Hemorrhoids (Acute) Incontinence (Acute) Knee pain (Acute) Liver disease (Acute) Migraines (Acute) Shoulder pain (Acute) HTN (hypertension) (Chronic) Surgical History History of carpal tunnel surgery (Acute) History of sinus surgery (Acute) History of tonsillectomy and adenoidectomy (Acute) Personal history of gastric bypass (Acute) Family History Other Arthritis COPD (chronic obstructive pulmonary disease) Cancer Diabetes Osteoporosis Parkinson disease Social History Smoking Status: Never smoker alcohol intake: never HPI HPI Chief Complaint: Possible UTI, possible left ear infection Details: KRYS AARON, is a 46 F who presents to the office today for evaluation of dysuria/urinary frequency, suspicious she may have a urinary tract infection. Patient notes approximately week ago being treated by the [facility] urgent care for a UTI with amoxicillin and states her symptoms initially cleared up but notes after completing the medication that she has recurrent complaints of the same symptoms. She has no complaints of fever, chills, sweats, rash, cough, chest pain/shortness of breath. She notes persistent mild suprapubic tenderness. Additionally, patient notes developing new onset 5-6 day history of left ear discomfort; she notes no complaints of lightheadedness dizziness/balance issues, left ear discharge or change in hearing. She has no other associated symptoms and no other alleviating or aggravating factors. ROS Const Constitutional: Positive for other (ROS negative 10 other than that noted above) Exam Const General: cooperative, healthy appearing, no acute distress, comfortable Nutritional Appearance: obese Orientation: alert, awake, oriented x3 HENMT Head: normal to inspection Ears: hearing grossly normal bilaterally, external ears normal, EAC's normal, TM normal on the right, left TM abnormal (Bulging pearly appearance) Nose: external nose normal, nares normal, septum normal, no nasal discharge Face and sinus: normal facial exam, sinuses nontender, face symmetric Mouth: oral mucosae normal, lip normal, tongue normal, oropharynx normal Teeth and gingiva: dentition normal, gingiva normal Throat: uvula midline, tonsils normal, posterior oropharynx normal, no postnasal drainage Eyes General: appearance normal, both eyes and all related structures Neck Neck: normal visual inspection, full ROM, no meningeal signs, supple, lymphadenopathy (L>R anterior cervical node swelling and tender to palpation) Neck mass: No Thyroid: thyroid normal Chest Chest palpation AND inspection: normal inspection of the chest Resp Effort AND Inspection: normal respiratory effort, able to speak in complete sentences, symmetric chest movement Auscultation: Bilateral: Clear to Auscultation Cardio Palpation: normal PMI Rate: regular rate Rhythm: regular rhythm Heart Sounds: S1 normal, S2 normal, no gallops, no murmurs, no rubs Pulses: radial pulses present GI Inspection: normal to inspection Palpation: soft, no hepatosplenomegaly, tender suprapubicly; Negative for Oakes's sign negative, not at McBurney's point or with no rebound tenderness, not rigid, not firm, no guarding General: No CVA tenderness Skin General: no rashes or lesions noted Neuro General: alert, awake, oriented x3, gait normal Cognition: normal cognition Speech: speech normal Gait: normal gait Motor: muscle tone normal throughout Sensory Exam: no sensory deficits noted Psych Appearance: grossly normal Mental Status: mental status grossly normal Mood: congruent mood Affect: normal affect Speech and Movement: speech and movement normal Attitude: cooperative Thought Process: normal Thought Content: normal Judgment: judgment good Results [facility] Office , Urine Negative Last Edit by Amira Bush on 09/20/17 14:34 [facility] Office Urine Color Yellow Last Edit by Amira Bush on 09/20/17 14:35 Office Urine Clarity Clear Last Edit by Amira Bush on 09/20/17 14:35 Assessment AND Plan Problems 1. Otitis media, left H66.92 2. Increased urinary frequency R35.0 3. Dysuria R30.0 Plan Patient aware today's urinalysis dip and urine hCG's were both negative. Clindamycin as prescribed today for left OM. Follow-up PCP in 3-5 days should symptoms not improve, sooner should symptoms worsen or any other concerns develop. Patient states acknowledging understanding all the above. This note was generated with [employer]ukul[employer] dictation software. It may contain incorrect words, spelling, and punctuation that were not noted in checking the note before signing. Orders Orders: Medications New: Coding Level of Care Code Off vis,est,level 3 Diagnoses Otitis media, left H66.92 Increased urinary frequency R35.0 Dysuria R30.0 09/20/17 1500 <Electronically signed by Sher DUNHAM> Date Sher Reinoso Signature: Date (if applicable) CC: GROUP A STREP BY Collected: 08/31/2017 Status: F Source: [place] PCR 10:05 PM [facility] REPOSITORY TYPE CODE TESTS RESULT OUT OF REFERENCE UNITS RANGE LAB GASSRC Throat Swab GAS Specimen Source LAB PCRGAS Negative for Group A Strep Group A PCR Streptococcus by PCR. Result Comment: This test was developed and its performance characteristics determined by [facility]'s [address] [facility] [place] [facility] It has not been cleared or approved by the FDA. [facility] is regulated under CLIA as qualified to perform high-complexity testing. This test is used for clinical purposes. It should not be regarded as inv estigational or for research. Performed By: #### GASPCR #### [facility] [address] [address] Observed: 08/31/2017 Status: F Source: [place] URINE CULTURE 10:05 AM [facility] REPOSITORY Sp. Request/Comment: - Specimen received in preservative Culture Result - 10,000 - <50,000 CFU/ml Normal urogenital anil Performed By: #### URCUL #### [place] [id number] [address] PROGRESS Observed: 08/31/2017 Status: COMPLETED Source: [place] 9:50 AM [facility] REPOSITORY HNO ID: [id number] Author: Naty (Ofelia) Alida Service: (none) Author Type: Nurse Practitioner Type: Progress Notes Filed: 08/31/2017 10:03 AM Note Text: Subjective HPI Krys Aaron is a 46 year old female who presents with a sore throat for 2 weeks and dysuria for one week. She had a fever of 100.6 yesterday. She has been taking ibuprofen. She has had recent sinus congestion and cough. Review of Systems Constitutional: Positive for chills and fever. HENT: Positive for congestion and sore throat. Respiratory: Positive for cough. Cardiovascular: Negative. Gastrointestinal: Positive for abdominal pain (suprapubic). Negative for diarrhea, nausea and vomiting. Genitourinary: Positive for dysuria and frequency. Negative for hematuria. Skin: Negative. Negative for rash. BP 118/65 Pulse 68 Temp 36.3 ?C (97.4 ?F) Resp 16 Wt 109.3 kg (241 lb) BMI 40.41 kg/m? PAST MEDICAL HISTORY Diagnosis Date - Adjustment disorder with depressed mood ANXIETY/DEPRESSION - Arrhythmia as a child-no current problems - Bariatric surgery status 06-29-09 lrygbp - Benign hypertension 05/05/2015 - Bipolar 2 disorder (HCC) 04/12/2017 - Celiac disease 06/2005 - Excessive or frequent menstruation Heavy periods - Fatty liver disease, nonalcoholic 04/19/2012 - Generalized anxiety disorder - GERD (gastroesophageal reflux disease) - Hemorrhage of rectum and anus - Lumbago - Midline low back pain without sciatica 09/24/2014 - Migraine, unspecified, with intractable migraine, so stated, without mention of status migrainosus Migraine - Mild dysplasia of cervix 04/05/06 mild dysplasia of cervix on biopsy 12, 7 oclock - Morbid obesity (HCC) 05-19-09 BMI 51.83 Ht: 64.75 Wt: 309 lbs - Other and unspecified hyperlipidemia - Other chronic nonalcoholic liver disease - Other chronic nonalcoholic liver disease - Overactive bladder 12/11/2012 - Pain in joint, multiple sites knees,hips - Papanicolaou smear of cervix with low grade squamous intraepithelial lesion (LGSIL) 03/08/06 - PCOS (polycystic ovarian syndrome) - PMH - PAST MEDICAL HISTORY OF Carpal tunnel syndrome - PMH - PAST MEDICAL HISTORY OF PELVIC FLOOR DISORDER WITH URINARY RETENTION - Sleep apnea, obstructive 2010 resolved with weight loss - Snoring - Urinary tract infection, site not specified Recurrent UTI's - Vitamin D deficiency PAST SURGICAL HISTORY Procedure Laterality Date - BX OF BREAST; INCISIONAL 04-04-12 left - DELIVERY ONLY 2003; 2006 , low cervical X2 - COLONOSCOP W/ OR W/O BRSH SPEC 03/31/2014 Colonoscopy - COLPOSCOPY W BX CERVIX 04/05/06 mild dysplasia of cervix - DANDC, DIAG AND/OR THERAPEUTIC Dilation AND curettage - EGD W/O OR W/BRUSH/WASH 03/28/2016 EGD - FNA WITH IMAGING 10/16/12 Left breast retroareolar old hematoma cavity - LAP GASTRIC BYPASS/BRISA-EN-Y 06-29-09 P Lauren - LIGATE FALLOPIAN TUBE Tubal ligation 2006 - PAST SURGICAL HISTORY OF BILATERAL carpal tunnel surgery - PAST SURGICAL HISTORY OF Sinus surgery - REMOVAL ADENOIDS,PRIMARY,<12 Y/O Adenoidectomy - REMOVAL OF TONSILS,<12 Y/O Tonsillectomy - SIGMOIDOSCOPY FLEX DIAG 02/03/10 Min. internal hemorrhoids ALLERGIES Bees; Asa [Salicylates]; Asprin [Aspirin]; Ibuprofen; Wheat Gluten MEDICATIONS DULoxetine (CYMBALTA) 60 mg capsule Take 1 capsule by mouth once daily. traZODone (DESYREL) 50 mg tablet Take 50 mg by mouth daily at bedtime. As needed lamoTRIgine (LAMICTAL) 25 mg tablet Take 25 mg by mouth twice daily. cholecalciferol, Vitamin D3, (VITAMIN D3) 50,000 unit cap capsule Take 1 capsule by mouth once each week. oxybutynin ER (DITROPAN XL) 10 mg 24 hr tablet TAKE 1 TABLET BY MOUTH DAILY SUMAtriptan (IMITREX) 50 mg tablet TAKE 1 TABLET BY MOUTH NEEDED (MAY REPEAT DOSE IN 2 HOURS IF HEADACHE PERSISTS.). cetirizine (ZYRTEC) 10 mg tablet Take 1 tablet by mouth once daily. sucralfate (CARAFATE) 1 gram tablet Take 1 tablet by mouth before meals and at bedtime. Dissolve one tablet in 2 teaspoons of water, stir and swallow. hydrOXYzine pamoate (VISTARIL) 25 mg capsule Take 1 capsule by mouth three times daily as needed for Anxiety. lisinopril (ZESTRIL, PRINIVIL) 5 mg tablet Take 1 tablet by mouth once daily. dibucaine (NUPERCAINAL) 1 % ointment 1 application as needed. Apply to the anus as needed before and following a bowel movement to decrease pain. calcium carbonate (CALTRATE 600) 600 mg (1,500 mg) tab Take 0.5 tablets by mouth once daily. ascorbic acid (VITAMIN C) 500 mg tablet Take 500 mg by mouth once daily. cyanocobalamin(VITAMIN B-12 1,000 MCG TAB) Take one(1) tablet daily. MULTIVITAMIN TAB Take one(1) tablet daily. ferrous sulfate EC 324 mg (65 mg iron) TbEC TAKE 1 TABLET BY MOUTH ONCE DAILY. FAMILY HISTORY Problem Relation Age of Onset - Hypertension Mother - Parkinson's disease [OTHER] Mother - COPD, smoker [OTHER] Father - Cervical Cancer Paternal Grandmother - Stroke Paternal Grandmother DVT - Cancer Paternal Grandfather LUNG - Hypertension Brother - Diabetes Brother - Cancer Brother KIDNEY - Cancer Brother BONE - Heart Paternal Uncle - Cerebral Embolism Other - Breast Cancer Paternal Aunt Social History Substance Use Topics - Smoking status: Never Smoker - Smokeless tobacco: Never Used - Alcohol use Yes Comment: rare Objective Physical Exam Constitutional: She is well-developed, well-nourished, and in no distress. Obese HENT: Head: Normocephalic. Right Ear: Tympanic membrane, external ear and ear canal normal. Left Ear: Tympanic membrane, external ear and ear canal normal. Nose: Nose normal. Mouth/Throat: Uvula is midline, oropharynx is clear and moist and mucous membranes are normal. No posterior oropharyngeal edema or posterior oropharyngeal erythema. Eyes: Conjunctivae are normal. Neck: Neck supple. Cardiovascular: Normal rate, regular rhythm and normal heart sounds. Pulmonary/Chest: Effort normal and breath sounds normal. No respiratory distress. She has no wheezes. She has no rales. Abdominal: Bowel sounds are normal. There is no hepatosplenomegaly. There is tenderness in the suprapubic area. There is no CVA tenderness. Lymphadenopathy: She has no cervical adenopathy. Neurological: She is alert. Skin: Skin is warm and dry. No rash noted. Nursing note and vitals reviewed. ASSESSMENT/PLAN: 1. Frequent urination - ICD9: 788.41, ICD10: R35.0 (primary diagnosis) acute - UA positive for manisha esterase and proteinuria - Send urine for culture - Begin treatment with Augmentin for 10 days - Patient education for prevention given - UA DIP B/O - URINE CULTURE 2. Sore throat - ICD9: 462, ICD10: J02.9 - suspect viral - Rapid Strep negative in the office today and Throat culture pending - Discussed supportive care treatment with fluids, rest and analgesia. - The patient may also use warm salt water gargles, throat lozenges and/or OTC throat spray as needed. - Call back if drooling, increased temperature, symptoms of dehydration and/or still sick in one week - RAPID STREP TEST B/O - GROUP A STREPTOCOCCUS BY PCR 3. Acute cystitis without hematuria - ICD9: 595.0, ICD10: N30.00 - AMOXICILLIN 875 MG-POTASSIUM CLAVULANATE 125 MG TABLET - Follow-up with your PCP in 3-5 days if symptoms have not improved or sooner if symptoms worsen - Discussed red flags and need for immediate medical evaluation if any occur. - Discussed supportive care treatment with fluids, rest and analgesia. - Discussed expected course of illness Naty Irwin APRN.CNP CNOV Observed: 08/31/2017 Status: COMPLETED Source: [place] 9:30 AM [facility] REPOSITORY Office Visit (WSTR) JOSE AARONLY ([id number]) 1970 F Date Time Provider Department 08/31/17 9:30 AM NATY IRWIN ([facility]) [facility] During your visit today, we recorded the following information about you: Temperature Pulse Respiration Blood pressure 97.4 degrees 68/minute 16/minute 118/65 Weight 109.3 kg Naty Irwin APRN.CNP 08/31/2017 10:03 AM Signed Subjective HPI Krys Aaron is a 46 year old female who presents with a sore throat for 2 weeks and dysuria for one week. She had a fever of 100.6 yesterday. She has been taking ibuprofen. She has had recent sinus congestion and cough. Review of Systems Constitutional: Positive for chills and fever. HENT: Positive for congestion and sore throat. Respiratory: Positive for cough. Cardiovascular: Negative. Gastrointestinal: Positive for abdominal pain (suprapubic). Negative for diarrhea, nausea and vomiting. Genitourinary: Positive for dysuria and frequency. Negative for hematuria. Skin: Negative. Negative for rash. BP 118/65 Pulse 68 Temp 36.3 ?C (97.4 ?F) Resp 16 Wt 109.3 kg (241 lb) BMI 40.41 kg/m? PAST MEDICAL HISTORY Diagnosis Date - Adjustment disorder with depressed mood ANXIETY/DEPRESSION - Arrhythmia as a child-no current problems - Bariatric surgery status 06-29-09 lrygbp - Benign hypertension 05/05/2015 - Bipolar 2 disorder (HCC) 04/12/2017 - Celiac disease 06/2005 - Excessive or frequent menstruation Heavy periods - Fatty liver disease, nonalcoholic 04/19/2012 - Generalized anxiety disorder - GERD (gastroesophageal reflux disease) - Hemorrhage of rectum and anus - Lumbago - Midline low back pain without sciatica 09/24/2014 - Migraine, unspecified, with intractable migraine, so stated, without mention of status migrainosus Migraine - Mild dysplasia of cervix 04/05/06 mild dysplasia of cervix on biopsy 12, 7 oclock - Morbid obesity (HCC) 05-19-09 BMI 51.83 Ht: 64.75 Wt: 309 lbs - Other and unspecified hyperlipidemia - Other chronic nonalcoholic liver disease - Other chronic nonalcoholic liver disease - Overactive bladder 12/11/2012 - Pain in joint, multiple sites knees,hips - Papanicolaou smear of cervix with low grade squamous intraepithelial lesion (LGSIL) 03/08/06 - PCOS (polycystic ovarian syndrome) - PMH - PAST MEDICAL HISTORY OF Carpal tunnel syndrome - PMH - PAST MEDICAL HISTORY OF PELVIC FLOOR DISORDER WITH URINARY RETENTION - Sleep apnea, obstructive 2010 resolved with weight loss - Snoring - Urinary tract infection, site not specified Recurrent UTI's - Vitamin D deficiency PAST SURGICAL HISTORY Procedure Laterality Date - BX OF BREAST; INCISIONAL 04-04-12 left - DELIVERY ONLY 2003; 2006 , low cervical X2 - COLONOSCOP W/ OR W/O BRSH SPEC 03/31/2014 Colonoscopy - COLPOSCOPY W BX CERVIX 04/05/06 mild dysplasia of cervix - DANDC, DIAG AND/OR THERAPEUTIC Dilation AND curettage - EGD W/O OR W/BRUSH/WASH 03/28/2016 EGD - FNA WITH IMAGING 10/16/12 Left breast retroareolar old hematoma cavity - LAP GASTRIC BYPASS/BRISA-EN-Y 06-29-09 Catracho Aguilar - LIGATE FALLOPIAN TUBE Tubal ligation 2006 - PAST SURGICAL HISTORY OF BILATERAL carpal tunnel surgery - PAST SURGICAL HISTORY OF Sinus surgery - REMOVAL ADENOIDS,PRIMARY,<12 Y/O Adenoidectomy - REMOVAL OF TONSILS,<12 Y/O Tonsillectomy - SIGMOIDOSCOPY FLEX DIAG 02/03/10 Min. internal hemorrhoids ALLERGIES Bees; Asa [Salicylates]; Asprin [Aspirin]; Ibuprofen; Wheat Gluten MEDICATIONS DULoxetine (CYMBALTA) 60 mg capsule Take 1 capsule by mouth once daily. traZODone (DESYREL) 50 mg tablet Take 50 mg by mouth daily at bedtime. As needed lamoTRIgine (LAMICTAL) 25 mg tablet Take 25 mg by mouth twice daily. cholecalciferol, Vitamin D3, (VITAMIN D3) 50,000 unit cap capsule Take 1 capsule by mouth once each week. oxybutynin ER (DITROPAN XL) 10 mg 24 hr tablet TAKE 1 TABLET BY MOUTH DAILY SUMAtriptan (IMITREX) 50 mg tablet TAKE 1 TABLET BY MOUTH NEEDED (MAY REPEAT DOSE IN 2 HOURS IF HEADACHE PERSISTS.). cetirizine (ZYRTEC) 10 mg tablet Take 1 tablet by mouth once daily. sucralfate (CARAFATE) 1 gram tablet Take 1 tablet by mouth before meals and at bedtime. Dissolve one tablet in 2 teaspoons of water, stir and swallow. hydrOXYzine pamoate (VISTARIL) 25 mg capsule Take 1 capsule by mouth three times daily as needed for Anxiety. lisinopril (ZESTRIL, PRINIVIL) 5 mg tablet Take 1 tablet by mouth once daily. dibucaine (NUPERCAINAL) 1 % ointment 1 application as needed. Apply to the anus as needed before and following a bowel movement to decrease pain. calcium carbonate (CALTRATE 600) 600 mg (1,500 mg) tab Take 0.5 tablets by mouth once daily. ascorbic acid (VITAMIN C) 500 mg tablet Take 500 mg by mouth once daily. cyanocobalamin(VITAMIN B-12 1,000 MCG TAB) Take one(1) tablet daily. MULTIVITAMIN TAB Take one(1) tablet daily. ferrous sulfate EC 324 mg (65 mg iron) TbEC TAKE 1 TABLET BY MOUTH ONCE DAILY. FAMILY HISTORY Problem Relation Age of Onset - Hypertension Mother - Parkinson's disease [OTHER] Mother - COPD, smoker [OTHER] Father - Cervical Cancer Paternal Grandmother - Stroke Paternal Grandmother DVT - Cancer Paternal Grandfather LUNG - Hypertension Brother - Diabetes Brother - Cancer Brother KIDNEY - Cancer Brother BONE - Heart Paternal Uncle - Cerebral Embolism Other - Breast Cancer Paternal Aunt Social History Substance Use Topics - Smoking status: Never Smoker - Smokeless tobacco: Never Used - Alcohol use Yes Comment: rare Objective Physical Exam Constitutional: She is well-developed, well-nourished, and in no distress. Obese HENT: Head: Normocephalic. Right Ear: Tympanic membrane, external ear and ear canal normal. Left Ear: Tympanic membrane, external ear and ear canal normal. Nose: Nose normal. Mouth/Throat: Uvula is midline, oropharynx is clear and moist and mucous membranes are normal. No posterior oropharyngeal edema or posterior oropharyngeal erythema. Eyes: Conjunctivae are normal. Neck: Neck supple. Cardiovascular: Normal rate, regular rhythm and normal heart sounds. Pulmonary/Chest: Effort normal and breath sounds normal. No respiratory distress. She has no wheezes. She has no rales. Abdominal: Bowel sounds are normal. There is no hepatosplenomegaly. There is tenderness in the suprapubic area. There is no CVA tenderness. Lymphadenopathy: She has no cervical adenopathy. Neurological: She is alert. Skin: Skin is warm and dry. No rash noted. Nursing note and vitals reviewed. ASSESSMENT/PLAN: 1. Frequent urination - ICD9: 788.41, ICD10: R35.0 (primary diagnosis) acute - UA positive for manisha esterase and proteinuria - Send urine for culture - Begin treatment with Augmentin for 10 days - Patient education for prevention given - UA DIP B/O - URINE CULTURE 2. Sore throat - ICD9: 462, ICD10: J02.9 - suspect viral - Rapid Strep negative in the office today and Throat culture pending - Discussed supportive care treatment with fluids, rest and analgesia. - The patient may also use warm salt water gargles, throat lozenges and/or OTC throat spray as needed. - Call back if drooling, increased temperature, symptoms of dehydration and/or still sick in one week - RAPID STREP TEST B/O - GROUP A STREPTOCOCCUS BY PCR 3. Acute cystitis without hematuria - ICD9: 595.0, ICD10: N30.00 - AMOXICILLIN 875 MG-POTASSIUM CLAVULANATE 125 MG TABLET - Follow-up with your PCP in 3-5 days if symptoms have not improved or sooner if symptoms worsen - Discussed red flags and need for immediate medical evaluation if any occur. - Discussed supportive care treatment with fluids, rest and analgesia. - Discussed expected course of illness ANITA Tsang APRN.CNP 08/31/2017 9:58 AM Signed [facility] PATIENT INFO BLADDER INFECTION OVERVIEW Bladder infections are one of the most common infections, causing symptoms of burning with urination and needing to urinate frequently. A bladder infection is a type of urinary tract infection (UTI). Bladder infections are more common is women than men. Most women have an uncomplicated bladder infection that is easily treated with a short course of antibiotics. In men, bladder infections may also affect the prostate gland, and a longer course of treatment may be needed. BLADDER INFECTION CAUSES The urinary tract includes the kidneys (which filter urine), ureters (the tube that carries urine from the kidneys to the bladder), the bladder (which stores urine), and urethra (the tube that carries urine out of the bladder). Bacteria do not normally live in these areas. However, bacteria normally live close to the urethra in women and men who are not circumcised. Bladder infections occur when bacteria travel up the urethra into the bladder. Factors that increase the risk of developing a bladder infection include: ? Vaginal sex ? Use of spermicides ? History of past bladder infections ? Diabetes In men, not being circumcised or having anal sex increase the risk of bladder infections. BLADDER INFECTION SYMPTOMS The typical symptoms of a bladder infection include: ? Pain or burning when urinating ? Frequent need to urinate ? Urgent need to urinate ? Blood in the urine Fever, back pain, nausea, or vomiting are not common symptoms of a bladder infection, but can occur in people with a kidney infection (pyelonephritis). If you have these symptoms, you should call your doctor or nurse immediately. Is it a bladder infection or something else? ? Burning with urination can also occur in people with vaginitis (eg, yeast infection) or urethritis (inflammation of the urethra). For this reason, it is important to call your healthcare provider before assuming you have a bladder infection. BLADDER INFECTION DIAGNOSIS Simple bladder infections are usually diagnosed based upon your symptoms alone. However, most patients, especially those who have bladder infection symptoms for the first time, should see a healthcare provider for urine testing. Urine culture ? A urine culture is a test that uses a sample of urine to try and grow bacteria in a laboratory. It usually requires about 48 hours to get results. However, a urine culture is not always required to diagnose a bladder infection. Urine culture is often recommended if: ? You have never had a bladder infection before ? You have symptoms that are not typical for bladder infection ? You have had resistant bladder infections before ? You have frequent bladder infections ? You do not begin to feel better within 24 to 48 hours after starting antibiotics ? You are BLADDER INFECTION TREATMENT Bladder infection ? In young, healthy adolescents and adults with a bladder infection, the usual treatment includes a three to seven day course of antibiotics. The typical drugs chosen are: trimethoprim-sulfamethoxazole (Bactrim?), nitrofurantoin (Macrobid?), ciprofloxacin (Cipro?) or levofloxacin (Levaquin?). In men, the infection may involve your prostate gland and treatment is usually given for at least 7 days. Your symptoms should begin to resolve within one day after starting treatment. It is important to take the full course of antibiotics to completely eliminate the infection. If your symptoms persist for more than two or three days after starting treatment, call your healthcare provider. If needed, you can take a prescription medication that numbs the bladder and urethra (phenazopyridine [Pyridium?]) to reduce the burning pain of some UTIs. A similar medication is available without a prescription (eg, Uristat). Both medications change the color of the urine (usually blue or orange) and can interfere with laboratory testing. You should not take these medications for more than 48 hours due to the risk of side effects. These medications do not treat the infection and must be taken along with an antibiotic. Some providers recommend drinking more fluids while treating bladder infections to help flush bacteria from the bladder. Others believe that drinking more fluids may dilute the antibiotic in the bladder and make the medication less effective. No studies have been performed to address this issue. There are also no good studies on the effectiveness of cranberry juice for treating a bladder infection; we do not recommend using cranberry juice to treat bladder infections. Follow-up care ? Follow-up testing is not needed in healthy, young men or women with a bladder infection if symptoms resolve. women are usually asked to have a repeat urine culture one to two weeks after treatment has ended to make sure the bacteria are no longer in the urine. RECURRENT BLADDER INFECTIONS Bladder infections versus other causes ? Some adults, especially women, develop bladder infections frequently. In this case, it is important to confirm that your symptoms (eg, pain or burning, frequency, and urgency) are caused by a bladder infection. Symptoms are usually similar from one infection to another. The best way to confirm an infection is to have a urine culture. If your urine culture is negative for infection, other causes of pain, burning, and frequency should be investigated. There is no reason to take antibiotics if your urine culture is negative. Need for further testing ? If you continue to develop bladder infections, you may require further testing. If you continue to notice blood in your urine after your bladder infection has cleared, you should have further testing. Preventing recurrent UTIs ? Women with recurrent urinary tract infections may be advised to take steps to prevent bladder infections, including one or more of the following: Changes in control ? Women who develop frequent bladder infections and use spermicides, particularly those who also use a diaphragm, may be encouraged to use an alternate method of control. Cranberry products ? Taking cranberry juice or cranberry tablets has been promoted as one way to help prevent frequent bladder infections. However, this has not been proven. Drinking more fluid and urinating after intercourse ? Although studies have not proven that drinking more fluids or urinating soon after intercourse can prevent infection, some healthcare providers recommend these measures since they are not harmful. Drinking more fluid may help to wash out bacteria that enter the bladder. Postmenopausal women ? Postmenopausal women who develop recurrent bladder infections may benefit from using vaginal estrogen. Vaginal estrogen is available in a flexible ring that is worn in the vagina for three months (eg, Estring?), a small tablet (Vagifem?), or a cream (eg, Premarin? or Estrace?). Vaginal estrogen is discussed in more detail in a separate topic review. Antibiotics ? A preventive antibiotic treatment may be recommended if you repeatedly develop bladder infections and have not responded to other preventive measures. Antibiotics are highly effective in preventing recurrent bladder infections and can be taken in several different ways. ? Preventive antibiotic ? You can take a low dose of an antibiotic once per day or three times per week for six months to several years. ? Antibiotics following intercourse ? In women who develop urinary tract infections after sex, taking a single low dose antibiotic after intercourse can help to prevent bladder infections. ? Self-treatment ? A plan to begin antibiotics at the first sign of a bladder infection may be recommended in some situations. Before starting this regimen, it is important that you have had testing (urine cultures) to confirm that your symptoms are caused by a bladder infection; some people have symptoms of a bladder infection but do not actually have an infection. Referring Provider: SELF [[id number]] Allergies As of Date: 08/31/2017 Noted Allergy Reaction BEES 02/02/2005 5 - Intolerance ASA (SALICYLATES) 12/30/2004 2 - Rash ASPRIN (ASPIRIN) 03/07/2012 2 - Rash Comments: Also makes pt really sleepy IBUPROFEN 12/30/2004 7 - Swelling Comments: throat swelling WHEAT GLUTEN 11/25/2005 8 - GI Upset Date Reviewed: 08/31/2017 Reviewed by: Naty ([facility]) Alida - Fully Assessed Reason for Visit: Throat Culture [108] Cmt: x 2 weeks intermittent sodre throat Urinary Problem [252] Cmt: frequent urination and possibly not emptying when voids and burning with urination Primary Visit Diagnosis:Frequent urination [R35.0] Other Visit Diagnoses:Sore throat [J02.9] Acute cystitis without hematuria [N30.00] Order(s):RAPID STREP TEST B/O [3236046] Order #: [id number] UA DIP B/O [3099606] Order #: [id number] URINE CULTURE [SQURCUL] Order #: [id number] GROUP A STREPTOCOCCUS BY PCR [SQGASPCR] Order #: [id number] amoxicillin-clavulanic acid (AUGMENTIN) 875-125 mg per tabletTake 1 tablet by mouth twice daily for 10 days.Disp: 20 tabletRfl: 0 Prescriptions as of 08/31/2017 Sig: DULOXETINE 60 MG CAPSULE,ABIGAIL* Take 1 capsule by mouth once * TRAZODONE 50 MG TABLET Take 50 mg by mouth daily at * LAMOTRIGINE 25 MG TABLET Take 25 mg by mouth twice lux* CHOLECALCIFEROL (VITAMIN D3) * Take 1 capsule by mouth once * OXYBUTYNIN CHLORIDE ER 10 MG * TAKE 1 TABLET BY MOUTH DAILY SUMATRIPTAN 50 MG TABLET TAKE 1 TABLET BY MOUTH NEE* CETIRIZINE 10 MG TABLET Take 1 tablet by mouth once d* SUCRALFATE 1 GRAM TABLET Take 1 tablet by mouth before* HYDROXYZINE PAMOATE 25 MG CAP* Take 1 capsule by mouth three* LISINOPRIL 5 MG TABLET Take 1 tablet by mouth once d* DIBUCAINE 1 % TOPICAL OINTMENT 1 application as needed. Appl* CALCIUM CARBONATE 600 MG CALC* Take 0.5 tablets by mouth onc* ASCORBIC ACID (VITAMIN C) 500* Take 500 mg by mouth once lux* VITAMIN B-12 1,000 MCG TABLET Take one(1) tablet daily. MULTIVITAMIN TABLET Take one(1) tablet daily. AMOXICILLIN 875 MG-POTASSIUM * Take 1 tablet by mouth twice * FERROUS SULFATE 324 MG (65 MG* TAKE 1 TABLET BY MOUTH ONCE D* Problem List As Of Date 08/31/2017 Noted Resolved Morbid obesity [E66.01] INVALID FOR*01/11/2011 Irregular menstrual cycle [N92.6] INVALID FOR*01/11/2011 BONE AND CARTILAGE DIS NOS [M89.9, M94.9] INVALID FOR* CELIAC DISEASE [K90.0] INVALID FOR* POLYCYSTIC OVARIES [E28.2] INVALID FOR* THREATENED ANTEPARTUM CONDITN/COMPL [O*INVALID FOR*01/11/2011 Supervision of other normal [Z34.80] INVALID FOR*01/11/2011 Unspecified high-risk [O09.90] INVALID FOR*01/11/2011 Dizziness and giddiness [R42] INVALID FOR*04/19/2012 Previous delivery, antepartum conditio*INVALID FOR*01/11/2011 Mild or unspecified pre-eclampsia, antepartum [*INVALID FOR*01/11/2011 MILD DYSPLASIA OF CERVIX [N87.0] INVALID FOR* Sprain of neck [S13.9XXA] INVALID FOR*04/19/2012 ADJUSTMENT DISORDER WITH DEPRESSED MOOD [F43.21]INVALID FOR* GENERALIZED ANXIETY DIS [F41.1] INVALID FOR* DYSMETABOLIC SYNDROME X [E88.81] INVALID FOR* Essential hypertension, benign [I10] INVALID FOR*04/19/2012 Sprain of ankle, unspecified site [S93.409A] INVALID FOR*04/19/2012 Eating disorder, unspecified [F50.9] INVALID FOR*04/19/2012 Major depressive disorder, recurrent episode, m*INVALID FOR*05/20/2016 Internal hemorrhoids without mention of complic*INVALID FOR*04/19/2012 Anal fissure [K60.2] INVALID FOR*04/19/2012 Bulimia nervosa [F50.2] INVALID FOR*04/19/2012 Vitamin D Deficiency [E55.9] INVALID FOR* GERD (Gastroesophageal Reflux Disease) [K21.9] INVALID FOR* More... RB (rectal bleeding) [K62.5] INVALID FOR*04/19/2012 Scoliosis (and kyphoscoliosis), idiopathic [M41*INVALID FOR* Sprain of lumbar region [S33.5XXA] INVALID FOR*04/19/2012 Sleep apnea, obstructive [G47.33] INVALID FOR*04/19/2012 Lump or mass in breast [N63.0] INVALID FOR*08/17/2015 Mastodynia [N64.4] INVALID FOR*08/17/2015 Galactorrhea not associated with childbirth [N6*INVALID FOR*08/17/2015 Abnormal mammogram, unspecified [R92.8] INVALID FOR*08/17/2015 Abnormal ultrasound of breast [R92.8] INVALID FOR*08/17/2015 Fatty liver disease, nonalcoholic [K76.0] INVALID FOR* Overactive bladder [N32.81] INVALID FOR* Arthritis, lumbar spine [M46.96] INVALID FOR* Benign hypertension [I10] INVALID FOR* Occipital neuralgia of left side [M54.81] INVALID FOR*05/20/2016 Migraine with aura and without status migrainos*INVALID FOR* RUQ pain [R10.11] INVALID FOR*05/20/2016 Morbid obesity due to excess calories (HCC) [E6*INVALID FOR* History of bariatric surgery [Z98.84] INVALID FOR* Dyspepsia [R10.13] INVALID FOR* Other instructions from your clinician: [facility] PATIENT INFO BLADDER INFECTION OVERVIEW Bladder infections are one of the most common infections, causing symptoms of burning with urination and needing to urinate frequently. A bladder infection is a type of urinary tract infection (UTI). Bladder infections are more common is women than men. Most women have an uncomplicated bladder infection that is easily treated with a short course of antibiotics. In men, bladder infections may also affect the prostate gland, and a longer course of treatment may be needed. BLADDER INFECTION CAUSES The urinary tract includes the kidneys (which filter urine), ureters (the tube that carries urine from the kidneys to the bladder), the bladder (which stores urine), and urethra (the tube that carries urine out of the bladder). Bacteria do not normally live in these areas. However, bacteria normally live close to the urethra in women and men who are not circumcised. Bladder infections occur when bacteria travel up the urethra into the bladder. Factors that increase the risk of developing a bladder infection include: ? Vaginal sex ? Use of spermicides ? History of past bladder infections ? Diabetes In men, not being circumcised or having anal sex increase the risk of bladder infections. BLADDER INFECTION SYMPTOMS The typical symptoms of a bladder infection include: ? Pain or burning when urinating ? Frequent need to urinate ? Urgent need to urinate ? Blood in the urine Fever, back pain, nausea, or vomiting are not common symptoms of a bladder infection, but can occur in people with a kidney infection (pyelonephritis). If you have these symptoms, you should call your doctor or nurse immediately. Is it a bladder infection or something else? ? Burning with urination can also occur in people with vaginitis (eg, yeast infection) or urethritis (inflammation of the urethra). For this reason, it is important to call your healthcare provider before assuming you have a bladder infection. BLADDER INFECTION DIAGNOSIS Simple bladder infections are usually diagnosed based upon your symptoms alone. However, most patients, especially those who have bladder infection symptoms for the first time, should see a healthcare provider for urine testing. Urine culture ? A urine culture is a test that uses a sample of urine to try and grow bacteria in a laboratory. It usually requires about 48 hours to get results. However, a urine culture is not always required to diagnose a bladder infection. Urine culture is often recommended if: ? You have never had a bladder infection before ? You have symptoms that are not typical for bladder infection ? You have had resistant bladder infections before ? You have frequent bladder infections ? You do not begin to feel better within 24 to 48 hours after starting antibiotics ? You are BLADDER INFECTION TREATMENT Bladder infection ? In young, healthy adolescents and adults with a bladder infection, the usual treatment includes a three to seven day course of antibiotics. The typical drugs chosen are: trimethoprim-sulfamethoxazole (Bactrim?), nitrofurantoin (Macrobid?), ciprofloxacin (Cipro?) or levofloxacin (Levaquin?). In men, the infection may involve your prostate gland and treatment is usually given for at least 7 days. Your symptoms should begin to resolve within one day after starting treatment. It is important to take the full course of antibiotics to completely eliminate the infection. If your symptoms persist for more than two or three days after starting treatment, call your healthcare provider. If needed, you can take a prescription medication that numbs the bladder and urethra (phenazopyridine [Pyridium?]) to reduce the burning pain of some UTIs. A similar medication is available without a prescription (eg, Uristat). Both medications change the color of the urine (usually blue or orange) and can interfere with laboratory testing. You should not take these medications for more than 48 hours due to the risk of side effects. These medications do not treat the infection and must be taken along with an antibiotic. Some providers recommend drinking more fluids while treating bladder infections to help flush bacteria from the bladder. Others believe that drinking more fluids may dilute the antibiotic in the bladder and make the medication less effective. No studies have been performed to address this issue. There are also no good studies on the effectiveness of cranberry juice for treating a bladder infection; we do not recommend using cranberry juice to treat bladder infections. Follow-up care ? Follow-up testing is not needed in healthy, young men or women with a bladder infection if symptoms resolve. women are usually asked to have a repeat urine culture one to two weeks after treatment has ended to make sure the bacteria are no longer in the urine. RECURRENT BLADDER INFECTIONS Bladder infections versus other causes ? Some adults, especially women, develop bladder infections frequently. In this case, it is important to confirm that your symptoms (eg, pain or burning, frequency, and urgency) are caused by a bladder infection. Symptoms are usually similar from one infection to another. The best way to confirm an infection is to have a urine culture. If your urine culture is negative for infection, other causes of pain, burning, and frequency should be investigated. There is no reason to take antibiotics if your urine culture is negative. Need for further testing ? If you continue to develop bladder infections, you may require further testing. If you continue to notice blood in your urine after your bladder infection has cleared, you should have further testing. Preventing recurrent UTIs ? Women with recurrent urinary tract infections may be advised to take steps to prevent bladder infections, including one or more of the following: Changes in control ? Women who develop frequent bladder infections and use spermicides, particularly those who also use a diaphragm, may be encouraged to use an alternate method of control. Cranberry products ? Taking cranberry juice or cranberry tablets has been promoted as one way to help prevent frequent bladder infections. However, this has not been proven. Drinking more fluid and urinating after intercourse ? Although studies have not proven that drinking more fluids or urinating soon after intercourse can prevent infection, some healthcare providers recommend these measures since they are not harmful. Drinking more fluid may help to wash out bacteria that enter the bladder. Postmenopausal women ? Postmenopausal women who develop recurrent bladder infections may benefit from using vaginal estrogen. Vaginal estrogen is available in a flexible ring that is worn in the vagina for three months (eg, Estring?), a small tablet (Vagifem?), or a cream (eg, Premarin? or Estrace?). Vaginal estrogen is discussed in more detail in a separate topic review. Antibiotics ? A preventive antibiotic treatment may be recommended if you repeatedly develop bladder infections and have not responded to other preventive measures. Antibiotics are highly effective in preventing recurrent bladder infections and can be taken in several different ways. ? Preventive antibiotic ? You can take a low dose of an antibiotic once per day or three times per week for six months to several years. ? Antibiotics following intercourse ? In women who develop urinary tract infections after sex, taking a single low dose antibiotic after intercourse can help to prevent bladder infections. ? Self-treatment ? A plan to begin antibiotics at the first sign of a bladder infection may be recommended in some situations. Before starting this regimen, it is important that you have had testing (urine cultures) to confirm that your symptoms are caused by a bladder infection; some people have symptoms of a bladder infection but do not actually have an infection. Prescriptions ordered this encounter Disp Refills Start End AMOXICILLIN 875 MG-POTASSIUM CLAVULA* 20 t* 0 08/31/2017 08/31/2017 Route: ORAL Sig: Take 1 tablet by mouth twice daily for 10 days. AMOXICILLIN 875 MG-POTASSIUM CLAVULA* 20 t* 0 08/31/2017 09/10/2017 Route: ORAL Sig: Take 1 tablet by mouth twice daily for 10 days. Medications Discontinued During This Encounter amoxicillin-clavulanic acid (AUGMENT* 20 t* 0 08/31/2017 08/31/2017 Route: ORAL Sig: Take 1 tablet by mouth twice daily for 10 days. Disc: Reason for discontinue is not on file. Letter Text Naty Irwin APRN.[facility] [address] [facility] [address] Dept: [phone] 08/31/2017 Krys Aaron [address] [facility] [address] To Whom it May Concern: This is to certify that Krys Aaron was seen at our office for medical care. Krys may return to work on 09/01/2017. If you have any questions please feel free to call. Sincerely: Naty Irwin APRN.OFELIA Encounter Status:Closed by NATY IRWIN on 08/31/17 ESTRADIOL-17B Collected: 08/31/2017 Status: F Source: [place] 9:04 AM [facility] REPOSITORY TYPE CODE TESTS RESULT OUT OF RANGE REFERENCE UNITS LAB E2 pg/mL <25 Estradiol-17 B Result Comment: This test is not suitable for patients receiving treatment with the drug Fulvestrant (Faslodex). The drug causes an interference leading to falsely elevated estradiol results. Menstrual cycle Estradiol reference ranges: Follicular : < 234 pg/mL Ovulation : 41 to 398 pg/mL Luteal : < 342 pg/mL Estradiol reference ranges vary by gestational period: First trimester : 154 to 3243 pg/mL Second trimester : 1561 TO 17283 pg/mL Third trimester : 8285 to >98469 pg/mL Post-menopausal Estradiol reference range: < 41 pg/mL Reference: 1. Estradiol - E2 (Estradiol III) [package insert V 3.0 [place]ayan]. [facility], [place], [place], August 2015. Performed By: #### E2, FSH #### [facility] [address] [place], [place] [address] FSH Collected: 08/31/2017 Status: F Source: [place] 9:04 AM [facility] REPOSITORY TYPE CODE TESTS RESULT OUT OF RANGE REFERENCE UNITS LAB FSH mU/mL FSH 35.3 Result Comment: Reference range: Follicular: 2-11 Midcycle: 10-30 Luteal: 1-9 Post [place]: 20-100 Performed By: #### E2, FSH #### [facility] [address] [place], [place] [address] DOWNTIME REPORT Observed: 08/24/2017 Status: F Source: [place] 11:47 AM [facility] REPOSITORY [facility] Medical Records Department [address] [place] [address] Downtime Report MR#: [id number] Acct: [id number] Name: KRYS AARON Rep #: [id number] : 1970 46 From: Eliana Valadez PCP: Neil Benjamin III, MD Status: REG RCR This patient was seen during an EMR downtime August 07, 2017 - August 14, 2017. This patient may have a combination of paper and electronic documentation or all paper documentation. All documentation is viewable within the e-chart portion of [facility] for each patient visit. CNOV Observed: 08/09/2017 Status: COMPLETED Source: [place] 4:00 PM [facility] REPOSITORY Office Visit (WOOB) SHASHIKRYS CHANCE ([id number]) 1970 F Date Time Provider Department 08/09/17 4:00 PM MARTA PUENTES (OFELIA) [place] During your visit today, we recorded the following information about you: Blood pressure Weight Height 106/70 111.9 kg 1.645 m Marta Puentes APRN.CNP 08/09/2017 4:34 PM Signed Krys Aaron is a 46 year old who presents for her annual gynecologic exam without complaints. Menses: none x 4-5 months Contraception: tubal ligation HPV vaccine: No Last Pap: 2016 normal HPV: positive 2014 History of abnormal pap: Yes Last mammogram: 2018normal History of lumpectomy left areola - benign Sexually active: No Hot flashes: Yes, once weekly Night sweats: Yes, 2 a month Exercise: 2-3 times a week for 30-45 minutes. Type: walking Diet: trying to lose weight Seatbelt use: Yes Obstetric History T1 L2 SAB3 TAB0 Ectopic0 Multiple0 Live Births3 PAST MEDICAL HISTORY Diagnosis Date - Adjustment disorder with depressed mood ANXIETY/DEPRESSION - Arrhythmia as a child-no current problems - Bariatric surgery status 06-29-09 lrygbp - Benign hypertension 05/05/2015 - Bipolar 2 disorder (HCC) 04/12/2017 - Celiac disease 06/2005 - Excessive or frequent menstruation Heavy periods - Fatty liver disease, nonalcoholic 04/19/2012 - Generalized anxiety disorder - GERD (gastroesophageal reflux disease) - Hemorrhage of rectum and anus - Lumbago - Midline low back pain without sciatica 09/24/2014 - Migraine, unspecified, with intractable migraine, so stated, without mention of status migrainosus Migraine - Mild dysplasia of cervix 04/05/06 mild dysplasia of cervix on biopsy 12, 7 oclock - Morbid obesity (HCC) 05-19-09 BMI 51.83 Ht: 64.75 Wt: 309 lbs - Other and unspecified hyperlipidemia - Other chronic nonalcoholic liver disease - Other chronic nonalcoholic liver disease - Overactive bladder 12/11/2012 - Pain in joint, multiple sites knees,hips - Papanicolaou smear of cervix with low grade squamous intraepithelial lesion (LGSIL) 03/08/06 - PCOS (polycystic ovarian syndrome) - PMH - PAST MEDICAL HISTORY OF Carpal tunnel syndrome - PMH - PAST MEDICAL HISTORY OF PELVIC FLOOR DISORDER WITH URINARY RETENTION - Sleep apnea, obstructive 2010 resolved with weight loss - Snoring - Urinary tract infection, site not specified Recurrent UTI's - Vitamin D deficiency PAST SURGICAL HISTORY Procedure Laterality Date - BX OF BREAST; INCISIONAL 04-04-12 left - DELIVERY ONLY 2003; 2006 , low cervical X2 - COLONOSCOP W/ OR W/O BRSH SPEC 03/31/2014 Colonoscopy - COLPOSCOPY W BX CERVIX 04/05/06 mild dysplasia of cervix - DANDC, DIAG AND/OR THERAPEUTIC Dilation AND curettage - EGD W/O OR W/BRUSH/WASH 03/28/2016 EGD - FNA WITH IMAGING 10/16/12 Left breast retroareolar old hematoma cavity - LAP GASTRIC BYPASS/BRISA-EN-Y 06-29-09 Catracho Aguilar - LIGATE FALLOPIAN TUBE Tubal ligation 2006 - PAST SURGICAL HISTORY OF BILATERAL carpal tunnel surgery - PAST SURGICAL HISTORY OF Sinus surgery - REMOVAL ADENOIDS,PRIMARY,<12 Y/O Adenoidectomy - REMOVAL OF TONSILS,<12 Y/O Tonsillectomy - SIGMOIDOSCOPY FLEX DIAG 02/03/10 Min. internal hemorrhoids FAMILY HISTORY Problem Relation Age of Onset - Hypertension Mother - Hypertension Brother - Diabetes Brother - Cancer Brother KIDNEY - Cancer Brother BONE - Cancer Paternal Grandfather LUNG - Cervical Cancer Paternal Grandmother - Stroke Paternal Grandmother DVT - Heart Paternal Uncle - Cerebral Embolism Other - Breast Cancer Paternal Aunt - Parkinson's disease [Other] [OTHER] Mother - COPD Father SOCIAL HISTORY Social History Substance Use Topics - Smoking status: Never Smoker - Smokeless tobacco: Never Used - Alcohol use Yes Comment: rare REVIEW OF SYSTEMS Abdomen: No abdominal pain, nausea, vomiting, diarrhea, or constipation. No bloating, early satiety, indigestion, or increased flatulence. Bladder: No dysuria, gross hematuria, urinary frequency, urinary urgency, or incontinence. Breast: No breast lumps, nipple d/c, overlying skin changes, redness or skin retraction. Allergies and current medication updated:Yes EXAM: BP 106/70 Ht 5' 4.75 (1.65m) Wt 246 lb 12.8 oz (111.9kg) BMI 41.37 kg/(m2). GENERAL: pleasant, female in no apparent distress HEENT: Normocephalic, atraumatic, mucus membranes moist and no lesions NECK: Supple, full range of motion, no adenopathy and thyroid normal DERMATOLOGY: Normal, without lesions, non-icteric and non-hirsute BREAST: soft, non-tender, symmetric, no dominant mass, normal nipple-areolar complex, no lymphadenopathy and no nipple discharge CHEST: Normal inspiratory effort ABDOMEN: soft, non-tender and no masses PELVIC: external genitalia normal, normal Bartholin's glands, urethra, [place]'s glands, no vulvar lesions, no cervical lesions, good vaginal support, physiologic discharge present, normal appearing perineal body and perianal region BIMANUAL: uterus normal size, shape and consistency, no adnexal masses and non-tender RECTOVAGINAL: deferred. NEURO: alert and oriented x3,exam grossly non-focal EXTREMITIES: normal ASSESSMENT/PLAN: 1) Health maintenance: Pap/HPV up to date. Nutrition, exercise and routine health maintenance exams reviewed. Calcium/Vitamin D supplementation information provided. 2) Contraception: tubal ligation. Contraceptive options reviewed and information provided. 3) STD screening: Declined STD check. 4) Follow up one year or sooner as needed Marta Puentes APRN.PIPELINER Referring Provider: SELF [[id number]] Allergies As of Date: 08/09/2017 Noted Allergy Reaction BEES 02/02/2005 5 - Intolerance ASA (SALICYLATES) 12/30/2004 2 - Rash ASPRIN (ASPIRIN) 03/07/2012 2 - Rash Comments: Also makes pt really sleepy IBUPROFEN 12/30/2004 7 - Swelling Comments: throat swelling WHEAT GLUTEN 11/25/2005 8 - GI Upset Date Reviewed: 08/09/2017 Reviewed by: Marta ([facility]) Francisca - Fully Assessed Reason for Visit: Well Woman [[id number]] Primary Visit Diagnosis:Encounter for gynecological examination (general) (routine) without abnormal findings [Z01.419] Other Visit Diagnosis:Secondary amenorrhea [N91.1] Order(s):FSH BLD [SQFSH] Order #: [id number] FUTURE ESTRADIOL-17B BLD [SQE2] Order #: [id number] FUTURE Prescriptions as of 08/09/2017 Sig: DULOXETINE 60 MG CAPSULE,ABIGAIL* Take 1 capsule by mouth once * TRAZODONE 50 MG TABLET Take 50 mg by mouth daily at * LAMOTRIGINE 25 MG TABLET Take 25 mg by mouth twice lux* CHOLECALCIFEROL (VITAMIN D3) * Take 1 capsule by mouth once * OXYBUTYNIN CHLORIDE ER 10 MG * TAKE 1 TABLET BY MOUTH DAILY SUMATRIPTAN 50 MG TABLET TAKE 1 TABLET BY MOUTH NEE* CETIRIZINE 10 MG TABLET Take 1 tablet by mouth once d* SUCRALFATE 1 GRAM TABLET Take 1 tablet by mouth before* HYDROXYZINE PAMOATE 25 MG CAP* Take 1 capsule by mouth three* FERROUS SULFATE 324 MG (65 MG* TAKE 1 TABLET BY MOUTH ONCE D* LISINOPRIL 5 MG TABLET Take 1 tablet by mouth once d* DIBUCAINE 1 % TOPICAL OINTMENT 1 application as needed. Appl* CALCIUM CARBONATE 600 MG CALC* Take 0.5 tablets by mouth onc* ASCORBIC ACID (VITAMIN C) 500* Take 500 mg by mouth once lux* VITAMIN B-12 1,000 MCG TABLET Take one(1) tablet daily. MULTIVITAMIN TABLET Take one(1) tablet daily. Problem List As Of Date 08/09/2017 Noted Resolved Morbid obesity [E66.01] INVALID FOR*01/11/2011 Irregular menstrual cycle [N92.6] INVALID FOR*01/11/2011 BONE AND CARTILAGE DIS NOS [M89.9, M94.9] INVALID FOR* CELIAC DISEASE [K90.0] INVALID FOR* POLYCYSTIC OVARIES [E28.2] INVALID FOR* THREATENED ANTEPARTUM CONDITN/COMPL [O*INVALID FOR*01/11/2011 Supervision of other normal [Z34.80] INVALID FOR*01/11/2011 Unspecified high-risk [O09.90] INVALID FOR*01/11/2011 Dizziness and giddiness [R42] INVALID FOR*04/19/2012 Previous delivery, antepartum conditio*INVALID FOR*01/11/2011 Mild or unspecified pre-eclampsia, antepartum [*INVALID FOR*01/11/2011 MILD DYSPLASIA OF CERVIX [N87.0] INVALID FOR* Sprain of neck [S13.9XXA] INVALID FOR*04/19/2012 ADJUSTMENT DISORDER WITH DEPRESSED MOOD [F43.21]INVALID FOR* GENERALIZED ANXIETY DIS [F41.1] INVALID FOR* DYSMETABOLIC SYNDROME X [E88.81] INVALID FOR* Essential hypertension, benign [I10] INVALID FOR*04/19/2012 Sprain of ankle, unspecified site [S93.409A] INVALID FOR*04/19/2012 Eating disorder, unspecified [F50.9] INVALID FOR*04/19/2012 Major depressive disorder, recurrent episode, m*INVALID FOR*05/20/2016 Internal hemorrhoids without mention of complic*INVALID FOR*04/19/2012 Anal fissure [K60.2] INVALID FOR*04/19/2012 Bulimia nervosa [F50.2] INVALID FOR*04/19/2012 Vitamin D Deficiency [E55.9] INVALID FOR* GERD (Gastroesophageal Reflux Disease) [K21.9] INVALID FOR* More... RB (rectal bleeding) [K62.5] INVALID FOR*04/19/2012 Scoliosis (and kyphoscoliosis), idiopathic [M41*INVALID FOR* Sprain of lumbar region [S33.5XXA] INVALID FOR*04/19/2012 Sleep apnea, obstructive [G47.33] INVALID FOR*04/19/2012 Lump or mass in breast [N63.0] INVALID FOR*08/17/2015 Mastodynia [N64.4] INVALID FOR*08/17/2015 Galactorrhea not associated with childbirth [N6*INVALID FOR*08/17/2015 Abnormal mammogram, unspecified [R92.8] INVALID FOR*08/17/2015 Abnormal ultrasound of breast [R92.8] INVALID FOR*08/17/2015 Fatty liver disease, nonalcoholic [K76.0] INVALID FOR* Overactive bladder [N32.81] INVALID FOR* Arthritis, lumbar spine [M46.96] INVALID FOR* Benign hypertension [I10] INVALID FOR* Occipital neuralgia of left side [M54.81] INVALID FOR*05/20/2016 Migraine with aura and without status migrainos*INVALID FOR* RUQ pain [R10.11] INVALID FOR*05/20/2016 Morbid obesity due to excess calories (HCC) [E6*INVALID FOR* History of bariatric surgery [Z98.84] INVALID FOR* Dyspepsia [R10.13] INVALID FOR* Medications Discontinued During This Encounter benzonatate (TESSALON PERLES) 100 mg* 20 c* 0 12/16/2016 08/09/2017 Route: ORAL Sig: Take 2 capsules by mouth three times daily as needed for Cough. Disc: Reason for discontinue is not on file. Disposition: Return in 1 year (on 08/09/2018) for Annual Exam. Follow-up and Disposition History Recorded Encounter Status:Closed by MARTA PUENTES on 08/09/17 PROGRESS Observed: 08/09/2017 Status: COMPLETED Source: [place] 3:57 PM [facility] O ID: [id number] Author: Marta (Emma Puentes Service: (none) Author Type: Nurse Practitioner Type: Progress Notes Filed: 08/09/2017 4:34 PM Note Text: Krys Aaron is a 46 year old who presents for her annual gynecologic exam without complaints. Menses: none x 4-5 months Contraception: tubal ligation HPV vaccine: No Last Pap: 2016 normal HPV: positive 2014 History of abnormal pap: Yes Last mammogram: 2018normal History of lumpectomy left areola - benign Sexually active: No Hot flashes: Yes, once weekly Night sweats: Yes, 2 a month Exercise: 2-3 times a week for 30-45 minutes. Type: walking Diet: trying to lose weight Seatbelt use: Yes Obstetric History T1 L2 SAB3 TAB0 Ectopic0 Multiple0 Live Births3 PAST MEDICAL HISTORY Diagnosis Date - Adjustment disorder with depressed mood ANXIETY/DEPRESSION - Arrhythmia as a child-no current problems - Bariatric surgery status 06-29-09 lrygbp - Benign hypertension 05/05/2015 - Bipolar 2 disorder (HCC) 04/12/2017 - Celiac disease 06/2005 - Excessive or frequent menstruation Heavy periods - Fatty liver disease, nonalcoholic 04/19/2012 - Generalized anxiety disorder - GERD (gastroesophageal reflux disease) - Hemorrhage of rectum and anus - Lumbago - Midline low back pain without sciatica 09/24/2014 - Migraine, unspecified, with intractable migraine, so stated, without mention of status migrainosus Migraine - Mild dysplasia of cervix 04/05/06 mild dysplasia of cervix on biopsy 12, 7 oclock - Morbid obesity (HCC) 05-19-09 BMI 51.83 Ht: 64.75 Wt: 309 lbs - Other and unspecified hyperlipidemia - Other chronic nonalcoholic liver disease - Other chronic nonalcoholic liver disease - Overactive bladder 12/11/2012 - Pain in joint, multiple sites knees,hips - Papanicolaou smear of cervix with low grade squamous intraepithelial lesion (LGSIL) 03/08/06 - PCOS (polycystic ovarian syndrome) - PMH - PAST MEDICAL HISTORY OF Carpal tunnel syndrome - PMH - PAST MEDICAL HISTORY OF PELVIC FLOOR DISORDER WITH URINARY RETENTION - Sleep apnea, obstructive 2010 resolved with weight loss - Snoring - Urinary tract infection, site not specified Recurrent UTI's - Vitamin D deficiency PAST SURGICAL HISTORY Procedure Laterality Date - BX OF BREAST; INCISIONAL 04-04-12 left - DELIVERY ONLY 2003; 2006 , low cervical X2 - COLONOSCOP W/ OR W/O BRSH SPEC 03/31/2014 Colonoscopy - COLPOSCOPY W BX CERVIX 04/05/06 mild dysplasia of cervix - DANDC, DIAG AND/OR THERAPEUTIC Dilation AND curettage - EGD W/O OR W/BRUSH/WASH 03/28/2016 EGD - FNA WITH IMAGING 10/16/12 Left breast retroareolar old hematoma cavity - LAP GASTRIC BYPASS/BRISA-EN-Y 06-29-09 Catracho Aguilar - LIGATE FALLOPIAN TUBE Tubal ligation 2006 - PAST SURGICAL HISTORY OF BILATERAL carpal tunnel surgery - PAST SURGICAL HISTORY OF Sinus surgery - REMOVAL ADENOIDS,PRIMARY,<12 Y/O Adenoidectomy - REMOVAL OF TONSILS,<12 Y/O Tonsillectomy - SIGMOIDOSCOPY FLEX DIAG 02/03/10 Min. internal hemorrhoids FAMILY HISTORY Problem Relation Age of Onset - Hypertension Mother - Hypertension Brother - Diabetes Brother - Cancer Brother KIDNEY - Cancer Brother BONE - Cancer Paternal Grandfather LUNG - Cervical Cancer Paternal Grandmother - Stroke Paternal Grandmother DVT - Heart Paternal Uncle - Cerebral Embolism Other - Breast Cancer Paternal Aunt - Parkinson's disease [Other] [OTHER] Mother - COPD Father SOCIAL HISTORY Social History Substance Use Topics - Smoking status: Never Smoker - Smokeless tobacco: Never Used - Alcohol use Yes Comment: rare REVIEW OF SYSTEMS Abdomen: No abdominal pain, nausea, vomiting, diarrhea, or constipation. No bloating, early satiety, indigestion, or increased flatulence. Bladder: No dysuria, gross hematuria, urinary frequency, urinary urgency, or incontinence. Breast: No breast lumps, nipple d/c, overlying skin changes, redness or skin retraction. Allergies and current medication updated:Yes EXAM: BP 106/70 Ht 5' 4.75 (1.65m) Wt 246 lb 12.8 oz (111.9kg) BMI 41.37 kg/(m2). GENERAL: pleasant, female in no apparent distress HEENT: Normocephalic, atraumatic, mucus membranes moist and no lesions NECK: Supple, full range of motion, no adenopathy and thyroid normal DERMATOLOGY: Normal, without lesions, non-icteric and non-hirsute BREAST: soft, non-tender, symmetric, no dominant mass, normal nipple-areolar complex, no lymphadenopathy and no nipple discharge CHEST: Normal inspiratory effort ABDOMEN: soft, non-tender and no masses PELVIC: external genitalia normal, normal Bartholin's glands, urethra, [place]'s glands, no vulvar lesions, no cervical lesions, good vaginal support, physiologic discharge present, normal appearing perineal body and perianal region BIMANUAL: uterus normal size, shape and consistency, no adnexal masses and non-tender RECTOVAGINAL: deferred. NEURO: alert and oriented x3,exam grossly non-focal EXTREMITIES: normal ASSESSMENT/PLAN: 1) Health maintenance: Pap/HPV up to date. Nutrition, exercise and routine health maintenance exams reviewed. Calcium/Vitamin D supplementation information provided. 2) Contraception: tubal ligation. Contraceptive options reviewed and information provided. 3) STD screening: Declined STD check. 4) Follow up one year or sooner as needed Marta Puentes APRN.OFELIA CNCO Observed: 07/28/2017 Status: COMPLETED Source: [place] 10:38 AM [facility] REPOSITORY HNO ID: [id number] Author: Mammography Coordinator Service: (none) Author Type: Physician Type: Letter Filed: 07/31/2017 11:33 PM Note Text: July 28, 2017 PID: [id number] Krys Agnieszka [facility] [place] [address] Dear Ms. Aaron, We are pleased to inform you that the results of your recent breast imaging exam on 07/28/2017 are normal. Early detection of cancer is very important. We also understand recommendations regarding breast cancer screening are controversial. Please discuss with your primary care provider which strategy is best for you and whether a mammogram is right for you. Your imaging studies and report will be kept on file at [facility] as part of your permanent medical record and are available for your continuing care. Thank you for allowing us to help in meeting your health care needs. Sincerely, Dr. Wray Interpreting Radiologist [facility] (Normal over 40) [facility] SCREENING Observed: 07/28/2017 Status: F Source: [place] 10:20 AM [facility] REPOSITORY * * *Final Report* * * DATE OF EXAM: Jul 28 2017 10:20AM [facility] - [facility] SCREENING / PROCEDURE REASON: Encounter for screening mammogram for malignant neoplasm of breast * * * * Physician Interpretation * * * * RESULT: #[id number] - [facility] SCREENING BILATERAL DIGITAL SCREENING MAMMOGRAM WITH CAD: 07/28/2017 HISTORY: Screening Mammogram - patient reports NO breast symptoms /priors available for comparison. RESULT: TECHNIQUE: The study was acquired using full field digital technology and interpreted from soft copy. Current study was also evaluated with a Computer Aided Detection (CAD). Comparison is made to exams dated: 07/22/2016 mammogram, 07/03/2015 mammogram - [facility], and 05/22/2014 mammogram - [facility]. There are scattered fibroglandular elements in both breasts. There are benign calcifications in the left breast. No significant masses, calcifications, or other findings are seen in either breast. There has been no significant interval change. IMPRESSION: BENIGN FINDING There is no mammographic evidence of malignancy. A 1 year screening mammogram is recommended. The exam was reviewed by a staff physician. jeny Bennett M.D., M.D./trevor:07/28/2017 10:38:34 Vice President Of Contracts: Terrie GOODMAN(Jose Alfredo)(Jessica), [facility] letter sent: Normal over 40 Mammogram BI-RADS: 2 Benign finding Internet Architect: Trevor Transcribe Date/Time: Jul 28 2017 9:45A Dictated by: ELIANA MASON MD This examination was interpreted and the report reviewed and electronically signed by: ROMA WRAY MD on Jul 28 2017 10:38AM EST [id number] Observed: 07/28/2017 Status: COMPLETED Source: [place] 9:43 AM [facility] REPOSITORY HNO ID: [id number] Author: Asmita Goodman Service: (none) Author Type: (none) Type: Progress Notes Filed: 07/28/2017 9:44 AM Note Text: Radiology Service Progress Note PATIENT NAME: Krys Aaron DATE OF SERVICE: July 28, 2017 TIME: 9:44 AM PATIENT IDENTITY VERIFICATION COMPLETED USING TWO (2) METHODS: Patient confirmed name verbally and Family member confirmed name verbally. PATIENT GENDER DATA: Female. status: : No status: NO. PATIENT RELEVANT IMPLANT DATA REVIEWED: Not Applicable RADIOLOGY DEPARTMENT: [facility] IV DATA: Not applicable SIGNED BY: Asmita Goodman July 28, 2017 9:44 AM BASIC METABOLIC PANL Collected: 07/12/2017 Status: F Source: [place] 9:45 AM [facility] REPOSITORY TYPE CODE TESTS RESULT OUT OF REFERENCE UNITS RANGE LAB GLU 74-99 mg/dL Glucose 91 Result Comment: The [place] [employer] (ADA) provides guidance for cutoff values for fasting glucose and random glucose. The ADA defines fasting as no caloric intake for at least 8 hours. Fas ting plasma glucose results between 100 to 125 mg/dL indicate increased risk for diabetes (prediabetes). Fasting plasma glucose results greater than or equal to 126 mg/dL meet the criteria for diagnosis of diabetes. In the absence of unequivocal hyperglycemia, results should be confirmed by repeat testing. In a patient with classic symptoms of hyperglycemia or hyperglycemic crisis, random plasma glucose results greater than or equal to 200 mg/dL meet the criteria for diagnosis of diabetes. Reference: Standards of Medical Care in Diabetes 2016, [place] [employer]. Diabetes Care. 2016.39(Suppl 1). LAB BUN 7-21 mg/dL BUN 15 LAB CRET 0.58-0.96 mg/dL Creatinine 0.86 LAB NA 136-144 mmol/L Sodium 139 LAB K 3.7-5.1 mmol/L Potassium 4.7 LAB CL 97-105 mmol/L Chloride 101 LAB CO2 22-30 mmol/L CO2 27 LAB AGAP 9-18 mmol/L Anion Gap 11 LAB CA 8.5-10.2 mg/dL Calcium, Total 9.3 LAB GFRAA eGFR- Amer. >60 LAB GFRNAA . eGFR-All Other Races >60 Result Comment: eGFR (Estimated GFR) Units of measure: mL/min/1.73 meters squared eGFR is derived from the reexpressed MDRD Study equation using the following parameters: serum creatinine, age, gender and race. The creatinine assay has been calibrated to be traceable to IDMS. An eGFR <60 mL/min/1.73m2 for >3 months is consistent with chronic kidney disease. Refer to KDOQI guidelines for clinical interpretation. In patients with unstable renal function, e.g. those with acute kidney injury, the eGFR may not accurately reflect actual GFR. Performed By: #### BMP, HBA1C, VITD #### [facility] [address] [place], [place] [address] HEMOGLOBIN A1C Collected: 07/12/2017 Status: F Source: [place] 9:45 AM [facility] REPOSITORY TYPE CODE TESTS RESULT OUT OF REFERENCE UNITS RANGE LAB HGBA1C 4.3-5.6 % Hemoglobin A1c 5.2 LAB HBA0 mg/dL Est. Average Glucose 103 Result Comment: eAG: (Estimated average glucose) is a calculated value from HgbA1c and is transportation services representative of the average blood glucose level in the last 2-3 month period. Performed By: #### BMP, HBA1C, VITD #### [facility] [address] [place], [place] [address] VITAMIN D 25 HYDROXY Collected: 07/12/2017 Status: F Source: [place] 9:45 AM [facility] REPOSITORY TYPE CODE TESTS RESULT OUT OF REFERENCE UNITS RANGE LAB VITD 31.0-80.0 ng/mL Vitamin D 25 46.5 Hydroxy Result Comment: Classification of 25 [place] Vitamin D status: Insufficiency/Moderate Deficiency: < or = 30 ng/mL Sufficiency/Optimal Levels: 31 to 80 ng/mL Toxicity: > 100 ng/mL Test performed by chemiluminescent immunoassay. Performed By: #### BMP, HBA1C, VITD #### [facility] [address] [place], [place] [address] PROGRESS Observed: 07/10/2017 Status: COMPLETED Source: [place] 11:08 AM [facility] REPOSITORY HNO ID: [id number] Author: Santi Lopes (Fire Prevention Officer) Service: (none) Author Type: Nurse Practitioner Type: Progress Notes Filed: 07/10/2017 12:40 PM Note Text: Chief Complaint Patient presents with: Lab Orders: patient was referred by ENT to have labs checked d/t inside of nose is not healing HPI Krys Aaron is a 46 year old female who presents here today for Above Complaints. Has been following with [facility], Dr. Parrish for several months for poor healing sores in nasal passages bilaterally. Not improving so he wanted her to have labs done to check for possible diabetes. Reports 10 years ago, while she had impaired FBS but did not meet criteria for gestational diabetes. She also was seen in over weekend for IANDD left axillar abcess and placed on Bactrim. Left axillary site healing and improving The ROS is otherwise negative. Past medical history, appointments, medications, allergies reviewed. Patient Allergies ALLERGIES Allergen Reactions - Bees Intolerance - Asa [Salicylates] Rash - Asprin [Aspirin] Rash Also makes pt really sleepy - Ibuprofen Swelling throat swelling - Wheat Gluten GI Upset Current Medications Current Outpatient Prescriptions on File Prior to Visit: sulfamethoxazole-trimethoprim (BACTRIM DS) 800-160 mg per tablet Take 1 tablet by mouth twice daily for 10 days. traZODone (DESYREL) 50 mg tablet Take 50 mg by mouth daily at bedtime. As needed lamoTRIgine (LAMICTAL) 25 mg tablet Take 25 mg by mouth twice daily. cholecalciferol, Vitamin D3, (VITAMIN D3) 50,000 unit cap capsule Take 1 capsule by mouth once each week. oxybutynin ER (DITROPAN XL) 10 mg 24 hr tablet TAKE 1 TABLET BY MOUTH DAILY SUMAtriptan (IMITREX) 50 mg tablet TAKE 1 TABLET BY MOUTH NEEDED (MAY REPEAT DOSE IN 2 HOURS IF HEADACHE PERSISTS.). cetirizine (ZYRTEC) 10 mg tablet Take 1 tablet by mouth once daily. sucralfate (CARAFATE) 1 gram tablet Take 1 tablet by mouth before meals and at bedtime. Dissolve one tablet in 2 teaspoons of water, stir and swallow. hydrOXYzine pamoate (VISTARIL) 25 mg capsule Take 1 capsule by mouth three times daily as needed for Anxiety. ferrous sulfate EC 324 mg (65 mg iron) TbEC TAKE 1 TABLET BY MOUTH ONCE DAILY. lisinopril (ZESTRIL, PRINIVIL) 5 mg tablet Take 1 tablet by mouth once daily. DULoxetine (CYMBALTA) 60 mg capsule Take 1 capsule by mouth once daily. dibucaine (NUPERCAINAL) 1 % ointment 1 application as needed. Apply to the anus as needed before and following a bowel movement to decrease pain. calcium carbonate (CALTRATE 600) 600 mg (1,500 mg) tab Take 0.5 tablets by mouth once daily. ascorbic acid (VITAMIN C) 500 mg tablet Take 500 mg by mouth once daily. cyanocobalamin(VITAMIN B-12 1,000 MCG TAB) Take one(1) tablet daily. MULTIVITAMIN TAB Take one(1) tablet daily. benzonatate (TESSALON PERLES) 100 mg capsule Take 2 capsules by mouth three times daily as needed for Cough. No current facility-administered medications on file prior to visit. Previous Medical History PAST MEDICAL HISTORY Diagnosis Date - Adjustment disorder with depressed mood ANXIETY/DEPRESSION - Arrhythmia as a child-no current problems - Bariatric surgery status 06-29-09 lrygbp - Benign hypertension 05/05/2015 - Bipolar 2 disorder (HCC) 04/12/2017 - Celiac disease 06/2005 - Excessive or frequent menstruation Heavy periods - Fatty liver disease, nonalcoholic 04/19/2012 - Generalized anxiety disorder - GERD (gastroesophageal reflux disease) - Hemorrhage of rectum and anus - Lumbago - Midline low back pain without sciatica 09/24/2014 - Migraine, unspecified, with intractable migraine, so stated, without mention of status migrainosus Migraine - Mild dysplasia of cervix 04/05/06 mild dysplasia of cervix on biopsy 12, 7 oclock - Morbid obesity (HCC) 3-1610 BMI 51.83 Ht: 64.75 Wt: 309 lbs - Other and unspecified hyperlipidemia - Other chronic nonalcoholic liver disease - Other chronic nonalcoholic liver disease - Overactive bladder 12/11/2012 - Pain in joint, multiple sites knees,hips - Papanicolaou smear of cervix with low grade squamous intraepithelial lesion (LGSIL) 03/08/06 - PCOS (polycystic ovarian syndrome) - PMH - PAST MEDICAL HISTORY OF Carpal tunnel syndrome - PMH - PAST MEDICAL HISTORY OF PELVIC FLOOR DISORDER WITH URINARY RETENTION - Sleep apnea, obstructive 2010 resolved with weight loss - Snoring - Urinary tract infection, site not specified Recurrent UTI's - Vitamin D deficiency Previous Surgical History PAST SURGICAL HISTORY Procedure Laterality Date - BX OF BREAST; INCISIONAL 04-04-12 left - DELIVERY ONLY 2003; 2006 , low cervical X2 - COLONOSCOP W/ OR W/O BRSH SPEC 03/31/2014 Colonoscopy - COLPOSCOPY W BX CERVIX 04/05/06 mild dysplasia of cervix - DANDC, DIAG AND/OR THERAPEUTIC Dilation AND curettage - EGD W/O OR W/BRUSH/WASH 03/28/2016 EGD - FNA WITH IMAGING 10/16/12 Left breast retroareolar old hematoma cavity - LAP GASTRIC BYPASS/BRISA-EN-Y 06-29-09 P Lauren - LIGATE FALLOPIAN TUBE Tubal ligation 2006 - PAST SURGICAL HISTORY OF BILATERAL carpal tunnel surgery - PAST SURGICAL HISTORY OF Sinus surgery - REMOVAL ADENOIDS,PRIMARY,<12 Y/O Adenoidectomy - REMOVAL OF TONSILS,<12 Y/O Tonsillectomy - SIGMOIDOSCOPY FLEX DIAG 02/03/10 Min. internal hemorrhoids Family History FAMILY HISTORY Problem Relation Age of Onset - Hypertension Mother - Hypertension Brother - Diabetes Brother - Cancer Brother KIDNEY - Cancer Brother BONE - Cancer Paternal Grandfather LUNG - Cervical Cancer Paternal Grandmother - Stroke Paternal Grandmother DVT - Heart Paternal Uncle - Cerebral Embolism Other - Breast Cancer Paternal Aunt - Parkinson's disease [Other] [OTHER] Mother - COPD Father Social History Social History Marital status: Spouse name: Alexandre Years of education: 16 Number of children: 2 Occupational History Occupation Employer Comment [employer] Social History Main Topics Smoking status: Never Smoker Smokeless tobacco: Never Used Alcohol use: Yes Comment: rare Drug use: No Sexual activity: Yes Partners with: Male control/protection: Tubal Ligation EXAM: BP 130/96 (BP Site: Right Arm, BP Position: Sitting, BP Cuff Size: Large Adult) Pulse 72 Temp 36.4 ?C (97.6 ?F) (Tympanic) Resp 18 Wt 110.7 kg (244 lb) BMI 41.88 kg/m? General Appearance: Well appearing, alert, in no acute distress, well-hydrated, well nourished.. Nose/Sinuses: Nares normal, septum midline, mucosa normal, no drainage or sinus tenderness, Positive findings: mucosa erythematous and swollen, open abrasion lesion noted in right nare. Neck: Supple, no adenopathy; thyroid symmetric, normal size, no bruits. Lungs: Lungs clear to auscultation. No wheezing, rhonchi, rales. Heart: RRR without murmur, gallop, or rubs. No ectopy. ASSESSMENT/PLAN: 1. Nasal disorder - ICD9: 478.19, ICD10: J34.9 (primary diagnosis) - Will begin treatment with as per antibiotic as written, see orders-topical - Will order labs to r/o diabetes - BASIC METABOLIC PNL - HGB A1C - MUPIROCIN 2 % TOPICAL OINTMENT 2. Screening mammogram, encounter for - ICD9: V76.12, ICD10: Z12.31 - Set up for mammogram, yearly mammogram recommended - Encouraged monthly BSE - Follow up for annual exam in one year. - JAMES SCREENING 3. Adjustment disorder with depressed mood - ICD9: 309.0, ICD10: F43.21 - Rx refilled - DULOXETINE 60 MG CAPSULE,DELAYED RELEASE 4. Generalized anxiety disorder - ICD9: 300.02, ICD10: F41.1 - Stable, 5. Cutaneous abscess of left axilla - ICD9: 682.3, ICD10: L02.412 - Continue treatment with Trimethoprim-sulfamethozazole (Bactrim) 1 DS PO BID - BASIC METABOLIC PNL - HGB A1C Santi Lopes, MSN INFORMATION SYSTEMS SECURITY ANALYST.PIPELINER CNOV Observed: 07/10/2017 Status: COMPLETED Source: [place] 10:40 AM [facility] REPOSITORY Office Visit (FAMPWS) KRYS AARON ([id number]) 1970 F Date Time Provider Department 07/10/17 10:40 AM SANTI LOPES (LABELER) FAMPWS During your visit today, we recorded the following information about you: Temperature Pulse Respiration Blood pressure 97.6 degrees 72/minute 18/minute 130/96 Weight 110.7 kg Santi Lopes (Fire Prevention Officer) 07/10/2017 12:40 PM Signed Chief Complaint Patient presents with: Lab Orders: patient was referred by ENT to have labs checked d/t inside of nose is not healing HPI Krys Aaron is a 46 year old female who presents here today for Above Complaints. Has been following with [facility], Dr. Parrish for several months for poor healing sores in nasal passages bilaterally. Not improving so he wanted her to have labs done to check for possible diabetes. Reports 10 years ago, while she had impaired FBS but did not meet criteria for gestational diabetes. She also was seen in UC over weekend for IANDD left axillar abcess and placed on Bactrim. Left axillary site healing and improving The ROS is otherwise negative. Past medical history, appointments, medications, allergies reviewed. Patient Allergies ALLERGIES Allergen Reactions - Bees Intolerance - Asa [Salicylates] Rash - Asprin [Aspirin] Rash Also makes pt really sleepy - Ibuprofen Swelling throat swelling - Wheat Gluten GI Upset Current Medications Current Outpatient Prescriptions on File Prior to Visit: sulfamethoxazole-trimethoprim (BACTRIM DS) 800-160 mg per tablet Take 1 tablet by mouth twice daily for 10 days. traZODone (DESYREL) 50 mg tablet Take 50 mg by mouth daily at bedtime. As needed lamoTRIgine (LAMICTAL) 25 mg tablet Take 25 mg by mouth twice daily. cholecalciferol, Vitamin D3, (VITAMIN D3) 50,000 unit cap capsule Take 1 capsule by mouth once each week. oxybutynin ER (DITROPAN XL) 10 mg 24 hr tablet TAKE 1 TABLET BY MOUTH DAILY SUMAtriptan (IMITREX) 50 mg tablet TAKE 1 TABLET BY MOUTH NEEDED (MAY REPEAT DOSE IN 2 HOURS IF HEADACHE PERSISTS.). cetirizine (ZYRTEC) 10 mg tablet Take 1 tablet by mouth once daily. sucralfate (CARAFATE) 1 gram tablet Take 1 tablet by mouth before meals and at bedtime. Dissolve one tablet in 2 teaspoons of water, stir and swallow. hydrOXYzine pamoate (VISTARIL) 25 mg capsule Take 1 capsule by mouth three times daily as needed for Anxiety. ferrous sulfate EC 324 mg (65 mg iron) TbEC TAKE 1 TABLET BY MOUTH ONCE DAILY. lisinopril (ZESTRIL, PRINIVIL) 5 mg tablet Take 1 tablet by mouth once daily. DULoxetine (CYMBALTA) 60 mg capsule Take 1 capsule by mouth once daily. dibucaine (NUPERCAINAL) 1 % ointment 1 application as needed. Apply to the anus as needed before and following a bowel movement to decrease pain. calcium carbonate (CALTRATE 600) 600 mg (1,500 mg) tab Take 0.5 tablets by mouth once daily. ascorbic acid (VITAMIN C) 500 mg tablet Take 500 mg by mouth once daily. cyanocobalamin(VITAMIN B-12 1,000 MCG TAB) Take one(1) tablet daily. MULTIVITAMIN TAB Take one(1) tablet daily. benzonatate (TESSALON PERLES) 100 mg capsule Take 2 capsules by mouth three times daily as needed for Cough. No current facility-administered medications on file prior to visit. Previous Medical History PAST MEDICAL HISTORY Diagnosis Date - Adjustment disorder with depressed mood ANXIETY/DEPRESSION - Arrhythmia as a child-no current problems - Bariatric surgery status 06-29-09 lrygbp - Benign hypertension 05/05/2015 - Bipolar 2 disorder (HCC) 04/12/2017 - Celiac disease 06/2005 - Excessive or frequent menstruation Heavy periods - Fatty liver disease, nonalcoholic 04/19/2012 - Generalized anxiety disorder - GERD (gastroesophageal reflux disease) - Hemorrhage of rectum and anus - Lumbago - Midline low back pain without sciatica 09/24/2014 - Migraine, unspecified, with intractable migraine, so stated, without mention of status migrainosus Migraine - Mild dysplasia of cervix 04/05/06 mild dysplasia of cervix on biopsy 12, 7 oclock - Morbid obesity (HCC) 3-1610 BMI 51.83 Ht: 64.75 Wt: 309 lbs - Other and unspecified hyperlipidemia - Other chronic nonalcoholic liver disease - Other chronic nonalcoholic liver disease - Overactive bladder 12/11/2012 - Pain in joint, multiple sites knees,hips - Papanicolaou smear of cervix with low grade squamous intraepithelial lesion (LGSIL) 03/08/06 - PCOS (polycystic ovarian syndrome) - PMH - PAST MEDICAL HISTORY OF Carpal tunnel syndrome - PMH - PAST MEDICAL HISTORY OF PELVIC FLOOR DISORDER WITH URINARY RETENTION - Sleep apnea, obstructive 2010 resolved with weight loss - Snoring - Urinary tract infection, site not specified Recurrent UTI's - Vitamin D deficiency Previous Surgical History PAST SURGICAL HISTORY Procedure Laterality Date - BX OF BREAST; INCISIONAL 04-04-12 left - DELIVERY ONLY 2003; 2006 , low cervical X2 - COLONOSCOP W/ OR W/O BRSH SPEC 03/31/2014 Colonoscopy - COLPOSCOPY W BX CERVIX 04/05/06 mild dysplasia of cervix - DANDC, DIAG AND/OR THERAPEUTIC Dilation AND curettage - EGD W/O OR W/BRUSH/WASH 03/28/2016 EGD - FNA WITH IMAGING 10/16/12 Left breast retroareolar old hematoma cavity - LAP GASTRIC BYPASS/BRISA-EN-Y 06-29-09 P Lauren - LIGATE FALLOPIAN TUBE Tubal ligation 2006 - PAST SURGICAL HISTORY OF BILATERAL carpal tunnel surgery - PAST SURGICAL HISTORY OF Sinus surgery - REMOVAL ADENOIDS,PRIMARY,<12 Y/O Adenoidectomy - REMOVAL OF TONSILS,<12 Y/O Tonsillectomy - SIGMOIDOSCOPY FLEX DIAG 02/03/10 Min. internal hemorrhoids Family History FAMILY HISTORY Problem Relation Age of Onset - Hypertension Mother - Hypertension Brother - Diabetes Brother - Cancer Brother KIDNEY - Cancer Brother BONE - Cancer Paternal Grandfather LUNG - Cervical Cancer Paternal Grandmother - Stroke Paternal Grandmother DVT - Heart Paternal Uncle - Cerebral Embolism Other - Breast Cancer Paternal Aunt - Parkinson's disease [Other] [OTHER] Mother - COPD Father Social History Social History Marital status: Spouse name: Alexandre Years of education: 16 Number of children: 2 Occupational History Occupation Employer Comment [employer] Social History Main Topics Smoking status: Never Smoker Smokeless tobacco: Never Used Alcohol use: Yes Comment: rare Drug use: No Sexual activity: Yes Partners with: Male control/protection: Tubal Ligation EXAM: BP 130/96 (BP Site: Right Arm, BP Position: Sitting, BP Cuff Size: Large Adult) Pulse 72 Temp 36.4 ?C (97.6 ?F) (Tympanic) Resp 18 Wt 110.7 kg (244 lb) BMI 41.88 kg/m? General Appearance: Well appearing, alert, in no acute distress, well-hydrated, well nourished.. Nose/Sinuses: Nares normal, septum midline, mucosa normal, no drainage or sinus tenderness, Positive findings: mucosa erythematous and swollen, open abrasion lesion noted in right nare. Neck: Supple, no adenopathy; thyroid symmetric, normal size, no bruits. Lungs: Lungs clear to auscultation. No wheezing, rhonchi, rales. Heart: RRR without murmur, gallop, or rubs. No ectopy. ASSESSMENT/PLAN: 1. Nasal disorder - ICD9: 478.19, ICD10: J34.9 (primary diagnosis) - Will begin treatment with as per antibiotic as written, see orders-topical - Will order labs to r/o diabetes - BASIC METABOLIC PNL - HGB A1C - MUPIROCIN 2 % TOPICAL OINTMENT 2. Screening mammogram, encounter for - ICD9: V76.12, ICD10: Z12.31 - Set up for mammogram, yearly mammogram recommended - Encouraged monthly BSE - Follow up for annual exam in one year. - JAMES SCREENING 3. Adjustment disorder with depressed mood - ICD9: 309.0, ICD10: F43.21 - Rx refilled - DULOXETINE 60 MG CAPSULE,DELAYED RELEASE 4. Generalized anxiety disorder - ICD9: 300.02, ICD10: F41.1 - Stable, 5. Cutaneous abscess of left axilla - ICD9: 682.3, ICD10: L02.412 - Continue treatment with Trimethoprim-sulfamethozazole (Bactrim) 1 DS PO BID - BASIC METABOLIC PNL - HGB A1C Santi Lopes, MSN INFORMATION SYSTEMS SECURITY ANALYST.PIPELINER Referring Provider: SELF [[id number]] Allergies As of Date: 07/10/2017 Noted Allergy Reaction BEES 02/02/2005 5 - Intolerance ASA (SALICYLATES) 12/30/2004 2 - Rash ASPRIN (ASPIRIN) 03/07/2012 2 - Rash Comments: Also makes pt really sleepy IBUPROFEN 12/30/2004 7 - Swelling Comments: throat swelling WHEAT GLUTEN 11/25/2005 8 - GI Upset Date Reviewed: 07/10/2017 Reviewed by: Mary Ann Coyne LPN - Fully Assessed Reason for Visit: Lab Orders [1688] Cmt: patient was referred by ENT to have labs checked d/t inside of nose is not healing Primary Visit Diagnosis:Nasal disorder [J34.9] Other Visit Diagnoses:Screening mammogram, encounter for [Z12.31] Adjustment disorder with depressed mood [F43.21] Generalized anxiety disorder [F41.1] Cutaneous abscess of left axilla [L02.412] Order(s):DULoxetine (CYMBALTA) 60 mg capsuleTake 1 capsule by mouth once daily.Disp: 90 capsuleRfl: 3 JAMES SCREENING [[id number]] Order #: [id number] FUTURE BASIC METABOLIC PNL [SQBMP] Order #: [id number] FUTURE HGB A1C [AHPYF3D] Order #: [id number] FUTURE mupirocin (BACTROBAN) 2 % ointmentApply 1 application to affected area three times daily for 7 days.Disp: 22 gRfl: 0 Prescriptions as of 07/10/2017 Sig: DULOXETINE 60 MG CAPSULE,ABIGAIL* Take 1 capsule by mouth once * SULFAMETHOXAZOLE 800 MG-TRIME* Take 1 tablet by mouth twice * TRAZODONE 50 MG TABLET Take 50 mg by mouth daily at * LAMOTRIGINE 25 MG TABLET Take 25 mg by mouth twice lux* CHOLECALCIFEROL (VITAMIN D3) * Take 1 capsule by mouth once * OXYBUTYNIN CHLORIDE ER 10 MG * TAKE 1 TABLET BY MOUTH DAILY SUMATRIPTAN 50 MG TABLET TAKE 1 TABLET BY MOUTH NEE* CETIRIZINE 10 MG TABLET Take 1 tablet by mouth once d* SUCRALFATE 1 GRAM TABLET Take 1 tablet by mouth before* HYDROXYZINE PAMOATE 25 MG CAP* Take 1 capsule by mouth three* FERROUS SULFATE 324 MG (65 MG* TAKE 1 TABLET BY MOUTH ONCE D* LISINOPRIL 5 MG TABLET Take 1 tablet by mouth once d* DIBUCAINE 1 % TOPICAL OINTMENT 1 application as needed. Appl* CALCIUM CARBONATE 600 MG CALC* Take 0.5 tablets by mouth onc* ASCORBIC ACID (VITAMIN C) 500* Take 500 mg by mouth once lux* VITAMIN B-12 1,000 MCG TABLET Take one(1) tablet daily. MULTIVITAMIN TABLET Take one(1) tablet daily. MUPIROCIN 2 % TOPICAL OINTMENT Apply 1 application to affect* BENZONATATE 100 MG CAPSULE Take 2 capsules by mouth thre* Problem List As Of Date 07/10/2017 Noted Resolved Morbid obesity [E66.01] INVALID FOR*01/11/2011 Irregular menstrual cycle [N92.6] INVALID FOR*01/11/2011 BONE AND CARTILAGE DIS NOS [M89.9, M94.9] INVALID FOR* CELIAC DISEASE [K90.0] INVALID FOR* POLYCYSTIC OVARIES [E28.2] INVALID FOR* THREATENED ANTEPARTUM CONDITN/COMPL [O*INVALID FOR*01/11/2011 Supervision of other normal [Z34.80] INVALID FOR*01/11/2011 Unspecified high-risk [O09.90] INVALID FOR*01/11/2011 Dizziness and giddiness [R42] INVALID FOR*04/19/2012 Previous delivery, antepartum conditio*INVALID FOR*01/11/2011 Mild or unspecified pre-eclampsia, antepartum [*INVALID FOR*01/11/2011 MILD DYSPLASIA OF CERVIX [N87.0] INVALID FOR* Sprain of neck [S13.9XXA] INVALID FOR*04/19/2012 ADJUSTMENT DISORDER WITH DEPRESSED MOOD [F43.21]INVALID FOR* GENERALIZED ANXIETY DIS [F41.1] INVALID FOR* DYSMETABOLIC SYNDROME X [E88.81] INVALID FOR* Essential hypertension, benign [I10] INVALID FOR*04/19/2012 Sprain of ankle, unspecified site [S93.409A] INVALID FOR*04/19/2012 Eating disorder, unspecified [F50.9] INVALID FOR*04/19/2012 Major depressive disorder, recurrent episode, m*INVALID FOR*05/20/2016 Internal hemorrhoids without mention of complic*INVALID FOR*04/19/2012 Anal fissure [K60.2] INVALID FOR*04/19/2012 Bulimia nervosa [F50.2] INVALID FOR*04/19/2012 Vitamin D Deficiency [E55.9] INVALID FOR* GERD (Gastroesophageal Reflux Disease) [K21.9] INVALID FOR* More... RB (rectal bleeding) [K62.5] INVALID FOR*04/19/2012 Scoliosis (and kyphoscoliosis), idiopathic [M41*INVALID FOR* Sprain of lumbar region [S33.5XXA] INVALID FOR*04/19/2012 Sleep apnea, obstructive [G47.33] INVALID FOR*04/19/2012 Lump or mass in breast [N63.0] INVALID FOR*08/17/2015 Mastodynia [N64.4] INVALID FOR*08/17/2015 Galactorrhea not associated with childbirth [N6*INVALID FOR*08/17/2015 Abnormal mammogram, unspecified [R92.8] INVALID FOR*08/17/2015 Abnormal ultrasound of breast [R92.8] INVALID FOR*08/17/2015 Fatty liver disease, nonalcoholic [K76.0] INVALID FOR* Overactive bladder [N32.81] INVALID FOR* Arthritis, lumbar spine [M46.96] INVALID FOR* Benign hypertension [I10] INVALID FOR* Occipital neuralgia of left side [M54.81] INVALID FOR*05/20/2016 Migraine with aura and without status migrainos*INVALID FOR* RUQ pain [R10.11] INVALID FOR*05/20/2016 Morbid obesity due to excess calories (HCC) [E6*INVALID FOR* History of bariatric surgery [Z98.84] INVALID FOR* Dyspepsia [R10.13] INVALID FOR* Prescriptions ordered this encounter Disp Refills Start End DULOXETINE 60 MG CAPSULE,DELAYED REL* 90 c* 3 07/10/2017 Route: ORAL Sig: Take 1 capsule by mouth once daily. MUPIROCIN 2 % TOPICAL OINTMENT 22 g 0 07/10/2017 07/17/2017 Route: TOPICAL Sig: Apply 1 application to affected area three times daily for 7 days. Medications Discontinued During This Encounter DULoxetine (CYMBALTA) 60 mg capsule 90 c* 3 05/20/2016 07/10/2017 Route: ORAL Sig: Take 1 capsule by mouth once daily. Disc: Reason for discontinue is not on file. Encounter Status:Closed by SANTI LOPES CNP on 07/10/17 EMERGENCY DEPARTMENT Observed: 07/08/2017 Status: F Source: [place] SUMMARY 12:36 AM [facility] [place] REPOSITORY [facility] Medical Records Department [address] [place] [address] Emergency Department Summary 07/07/17 2217 MR#: [id number] Acct: [id number] Name: KRYS AARON Rep #: [id number] : 1970 46 From: Luca Evangelista MD PCP: Neil Benjamin III, MD Status: REG ER ADDENDUM by Luca Evangelista MD on 07/08/17 at 0035 She was evaluated by crisis who felt the patient was safe for discharge and will have her follow-up as an outpatient. Patient discharged. Date Luca Evangelista MD cc: Neil Benjamin III, MD * Signed - ER Visit Summary Date of Service: 07/07/17 Chief Complaint: Depression and suicidal ideation History of Present Illness: The patient is a 46 F who presents with depression and suicidal ideation. She states that she has had these ever since her father about 9 months ago. This has been increasing recently. Today she sent some text of family members stating that she wanted to . She reports suicidal thoughts but no specific plan. She has been hospitalized previously for similar symptoms. She denies any homicidal ideation. She denies any recent medical illness such as fever chest pain shortness of breath nausea vomiting diarrhea. Physical Examination: Afebrile vitals are stable Moist mucous membranes Heart regular rate and rhythm Lungs are clear Abdomen soft Alert and oriented Patient has normal speech pattern she does report suicidal ideations without specific plan. Test Results: CBC BMP unremarkable. Drug screen and alcohol normal. negative. Emergency Department Course and Treatment: She has been calm and cooperative here. This is her second visit in a short period of time for similar symptoms. We will have crisis evaluate the patient. Treatment Plan: [] Disposition: Pending crisis evaluation Impression: Depression Suicidal ideation This note was generated with Zingkuation software. It may contain incorrect words, spelling, and punctuation that were not noted in review of the chart prior to signing ED Disposition - Plan for ED Patient: Chief Complaint: Suicidal Referrals: Neil Benjamin III, MD [Primary Care Provider] - What to do if you have Problems For any increased pain, shortness of breath, bleeding, nausea or vomiting, chest pain, or any unexpected problems, contact your Primary Care Provider. Call [facility] ([phone]) or report to the closest Emergency Room. Call 911 if necessary. 07/07/172220 <Electronically signed by Luca Evangelista MD> Date Luca Evangelista MD Cosigner Signature (If Indicated): Date CC: Neil Benjamin III, MD DISCHARGE INSTRUCTION Observed: 07/08/2017 Status: F Source: [place] 12:36 AM [facility] REPOSITORY [facility] Medical Records Department [address] [place] [id number] Discharge Instruction 07/08/1735 MR#: [id number] Acct: [id number] Name: KRYS AARON Rep #: [id number] : 1970 46 From: Luca Evangelista MD PCP: Neil Benjamin III, MD Status: REG ER ED Disposition - Plan for ED Patient: Chief Complaint: Suicidal Instructions: ED Depression Referrals: Neil Benjamin III, MD [Primary Care Provider] - What to do if you have Problems For any increased pain, shortness of breath, bleeding, nausea or vomiting, chest pain, or any unexpected problems, contact your Primary Care Provider. Call [facility] ([phone]) or report to the closest Emergency Room. Call 911 if necessary. 07/08/1735 <Electronically signed by Luca Evangelista MD> Date Luca Reinoso Signature (If Indicated): Date CC: Neil Benjamin III, MD URINE DRUG SCREEN Collected: 07/07/2017 Status: F Source: [place] (VISTA) 8:27 PM [facility] REPOSITORY TYPE CODE TESTS RESULT OUT OF RANGE REFERENCE UNITS LAB L505.0075 TO BE Normal CONFIRMED Result Comment: CONFIRMATORY TESTING FOR ALL POSITIVE URINE DRUG SCREEN RESULTS WILL ONLY BE SENT OUT UPON PHYSICIAN ORDER. VISTA Urine Drug Screen methods provide only preliminary analytical test results. A more specific alternate chemical method must be used in order to obtain a confirmed analytical result. Gas chromatography/mass spectrometery (GC/MS) is the preferred confirmatory method. Clinical consideration and professional judgement should be applied to any drug of abuse test result, particularly when preliminary positive results are used. URINE TCA TESTING MUST BE ORDERED SEPARATELY. USE TEST MNEMONIC: [facility] LAB L505.5005 VISTA UDS PH 5 Normal LAB L505.5015 <1000 ng/mL AMPHETAMINES Normal NEGATIVE LAB L505.5025 < 200 ng/mL BARBITIURATES Normal NEGATIVE LAB L505.5035 < 200 ng/mL BENZODIAZIPINE Normal NEGATIVE LAB L505.5045 < 300 ng/mL COCAINE Normal NEGATIVE LAB L505.5055 < 500 ng/mL ECSTACY Normal NEGATIVE LAB L505.5065 < 300 ng/mL METHADONE Normal NEGATIVE LAB L505.5075 < 300 ng/mL OPIATES Normal NEGATIVE LAB L505.5085 < 25 ng/mL PCP Normal NEGATIVE LAB L505.5095 < 50 ng/mL THC Normal NEGATIVE Performed By: #### L505.5000 #### [facility] [address] [place], [address] CBC W/DIFF, AUTOMATED Collected: 07/07/2017 Status: F Source: [place] 7:23 PM [facility] REPOSITORY TYPE CODE TESTS RESULT OUT OF RANGE REFERENCE UNITS LAB L100.1000 4.4-11.0 K/mm3 Normal WBC 8.1 LAB L100.1200 4.2-5.4 M/mm3 Normal RBC 4.39 LAB L100.1300 12.0-15.0 g/dl Normal HGB 13.7 LAB L100.1400 37-47 % Normal HCT 41.7 LAB L100.1500 81-99 fL Normal MCV 95.0 LAB L100.1600 27.0-32.0 pg Normal MCH 31.2 LAB L100.1700 32-36 g/gl Normal MCHC 32.9 LAB L100.1810 11.6-14.6 % Normal RDW CV 12.2 LAB L100.1820 35.1-43.9 fl Normal RDW SD 41.9 LAB L100.1900 150-450 K/mm3 Normal PLT 233 LAB L100.2000 6.2-12.0 fl Normal MPV 9.6 LAB L100.2100 47-70 % Normal NEUT% 57.8 LAB L100.2200 19-41 % Normal LY% 32.0 LAB L100.2300 0-10 % Normal MONO% 6.7 LAB L100.2400 0-5 % Normal EO% 3.0 LAB L100.2500 0-1 % Normal BASO% 0.4 LAB L100.2550 0.0-0.9 % Normal IM GRAN % 0.100 Result Comment: IG% - Immature Granulocytes (promyelocytes, myelocytes and metamyelocytes) > 1% indicates that a LEFT SHIFT is Present. LAB L100.2620 2.0-7.7 X10 3/uL Normal Absolute Neut 4.7 LAB L100.2720 0.83-4.51 X10 3/ul Normal Absolute Lymph 2.59 Performed By: #### L100.0100 #### [facility] [address] [place], [address] BASIC METABOLIC Collected: 07/07/2017 Status: F Source: [place] PROFILE ([facility]) 7:23 PM [facility] REPOSITORY TYPE CODE TESTS RESULT OUT OF RANGE REFERENCE UNITS LAB L501.0100 74-106 mg/dL Low GLU 66 Result Comment: Please note revised GLUCOSE reference range effective 2017. LAB L501.1000 7-18 mg/dL Normal BUN 14 LAB L501.1100 0.55-1.02 mg/dL Normal CREAT,SERUM 0.61 Result Comment: The validity of the calculated GFR AND GFRAA in patients over 70 years has not been determined. Clinical correlation is essential. LAB L501.1110 >60 mL/min Normal EST GFR 112 Result Comment: Non- GFR Calc LAB L501.1115 >60 mL/min Normal EST GFR - AA 136 Result Comment: GFR Calc LAB L501.1255 ml/min Normal Estimated CRCL 105.90 LAB L501.1300 10-20 RATIO High BUN/CRE 22.8 LAB L501.2200 8.5-10 mg/dL .1 CA Normal 9.3 LAB L501.5300 136-14 mmol/L 5 NA Normal 142 LAB L501.5600 3.5-5. mmol/L 1 K Normal 3.8 LAB L501.5900 98-107 mmol/L High CL 109 LAB L501.6100 21.0-3 mmol/L 2.0 CO2 Normal 25.0 LAB L501.6200 5-15 GAP Normal 8 Performed By: #### L500.2500 #### [facility] [address] [place], [place], [id number] ,SERUM,HCG QUALI. Collected: Status: F Source: [place] 07/07/2017 7:23 PM [facility] REPOSITORY TYPE CODE TESTS RESULT OUT OF REFERENCE UNITS RANGE LAB L700.7000 0-9 Nonpreg Negative Normal HCGSQUAL NEGATIVE LAB L700.6700 =>Qualitative mIU/mL Normal HCG Qual < 1 triggr Performed By: #### L700.6800 #### [facility] [address] [place], [place], [address] ALCOHOL, BLOOD Collected: 07/07/2017 Status: F Source: [place] (MEDICAL)-SERUM 7:23 PM [facility] REPOSITORY TYPE CODE TESTS RESULT OUT OF RANGE REFERENCE UNITS LAB L501.9100 mg/dL Normal SERUM < 3.0 ETOH Result Comment: The serum:whole blood ethanol ratio is approximately 1.14 and varies slightly with hematocrit. Medical Alcohol reference interval and critical value in non-tolerant individuals; 50 - 100 Impairment 100 Intoxication 100 - 250 Severe Poisoning 250 - 400 Deep/possible fatal coma Performed By: #### L501.9100 #### [facility] [address] [place], [place], [address] PROGRESS Observed: 07/07/2017 Status: COMPLETED Source: [place] 8:57 AM [facility] REPOSITORY HNO ID: [id number] Author: Sarai Hernandez ([place]) Service: (none) Author Type: Nurse Practitioner Type: Progress Notes Filed: 07/07/2017 12:37 PM Note Text: Subjective HPI HPI Krys Aaron is a 46 year old female who presents today for CC of painful, lump left axilla. This started 1 week ago. Has tried nothing. Symptoms are worsened by nothing. Risk factors is in axilla, where shaves .Patient presents with: Fever Mass PAST MEDICAL HISTORY Diagnosis Date - Adjustment disorder with depressed mood ANXIETY/DEPRESSION - Arrhythmia as a child-no current problems - Bariatric surgery status 06-29-09 lrygbp - Benign hypertension 05/05/2015 - Bipolar 2 disorder (HCC) 04/12/2017 - Celiac disease 06/2005 - Excessive or frequent menstruation Heavy periods - Fatty liver disease, nonalcoholic 04/19/2012 - Generalized anxiety disorder - GERD (gastroesophageal reflux disease) - Hemorrhage of rectum and anus - Lumbago - Midline low back pain without sciatica 09/24/2014 - Migraine, unspecified, with intractable migraine, so stated, without mention of status migrainosus Migraine - Mild dysplasia of cervix 04/05/06 mild dysplasia of cervix on biopsy 12, 7 oclock - Morbid obesity (HCC) 05-19-09 BMI 51.83 Ht: 64.75 Wt: 309 lbs - Other and unspecified hyperlipidemia - Other chronic nonalcoholic liver disease - Other chronic nonalcoholic liver disease - Overactive bladder 12/11/2012 - Pain in joint, multiple sites knees,hips - Papanicolaou smear of cervix with low grade squamous intraepithelial lesion (LGSIL) 03/08/06 - PCOS (polycystic ovarian syndrome) - PMH - PAST MEDICAL HISTORY OF Carpal tunnel syndrome - PMH - PAST MEDICAL HISTORY OF PELVIC FLOOR DISORDER WITH URINARY RETENTION - Sleep apnea, obstructive 2010 resolved with weight loss - Snoring - Urinary tract infection, site not specified Recurrent UTI's - Vitamin D deficiency PAST SURGICAL HISTORY Procedure Laterality Date - BX OF BREAST; INCISIONAL 04-04-12 left - DELIVERY ONLY 2003; 2006 , low cervical X2 - COLONOSCOP W/ OR W/O BRSH SPEC 03/31/2014 Colonoscopy - COLPOSCOPY W BX CERVIX 04/05/06 mild dysplasia of cervix - DANDC, DIAG AND/OR THERAPEUTIC Dilation AND curettage - EGD W/O OR W/BRUSH/WASH 03/28/2016 EGD - FNA WITH IMAGING 10/16/12 Left breast retroareolar old hematoma cavity - LAP GASTRIC BYPASS/BRISA-EN-Y 06-29-09 P Lauren - LIGATE FALLOPIAN TUBE Tubal ligation 2006 - PAST SURGICAL HISTORY OF BILATERAL carpal tunnel surgery - PAST SURGICAL HISTORY OF Sinus surgery - REMOVAL ADENOIDS,PRIMARY,<12 Y/O Adenoidectomy - REMOVAL OF TONSILS,<12 Y/O Tonsillectomy - SIGMOIDOSCOPY FLEX DIAG 02/03/10 Min. internal hemorrhoids ALLERGIES Bees; Asa [Salicylates]; Asprin [Aspirin]; Ibuprofen; Wheat Gluten MEDICATIONS traZODone (DESYREL) 50 mg tablet Take 50 mg by mouth daily at bedtime. As needed lamoTRIgine (LAMICTAL) 25 mg tablet Take 25 mg by mouth twice daily. cholecalciferol, Vitamin D3, (VITAMIN D3) 50,000 unit cap capsule Take 1 capsule by mouth once each week. oxybutynin ER (DITROPAN XL) 10 mg 24 hr tablet TAKE 1 TABLET BY MOUTH DAILY SUMAtriptan (IMITREX) 50 mg tablet TAKE 1 TABLET BY MOUTH NEEDED (MAY REPEAT DOSE IN 2 HOURS IF HEADACHE PERSISTS.). cetirizine (ZYRTEC) 10 mg tablet Take 1 tablet by mouth once daily. benzonatate (TESSALON PERLES) 100 mg capsule Take 2 capsules by mouth three times daily as needed for Cough. sucralfate (CARAFATE) 1 gram tablet Take 1 tablet by mouth before meals and at bedtime. Dissolve one tablet in 2 teaspoons of water, stir and swallow. hydrOXYzine pamoate (VISTARIL) 25 mg capsule Take 1 capsule by mouth three times daily as needed for Anxiety. ferrous sulfate EC 324 mg (65 mg iron) TbEC TAKE 1 TABLET BY MOUTH ONCE DAILY. lisinopril (ZESTRIL, PRINIVIL) 5 mg tablet Take 1 tablet by mouth once daily. DULoxetine (CYMBALTA) 60 mg capsule Take 1 capsule by mouth once daily. dibucaine (NUPERCAINAL) 1 % ointment 1 application as needed. Apply to the anus as needed before and following a bowel movement to decrease pain. calcium carbonate (CALTRATE 600) 600 mg (1,500 mg) tab Take 0.5 tablets by mouth once daily. ascorbic acid (VITAMIN C) 500 mg tablet Take 500 mg by mouth once daily. cyanocobalamin(VITAMIN B-12 1,000 MCG TAB) Take one(1) tablet daily. MULTIVITAMIN TAB Take one(1) tablet daily. FAMILY HISTORY Problem Relation Age of Onset - Hypertension Mother - Hypertension Brother - Diabetes Brother - Cancer Brother KIDNEY - Cancer Brother BONE - Cancer Paternal Grandfather LUNG - Cervical Cancer Paternal Grandmother - Stroke Paternal Grandmother DVT - Heart Paternal Uncle - Cerebral Embolism Other - Breast Cancer Paternal Aunt - Parkinson's disease [Other] [OTHER] Mother - COPD Father Social History Substance Use Topics - Smoking status: Never Smoker - Smokeless tobacco: Never Used - Alcohol use Yes Comment: rare Review of Systems Constitutional: Positive for fever (tactile). Respiratory: Negative for cough, shortness of breath and wheezing. Cardiovascular: Negative for chest pain. Skin: Negative for itching and rash. Objective Blood pressure 132/80, pulse 78, temperature 36.7 ?C (98 ?F), temperature source Left Tympanic, resp. rate 16, weight 109.8 kg (242 lb). Physical Exam Constitutional: She is oriented to person, place, and time and well-developed, well-nourished, and in no distress. Non-toxic appearance. She does not have a sickly appearance. No distress. HENT: Head: Normocephalic and atraumatic. Cardiovascular: Normal rate, regular rhythm, S1 normal, S2 normal and normal heart sounds. Pulmonary/Chest: Effort normal and breath sounds normal. No accessory muscle usage. No respiratory distress. Neurological: She is alert and oriented to person, place, and time. Gait normal. Skin: She is not diaphoretic. Left axilla has 2cm abscess, small area of fluctuance. No surrounding erythema. Procedure: Incision and Drainage. Risks and benefits of the procedure were discussed including pain, bleeding, and failure to successfully drain the abscess. The patient's father understands these risks and wishes to proceed. Site cleansed with isopropyl alcohol pads. Anesthetic: 0.25ml 1% lidocaine. 18g syringe needle used to make stab incision. scant amount of purulent drainage expressed from the wound. Hemostasis with short pressure applied. Dressed with adhesive bandage. Patient tolerated well Antonia Armida RIVERS present for procedure ASSESSMENT/PLAN: 1. Cutaneous abscess of trunk, unspecified site of trunk - ICD9: 682.2, ICD10: L02.219 - No lymphangetic streaking, this was defined for patient to watch for and to seek medical care immediately if appears - Follow up for recheck in three days if symptoms worsen -follow up sooner if worsening signs of infection - SULFAMETHOXAZOLE 800 MG-TRIMETHOPRIM 160 MG TABLET Prescription instructions reviewed with patient as applicable. Patient advised if symptoms do not improve or if symptoms worsen sooner, to contact the office for further evaluation by their primary care physician. Potential red flag symptoms discussed with the patient. Reviewed appropriate action plan to take if red flag symptoms occur. Patient agreeable to treatment plan. Sarai Hernandez APRN.OFELIA CNOV Observed: 07/07/2017 Status: COMPLETED Source: [place] 8:30 AM [facility] REPOSITORY Office Visit (WSTR) KRYS AARON ([id number]) 1970 F Date Time Provider Department 07/07/17 8:30 AM SARAI HERNANDEZ) WSTR During your visit today, we recorded the following information about you: Temperature Pulse Respiration Blood pressure 98 degrees 78/minute 16/minute 132/80 Weight 109.8 kg Sarai Hernandez) 07/07/2017 12:37 PM Signed Subjective HPI HPI Krys Aaron is a 46 year old female who presents today for CC of painful, lump left axilla. This started 1 week ago. Has tried nothing. Symptoms are worsened by nothing. Risk factors is in axilla, where shaves .Patient presents with: Fever Mass PAST MEDICAL HISTORY Diagnosis Date - Adjustment disorder with depressed mood ANXIETY/DEPRESSION - Arrhythmia as a child-no current problems - Bariatric surgery status 06-29-09 lrygbp - Benign hypertension 05/05/2015 - Bipolar 2 disorder (HCC) 04/12/2017 - Celiac disease 06/2005 - Excessive or frequent menstruation Heavy periods - Fatty liver disease, nonalcoholic 04/19/2012 - Generalized anxiety disorder - GERD (gastroesophageal reflux disease) - Hemorrhage of rectum and anus - Lumbago - Midline low back pain without sciatica 09/24/2014 - Migraine, unspecified, with intractable migraine, so stated, without mention of status migrainosus Migraine - Mild dysplasia of cervix 04/05/06 mild dysplasia of cervix on biopsy 12, 7 oclock - Morbid obesity (HCC) 05-19-09 BMI 51.83 Ht: 64.75 Wt: 309 lbs - Other and unspecified hyperlipidemia - Other chronic nonalcoholic liver disease - Other chronic nonalcoholic liver disease - Overactive bladder 12/11/2012 - Pain in joint, multiple sites knees,hips - Papanicolaou smear of cervix with low grade squamous intraepithelial lesion (LGSIL) 03/08/06 - PCOS (polycystic ovarian syndrome) - PMH - PAST MEDICAL HISTORY OF Carpal tunnel syndrome - PMH - PAST MEDICAL HISTORY OF PELVIC FLOOR DISORDER WITH URINARY RETENTION - Sleep apnea, obstructive 2010 resolved with weight loss - Snoring - Urinary tract infection, site not specified Recurrent UTI's - Vitamin D deficiency PAST SURGICAL HISTORY Procedure Laterality Date - BX OF BREAST; INCISIONAL 04-04-12 left - DELIVERY ONLY 2003; 2006 , low cervical X2 - COLONOSCOP W/ OR W/O BRSH SPEC 03/31/2014 Colonoscopy - COLPOSCOPY W BX CERVIX 04/05/06 mild dysplasia of cervix - DANDC, DIAG AND/OR THERAPEUTIC Dilation AND curettage - EGD W/O OR W/BRUSH/WASH 03/28/2016 EGD - FNA WITH IMAGING 10/16/12 Left breast retroareolar old hematoma cavity - LAP GASTRIC BYPASS/BRISA-EN-Y 06-29-09 Catracho Aguilar - LIGATE FALLOPIAN TUBE Tubal ligation 2006 - PAST SURGICAL HISTORY OF BILATERAL carpal tunnel surgery - PAST SURGICAL HISTORY OF Sinus surgery - REMOVAL ADENOIDS,PRIMARY,<12 Y/O Adenoidectomy - REMOVAL OF TONSILS,<12 Y/O Tonsillectomy - SIGMOIDOSCOPY FLEX DIAG 02/03/10 Min. internal hemorrhoids ALLERGIES Bees; Asa [Salicylates]; Asprin [Aspirin]; Ibuprofen; Wheat Gluten MEDICATIONS traZODone (DESYREL) 50 mg tablet Take 50 mg by mouth daily at bedtime. As needed lamoTRIgine (LAMICTAL) 25 mg tablet Take 25 mg by mouth twice daily. cholecalciferol, Vitamin D3, (VITAMIN D3) 50,000 unit cap capsule Take 1 capsule by mouth once each week. oxybutynin ER (DITROPAN XL) 10 mg 24 hr tablet TAKE 1 TABLET BY MOUTH DAILY SUMAtriptan (IMITREX) 50 mg tablet TAKE 1 TABLET BY MOUTH NEEDED (MAY REPEAT DOSE IN 2 HOURS IF HEADACHE PERSISTS.). cetirizine (ZYRTEC) 10 mg tablet Take 1 tablet by mouth once daily. benzonatate (TESSALON PERLES) 100 mg capsule Take 2 capsules by mouth three times daily as needed for Cough. sucralfate (CARAFATE) 1 gram tablet Take 1 tablet by mouth before meals and at bedtime. Dissolve one tablet in 2 teaspoons of water, stir and swallow. hydrOXYzine pamoate (VISTARIL) 25 mg capsule Take 1 capsule by mouth three times daily as needed for Anxiety. ferrous sulfate EC 324 mg (65 mg iron) TbEC TAKE 1 TABLET BY MOUTH ONCE DAILY. lisinopril (ZESTRIL, PRINIVIL) 5 mg tablet Take 1 tablet by mouth once daily. DULoxetine (CYMBALTA) 60 mg capsule Take 1 capsule by mouth once daily. dibucaine (NUPERCAINAL) 1 % ointment 1 application as needed. Apply to the anus as needed before and following a bowel movement to decrease pain. calcium carbonate (CALTRATE 600) 600 mg (1,500 mg) tab Take 0.5 tablets by mouth once daily. ascorbic acid (VITAMIN C) 500 mg tablet Take 500 mg by mouth once daily. cyanocobalamin(VITAMIN B-12 1,000 MCG TAB) Take one(1) tablet daily. MULTIVITAMIN TAB Take one(1) tablet daily. FAMILY HISTORY Problem Relation Age of Onset - Hypertension Mother - Hypertension Brother - Diabetes Brother - Cancer Brother KIDNEY - Cancer Brother BONE - Cancer Paternal Grandfather LUNG - Cervical Cancer Paternal Grandmother - Stroke Paternal Grandmother DVT - Heart Paternal Uncle - Cerebral Embolism Other - Breast Cancer Paternal Aunt - Parkinson's disease [Other] [OTHER] Mother - COPD Father Social History Substance Use Topics - Smoking status: Never Smoker - Smokeless tobacco: Never Used - Alcohol use Yes Comment: rare Review of Systems Constitutional: Positive for fever (tactile). Respiratory: Negative for cough, shortness of breath and wheezing. Cardiovascular: Negative for chest pain. Skin: Negative for itching and rash. Objective Blood pressure 132/80, pulse 78, temperature 36.7 ?C (98 ?F), temperature source Left Tympanic, resp. rate 16, weight 109.8 kg (242 lb). Physical Exam Constitutional: She is oriented to person, place, and time and well-developed, well-nourished, and in no distress. Non-toxic appearance. She does not have a sickly appearance. No distress. HENT: Head: Normocephalic and atraumatic. Cardiovascular: Normal rate, regular rhythm, S1 normal, S2 normal and normal heart sounds. Pulmonary/Chest: Effort normal and breath sounds normal. No accessory muscle usage. No respiratory distress. Neurological: She is alert and oriented to person, place, and time. Gait normal. Skin: She is not diaphoretic. Left axilla has 2cm abscess, small area of fluctuance. No surrounding erythema. Procedure: Incision and Drainage. Risks and benefits of the procedure were discussed including pain, bleeding, and failure to successfully drain the abscess. The patient's father understands these risks and wishes to proceed. Site cleansed with isopropyl alcohol pads. Anesthetic: 0.25ml 1% lidocaine. 18g syringe needle used to make stab incision. scant amount of purulent drainage expressed from the wound. Hemostasis with short pressure applied. Dressed with adhesive bandage. Patient tolerated well Antonia Huffman APRN present for procedure ASSESSMENT/PLAN: 1. Cutaneous abscess of trunk, unspecified site of trunk - ICD9: 682.2, ICD10: L02.219 - No lymphangetic streaking, this was defined for patient to watch for and to seek medical care immediately if appears - Follow up for recheck in three days if symptoms worsen -follow up sooner if worsening signs of infection - SULFAMETHOXAZOLE 800 MG-TRIMETHOPRIM 160 MG TABLET Prescription instructions reviewed with patient as applicable. Patient advised if symptoms do not improve or if symptoms worsen sooner, to contact the office for further evaluation by their primary care physician. Potential red flag symptoms discussed with the patient. Reviewed appropriate action plan to take if red flag symptoms occur. Patient agreeable to treatment plan. Sarai Hernandez APRN.Sarai Stephen ([facility]) 07/07/2017 9:31 AM Signed ASSESSMENT/PLAN: 1. Cutaneous abscess of trunk, unspecified site of trunk - ICD9: 682.2, ICD10: L02.219 - No lymphangetic streaking, this was defined for patient to watch for and to seek medical care immediately if appears - Follow up for recheck in three days if symptoms worsen -follow up sooner if worsening signs of infection - SULFAMETHOXAZOLE 800 MG-TRIMETHOPRIM 160 MG TABLET Referring Provider: SELF [200] Allergies As of Date: 07/07/2017 Noted Allergy Reaction BEES 02/02/2005 5 - Intolerance ASA (SALICYLATES) 12/30/2004 2 - Rash ASPRIN (ASPIRIN) 03/07/2012 2 - Rash Comments: Also makes pt really sleepy IBUPROFEN 12/30/2004 7 - Swelling Comments: throat swelling WHEAT GLUTEN 11/25/2005 8 - GI Upset Date Reviewed: 07/07/2017 Reviewed by: Sarai Hernandez ([facility]) - Fully Assessed Reason for Visit: Fever [47] Mass [64] Primary Visit Diagnosis:Cutaneous abscess of trunk, unspecified site of trunk [L02.219] Order(s):sulfamethoxazole-trimethoprim (BACTRIM DS) 800-160 mg per tabletTake 1 tablet by mouth twice daily for 10 days.Disp: 20 tabletRfl: 0 WOUND CULTURE AND GRAM STAIN [SQWCUL] Order #: [id number] Prescriptions as of 07/07/2017 Sig: SULFAMETHOXAZOLE 800 MG-TRIME* Take 1 tablet by mouth twice * TRAZODONE 50 MG TABLET Take 50 mg by mouth daily at * LAMOTRIGINE 25 MG TABLET Take 25 mg by mouth twice lux* CHOLECALCIFEROL (VITAMIN D3) * Take 1 capsule by mouth once * OXYBUTYNIN CHLORIDE ER 10 MG * TAKE 1 TABLET BY MOUTH DAILY SUMATRIPTAN 50 MG TABLET TAKE 1 TABLET BY MOUTH NEE* CETIRIZINE 10 MG TABLET Take 1 tablet by mouth once d* BENZONATATE 100 MG CAPSULE Take 2 capsules by mouth thre* SUCRALFATE 1 GRAM TABLET Take 1 tablet by mouth before* HYDROXYZINE PAMOATE 25 MG CAP* Take 1 capsule by mouth three* FERROUS SULFATE 324 MG (65 MG* TAKE 1 TABLET BY MOUTH ONCE D* LISINOPRIL 5 MG TABLET Take 1 tablet by mouth once d* DULOXETINE 60 MG CAPSULE,ABIGAIL* Take 1 capsule by mouth once * DIBUCAINE 1 % TOPICAL OINTMENT 1 application as needed. Appl* CALCIUM CARBONATE 600 MG CALC* Take 0.5 tablets by mouth onc* ASCORBIC ACID (VITAMIN C) 500* Take 500 mg by mouth once lux* VITAMIN B-12 1,000 MCG TABLET Take one(1) tablet daily. MULTIVITAMIN TABLET Take one(1) tablet daily. Problem List As Of Date 07/07/2017 Noted Resolved Morbid obesity [E66.01] INVALID FOR*01/11/2011 Irregular menstrual cycle [N92.6] INVALID FOR*01/11/2011 BONE AND CARTILAGE DIS NOS [M89.9, M94.9] INVALID FOR* CELIAC DISEASE [K90.0] INVALID FOR* POLYCYSTIC OVARIES [E28.2] INVALID FOR* THREATENED ANTEPARTUM CONDITN/COMPL [O*INVALID FOR*01/11/2011 Supervision of other normal [Z34.80] INVALID FOR*01/11/2011 Unspecified high-risk [O09.90] INVALID FOR*01/11/2011 Dizziness and giddiness [R42] INVALID FOR*04/19/2012 Previous delivery, antepartum conditio*INVALID FOR*01/11/2011 Mild or unspecified pre-eclampsia, antepartum [*INVALID FOR*01/11/2011 MILD DYSPLASIA OF CERVIX [N87.0] INVALID FOR* Sprain of neck [S13.9XXA] INVALID FOR*04/19/2012 ADJUSTMENT DISORDER WITH DEPRESSED MOOD [F43.21]INVALID FOR* GENERALIZED ANXIETY DIS [F41.1] INVALID FOR* DYSMETABOLIC SYNDROME X [E88.81] INVALID FOR* Essential hypertension, benign [I10] INVALID FOR*04/19/2012 Sprain of ankle, unspecified site [S93.409A] INVALID FOR*04/19/2012 Eating disorder, unspecified [F50.9] INVALID FOR*04/19/2012 Major depressive disorder, recurrent episode, m*INVALID FOR*05/20/2016 Internal hemorrhoids without mention of complic*INVALID FOR*04/19/2012 Anal fissure [K60.2] INVALID FOR*04/19/2012 Bulimia nervosa [F50.2] INVALID FOR*04/19/2012 Vitamin D Deficiency [E55.9] INVALID FOR* GERD (Gastroesophageal Reflux Disease) [K21.9] INVALID FOR* More... RB (rectal bleeding) [K62.5] INVALID FOR*04/19/2012 Scoliosis (and kyphoscoliosis), idiopathic [M41*INVALID FOR* Sprain of lumbar region [S33.5XXA] INVALID FOR*04/19/2012 Sleep apnea, obstructive [G47.33] INVALID FOR*04/19/2012 Lump or mass in breast [N63.0] INVALID FOR*08/17/2015 Mastodynia [N64.4] INVALID FOR*08/17/2015 Galactorrhea not associated with childbirth [N6*INVALID FOR*08/17/2015 Abnormal mammogram, unspecified [R92.8] INVALID FOR*08/17/2015 Abnormal ultrasound of breast [R92.8] INVALID FOR*08/17/2015 Fatty liver disease, nonalcoholic [K76.0] INVALID FOR* Overactive bladder [N32.81] INVALID FOR* Arthritis, lumbar spine [M46.96] INVALID FOR* Benign hypertension [I10] INVALID FOR* Occipital neuralgia of left side [M54.81] INVALID FOR*05/20/2016 Migraine with aura and without status migrainos*INVALID FOR* RUQ pain [R10.11] INVALID FOR*05/20/2016 Morbid obesity due to excess calories (HCC) [E6*INVALID FOR* History of bariatric surgery [Z98.84] INVALID FOR* Dyspepsia [R10.13] INVALID FOR* Other instructions from your clinician: ASSESSMENT/PLAN: 1. Cutaneous abscess of trunk, unspecified site of trunk - ICD9: 682.2, ICD10: L02.219 - No lymphangetic streaking, this was defined for patient to watch for and to seek medical care immediately if appears - Follow up for recheck in three days if symptoms worsen -follow up sooner if worsening signs of infection - SULFAMETHOXAZOLE 800 MG-TRIMETHOPRIM 160 MG TABLET Prescriptions ordered this encounter Disp Refills Start End SULFAMETHOXAZOLE 800 MG-TRIMETHOPRIM* 20 t* 0 07/07/2017 07/17/2017 Cmt: Ok to give generic equivalent Route: ORAL Sig: Take 1 tablet by mouth twice daily for 10 days. Letter Text [facility] Sarai Hernandez CNP [address], [place] [address] 07/07/2017 Krys Aaron [facility]# [id number] [address] [place] [id number] TO WHOM IT MAY CONCERN: This is to confirm that Krys Matutebetzysonia had an appointment and was seen at the [facility] in the Department of Urgent Care by Sarai Hernandez CNP on 07/07/2017. Sincerely yours, Sarai Hernandez CNP Encounter Status:Closed by SARAI HERNANDEZ CNP on 07/07/17 WOUND Observed: 07/07/2017 Status: F Source: [place] CULTURE/STAIN 2:30 AM [facility] MAIN MAGAZINE REPOSITORY Sp. Request/Comment: - Swab Smear Result - Few Gram positive cocci in clusters --> ABNORMAL ALERT Many Polymorphonuclear leukocytes Many Red Blood Cells Culture Result - Many Methicillin resistant Staphylococcus aureus --> ABNORMAL ALERT ORGANISM: Methicillin resistant Staphylococcus aureus METHOD: Minimum inhibitory concentration(Vitek) Antibiotic Interp JUAN Status Erythromycin RESISTANT >=8 F Clindamycin SUSCEPTIBLE 0.25 F Testing for inducible clindamycin resistance was performed. Tetracycline SUSCEPTIBLE <=1 F Vancomycin SUSCEPTIBLE 1 F Oxacillin RESISTANT >=4 F Oxacillin resistant staphylococci are resistant to all beta lactam antibiotics (except new cephalosporins with anti MRSA activity). Trimeth sulfameth SUSCEPTIBLE <=10 F Gentamicin SUSCEPTIBLE <=0.5 F Rifampin SUSCEPTIBLE <=0.5 F Rifampin should not be used alone for antimicrobial therapy. Daptomycin SUSCEPTIBLE 0.5 F Linezolid SUSCEPTIBLE 2 F Doxycycline SUSCEPTIBLE <=0.5 F Performed By: #### WCUL #### [facility] [address] [place], [place] [address] EMERGENCY DEPARTMENT Observed: 07/06/2017 Status: F Source: [place] SUMMARY 2:09 PM [facility] REPOSITORY [facility] Medical Records Department [address] [facility] [place] [address] Emergency Department Summary 07/06/17 1006 MR#: [id number] Acct: [id number] Name: KRYS AARON Rep #: [id number] : 1970 46 From: Abhi Harp MD PCP: Neil Benjamin III, MD Status: REG ER - ER Visit Summary Date of Service: 07/06/17 Chief Complaint: Panic attack History of Present Illness: The patient is a 46 F who said that she had a panic attack that started 15 minutes ago. She had called the police to get her daughter to go to school today. This caused her a lot of anxiety. She took a Vistaril at home but it is not working. Her symptoms only started about 15 minutes ago. When I asked her if she had any thoughts of wanting to harm herself she states that she does not want to live.. She has no specific plan. She has a history of anxiety and manic depressive disorder. She does see a counselor. Physical Examination: Vital signs reviewed. HEENT exam unremarkable. Heart is regular rate and rhythm without murmurs. Lungs are clear to auscultation. Abdomen is soft and nontender. Extremities reveal no edema. Skin exam normal. Neurologic exam normal. Does appear to be anxious. She does voice suicidal thoughts. No specific plan. Test Results: Screening labs are negative Emergency Department Course and Treatment: Patient did admit that she was having thoughts of not wanting to live. I did consult crisis. They evaluated the patient. They will follow up with her as an outpatient. They, as well as myself, do not feel she needs to be admitted at this time. Treatment Plan: [] Disposition: Discharge Impression: Panic attack This note was generated with Tsukulink dictation software. It may contain incorrect words, spelling, and punctuation that were not noted in review of the chart prior to signing ED Disposition - Plan for ED Patient: Chief Complaint: Anxiety Referrals: Neil Benjamin III, MD [Primary Care Provider] - What to do if you have Problems For any increased pain, shortness of breath, bleeding, nausea or vomiting, chest pain, or any unexpected problems, contact your Primary Care Provider. Call [facility] ([phone]) or report to the closest Emergency Room. Call 911 if necessary. 07/06/17 5098 <Electronically signed by Abhi Harp MD> Date Abhi Harp MD Cosigner Signature (If Indicated): Date CC: Neil Benjamin III, MD DISCHARGE INSTRUCTION Observed: 07/06/2017 Status: F Source: [place] 2:09 PM [facility] REPOSITORY [facility] Medical Records Department [address] [place] [address] Discharge Instruction 07/06/171408 MR#: [id number] Acct: [id number] Name: KRYS AARON Rep #: [id number] : 1970 46 From: Abhi Harp MD PCP: Neil Benjamin III, MD Status: REG ER ED Disposition - Plan for ED Patient: Disposition: Home or Assisted Living Chief Complaint: Suicidal Instructions: ED Panic Attack Referrals: Neil Benjamin III, MD [Primary Care Provider] - What to do if you have Problems For any increased pain, shortness of breath, bleeding, nausea or vomiting, chest pain, or any unexpected problems, contact your Primary Care Provider. Call [facility] ([phone]) or report to the closest Emergency Room. Call 911 if necessary. 07/06/17 140 <Electronically signed by Abhi Harp MD> Date Abhi Harp MD Cosigner Signature (If Indicated): Date CC: Neil Benjamin III, MD CBC W/DIFF, AUTOMATED Collected: 07/06/2017 Status: F Source: [place] 10:30 AM [facility] REPOSITORY TYPE CODE TESTS RESULT OUT OF RANGE REFERENCE UNITS LAB L100.1000 4.4-11.0 K/mm3 Normal WBC 7.3 LAB L100.1200 4.2-5.4 M/mm3 Low RBC 4.18 LAB L100.1300 12.0-15.0 g/dl Normal HGB 13.2 LAB L100.1400 37-47 % Normal HCT 39.3 LAB L100.1500 81-99 fL Normal MCV 94.0 LAB L100.1600 27.0-32.0 pg Normal MCH 31.6 LAB L100.1700 32-36 g/gl Normal MCHC 33.6 LAB L100.1810 11.6-14.6 % Normal RDW CV 12.0 LAB L100.1820 35.1-43.9 fl Normal RDW SD 40.2 LAB L100.1900 150-450 K/mm3 Normal PLT 237 LAB L100.2000 6.2-12.0 fl Normal MPV 9.5 LAB L100.2100 47-70 % Normal NEUT% 57.6 LAB L100.2200 19-41 % Normal LY% 33.6 LAB L100.2300 0-10 % Normal MONO% 6.2 LAB L100.2400 0-5 % Normal EO% 1.9 LAB L100.2500 0-1 % Normal BASO% 0.6 LAB L100.2550 0.0-0.9 % Normal IM GRAN % 0.100 Result Comment: IG% - Immature Granulocytes (promyelocytes, myelocytes and metamyelocytes) > 1% indicates that a LEFT SHIFT is Present. LAB L100.2620 2.0-7.7 X10 3/uL Normal Absolute Neut 4.2 LAB L100.2720 0.83-4.51 X10 3/ul Normal Absolute Lymph 2.44 Performed By: #### L100.0100 #### [facility] [address] [place], [place], [address] COMPREHENSIVE METABOLIC Collected: 07/06/2017 Status: F [facility]30 AM [facility] REPOSITORY TYPE CODE TESTS RESULT OUT OF RANGE REFERENCE UNITS LAB L501.0100 74-106 mg/dL Low GLU 72 Result Comment: Please note revised GLUCOSE reference range effective 2017. LAB L501.1000 7-18 mg/dL Normal BUN 13 LAB L501.1100 0.55-1.02 mg/dL Normal CREAT,SERUM 0.62 Result Comment: The validity of the calculated GFR AND GFRAA in patients over 70 years has not been determined. Clinical correlation is essential. LAB L501.1110 >60 mL/min Normal EST GFR 111 Result Comment: Non- GFR Calc LAB L501.1115 >60 mL/min Normal EST GFR - AA 134 Result Comment: GFR Calc LAB L501.1255 ml/min Normal Estimated CRCL 99.99 LAB L501.1300 10-20 RATIO High BUN/CRE 21.0 LAB L501.1500 6.4-8. g/dL Normal 2 T PROT 6.7 LAB L501.1800 3.2-5. g/dL Normal 0 ALB 3.6 LAB L501.1950 2.2-4. g/dL Normal 2 GLOB 3.1 LAB L501.2000 0.9-2. RATIO Normal 4 A/G 1.2 LAB L501.2200 8.5-10 mg/dL Normal .1 CA 8.5 LAB L501.4100 15-37 U/L Normal AST 16 LAB L501.4305 45-117 U/L Normal ALK P 70 LAB L501.4405 13-56 U/L Normal ALT 24 LAB L501.4600 0.20-1 mg/dL Normal .00 T BILI 0.30 LAB L501.5300 136-14 mmol/L Normal 5 NA 141 LAB L501.5600 3.5-5. mmol/L Normal 1 K 3.9 LAB L501.5900 98-107 mmol/L High CL 109 LAB L501.6100 21.0-3 mmol/L Normal 2.0 CO2 26.0 LAB L501.6200 5-15 Normal GAP 6 Performed By: #### L500.4050 #### [facility] [address] [place], [address] ,SERUM,HCG QUALI. Collected: Status: F Source: [place] 07/06/2017 10:30 AM [facility] REPOSITORY TYPE CODE TESTS RESULT OUT OF REFERENCE UNITS RANGE LAB L700.7000 0-9 Nonpreg Negative Normal HCGSQUAL NEGATIVE LAB L700.6700 =>Qualitative mIU/mL Normal HCG Qual < 1 triggr Performed By: #### L700.6800 #### [facility] [address] [place], [address] ALCOHOL, BLOOD Collected: 07/06/2017 Status: F Source: [place] (MEDICAL)-SERUM 10:30 AM [facility] REPOSITORY TYPE CODE TESTS RESULT OUT OF RANGE REFERENCE UNITS LAB L501.9100 mg/dL Normal SERUM 9.0 ETOH Result Comment: The serum:whole blood ethanol ratio is approximately 1.14 and varies slightly with hematocrit. Medical Alcohol reference interval and critical value in non-tolerant individuals; 50 - 100 Impairment 100 Intoxication 100 - 250 Severe Poisoning 250 - 400 Deep/possible fatal coma Performed By: #### L501.9100 #### [facility] [address] [place], [address] URINE DRUG SCREEN Collected: 07/06/2017 Status: F Source: [place] (VISTA) 10:25 AM [facility] REPOSITORY TYPE CODE TESTS RESULT OUT OF RANGE REFERENCE UNITS LAB L505.0075 TO BE Normal CONFIRMED Result Comment: CONFIRMATORY TESTING FOR ALL POSITIVE URINE DRUG SCREEN RESULTS WILL ONLY BE SENT OUT UPON PHYSICIAN ORDER. VISTA Urine Drug Screen methods provide only preliminary analytical test results. A more specific alternate chemical method must be used in order to obtain a confirmed analytical result. Gas chromatography/mass spectrometery (GC/MS) is the preferred confirmatory method. Clinical consideration and professional judgement should be applied to any drug of abuse test result, particularly when preliminary positive results are used. URINE TCA TESTING MUST BE ORDERED SEPARATELY. USE TEST MNEMONIC: [facility] LAB L505.5005 VISTA UDS PH 7 Normal LAB L505.5015 <1000 ng/mL AMPHETAMINES Normal NEGATIVE LAB L505.5025 < 200 ng/mL BARBITIURATES Normal NEGATIVE LAB L505.5035 < 200 ng/mL BENZODIAZIPINE Normal NEGATIVE LAB L505.5045 < 300 ng/mL COCAINE Normal NEGATIVE LAB L505.5055 < 500 ng/mL ECSTACY Normal NEGATIVE LAB L505.5065 < 300 ng/mL METHADONE Normal NEGATIVE LAB L505.5075 < 300 ng/mL OPIATES Normal NEGATIVE LAB L505.5085 < 25 ng/mL PCP Normal NEGATIVE LAB L505.5095 < 50 ng/mL THC Normal NEGATIVE Performed By: #### L505.5000 #### [facility] [address], [address] DISCHARGE INSTRUCTION Observed: 07/03/2017 Status: F Source: [place] 12:38 PM [facility] REPOSITORY [facility] Medical Records Department [address] [place] [address] Discharge Instruction 07/03/17 1237 MR#: [id number] Acct: [id number] Name: KRYS AARON Rep #: [id number] : 1970 46 From: Tree Dikcens DO PCP: Neil Benjamin III, MD Status: REG ER ED Disposition - Plan for ED Patient: Chief Complaint: Head Injury Instructions: ED Contusion Face, ED Headache Migraine Referrals: Neil Benjamin III, MD [Primary Care Provider] - 3-5 Days What to do if you have Problems For any increased pain, shortness of breath, bleeding, nausea or vomiting, chest pain, or any unexpected problems, contact your Primary Care Provider. Call [facility] ([phone]) or report to the closest Emergency Room. Call 911 if necessary. 07/03/171237 <Electronically signed by Tree Dickens DO> Date Tree Dickens DO Cosigner Signature (If Indicated): Date CC: Neil Benjamin III, MD EMERGENCY DEPARTMENT Observed: 07/03/2017 Status: F Source: [place] SUMMARY 12:37 PM [facility] REPOSITORY [facility] Medical Records Department [address] [place] [address] Emergency Department Summary 07/03/17 1235 MR#: [id number] Acct: [id number] Name: KRYS ARAON Rep #: [id number] : 1970 46 From: Tree Dikcens DO PCP: Neil Benjamin III, MD Status: REG ER - ER Visit Summary Date of Service: 07/03/17 Chief Complaint: [Head injury and headache] History of Present Illness: The patient is a 46 F [presents to the emergency department with an injury that occurred yesterday. Patient states that she was getting something out of the trunk of her car when she accidentally slammed her face against the hatchback trunk. Patient states she had bleeding from the right side of her nose. She denies loss of consciousness. Patient subsequently developed a headache with nausea and photophobia. Patient thought that she was having a typical migraine but given her head injury she became concerned and comes in for evaluation. HEENT-PERRLA, EOMI. Cranial nerves II through XII grossly intact. TMs clear. Mucous membranes moist. No adenopathy. She has tenderness over the right inferior medial orbit as well as over the nasal bone. No obvious deformity. No ecchymosis or bruising noted. Patient did have small amount of dried blood within the right nasal vault. Cardiovascular-regular rate and rhythm without murmur or ectopy Lungs-clear to auscultation, chest wall stable without crepitus or subcu emphysema Abdomen-normoactive bowel sounds, soft, nontender, no rebound or rigidity, no peritoneal signs. Extremities-intact 4, normal range of motion, normal pulses, atraumatic] Physical Examination: [] Test Results: [CT facial bones obtained showed no acute fractures] Emergency Department Course and Treatment: [Patient was medicated with Phenergan, Toradol, liter normal saline fluid bolus, and Benadryl and her headache mostly resolved. Treatment Plan: [Patient to follow-up with primary care physician 3-5 days.] Disposition: [Discharged home in stable condition] Impression: [Nasal contusion Migrainous cephalgia-resolved] This note was generated with Tsukulink dictation software. It may contain incorrect words, spelling, and punctuation that were not noted in review of the chart prior to signing ED Disposition - Plan for ED Patient: Chief Complaint: Head Injury Referrals: Neil Benjamin III, MD [Primary Care Provider] - What to do if you have Problems For any increased pain, shortness of breath, bleeding, nausea or vomiting, chest pain, or any unexpected problems, contact your Primary Care Provider. Call [facility] ([phone]) or report to the closest Emergency Room. Call 911 if necessary. 07/03/17 1237 <Electronically signed by Tree Dickens DO> Date Tree Dickens DO Cosigner Signature (If Indicated): Date CC: Neil Benjamin III, MD SINUS/FACIAL BONE Observed: 07/03/2017 Status: F Source: [place] 11:26 AM [facility] REPOSITORY [facility] Imaging Services [address] [place], [place] [address] [place] [address] Sinus/Facial Bone MR#: [id number] Acct: [id number] Name: SHASHIKRYS CHANCE Rep #: [id number] : 1970 F 46 From: Kwabena Ricci MD PCP: Neil Benjamin III, MD Status: REG ER Study: Sinus/Facial Bone Date of Exam: 07/03/17 Exam# [id number] Ordering Dr: Tree Dickens DO STUDY: CT FACIAL BONES WITHOUT CONTRAST REASON FOR EXAM: Female, 46 years old. Trauma RADIATION DOSAGE (If Supplied By Facility): CTDIvol = ( 29.38 ) mGy, DLP = ( 525.42 ) mGycm TECHNIQUE: The patient was scanned in a multi detector CT scanner. Sagittal and coronal images were reconstructed. Individualized dose optimization techniques were used for this CT. COMPARISON: None. FINDINGS: Normal soft tissue structures. Normal orbital jalloh and orbital contents. Normal nasal bones and anterior nasal spine. Normal facial bones. There is no demonstrated fracture. Normal visualized paranasal sinuses. CT/Sinus/Facial Bone IMPRESSION: Normal unenhanced CT of the facial bones. Electronically Signed: Nino Ricci MD at 12:21 EDT , Service support , CC: Neil Benjamin III, MD; Tree Dickens DO Internet Architect: Signed URGENT CARE VISIT Observed: 06/12/2017 Status: F Source: [place] REPORT 8:09 AM [facility] REPOSITORY [facility] [address] [place] [address] [address] [place] [address] OFFICE VISIT Date of Service: 06/09/17 MR#: [id number] Acct: [id number] Name: KRYS AARON Rep #: [id number] : 1970 Provider: Juan Carlos DUNHAM Age/Sex: 46/F Location[facility] Status: Signed Intake Vital Signs06/09/17 Height 5 ft 4 in Intake Visit Reasons: UTI/SORE THROAT/SINUS Is patient in pain?: No Allergies acetaminophen [From Vicodin] Allergy (Verified 06/09/17 09:22) Hives aspirin Allergy (Verified 06/09/17 09:22) Rash hydrocodone [From Vicodin] Allergy (Verified 06/09/17 09:22) Hives ibuprofen Allergy (Verified 06/09/17 09:22) Anaphylaxis venom-honey bee [bee venom (honey bee)] Allergy (Verified 06/09/17 09:22) Anaphylaxis gluten Adverse Reaction (Verified 06/09/17 09:22) Upset Stomach Medications Duloxetine Hcl [Cymbalta] 20 mg PO DAILY 12/30/12 [History Confirmed 06/09/17] Oxybutynin [Ditropan] 5 mg PO DAILY 02/01/13 [History Confirmed 06/09/17] Ferrous Sulfate 325 mg PO DAILY@0800 07/27/16 [History Confirmed 06/09/17] Fexofenadine/Pseudoephedrine [Katerin-D 24 Hour Tablet] 1 ea PO DAILY 07/27/16 [History Confirmed 06/09/17] hydrOXYzine pamoate capsule [Vistaril] 25 mg PO TID PRN PRN #10 cap 07/27/16 [Rx Confirmed 06/09/17] cholecalciferol (vitamin D3) 1,000 unit capsule 1,000 unit PO ONCE 02/17/17 [History Confirmed 06/09/17] cyanocobalamin (vit B-12) 1,000 mcg/mL oral drops 1,000 mcg PO QDAY 02/17/17 [History Confirmed 06/09/17] lisinopril 2.5 mg tablet 2.5 mg PO QDAY 02/17/17 [History Confirmed 06/09/17] multivitamin tablet 1 tab PO QAM 02/17/17 [History Confirmed 06/09/17] naproxen sodium 220 mg capsule 220 mg PO Q12H 02/17/17 [History Confirmed 06/09/17] amoxicillin 875 mg-potassium clavulanate 125 mg tablet 1 tab PO Q12H 10 Days #20 tab 06/09/17 [Rx Confirmed 06/09/17] PFSH Medical History Anemia (Acute) Arthritis (Acute) Back pain (Acute) Celiac disease (Acute) Hemorrhoids (Acute) Incontinence (Acute) Knee pain (Acute) Liver disease (Acute) Migraines (Acute) Shoulder pain (Acute) HTN (hypertension) (Chronic) Surgical History History of carpal tunnel surgery (Acute) History of sinus surgery (Acute) History of tonsillectomy and adenoidectomy (Acute) Personal history of gastric bypass (Acute) Family History Other Arthritis COPD (chronic obstructive pulmonary disease) Cancer Diabetes Osteoporosis Parkinson disease Social History Smoking Status: Never smoker alcohol intake: never HPI HPI Details: KRYS AARON, is a 46 F who presents to the office today for concern for increased urinary frequency and sore throat, runny nose and sinus congestion/pain for the past week and a half. Patient states that the sinus pain has caused headaches which are made better with Tylenol. She is also concerned for possible UTI however denies hematuria, dysuria or pelvic pain. She denies fever, chill, sweats. No chest pain or SOB. No nausea, vomiting or diarrhea. No other associated symptoms or alleviating/aggravating factors. ROS Const Constitutional: Positive for headache(s); no fever(s), chills, night sweats or abnormal sleep pattern ENT ENT: Positive for headache(s), nasal congestion, sinus pressure, sinus pain, nasal discharge and sore throat; no ear pain, throat swelling or tongue swelling Resp Respiratory: No cough or shortness of breath Cardio Cardiology: No shortness of breath, irregular heart rhythm or fast heart rate Neuro Neurology: Positive for headache(s); no confusion Psych Psychiatric: No abnormal sleep pattern, No confusion Aller/Imm Allergy/Immunologic: No throat swelling or tongue swelling Exam Const General: cooperative, healthy appearing HENMT Head: normal to inspection Ears: hearing grossly normal bilaterally, TM's normal bilaterally, EAC's normal Nose: nasal discharge purulent Face and sinus: sinus tenderness frontal and maxillary Mouth: oral mucosae normal Throat: abnormal tonsil bilaterally, postnasal drainage Eyes General: appearance normal, both eyes and all related structures Resp Effort AND Inspection: normal respiratory effort Auscultation: Bilateral: Clear to Auscultation Cardio Palpation: normal PMI Rate: regular rate Rhythm: regular rhythm General: bimanual renal exam normal bilaterally, No CVA tenderness Neuro General: alert, CN's II-XI intact bilaterally Psych Appearance: grossly normal Mental Status: mental status grossly normal Results [facility] Office , Urine Negative Last Edit by Dinora Desai on 06/09/17 09:25 [facility] Office Urine Color Yellow Last Edit by Dinora Desai on 06/09/17 09:27 Office Urine Clarity Clear Last Edit by Dinora Desai on 06/09/17 09:27 Assessment AND Plan Problems 1. Acute recurrent maxillary sinusitis J01.01 2. Increased urinary frequency R35.0 Status Acute Plan Augmentin as prescribed for Sinusitis. Encouraged to get plenty of rest, drink lots of clear liquids, and use Tylenol or Ibuprofen (unless contraindicated) for fever and comfort. Patient also educated on other symptomatic management techniques. To be seen in 7-10 days if no improvement; sooner if worsening of symptoms. Patient advised of potential red flags when appropriate report to the ED. Patient verbalized understanding of all the above. This note was generated with Zingkuation software. It may contain incorrect words, spelling, and punctuation that were not noted in checking the note before signing. Orders Orders: Medications New: Coding Level of Care Code Off vis,est,level 4 Diagnoses Acute recurrent maxillary sinusitis J01.01 Recurrence: recurrent Sinusitis location: maxillary Increased urinary frequency R35.0 06/12/17 0809 <Electronically signed by Juan Carlos DUNHAM> Date Juan Carlos DUNHAM Cosigner Signature: Date (if applicable) CC: Observed: 06/09/2017 Status: F Source: BRIDGER CULTURE, R/O STREP A 2:42 PM [facility] RE[facility]ORY HUBERT Culture No Group A Beta Streptococcus isolated. * This cultures intended use is to screen for Beta Streptococcus A only. All other pathogens and potential pathogens will not be screened for or reported. If a complete workup of all potential pathogens is indicated an order for a routine throat culture is required. Performed By: #### M100.010 #### [facility] [address] [place], [place], [address] Observed: 06/09/2017 Status: F Source: BRIDGER CULTURE, R/O STREP A 2:42 PM [facility] REPOSITORY HUBERT Culture No Group A Beta Streptococcus isolated. * This cultures intended use is to screen for Beta Streptococcus A only. All other pathogens and potential pathogens will not be screened for or reported. If a complete workup of all potential pathogens is indicated an order for a routine throat culture is required. Performed By: #### M100.010 #### [facility] [address] [place], [address] URINALYSIS, COMPLETE Collected: 06/09/2017 Status: F Source: BRIDGER 2:38 PM [facility] REPOSITORY Order Comment: How was Urine Obtained? CLEAN CATCH TYPE CODE TESTS RESULT OUT OF RANGE REFERENCE UNITS LAB L400.3000 Yellow COLOR Normal Yellow LAB L400.3050 Clear Normal CLARITY Sl. Cloudy LAB L400.3200 Normal mg/dl Normal GLUCOSE, UR Normal LAB L400.3300 Negative mg/dL Normal BILIRUBIN URINE Negative LAB L400.3400 Negative mg/dl Normal KETONE UR Negative LAB L400.3465 1.002-1.030 Normal SP.GR. DIPSTX 1.020 LAB L400.3550 5.0 - 8.0 pH UR Normal 6.0 LAB L400.3600 Negative mg/dl PROT Normal DIPSTX Negative LAB L400.3700 Normal mg/dl Normal UROBILI Normal LAB L400.3750 Negative Normal NITRITE UR Negative LAB L400.3780 Negative /ul Normal OCCULT BLOOD-UR Negative LAB L400.3800 Negative /ul High LEUK 25 ESTERASE LAB L400.4050 0-5 /hpf WBC Normal 0-5 SEEN LAB L400.4100 0-5 /hpf 0 Normal RBC-UA SEEN LAB L400.4150 5-10 /hpf SQUAM Normal EPI 0-5 SEEN LAB L400.4300 None Seen /hpf 0 Normal BACTERIA SEEN LAB L400.4350 <or=2+ /hpf 0 Normal MUCUS, URINE SEEN Performed By: #### L400.0001 #### [facility] [address]. [place], [place], [address] Observed: 06/09/2017 Status: F Source: BRIDGER CULTURE, URINE 2:38 PM [facility] REPOSITORY Urine Culture Culture exhibits no growth. Performed By: #### M100.0650 #### [facility] [address] [place], [place], [address] URGENT CARE VISIT Observed: 03/29/2017 Status: F Source: BRIDGER REPORT 11:39 AM [facility] [address] [place] [address] [address] [place] [address] OFFICE VISIT Date of Service: 03/29/17 MR#: [id number] Acct: [id number] Name: KRYS AARON Rep #: [id number] : 1970 Provider: Sher DUNHAM Age/Sex: 46/F Location[place] [facility] Status: Signed Intake Vital Signs03/29/17 Height 54 ft Intake Visit Reasons: SINUS INFECTION Allergies acetaminophen [From Vicodin] Allergy (Verified 03/29/17 10:35) Hives aspirin Allergy (Verified 03/29/17 10:35) Rash hydrocodone [From Vicodin] Allergy (Verified 03/29/17 10:35) Hives ibuprofen Allergy (Verified 03/29/17 10:35) Anaphylaxis venom-honey bee [bee venom (honey bee)] Allergy (Verified 03/29/17 10:35) Anaphylaxis gluten Adverse Reaction (Verified 03/29/17 10:35) Upset Stomach Medications Duloxetine Hcl [Cymbalta] 20 mg PO DAILY 12/30/12 [History Confirmed 03/29/17] Oxybutynin [Ditropan] 5 mg PO DAILY 02/01/13 [History Confirmed 03/29/17] Ferrous Sulfate 325 mg PO DAILY@0800 07/27/16 [History Confirmed 03/29/17] Fexofenadine/Pseudoephedrine [Katerin-D 24 Hour Tablet] 1 ea PO DAILY 07/27/16 [History Confirmed 03/29/17] HydrOXYzine JANESSA [Vistaril] 25 mg PO TID PRN PRN #10 cap 07/27/16 [Rx Confirmed 03/29/17] cholecalciferol (vitamin D3) 1,000 unit capsule 1,000 unit PO ONCE 02/17/17 [History Confirmed 03/29/17] cyanocobalamin (vit B-12) 1,000 mcg/mL oral drops 1,000 mcg PO QDAY 02/17/17 [History Confirmed 03/29/17] lisinopril 2.5 mg tablet 2.5 mg PO QDAY 02/17/17 [History Confirmed 03/29/17] multivitamin tablet 1 tab PO QAM 02/17/17 [History Confirmed 03/29/17] naproxen sodium 220 mg capsule 220 mg PO Q12H 02/17/17 [History Confirmed 03/29/17] [facility] Medical History Anemia (Acute) Arthritis (Acute) Back pain (Acute) Celiac disease (Acute) Hemorrhoids (Acute) Incontinence (Acute) Knee pain (Acute) Liver disease (Acute) Migraines (Acute) Shoulder pain (Acute) HTN (hypertension) (Chronic) Surgical History History of carpal tunnel surgery (Acute) History of sinus surgery (Acute) History of tonsillectomy and adenoidectomy (Acute) Personal history of gastric bypass (Acute) Family History Other Arthritis COPD (chronic obstructive pulmonary disease) Cancer Diabetes Osteoporosis Parkinson disease Social History Smoking Status: Never smoker alcohol intake: never HPI SINUS INFECTION: Chief Complaint: sinus pressure and cough Details: KRYS AARON, is a 46 F who presents to the office today for f/u w/ continued cough x7 wks and sinus pressure after having been treated w/ Augmentin and Medrol, then upon f/u in ED w/ Tamiflu. She notes no c/o fever, chills, sweats, rash, cp/sob. She notes persistent facial pressure. No other associated s/sx; no other +/- factors. ROS Const Constitutional: No excessive sweating, abnormal sleep pattern, chills, fever(s), night sweats or body ache Eyes Eyes: No change in vision ENT ENT: Positive for sinus pressure; no abnormal hearing, ear pain, ear discharge, ear pressure, hearing loss or post nasal drip Resp Respiratory: Positive for cough; no chest congestion Cardio Cardiology: No excessive sweating, chest pain at rest, chest pain with exertion, shortness of breath, dyspnea on exertion, irregular heart rhythm, generalized swelling or leg pain with exertion Gastro GI: No abdominal pain, change in stool character or change in bowel habits Musc Musculoskeletal: No joint pain, back pain or limited range of motion Skin Skin: No change in hair or sores Neuro Neurology: No abnormal hearing, abnormal speech or abnormal movements Psych Psychiatric: No abnormal sleep pattern Endo Endocrine: No excessive sweating, change in body appearance, cold intolerance or heat intolerance Aller/Imm Allergy/Immunologic: No food intolerance Cash/Lymp Hematologic/Lymphatic: No easy bruising Exam Const General: cooperative, healthy appearing, no acute distress, comfortable Nutritional Appearance: average body habitus Orientation: alert, awake, oriented x3 HENMT Head: normal to inspection Ears: hearing grossly normal bilaterally, external ears normal, TM's normal bilaterally, EAC's normal Nose: external nose normal, nares normal, septum normal, no nasal discharge Face and sinus: normal facial exam, sinus tenderness (though no maxillary fullness appreciated to palpation) Mouth: oral mucosae normal, lip normal, tongue normal, oropharynx normal Teeth and gingiva: dentition normal, gingiva normal Throat: posterior oropharynx normal, tonsils normal, uvula midline Eyes General: appearance normal, both eyes and all related structures Neck Neck: normal visual inspection, full ROM, no lymphadenopathy, no meningeal signs, supple Neck mass: No Thyroid: thyroid normal Lymphatic: no lymphadenopathy noted Chest Chest palpation AND inspection: normal inspection of the chest Resp Effort AND Inspection: normal respiratory effort, able to speak in complete sentences, no cough (No unsolicited cough appreciated during today's exam) Auscultation: Bilateral: Clear to Auscultation Cardio Palpation: normal PMI Rate: regular rate Rhythm: regular rhythm Heart Sounds: S1 normal, S2 normal, no gallops, no murmurs, no rubs Pulses: radial pulses present GI Inspection: normal to inspection Palpation: soft Skin General: no rashes or lesions noted Neuro General: alert, awake, oriented x3, gait normal Cognition: normal cognition Speech: speech normal Gait: normal gait Motor: muscle tone normal throughout Sensory Exam: no sensory deficits noted Extrem General: normal to inspection Psych Appearance: grossly normal Mental Status: mental status grossly normal Mood: congruent mood Affect: normal affect Speech and Movement: speech and movement normal Attitude: cooperative Thought Process: normal Thought Content: normal Judgment: judgment good Assessment AND Plan Problems 1. URI (upper respiratory infection) J06.9 2. Acute recurrent maxillary sinusitis J01.01 Plan Clear fluids, rest, Advil/Tylenol/loratadine as needed for symptomatic relief. Due to the chronicity of these issues, recommend patient follow- up with PCP first available appointment for continuation of care, or report to the emergency room sooner should symptoms worsen or any other concerns develop. Patient states acknowledging understanding all. This note was generated with Tsukulink dictation software. It may contain incorrect words, spelling, and punctuation that were not noted in checking the note before signing. Coding Level of Care Code Off vis,est,level 3 Diagnoses URI (upper respiratory infection) J06.9 Acute recurrent maxillary sinusitis J01.01 Sinusitis location: maxillary Recurrence: recurrent 03/29/17 1139 <Electronically signed by Sher DUNHAM> Date Sher Reinoso Signature: Date (if applicable) CC: EMERGENCY DEPARTMENT Observed: 03/28/2017 Status: F Source: GILBERT SUMMARY 11:57 PM [facility] RE[facility] Medical Records Department [address] [place] [address] Emergency Department Summary 03/24/17 1545 MR#: [id number] Acct: [id number] Name: KRYS AARON Rep #: [id number] : 1970 46 From: Atul Hayden MD PCP: Neil Benjamin III, MD Status: DEP ER ADDENDUM by Atul Hayden MD on 03/28/17 at 2357 Treatment plan: The counseling center has arranged for admission and a psychiatric facility. Disposition: Transferred in stable condition. Impression: 1. Suicidal ideation. Date Atul Hayden MD cc: Neil Benjamin III, MD * Signed - ER Visit Summary Date of Service: 03/24/17 Chief Complaint: Suicidal thoughts History of Present Illness: The patient is a [address] Neil Benjamin III and the counseling center. She reports that she has had suicidal thoughts for the past 2 weeks. She denies a plan because I am too depressed to come up with one. Reports that these are gradually been increasing. She has had a number of stressors. Her father in October 2016 and her mother is unable to care for herself. The patient has been left being the sole caregiver for her mother. She states that also her 13-year-old daughter wants to leave and live with her father. Finally, she got a new job recently. States that she is under a great deal of stress. Physical Examination: Vitals: Stable. Afebrile. General: Well-nourished and well-developed. Head: Normocephalic atraumatic. Neck: Supple, no lymphadenopathy. No JVD. Nontender. Cardiovascular: Regular rate and rhythm. No murmurs. Respiratory: No respiratory distress. Clear to auscultation bilaterally. Abdominal: Soft, nontender, nondistended, normal bowel sounds. No guarding, rebound, or peritoneal signs. Back: Nontender. Extremities: Nontender, no edema. Skin: Normal color, no rash. Neurologic: Alert and oriented 3. Cranial nerves II through XII are intact. Normal strength and sensation. Mental status exam: Patient appears their stated age. Good posture and grooming. Good eye contact. Normal rate, volume, and latency of speech. No homicidal ideation. No auditory or visual hallucinations. Flow of thought is logical. Insight and judgment is fair. Test Results: CBC is normal. Chem-7 is more for glucose 136 and calcium of 8.4. Patency test is negative. Blood alcohol level 0. Tox screen is negative. Emergency Department Course and Treatment: She was seen by the counseling center in the emergency department. Treatment Plan: [] Disposition: [] Impression: [] This note was generated with Tsukulink dictation software. It may contain incorrect words, spelling, and punctuation that were not noted in review of the chart prior to signing ED Disposition - Plan for ED Patient: Chief Complaint: Suicidal Referrals: Neil Benjamin III, MD [Primary Care Provider] - What to do if you have Problems For any increased pain, shortness of breath, bleeding, nausea or vomiting, chest pain, or any unexpected problems, contact your Primary Care Provider. Call [facility] ([phone]) or report to the closest Emergency Room. Call 911 if necessary. 03/25/17 0022 <Electronically signed by Atul Hayden MD> Date Atul Hayden MD Cosigner Signature (If Indicated): Date CC: Neil Benjamin III, MD CBC W/DIFF, AUTOMATED Collected: 03/24/2017 Status: F Source: BRIDGER 3:22 PM [facility] REPOSITORY TYPE CODE TESTS RESULT OUT OF RANGE REFERENCE UNITS LAB L100.1000 4.4-11.0 K/mm3 Normal WBC 7.1 LAB L100.1200 4.2-5.4 M/mm3 Normal RBC 4.31 LAB L100.1300 12.0-15.0 g/dl Normal HGB 13.9 LAB L100.1400 37-47 % Normal HCT 41.1 LAB L100.1500 81-99 fL Normal MCV 95.4 LAB L100.1600 27.0-32.0 pg High MCH 32.3 LAB L100.1700 32-36 g/gl Normal MCHC 33.8 LAB L100.1810 11.6-14.6 % Normal RDW CV 12.6 LAB L100.1820 35.1-43.9 fl Normal RDW SD 42.6 LAB L100.1900 150-450 K/mm3 Normal PLT 232 LAB L100.2000 6.2-12.0 fl Normal MPV 10.1 LAB L100.2100 47-70 % Normal NEUT% 56.4 LAB L100.2200 19-41 % Normal LY% 36.8 LAB L100.2300 0-10 % Normal MONO% 4.5 LAB L100.2400 0-5 % Normal EO% 1.6 LAB L100.2500 0-1 % Normal BASO% 0.6 LAB L100.2550 0.0-0.9 % Normal IM GRAN % 0.100 Result Comment: IG% - Immature Granulocytes (promyelocytes, myelocytes and metamyelocytes) > 1% indicates that a LEFT SHIFT is Present. LAB L100.2620 2.0-7.7 X10 3/uL Normal Absolute Neut 4.0 LAB L100.2720 0.83-4.51 X10 3/ul Normal Absolute Lymph 2.60 Performed By: #### L100.0100 #### [facility] [place], [address] BASIC METABOLIC Collected: 03/24/2017 Status: F Source: BRIDGER PROFILE (BMP) 3:22 PM [facility] REPOS[facility]ORY TYPE CODE TESTS RESULT OUT OF RANGE REFERENCE UNITS LAB L501.0100 70-110 mg/dL High GLU 136 Result Comment: Fasting Glucose result greater than or equal to 126 mg/dL suggests DIABETES MELLITUS per A.D.A. criteria. LAB L501.1000 7-18 mg/dL Normal BUN 16 LAB L501.1100 0.55-1.02 mg/dL Normal CREAT,SERUM 0.61 Result Comment: The validity of the calculated GFR AND GFRAA in patients over 70 years has not been determined. Clinical correlation is essential. LAB L501.1110 >60 mL/min Normal EST GFR 113 Result Comment: Non- GFR Calc LAB L501.1115 >60 mL/min Normal EST GFR - AA 136 Result Comment: GFR Calc LAB L501.1255 ml/min Normal Estimated CRCL 101.63 LAB L501.1300 10-20 RATIO High BUN/CRE 26.1 LAB L501.2200 8.5-10 mg/dL Low .1 CA 8.4 LAB L501.5300 136-14 mmol/L 5 NA Normal 139 LAB L501.5600 3.5-5. mmol/L 1 K Normal 3.7 LAB L501.5900 98-107 mmol/L CL Normal 105 LAB L501.6100 21.0-3 mmol/L 2.0 CO2 Normal 25.0 LAB L501.6200 5-15 GAP Normal 9 Performed By: #### L500.2500 #### [facility] [address] [place], [place] [address]. [place], [place], [address] ALLERGIES ALLERGIES DATE TYPE / NAME / CODE REACTION SEVERITY SOURCE CODE 02/12/2018 Drug hydrocodone/F0060 Hives Unknown Lamoni Allergy/41 46418(RXNORM) [facility] 5341038([facility]) Repository 02/12/2018 Drug aspirin/[id number] Rash Unknown Bridger Allergy/41 7(RXNORM) [facility] 9061346([facility]) Repository 02/12/2018 Drug ibuprofen/Z154974 Anaphylaxis Unknown Bridger Allergy/41 377(RXNORM) [facility] 7191043([facility]) Repository 02/12/2018 Drug venom-honey Anaphylaxis Unknown Lamoni Allergy/41 bee/[id number](RX [facility] 3995203(SN NORM) [facility] O[facility]) Repository 02/12/2018 Drug gluten/[id number] Upset Stomach Unknown Lamoni Allergy/41 (RXNORM) Community 2798520( Hospital O[facility]) Repository 07/06/2017 Drug acetaminophen/F00 Hives Unknown Bridger Allergy/41 2942571(RXNORM) Community 4270775( Hospital OMED [facility]) Repository 03/07/2012 [facility] [place] 9220170( Repository OMED CT) 11/25/2005 Food/85357 WHEAT GLUTEN GI UPSET [facility] 1000(SNOME [facility] [place] D CT) Repository 02/02/2005 Environ/42 BEES INTOLERANCE Med [facility] 5008400( [facility] [place] OMED CT) Repository 12/30/2004 Drug SALICYLATES RASH [facility] Class/4195 Main [place] [address](SN Repository ED CT) 12/30/2004 DRUG IBUPROFEN SWELLING [address] 8452838( Repository OMED CT) ENCOUNTERS ENCOUNTERS ADMIT/DISCHARGE ACCOUNT ADMITTING ENCOUNTER LOCATION SOURCE NUMBER CLASS 03/19/2018/03/20/19 [id number] Ambulatory [address] [place] Repository 02/13/2018 [id number] Ambulatory [facility] ing:LABSPEC Repository 02/12/2018/02/13/20 [id number] Ambulatory BMSBuilding:B Lamoni [address] [facility] Repository 01/21/2018 [id number] Ambulatory BMSBuilding:B Lamoni [place] [facility] Hospital Repository 01/21/2018 [id number] Ambulatory BMSBuilding:B Brid[place] [facility] Repository 01/21/2018 [id number] Ambulatory [facility] ing:LABSPEC Repository 01/15/2018/01/18/20 [id number] Ambulatory [address] Repository 01/04/2018/01/05/20 [id number] Ambulatory [address] Repository 01/04/2018/01/06/20 [id number] Ambulatory [address] Repository 01/02/2018/01/03/20 [id number] Emergency [address] ing:ED Repository 12/18/2017/12/20/19 [id number] Ambulatory [address] Repository 11/15/2017 [id number] [facility] Rep[facility] 11/08/2017 [id number] [facility] Repository 11/07/2017/11/08/19 [id number] Ambulatory BMSBuilding:B [place] 18 [place] [facility] Repository 10/17/2017/10/19/19 [id number] Ambulatory [address] Repository 09/20/2017/09/21/19 [id number] Ambulatory BMSBuilding:B Lamoni [address] Hospital Repository 09/13/2017 [id number] Ambulatory [facility] Hospital ing:NS Repository 08/31/2017/09/02/19 [id number] Ambulatory [address] Repository 08/31/2017/09/01/19 [id number] Ambulatory [address] Repository 08/14/2017/09/03/19 [id number] Ambulatory [facility] [facility] ing[facility]NS Repository 08/09/2017/08/12/19 [id number] Ambulatory [address] Repository 07/28/2017/07/29/19 [id number] Ambulatory [address] Repository 07/25/2017/07/26/19 [id number] Ambulatory [facility] [facility] ing[facility]NS Repository 07/12/2017 [id number] Ambulatory [facility] [place] Repository 07/10/2017/07/12/19 [id number] Ambulatory [address] [place] Repository 07/07/2017/07/09/19 [id number] Emergency [facility] [facility] ing[facility]ED Repository 07/07/2017/07/11/19 [id number] Ambulatory [address] Repository 07/06/2017/07/07/19 [id number] Emergency [place]ger [address] [facility] ing[facility]ED Repository 07/03/2017/07/04/19 [id number] Emergency Bridger Bridger[address] [facility] ing:ED Repository 06/09/2017 [id number] [facility] 06/09/2017 [id number] [facility] 06/09/2017/06/10/19 [id number] Ambulatory BMSBuilding:B Lamoni 18 [place] [facility] Hospital Repository 05/11/2017/06/04/19 [id number] Ambulatory Lamoni Bridger [facility] Hospital ing:NS Repository 03/29/2017/03/29/19 [id number] Ambulatory BMSBuilding:B Bridger [address] [facility] Hospital Repository 03/24/2017/03/24/19 [id number] Emergency Lamoni Lamoni 18 [facility] ing:ED Repository PAYERS PAYERS ENCOUNTER GUARANTOR PAYER SUBSCRIBER SOURCE 02/13/2018 KRYS Primary KRYS HALEY Insurance:[address] B: [id number] Number: Repository [place], [place] [id number]: ([phone]) Date:8266-62-77WR [phone] () [address] [place] [address] 33[address]RH: 02/13/2018 Secondary NOT GIVENUNK Bridger Insurance:SELF PAY [facility] Number: Effective Repository Date:2018-02-13 02/12/2018 KRYS Primary KRYSHILTON ISLASENTRUBER17 Insurance:[address] B: [id number] County [facility] Number: Repository [place], [place] [id number]: ([phone]) Date:4967-79-08[phone] () [address] [place] [address] 74[address]NV: 02/12/2018 Secondary NOT GIVENUNK Lamoni Insurance:SELF PAY [facility] Number: Effective Repository Date:2018-02-12 01/21/2018 KRYS Primary KRYSHILTON DANIELLEUBER17 Insurance:[address] B: [id number] County Child [facility] Number: Repository [place] [id number]: ([phone]) Date:1806-01-10[phone] (HP) [address] [place], [place] [address] [address]TI: 01/21/2018 Secondary NOT GIVENUNK Bridger Insurance:SELF PAY [facility] Number: Effective Repository Date:2018-01-21 01/21/2018 KRYS Primary KRYS AARON17 Insurance:[address] B: [id number] County [facility] Number: Repository [place] [id number]: [phone]) Date:6170-55-10MN [phone] () [address] [place] [address] [place] [address]UK: 01/21/2018 Secondary NOT GIVENUNK Bridger Insurance:SELF PAY [facility] Number: Effective Repository Date:2018-01-21 01/21/2018 KRYS Primary KRYS AARON17 Insurance:[address] B: [id number] County [facility] Number: Repository [place] [id number]: ([phone]) Date:9615-44-94[phone] (HP) [address] [place] [address] 08[address]CV: 01/21/2018 Secondary NOT GIVENUNK Lamoni Insurance:SELF PAY [facility] Number: Effective Repository Date:2018-01-21 01/02/2018 KRYS Primary KRYSHILTON AARON17 Insurance:[address] B: [id number] [facility] Number: Repository [place] [id number]: (330) Date:4896-76-67SH [phone] (HP) CAR FENG [id number]: 01/02/2018 Secondary NOT GIVENUNK Lamoni Insurance:SELF PAY [facility] Number: Effective Repository Date:2018-01-02 11/15/2017 KRYS Primary KRYS HALEY Insurance:[address] B: [id number] County Child [facility] Number: Repository [place] [id number]: (330) Date:7207-99-20II [address] (HP) [place] F[place] [id number]: 11/15/2017 Secondary NOT GIVENUNK Bridger Insurance:SELF PAY [facility] Number: Effective Repository Date:2017-10-31 11/08/2017 KRYS Primary KRYS HALEY Insurance:[address] B: [id number] County Child [facility] Number: Repository [place] [id number]: (330) Date:1958-28-11ZI [address] (HP) CAR FENG [id number]: 11/08/2017 Secondary NOT GIVENUNK Lamoni Insurance:SELF PAY [facility] Number: Effective Repository Date:2017-11-08 11/07/2017 KRYS Primary KYRSHILTON AARON17 Insurance:[address] B: [id number] County [facility] Number: Repository [place] [id number]: (330) Date:9888-59-66QC [address] (HP) CAR FENG [id number]: 11/07/2017 Secondary NOT GIVENUNK Bridger Insurance:SELF PAY [facility] Number: Effective Repository Date:2017-11-07 09/20/2017 KRYS Primary KRYS HALEY Insurance:[address] B: [id number] County Child [facility] Number: Repository [place] [id number]: (330) Date:4375-99-36PU [address] () [address] [place], [place] [address]CAR THOMPSON [id number]: 09/20/2017 Secondary NOT GIVENUNK Bridger Insurance:SELF PAY [facility] Number: Effective Repository Date:2017-09-20 09/13/2017 KRYS Primary KRYS HALEY Insurance:[address] B: [id number] County [facility] Number: Repository [place] [id number]: (330) Date:4615-16-21RH [phone] () [address] [place], [place] [address]CAR CRAFT [id number]: 09/13/2017 Secondary NOT GIVENUNK Lamoni Insurance:SELF PAY [facility] Number: Effective Repository Date:2017-09-03 08/14/2017 KRYS Primary KRYS HALEY Insurance:[address] B: [id number] County Child [facility] Number: Repository [place] [id number]: (330) Date:0653-17-15IU [address] () [address] [place], [place] [address]CAR CRAFT [id number]: 08/14/2017 Secondary NOT GIVENUNK Bridger Insurance:SELF PAY [facility] Number: Effective Repository Date:2017-08-04 07/25/2017 KRYS Primary KRYS HALEY Insurance:[address] B: [id number] County [facility] Number: Repository [place] [id number]: (330) Date:9346-16-90UH [address] (HP) CAR FENG [id number]: 07/25/2017 Secondary NOT GIVENUNK Bridger Insurance:SELF PAY [facility] Number: Effective Repository Date:2017-06-07 07/07/2017 KRYS Primary KRYS HALEY Insurance:[address] B: [id number] County Child [facility] Number: Repository [place] [id number]: (330) Date:5756-98-47JE [address] (HP) CAR FENG [id number]: 07/07/2017 Secondary NOT GIVENUNK Lamoni Insurance:SELF PAY [facility] Number: Effective Repository Date:2017-07-07 07/06/2017 KRYS Primary KRYS HALEY Insurance:[address]: [id number] County [facility] Number: Repository [place] [id number]: (330) Date:8144-83-47OM [address] (HP) [place] FENG [id number]: 07/06/2017 Secondary NOT GIVENUNK Lamoni Insurance:SELF PAY [facility] Number: Effective Repository Date:2017-07-06 07/03/2017 KRYS Primary KRYS HALEY Insurance:[address]: [id number] County Child [facility] Number: Repository [place] [id number]: (330) Date:2490-20-96UP [address] (HP) [address]CAR GARCIA [id number]: 07/03/2017 Secondary NOT GIVENUNK Lamoni Insurance:SELF PAY [facility] Number: Effective Repository Date:2017-07-03 06/09/2017 KRYS Primary KRYS AARON17 Insurance:[address] B: [id number] County [facility] Number: Repository [place] [id number]: (330) Date:0396-43-81WN [address] () [address] [place] [address] 94262RI: 06/09/2017 Secondary NOT GIVENUNK Lamoni Insurance:SELF PAY [facility] Number: Effective Repository Date:2017-06-09 06/09/2017 KRYS Primary KRYS AARON17 Insurance:[address] B: [id number] County Child [facility] Number: [place]ository [place] [id number] [phone]: (330) Date:4506-38-43NA [address] () [address] [place] [address] [id number]: 06/09/2017 Secondary NOT GIVENUNK Lamoni Insurance:SELF PAY [facility] Number: Effective Repository Date:2017-06-09 06/09/2017 KRYS Primary KRYS AARON17 Insurance:[address] B: [id number] County Child [facility] Number: Repository [place] [id number]: (330) Date:8277-02-02BI [address] () [address] [place] [address] [id number]: 06/09/2017 Secondary NOT GIVENUNK Bridger Insurance:SELF PAY [facility] Number: Effective Repository Date:2017-06-09 05/11/2017 KRYS Primary KRYS HALEY Insurance:[address] B: [id number] County [facility] Number: Repository [place] [id number]: (330) Date:3073-37-65OB [address] (HP) [facility]0CAR HADDAD [id number]: 05/11/2017 Secondary NOT GIVENUNK Lamoni Insurance:SELF PAY [facility] Number: Effective Repository Date:2017-01-04 03/29/2017 KRYS Primary KRYS HALEY Insurance:[address] B: [id number] County Child [facility] Number: Repository [place] [id number]: (330) Date:6632-09-18ZU [address] (HP) [address] [place], [place] [address]CAR THOMPSON [id number]: 03/29/2017 Secondary NOT GIVENUNK Lamoni Insurance:SELF PAY [facility] Number: Effective Repository Date:2017-03-29 03/24/2017 KRYS Primary KRYS HALEY Insurance:[address]: [id number] County Child [facility] Number: Repository [place] [id number]: (330) Date:4069-45-25EQ [address] (HP) 620[facility] CENTERCAR THOMPSON [id number]: 03/24/2017 Secondary NOT GIVENUNK Bridger Insurance:SELF PAY [facility] Number: Effective Repository Date:2017-03-24
== END ==
PROVIDERS: Family Provider Family Medicine; PCP Family Medicine; Referring Provider Physician Assistant; Visit Provider Physician Assistant
DX: R30.0 Dysuria (principal)
CPT/HCPCS: 81001; 87086; 87088

== ENCOUNTER 2018-05-12 16:08 | Emergency (ER) | payer MEDICAID, SELFPAY ==
[2018-02-12 14:56] VITALS: BMI 40.6
[2018-05-12 16:10] VITALS: BP 131/95; PULSE 54; RESP 16; TEMP 36.8; O2SAT 99; BMI 41.0
--- NOTE | 2018-05-12 16:35 | RAD_ITS ---
STUDY: X-RAY CHEST REASON FOR EXAM: Female, 47 years old. Cough TECHNIQUE: AP COMPARISON: 03/16/2017 FINDINGS: The lungs are clear and expanded. There is no demonstrated pleural abnormality. Normal size heart. Normal mediastinum and landy. Normal visualized pulmonary arteries. Normal visualized aortic arch and descending thoracic aorta. Normal visualized thoracic spine. Normal visualized ribs, clavicles, and shoulders. There is no demonstrated abnormality of the visualized soft tissue structures of the upper abdomen. RAD/Chest 1 View (Portable) IMPRESSION: Stable, nonacute portable x-ray examination of the chest. Electronically Signed: Ronaldo Cason MD at 17:21 EST , Service support ,
--- NOTE | 2018-05-12 16:37 | ED.VISSUMM ---
- ER Visit Summary Date of Service: 05/12/18 Chief Complaint: Fatigue, muscle aches History of Present Illness: The patient is a 47 F presenting with fever, muscle aches. She states this started on . She states she has not been feeling well since that time. She complains of body aches all over. She has a dry cough. She has nasal congestion. She has nausea with no vomiting. She denies diarrhea or constipation. She has mild dysuria. She denies fever. She has a mild headache. She did receive a flu shot this year. Denies chest pain or shortness of breath. Denies other complaints. Physical Examination: Vitals are stable. Patient is afebrile. Alert no acute distress. HEENT exam is unremarkable. Neck is supple. No meningismus Lungs are clear and equal bilaterally. Heart is regular rate and rhythm. Abdomen is soft mild epigastric tenderness with no rebound or guarding Extremities are unremarkable. Skin is warm and dry. No rash No focal neurologic deficit. Remainder of exam is unremarkable. Emergency Department Course and Treatment: Patient was given IV fluids, Zofran. CBC, chemistries unremarkable. Liver lipase are normal. Influenza negative. Chest x-ray shows no acute process. EKG is sinus bradycardia rate of 57 with no acute ischemic changes. On reevaluation, patient is resting comfortably and feels improved. She is given a prescription for Zofran. Advised to follow up with her primary care physician. Advised return to ED if worsening complaints. Disposition: Discharge home Impression: Flulike illness This note was generated with [employer] dictation software. It may contain incorrect words, spelling, and punctuation that were not noted in review of the chart prior to signing ED Disposition - Plan for ED Patient: Referrals: Misael Frank III, MD [Primary Care Provider] -
[2018-05-12] MEDS: 0.9% Normal Saline 1,000 ML 1000 ML IV (16:48)
[2018-05-12] MEDS: Ondansetron 4 MG/2 ML Vial IV (16:48)
[2018-05-12 17:02] LABS: Absolute Lymphocyte Count 2.28 X10^3/ul (0.83-4.51); Absolute Neutrophil Count 3.5 X10^3/uL (2.0-7.7); Basophil# 0.03 X10^3/uL; Basophil% 0.5 % (0-1); Eosinophil# 0.18 X10^3/uL; Eosinophils% 2.9 % (0-5); Hematocrit 43.6 % (37-47); Hemoglobin 14.5 g/dl (12.0-15.0); Lymphocyte # 2.28 X10^3/ul (4.0); Lymphocyte % 36.5 % (19-41); Mean Corp Hgb Conc 33.3 g/gl (32-36); Mean Corpuscular Hgb 31.7 pg (27.0-32.0); Mean Corpuscular Volume 95.2 fL (81-99); Mean Platelet Vol. 10.1 fl (6.2-12.0); Monocyte# 0.29 X10^3/uL; Monocyte% 4.6 % (0-10); Neutrophil # 3.46 X10^3/uL (2.7-7.7); Neutrophil % 55.3 % (47-70); POSITIVE COUNT NO; POSITIVE DIFFERENTIAL NO; POSITIVE MORPHOLOGY NO; Platelet Count 239 K/mm3 (150-450); RBC Distribution Width CV 12.6 % (11.6-14.6); RBC Distribution Width SD 43.5 fl (35.1-43.9); Red Blood Count 4.58 M/mm3 (4.2-5.4); White Blood Count 6.3 K/mm3 (4.4-11.0)
[2018-05-12 17:09] LABS: Bacteria 0 SEEN /hpf (None Seen); Mucous, Urine 0 SEEN /hpf (<or=2+)
[2018-05-12 17:13] LABS: Color, Urine Straw (Yellow); Glucose, Dipstick Normal (Normal); Ketone-Dipstick Negative (Negative); Leukocyte Esterase-Dipstick Negative /ul (Negative); Nitrite-Dipstick Negative (Negative); Occult Blood-Urine Negative /ul (Negative); Protein-Dipstick Negative (Negative); Specific Gravity, Urine 1.015 (1.002-1.030); Urine Bilirubin Dipstick Negative (Negative); Urine Clarity Clear (Clear); Urine Urobilinogen Normal (Normal)
[2018-05-12 17:21] VITALS: BP 105/65; PULSE 61; RESP 18; O2SAT 99
[2018-05-12 17:21] LABS: ALB/GLOB Ratio 1.3 RATIO (0.9-2.4); AST(SGOT) 22 U/L (15-37); Alanine Aminotransfer ALT/SGPT 31 U/L (13-56); Albumin, Serum 3.9 g/dL (3.2-5.0); Alkaline Phosphatase 72 U/L (45-117); Anion Gap 7 (5-15); BUN 12 mg/dL (7-18); BUN/Creat Ratio 15.7 RATIO (10-20); Calcium,Total 8.7 mg/dL (8.5-10.1); Chloride 107 mmol/L (98-107); Creatinine, Serum 0.76 mg/dL (0.55-1.02); EST Glomerular Filtration Rate 87 mL/min (>60); Est Glom Filt Rate - Afr Amer 105 mL/min (>60); Estimated Creatinine Clearance 80.72 ml/min; Globulin 3.1 g/dL (2.2-4.2); Glucose 88 mg/dL (74-106); Lipase 139 U/L (73-393); Sodium Level 140 mmol/L (136-145)
[2018-05-12 17:24] LABS: Squamous Epithelial Cells - UA 0-5 SEEN /hpf (5-10)
[2018-05-12 17:25] LABS: White Blood Cells 0-5 SEEN /hpf (0-5)
[2018-05-12 17:26] LABS: Red Blood Cells-Urine 0-5 SEEN /hpf (0-5)
--- NOTE | 2018-05-12 17:29 | EKG12_ITS ---
Test Reason : Blood Pressure : / mmHG Vent. Rate : 057 BPM Atrial Rate : 057 BPM P-R Int : 138 ms QRS Dur : 090 ms QT Int : 430 ms P-R-T Axes : 042 -07 028 degrees QTc Int : 418 ms Sinus bradycardia with sinus arrhythmia Otherwise normal ECG Confirmed by MADINA THOMPSON, KHRIS ([id number]), desk editor DEONNA TALLEY ([id number]) on 05/18/2018 10:27:03 AM Referred By: Confirmed By:KHRIS PAINTER MD
[2018-05-12 18:54] VITALS: BP 114/80; PULSE 69; RESP 16; O2SAT 98
--- NOTE | 2018-05-12 18:54 | ED.DEP ---
ED Disposition - Plan for ED Patient: Instructions: ED Viral Syndrome Prescriptions: Ondansetron [Zofran Odt] 4 mg PO Q8H PRN PRN #10 tablet PRN Reason: Nausea Referrals: Misael Frank III, MD [Primary Care Provider] -
== END 2018-05-12 19:08 | disposition home or self-care (01) ==
PROVIDERS: Emergency Provider Emergency Medicine; Family Provider Family Medicine; PCP Family Medicine
DX: B34.9 Viral infection, unspecified (principal); K21.9 Gastro-esophageal reflux disease without esophagitis; I10 Essential (primary) hypertension; Z79.899 Other long term (current) drug therapy
CPT/HCPCS: 71045; 80053; 81001; 83690; 85025; 87804; 93005; 96361; 96374; 99285; J7030; A4216; J2405

== ENCOUNTER 2018-07-26 04:05 | Emergency (ER) | payer MEDICAID, SELFPAY ==
[2018-07-26 04:06] VITALS: BP 137/75; PULSE 68; RESP 20; TEMP 36.6; O2SAT 100; BMI 41.2
--- NOTE | 2018-07-26 04:16 | CT_ITS ---
STUDY: CTA NECK WITH CONTRAST REASON FOR EXAM: Female, 47 years old. Neck pain RADIATION DOSAGE (If Supplied By Facility): CTDIvol = ( 30.79 ) mGy, DLP = ( 1582.97 ) mGycm TECHNIQUE: CT angiography with multi-detector data acquisition was performed from the aortic arch to the skull base following intravenous administration of 100ML IV Isovue 370. MIP images were reconstructed from the axial data set. Post-processing of the angiographic images was performed, with multiplanar reformation and 3D reconstruction. Individualized dose optimization techniques were used for this CT. COMPARISON: None. FINDINGS: AORTIC ARCH: Normal visualized aortic arch. Normal origins of the brachiocephalic, left common carotid, and left subclavian arteries. RIGHT CAROTID ARTERIES: Normal right common carotid artery (CCA). Normal right common carotid bulb. Normal origin of the right internal carotid (ICA) artery without a hemodynamically significant stenosis. Normal visualized cervical portion of the right internal carotid artery. Normal origin of the right external carotid artery (ECA). LEFT CAROTID ARTERIES: Normal left common carotid artery (CCA). Normal left common carotid bulb. Normal origin of the left internal carotid (ICA) artery without a hemodynamically significant stenosis. Normal visualized cervical portion of the left internal carotid artery. Normal origin of the left external carotid artery (ECA). VERTEBRAL ARTERIES: Normal bilateral vertebral arteries. IMPRESSION: Normal bilateral cervical carotid and vertebral arteries. Electronically Signed: Eitan Savage MD at 5:21 EDT , Service support , STUDY: CTA OF THE BRAIN REASON FOR EXAM: Female, 47 years old. Dizziness RADIATION DOSAGE (If Supplied By Facility): CTDIvol = ( 30.79 ) mGy, DLP = ( 1582.97 ) mGycm TECHNIQUE: CT angiography was performed with a multi-detector CT scanner. Data acquisition was obtained from the skull base through the vertex following intravenous administration of 100ML IV Isovue 370. MIP images were reconstructed from the axial data set. Post-processing of the angiographic images was performed, with multiplanar reformation and 3D reconstruction. Individualized dose optimization techniques were used for this CT. COMPARISON: None. FINDINGS: Normal bilateral petrous carotid arteries. Normal right cavernous carotid artery with a normal supraclinoid bifurcation. Normal left cavernous carotid artery with a normal supraclinoid bifurcation. Normal right A1 segments of the anterior cerebral artery. Normal left A1 segments of the anterior cerebral artery. Normal intact anterior communicating artery (ACOM). Normal bilateral A2 segments of the anterior cerebral arteries. Normal right M1 and M2 segments of the middle cerebral arteries, with a normal M1 bifurcation. Normal left M1 and M2 segments of the middle cerebral arteries, with a normal M1 bifurcation. Normal right posterior communicating artery (PCOM). There is a persistent origin of the left posterior cerebral artery with absence of the posterior communicating artery (PCOM). Normal bilateral vertebral arteries. Normal basilar artery with a normal basilar bifurcation. The visualized bilateral superior cerebellar (SCA) arteries are normal. Normal bilateral P1, P2 and visualized P3 segments of the posterior cerebral arteries. There is no demonstrated aneurysm of the [place] of [place]. There is no demonstrated abnormality of the visualized brain. CT/CTA Neck W/WO Contrast IMPRESSION: Normal ewi[place]apaayp of [place] without a demonstrated aneurysm or hemodynamically significant stenosis. Electronically Signed: Eitan Savage MD at 5:26 EDT , Service support ,
--- NOTE | 2018-07-26 04:16 | CT_ITS ---
STUDY: CTA NECK WITH CONTRAST REASON FOR EXAM: Female, 47 years old. Neck pain RADIATION DOSAGE (If Supplied By Facility): CTDIvol = ( 30.79 ) mGy, DLP = ( 1582.97 ) mGycm TECHNIQUE: CT angiography with multi-detector data acquisition was performed from the aortic arch to the skull base following intravenous administration of 100ML IV Isovue 370. MIP images were reconstructed from the axial data set. Post-processing of the angiographic images was performed, with multiplanar reformation and 3D reconstruction. Individualized dose optimization techniques were used for this CT. COMPARISON: None. FINDINGS: AORTIC ARCH: Normal visualized aortic arch. Normal origins of the brachiocephalic, left common carotid, and left subclavian arteries. RIGHT CAROTID ARTERIES: Normal right common carotid artery (CCA). Normal right common carotid bulb. Normal origin of the right internal carotid (ICA) artery without a hemodynamically significant stenosis. Normal visualized cervical portion of the right internal carotid artery. Normal origin of the right external carotid artery (ECA). LEFT CAROTID ARTERIES: Normal left common carotid artery (CCA). Normal left common carotid bulb. Normal origin of the left internal carotid (ICA) artery without a hemodynamically significant stenosis. Normal visualized cervical portion of the left internal carotid artery. Normal origin of the left external carotid artery (ECA). VERTEBRAL ARTERIES: Normal bilateral vertebral arteries. IMPRESSION: Normal bilateral cervical carotid and vertebral arteries. Electronically Signed: Eitan Savage MD at 5:21 EDT , Service support , STUDY: CTA OF THE BRAIN REASON FOR EXAM: Female, 47 years old. Dizziness RADIATION DOSAGE (If Supplied By Facility): CTDIvol = ( 30.79 ) mGy, DLP = ( 1582.97 ) mGycm TECHNIQUE: CT angiography was performed with a multi-detector CT scanner. Data acquisition was obtained from the skull base through the vertex following intravenous administration of 100ML IV Isovue 370. MIP images were reconstructed from the axial data set. Post-processing of the angiographic images was performed, with multiplanar reformation and 3D reconstruction. Individualized dose optimization techniques were used for this CT. COMPARISON: None. FINDINGS: Normal bilateral petrous carotid arteries. Normal right cavernous carotid artery with a normal supraclinoid bifurcation. Normal left cavernous carotid artery with a normal supraclinoid bifurcation. Normal right A1 segments of the anterior cerebral artery. Normal left A1 segments of the anterior cerebral artery. Normal intact anterior communicating artery (ACOM). Normal bilateral A2 segments of the anterior cerebral arteries. Normal right M1 and M2 segments of the middle cerebral arteries, with a normal M1 bifurcation. Normal left M1 and M2 segments of the middle cerebral arteries, with a normal M1 bifurcation. Normal right posterior communicating artery (PCOM). There is a persistent origin of the left posterior cerebral artery with absence of the posterior communicating artery (PCOM). Normal bilateral vertebral arteries. Normal basilar artery with a normal basilar bifurcation. The visualized bilateral superior cerebellar (SCA) arteries are normal. Normal bilateral P1, P2 and visualized P3 segments of the posterior cerebral arteries. There is no demonstrated aneurysm of the [place] of [place]. There is no demonstrated abnormality of the visualized brain. CT/CTA Head W/WO Contrast IMPRESSION: Normal [place] of [place] without a demonstrated aneurysm or hemodynamically significant stenosis. Electronically Signed: Eitan Savage MD at 5:26 EDT , Service support ,
--- NOTE | 2018-07-26 04:16 | EKG12_ITS ---
Test Reason : DIZZY Blood Pressure : / mmHG Vent. Rate : 059 BPM Atrial Rate : 059 BPM P-R Int : 146 ms QRS Dur : 090 ms QT Int : 394 ms P-R-T Axes : 034 -13 030 degrees QTc Int : 390 ms Sinus bradycardia Voltage criteria for left ventricular hypertrophy Abnormal ECG Confirmed by ROSE NICOLE ([id number]), manager editorial ASHELY RODRIGUES ([id number]) on 08/02/2018 8:54:47 AM Referred By: BRANDON Confirmed By:ROSE NICOLE
[2018-07-26 04:31] LABS: Absolute Lymphocyte Count 2.34 X10^3/ul (0.83-4.51); Absolute Neutrophil Count 2.5 X10^3/uL (2.0-7.7); Basophil# 0.04 X10^3/uL; Basophil% 0.7 % (0-1); Eosinophil# 0.17 X10^3/uL; Eosinophils% 3.1 % (0-5); Hematocrit 40.6 % (37-47); Hemoglobin 13.8 g/dl (12.0-15.0); Lymphocyte # 2.34 X10^3/ul (4.0); Lymphocyte % 42.5 % (19-41); Mean Corpuscular Hgb 31.5 pg (27.0-32.0); Mean Corpuscular Volume 92.7 fL (81-99); Mean Platelet Vol. 9.8 fl (6.2-12.0); Monocyte# 0.45 X10^3/uL; Monocyte% 8.2 % (0-10); Neutrophil # 2.49 X10^3/uL (2.7-7.7); Neutrophil % 45.3 % (47-70); Platelet Count 225 K/mm3 (150-450); RBC Distribution Width CV 12.2 % (11.6-14.6); Red Blood Count 4.38 M/mm3 (4.2-5.4); White Blood Count 5.5 K/mm3 (4.4-11.0)
[2018-07-26 04:33] LABS: POSITIVE COUNT NO; POSITIVE DIFFERENTIAL NO; POSITIVE MORPHOLOGY NO
[2018-07-26] MEDS: Ondansetron 4 MG/2 ML Vial IV (04:59)
[2018-07-26 05:18] LABS: Anion Gap 4 (5-15); BUN 11 mg/dL (7-18); BUN/Creat Ratio 16.5 RATIO (10-20); Calcium,Total 8.5 mg/dL (8.5-10.1); Chloride 107 mmol/L (98-107); Creatinine, Serum 0.66 mg/dL (0.55-1.02); EST Glomerular Filtration Rate 102 mL/min (>60); Est Glom Filt Rate - Afr Amer 123 mL/min (>60); Estimated Creatinine Clearance 92.95 ml/min; Glucose 74 mg/dL (74-106); Sodium Level 142 mmol/L (136-145)
--- NOTE | 2018-07-26 05:57 | ED.VISSUMM ---
- ER Visit Summary Date of Service: 07/26/18 Chief Complaint: Dizziness History of Present Illness: The patient is a 47 F who presents with dizziness. This is been present since yesterday. She describes it as a sensation of the room spinning. She also had mild nausea. It was worse this morning. She also complains of about 3 to 4 days of intermittent popping in the back of her neck and shooting pains into her head. No history of prior similar symptoms. No head or neck trauma or injury. No fevers chest pain shortness of breath or vomiting. Physical Examination: Afebrile vitals normal No focal or lateralizing neurological deficits, normal strength and sensation, no ataxia Pupils are equally round and reactive, extraocular motion intact without pain or palsy, no nystagmus Heart regular rate and rhythm Lungs are clear Abdomen soft Test Results: EKG shows sinus rhythm at a rate of 59. CBC BMP troponin unremarkable. CTA of the head and neck are normal. Emergency Department Course and Treatment: She was given IV Zofran for nausea. Although my clinical suspicion is low given her reports of neck pain and vertigo I did want to rule out process such as vertebral dissection. Work-up is unremarkable as above. Therefore I feel this is most likely related to peripheral vertigo. Patient was given a prescription for meclizine and discharged. Treatment Plan: [] Disposition: Discharge Impression: Vertigo This note was generated with [employer] dictation software. It may contain incorrect words, spelling, and punctuation that were not noted in review of the chart prior to signing ED Disposition - Plan for ED Patient: Referrals: Misael Frank III, MD [Primary Care Provider] -
--- NOTE | 2018-07-26 05:59 | ED.DEP ---
ED Disposition - Plan for ED Patient: Instructions: ED Vertigo Unspecified Prescriptions: Meclizine HCl [Antivert] 25 mg PO 4X/DAY PRN PRN #20 tab PRN Reason: Dizziness Referrals: Misael Frank III, MD [Primary Care Provider] -
[2018-07-26 06:16] VITALS: BP 111/67; BP 121/84; BP 95/53; PULSE 28; PULSE 62; PULSE 80
[2018-07-26 06:22] VITALS: BP 121/84; PULSE 59; RESP 18; O2SAT 99
== END 2018-07-26 06:27 | disposition home or self-care (01) ==
LOC: ED 04:19
PROVIDERS: Emergency Provider Emergency Medicine; Family Provider Family Medicine; PCP Family Medicine
DX: R42 Dizziness and giddiness (principal); K21.9 Gastro-esophageal reflux disease without esophagitis; I10 Essential (primary) hypertension; F31.9 Bipolar disorder, unspecified; F41.9 Anxiety disorder, unspecified; Z98.84 Bariatric surgery status; Z79.899 Other long term (current) drug therapy
CPT/HCPCS: 70496; 70498; 80048; 84484; 85025; 93005; 96374; 99284; Q9967; A4216; J2405

== ENCOUNTER 2018-08-06 09:59 | Emergency (ER) | payer MEDICAID, SELFPAY ==
[2018-08-06 10:00] VITALS: BP 119/76; PULSE 65; RESP 18; TEMP 36.3; O2SAT 98; BMI 40.5
--- NOTE | 2018-08-06 10:43 | RAD_ITS ---
STUDY: X-RAY - RIGHT HAND, ATTENTION INDEX FINGER REASON FOR EXAM: Female, 47 years old. Laceration due to injury. TECHNIQUE: 3 view(s) of the finger were obtained. COMPARISON: None. FINDINGS: Normal metacarpal head. Normal metacarpophalangeal joint. Normal proximal phalanx. Normal middle phalanx. Nondisplaced transverse fracture in the mid-distal aspect of the distal phalanx of the index finger. Normal proximal interphalangeal joint. Normal distal interphalangeal joint. Soft tissue swelling. RAD/Finger(s) Min 2 Views IMPRESSION: Nondisplaced transverse fracture through the mid-distal aspect of the distal phalanx of the index finger with overlying soft tissue swelling. Electronically Signed: Carlton Armas, at 11:13 EDT , Service support ,
--- NOTE | 2018-08-06 11:40 | ED.DCSUM_ITS ---
- ER Visit Summary Date of Service: 08/06/18 Chief Complaint: [Injury to right index finger] History of Present Illness: The patient is a 47 F [presents the emergency department with injury to the right index finger that occurred yesterday evening around 7 PM. Patient states that he is trying to unclog the lawnmower with the blade running she stuck her finger by the blade and had her finger struck by a lawnmower blade. Patient is left-hand dominant. Was seen in urgent care this morning and referred to the emergency department. Patient is up-to-date on tetanus.] Physical Examination: [Right index finger-patient does have soft tissue swelling diffusely about the distal phalanx. She has a small 1 similar laceration along the lateral nail edge. No significant bleeding noted. There is no significant soft tissue loss. She is neurovascular intact. She has tenderness diffusely about the distal phalanx.] Test Results: X-rays of the right index finger obtained showed a comminuted distal phalanx fracture. [] Emergency Department Course and Treatment: [Patient had a clean dressing applied and a cage splint was applied over the wound. The laceration is old and not amenable to any type of repair. Patient was started on Keflex.] Treatment Plan: She will be given a prescription for Keflex and Oktaha for pain. Patient will be given referral to follow-up with Dr. Reece Reis[] Disposition: [Discharged home in stable condition] Impression: [Right index distal phalanx fracture-open Laceration right index finger-old not sutured] This note was generated with [employer] dictation software. It may contain incorrect words, spelling, and punctuation that were not noted in review of the chart prior to signing ED Disposition - Plan for ED Patient: Referrals: Misael Frank III, MD [Primary Care Provider] -
--- NOTE | 2018-08-06 11:40 | ED.DEP ---
ED Disposition - Plan for ED Patient: Instructions: ED Laceration Old Not Sutr, ED Fx Finger Open Prescriptions: Oxycodone HCl/Acetaminophen [Percocet 5/325] 1 tab PO Q6H PRN PRN 5 Days #20 tab PRN Reason: Pain Cephalexin [Keflex] 500 mg PO Q6 #40 cap Referrals: Misael Frank III, MD [Primary Care Provider] - Reece Reis MD [STAFF PHYSICIAN] - 3-5 Days
[2018-08-06] MEDS: Cephalexin 250 MG Capsule 500 MG PO (12:01)
--- NOTE | 2018-08-06 12:04 | ED.RN ---
DISCHARGE INSTRUCTIONS GIVEN TO AND REVIEWED WITH PATIENT, PATIENT DENIES QUESTIONS OR CONCERNS AND VOICES UNDERSTANDING OF DISCHARGE INSTRUCTIONS. PT AMBULATES OUT OF ROOM WITHOUT ISSUE.
== END 2018-08-06 12:05 | disposition home or self-care (01) ==
LOC: ED 10:46
PROVIDERS: Emergency Provider Emergency Medicine; Family Provider Family Medicine; PCP Family Medicine
DX: S62.630B Displaced fracture of distal phalanx of right index finger, initial encounter for open fracture (principal); S61.210A Laceration without foreign body of right index finger without damage to nail, initial encounter; W26.8XXA Contact with other sharp object(s), not elsewhere classified, initial encounter; Y93.9 Activity, unspecified; Y92.9 Unspecified place or not applicable
CPT/HCPCS: 73140; 99283

== ENCOUNTER 2018-08-08 11:48 | Emergency (ER) | payer MEDICAID, SELFPAY ==
[2018-08-08 11:49] VITALS: BP 124/81; PULSE 76; RESP 17; TEMP 36.8; O2SAT 97; BMI 40.8
--- NOTE | 2018-08-08 12:27 | ED.VIS.GEN ---
History of Present Illness Chief Complaint: Weakness Detail of Chief Complaint: Nausea and diarrhea Informant: Patient Onset: Days - Onset Monday Context: Sudden Onset Timing: Intermittent Quality: With diarrhea Location: GI Current Severity: Moderate Maximum Severity: Moderate Worsened by: Possibly antibiotic Relieved by: Nothing Associated Symptoms: Documented fever 201.0 ?F Narrative: Patient is a 47-year-old woman who was seen on Monday, August 06. Diagnosed with open fracture index finger. She was placed on antibiotic. She presents because of 5-6 loose stools a day. She denies blood or mucus. She does report fever. She denies headache, visual, ocular auditory symptoms. She denies photophobia, neck pain or neck stiffness. She denies cardiac restaurant symptoms. She denies urologic symptoms. She denies rash. Dressing was removed from index finger for evaluation. She reports concerned because the finger is discolored. Prior similar symptoms: No Recent Illness/Hospitalization: Yes - Past Medical History (1) Celiac disease Status: Chronic (2) GERD Status: Chronic (3) IBS (irritable bowel syndrome) Status: Chronic Past Medical History - Allergies and Home Meds Allergies/Adverse Reactions: Allergies aspirin Allergy (Verified 08/08/18 11:49) Rash hydrocodone [From Vicodin] Allergy (Verified 08/08/18 11:49) Hives ibuprofen Allergy (Verified 08/08/18 11:49) Anaphylaxis venom-honey bee [bee venom (honey bee)] Allergy (Verified 08/08/18 11:49) Anaphylaxis gluten Adverse Reaction (Verified 08/08/18 11:49) Upset Stomach Primary Care Physician: Misael Frank III, MD [Primary Care Provider] - Prior records reviewed: Yes - Open distal phalanx fracture right index finger Surgical History: - - , gastric bypass surgery 4 years ago Lives: Alone Smoking Status: Never smoker Alcohol: None - Family History Paternal Family History: Family History (Last Reviewed 01/21/18 @ 13:56 by Desiree Vaughan) Other Arthritis COPD (chronic obstructive pulmonary disease) Cancer Diabetes Osteoporosis Parkinson disease Family History: Reports: Heart Disease Review of Systems General: Reports: Chills, Fever, Malaise. Denies: Subjective, Sweats, Weight loss Eyes: Denies: Visual changes - bilaterally, Blurred Vision - bilaterally, Diplopia ENT: Reports: - - She reports dry mouth and thirst. Denies: Rhinorrhea, Sore throat Respiratory: Denies: Dyspnea, Cough, Dyspnea on exertion Gastrointestinal: Reports: Abdominal pain, Nausea, Diarrhea. Denies: Vomiting, Constipation, Melena, Hematochezia Genitourinary: Reports: - - She reports decreased urine output. Denies: Dysuria, Hematuria, Frequency Musculoskeletal: Denies: Myalgias, Arthralgias, Neck pain, Back pain, Extremity Pain Skin: Reports: Wounds. Denies: Rash Neurological: Reports: Weakness. Denies: Headache, Parasthesia, Numbness Hematologic: Denies: Easy bruising, Easy bleeding Allergy: Denies: Uticaria, Swelling of the mouth Physical Exam Vital Signs/Narrative: Vital Signs Temp Pulse Resp BP Pulse Ox 08/08/18 11:49 98.2 F 76 17 124/81 H 97 Inital Vital Signs reviewed: Yes General: Well nourished, Well developed, No Acute Distress Head: Normocephalic, Atraumatic Eyes: Perrl, EOMI ENT: Moist mucous membranes, No rhinorrhea Neck: Supple, Nontender Cardiovascular: Regular rate, Regular rhythm, No murmurs Respiratory: No distress, CTA bilaterally, Chest nontender Abdomen: Soft, Nontender, Nondistended, Normal bowel sounds, No masses Back: Nontender, Normal Inspection Extremities: No edema, Tenderness - Distal right index finger. There is no warmth, induration, lymphangitis or epitrochlear lymphadenopathy. Skin: Normal color, No rash Neurological: Alert, Oriented x3, Cranial nerves II-XII grossly intact, Normal Strength, Normal Sensation Psychological: Normal affect, Normal Mood Diagnostic/Tx/Re-eval Laboratory Results 08/08/18 08/08/18 12:35 12:35 WBC 8.6 RBC 4.46 Hgb 13.6 Hct 42.2 MCV 94.6 MCH 30.5 MCHC 32.2 RDW 12.2 RDW Differential 41.2 Plt Count 219 MPV 9.7 Immature Gran % (Auto) 0.100 Neut % (Auto) 73.4 H Lymph % (Auto) 17.6 L [place] % (Auto) 7.1 Eos % (Auto) 1.6 Baso % (Auto) 0.2 Absolute Neuts (auto) 6.3 Absolute Lymphs (auto) 1.52 Total Counted Not Reportable Sodium 141 Potassium 3.8 Chloride 105 Carbon Dioxide 32.0 Anion Gap 4 L BUN 11 Creatinine 0.70 Estim Creat Clear Calc 87.64 Est GFR (MDRD) Af Amer 115 Est GFR (MDRD) Non-Af 95 BUN/Creatinine Ratio 15.6 Glucose 75 Calcium 8.9 - Medical Decision Making With history of diarrhea after antibiotics were started will obtain stool for C. difficile. Because she reports a fever will obtain CBC to assess white count and differential. Because she reports thirst decreased p.o. intake basic mental panel was obtained to assess electrodes and renal function. IV was established and she received 1 L of normal saline. She also received 4 mg of Zofran for her nausea. Patient was reassessed at 1350. She is had no nausea or vomiting. She feels better. Will discharge to home. She was instructed to discontinue the antibiotics. ED Disposition - Plan for ED Patient: Disposition: Home or Assisted Living Diagnosis: Abdominal pain, vomiting, and diarrhea, Generalized weakness Instructions: ED Vomiting Diarrhea Nonspecific Ad Referrals: Misael Frank III, MD [Primary Care Provider] - 1-2 Days if not improving Additional Instructions: Discontinue taking antibiotic.
[2018-08-08] MEDS: 0.9% Normal Saline 1,000 ML 1000 ML IV (12:34)
[2018-08-08] MEDS: Ondansetron 4 MG/2 ML Vial IV (12:34)
[2018-08-08 12:50] LABS: Absolute Lymphocyte Count 1.52 X10^3/ul (0.83-4.51); Absolute Neutrophil Count 6.3 X10^3/uL (2.0-7.7); Basophil# 0.02 X10^3/uL; Basophil% 0.2 % (0-1); Eosinophil# 0.14 X10^3/uL; Eosinophils% 1.6 % (0-5); Hematocrit 42.2 % (37-47); Hemoglobin 13.6 g/dl (12.0-15.0); Lymphocyte # 1.52 X10^3/ul (4.0); Lymphocyte % 17.6 % (19-41); Mean Corp Hgb Conc 32.2 g/gl (32-36); Mean Corpuscular Hgb 30.5 pg (27.0-32.0); Mean Corpuscular Volume 94.6 fL (81-99); Mean Platelet Vol. 9.7 fl (6.2-12.0); Monocyte# 0.61 X10^3/uL; Monocyte% 7.1 % (0-10); Neutrophil # 6.32 X10^3/uL (2.7-7.7); Neutrophil % 73.4 % (47-70); Platelet Count 219 K/mm3 (150-450); RBC Distribution Width CV 12.2 % (11.6-14.6); RBC Distribution Width SD 41.2 fl (35.1-43.9); Red Blood Count 4.46 M/mm3 (4.2-5.4); White Blood Count 8.6 K/mm3 (4.4-11.0)
[2018-08-08 12:51] LABS: POSITIVE COUNT NO; POSITIVE DIFFERENTIAL NO; POSITIVE MORPHOLOGY NO
[2018-08-08 13:01] LABS: Anion Gap 4 (5-15); BUN 11 mg/dL (7-18); BUN/Creat Ratio 15.6 RATIO (10-20); Calcium,Total 8.9 mg/dL (8.5-10.1); Chloride 105 mmol/L (98-107); EST Glomerular Filtration Rate 95 mL/min (>60); Est Glom Filt Rate - Afr Amer 115 mL/min (>60); Estimated Creatinine Clearance 87.64 ml/min; Glucose 75 mg/dL (74-106); Potassium 3.8 mmol/L (3.5-5.1); Sodium Level 141 mmol/L (136-145)
--- NOTE | 2018-08-08 13:55 | ED.RN ---
no sepsis risk per md
[2018-08-08 14:02] VITALS: BP 136/78; PULSE 69; RESP 16; O2SAT 98
== END 2018-08-08 14:03 | disposition home or self-care (01) ==
PROVIDERS: Emergency Provider Emergency Medicine; Family Provider Family Medicine; PCP Family Medicine
DX: R10.9 Unspecified abdominal pain (principal); R11.2 Nausea with vomiting, unspecified; R19.7 Diarrhea, unspecified; R53.1 Weakness; R50.9 Fever, unspecified; S62.630B Displaced fracture of distal phalanx of right index finger, initial encounter for open fracture; X58.XXXA Exposure to other specified factors, initial encounter; Y93.9 Activity, unspecified; Y92.9 Unspecified place or not applicable; K90.0 Celiac disease; K21.9 Gastro-esophageal reflux disease without esophagitis; K58.9 Irritable bowel syndrome, unspecified; Z98.84 Bariatric surgery status; Z79.2 Long term (current) use of antibiotics; Z79.899 Other long term (current) drug therapy
CPT/HCPCS: 80048; 85025; 96361; 96374; 99284; J7030; J2405

== ENCOUNTER 2019-05-22 19:25 | Emergency (ER) | payer MEDICAID, SELFPAY ==
[2019-04-25 10:08] VITALS: BMI 43.4
[2019-05-22 19:27] VITALS: BP 145/80; PULSE 69; RESP 18; TEMP 37; O2SAT 98; BMI 41.1
--- NOTE | 2019-05-22 19:49 | ED.VISSUMM ---
- ER Visit Summary Date of Service: 05/22/19 Chief Complaint: Cough History of Present Illness: The patient is a 48 F history of depression, anxiety and bipolar. Also reflux. They states last 2 days she has had a sore throat cough. Denies any vomiting or diarrhea. Low-grade fever around 100. Denies dysuria. Physical Examination: Well-appearing middle-aged female. Vital signs stable and afebrile. She does look septic or toxic. She is no distress. Pulse ox 90% on room air no hypoxia. H EENT exam normal. Voice is normal. Neck nontender. No lymphadenopathy. Lungs clear to auscultation bilaterally. Dry cough. Heart regular rhythm no murmur. Abdomen soft nontender. Normal bowel sounds no peritoneal signs. Patient is moving all 4 extremities. Calves nontender without edema or cords. Back nontender. Neurologically she is awake alert with no focal motor deficits. Skin no rashes. Test Results: Test x-ray AP and lateral views read by myself shows no acute abnormality. Normal cardiac silhouette. No infiltrate. Emergency Department Course and Treatment: History and exam are consistent with a viral syndrome. Repeat exam patient is doing well at 8 PM. Will be discharged home. She denies discussed her chest ray results. Treatment Plan: Fluids and rest. Tylenol Motrin as needed. Follow-up with your doctor if not improving or feeling worse. Disposition: Discharge Impression: Viral URI Rule out coronavirus This note was generated with [employer] dictation software. It may contain incorrect words, spelling, and punctuation that were not noted in review of the chart prior to signing ED Disposition - Plan for ED Patient: Disposition: Home or Assisted Living Instructions: BRONCHITIS, No Antibiotic (Adult) Referrals: Misael Frank III, MD [Primary Care Provider] - 1 Week if not improving Additional Instructions: Plenty of fluids and rest. Alternate Tylenol and Motrin for fever. Follow-up if not improving.
--- NOTE | 2019-05-22 19:50 | RAD_ITS ---
STUDY: X-RAY CHEST REASON FOR EXAM: Female, 48 years old. cough, shortness of breath, sore throat TECHNIQUE: PA and lateral COMPARISON: May 12, 2018 FINDINGS: The lungs are clear and expanded. There is no demonstrated pleural abnormality. Normal size heart. Normal mediastinum and landy. Normal visualized pulmonary arteries. Normal visualized aortic arch and descending thoracic aorta. Dorsal spine demonstrates degenerative change. Normal visualized ribs, clavicles, and shoulders. There is no demonstrated abnormality of the visualized soft tissue structures of the upper abdomen. No significant change since prior study RAD/Chest PA and Lateral IMPRESSION: No acute cardiopulmonary pathology Electronically Signed: Cristino Carrillo MD at 20:03 EDT , Service support ,
--- NOTE | 2019-05-22 19:53 | ED.DEP ---
ED Disposition - Plan for ED Patient: Disposition: Home or Assisted Living Instructions: BRONCHITIS, No Antibiotic (Adult) Referrals: Misael Frank III, MD [Primary Care Provider] - 1 Week if not improving Additional Instructions: Plenty of fluids and rest. Alternate Tylenol and Motrin for fever. Follow-up if not improving.
[2019-05-22] MEDS: Meclizine HCl 25 MG Tablet PO (20:07)
[2019-05-22 20:09] VITALS: PULSE 106; RESP 20; O2SAT 98
== END 2019-05-22 20:09 | disposition home or self-care (01) ==
LOC: ED 20:05
PROVIDERS: Emergency Provider Emergency Medicine; PCP Family Medicine
DX: J06.9 Acute upper respiratory infection, unspecified (principal); F31.9 Bipolar disorder, unspecified; F41.9 Anxiety disorder, unspecified; K21.9 Gastro-esophageal reflux disease without esophagitis; Z79.899 Other long term (current) drug therapy
CPT/HCPCS: 71046; 99283

== ENCOUNTER 2019-07-15 15:49 | Emergency (ER) | payer MEDICAID, SELFPAY ==
[2019-07-15 15:49] VITALS: BP 155/92; PULSE 87; RESP 18; TEMP 36.2; O2SAT 97; BMI 43.1
--- NOTE | 2019-07-15 16:14 | CT_ITS ---
STUDY: CT CERVICAL SPINE WITHOUT CONTRAST REASON FOR EXAM: Female, 48 years old. FELL YESTERDAY HIT HEAD. RADIATION DOSAGE (If Supplied By Facility): CTDIvol = ( 35.41 ) mGy, DLP = ( 705.25 ) mGycm TECHNIQUE: High resolution transaxial imaging was performed without contrast material. Sagittal and coronal images were reconstructed. Individualized dose optimization techniques were used for this CT. 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 Normal craniovertebral junction. Normal anterior atlantoaxial articulation. Normal odontoid process. No fracture or subluxation. There is straightening of the normal cervical lordosis. Normal vertebral bodies and posterior osseous elements. There are degenerative changes of the spine. Normal visualized soft tissue structures. There are subcentimeter hypodense nodules of the thyroid. CT/Spine Cervical without Contras IMPRESSION: No fracture or subluxation. Straightening of the cervical lordosis may be positional or due to muscle spasm. Electronically Signed: Allison Birmingham, at 17:11 EDT Tel , Service support ,
--- NOTE | 2019-07-15 16:14 | CT_ITS ---
STUDY: CT FACIAL BONES WITHOUT CONTRAST REASON FOR EXAM: Female, 48 years old. FELL YESTERDAY HIT HEAD. UNKNOWN LOC, STRUCK LT SIDE OF HEAD ON WOOD POLE, HX-SINUSITIS, HTN, SURG- TONSILLECTOMY,sinuses RADIATION DOSAGE (If Supplied By Facility): CTDIvol = ( 29.38 ) mGy, DLP = ( 562.15 ) mGycm TECHNIQUE: The patient was scanned in a multi detector CT scanner. Sagittal and coronal images were reconstructed. Individualized dose optimization techniques were used for this CT. COMPARISON: July 03, 2017. FINDINGS: Normal soft tissue structures. Normal orbital jalloh and orbital contents. Normal nasal bones and anterior nasal spine. Normal mandible. Normal zygomatic arches. Normal facial bones. There is no demonstrated fracture. Mucosal thickening of the left maxillary sinus. Postoperative changes of the paranasal sinuses. Nasal septum deviates a sinuous fashion. CT/Sinus/Facial Bone IMPRESSION: Normal unenhanced CT of the facial bones. Electronically Signed: Avtar Newman MD at 17:00 EDT , Service support ,
--- NOTE | 2019-07-15 16:14 | CT_ITS ---
STUDY: CT BRAIN WITHOUT CONTRAST REASON FOR EXAM: Female, 48 years old. FELL YESTERDAY HIT HEAD. UNKNOWN LOC RADIATION DOSAGE (If Supplied By Facility): CTDIvol = ( 44.99 ) mGy, DLP = ( 779.24 ) mGycm TECHNIQUE: Transaxial CT imaging of the brain was performed without administration of intravenous contrast material. Individualized dose optimization techniques were used for this CT. COMPARISON: CT head 09/02/2014 FINDINGS: Normal soft tissue structures. Normal calvarium. Normal size ventricles and extra-axial spaces for the patient''s age. Normal white matter tracts of the cerebral hemispheres. Normal basal ganglia and thalami. Normal brainstem. Normal cerebellum. There is no intracranial hemorrhage. There are no findings of an acute ischemic infarction. Small left maxillary sinus retention cyst. CT/Brain/Head without Contrast IMPRESSION: Normal unenhanced CT scan of the brain. Electronically Signed: Allison Birmingham, at 16:56 EDT Tel , Service support ,
--- NOTE | 2019-07-15 16:15 | ED.VIS.GEN ---
History of Present Illness Chief Complaint: Fall Informant: Patient Onset: Yesterday Current Severity: Moderate Maximum Severity: Moderate Narrative: Patient presents with headache and facial pain after a fall last evening. She states she tripped and struck the left side of her face against a wooden post. She states that she has pain on the left nasal bridge and has a tooth loose in the left. She did not lose consciousness. She has had headache with nausea but no vision change. She took an oxycodone and a nausea pill last evening but is only taken Aleve today for symptoms. She is not on anticoagulants. - Past Medical History (1) Celiac disease Status: Chronic (2) GERD Status: Chronic (3) IBS (irritable bowel syndrome) Status: Chronic Past Medical History - Allergies and Home Meds Allergies/Adverse Reactions: Allergies aspirin Allergy (Verified 05/22/19 19:29) Rash hydrocodone [From Vicodin] Allergy (Verified 05/22/19 19:29) Hives ibuprofen Allergy (Verified 05/22/19 19:29) Anaphylaxis venom-honey bee [bee venom (honey bee)] Allergy (Verified 05/22/19 19:29) Anaphylaxis gluten Adverse Reaction (Verified 05/22/19 19:29) Upset Stomach Primary Care Physician: Misael Frank III, MD [Primary Care Provider] - Prior records reviewed: Yes Surgical History: - - , gastric bypass surgery 4 years ago Smoking Status: Never smoker - Family History Paternal Family History: Family History (Last Reviewed 04/25/19 @ 10:09 by Ely Lal) Other Arthritis COPD (chronic obstructive pulmonary disease) Cancer Diabetes Osteoporosis Parkinson disease Family History: Reports: Heart Disease Review of Systems General: Denies: Chills, Fever Eyes: Denies: Visual changes - bilaterally ENT: Reports: - - Nasal pain. Denies: Bilateral ear pain Cardiovascular: Denies: Chest pain, Palpitations Respiratory: Denies: Dyspnea, Cough Gastrointestinal: Reports: Nausea. Denies: Abdominal pain, Vomiting Genitourinary: Denies: Dysuria Musculoskeletal: Denies: Swelling, Extremity Pain Skin: Denies: Wounds Neurological: Reports: Headache Hematologic: Denies: Easy bruising, Easy bleeding Allergy: Denies: Uticaria Physical Exam Vital Signs/Narrative: Vital Signs Temp Pulse Resp BP Pulse Ox 07/15/19 15:49 97.1 F L 87 18 155/92 H 97 Inital Vital Signs reviewed: Yes General: Well nourished, Well developed Head: Normocephalic Eyes: Perrl, EOMI ENT: Moist mucous membranes, TM's clear Neck: Supple, - - Mild C-spine tenderness noted. Cardiovascular: Regular rate, Regular rhythm Respiratory: No distress, CTA bilaterally Abdomen: Soft, Nontender Back: Nontender Extremities: Nontender Skin: Normal color, No rash Neurological: Alert, Oriented x3, Normal Strength, Normal Sensation Psychological: Normal affect Diagnostic/Tx/Re-eval Impressions Brain CT 07/15/19 16:14 IMPRESSION: Normal unenhanced CT scan of the brain. Electronically Signed: Allison Birmingham, at 16:56 EDT Tel , Service support , Cervical Spine CT 07/15/19 16:14 IMPRESSION: No fracture or subluxation. Straightening of the cervical lordosis may be positional or due to muscle spasm. Electronically Signed: Allison Birmingham at 17:11 EDT Tel , Service support , Facial/Sinus 07/15/19 16:14 IMPRESSION: Normal unenhanced CT of the facial bones. Electronically Signed: Avtar Newman MD at 17:00 EDT , Service support , 07/15/19 16:14 CT Cervical [Spine Cervical without Contras] [CT] Stat CT Facial [Sinus/Facial Bone] [CT] Stat CT Head [Brain/Head without Contrast] [CT] Stat - Medical Decision Making Test results discussed with the patient. She is reassured with these findings. She will continue Tylenol or ibuprofen at home. ED Disposition - Plan for ED Patient: Disposition: Home or Assisted Living Diagnosis: Closed head injury Instructions: ED Head Injury Adult Referrals: Misael Frank III, MD [Primary Care Provider] - 1 Week if not improving
== END 2019-07-15 17:49 | disposition home or self-care (01) ==
PROVIDERS: Emergency Provider Emergency Medicine; PCP Family Medicine
DX: S09.90XA Unspecified injury of head, initial encounter (principal); R11.0 Nausea; W01.198A Fall on same level from slipping, tripping and stumbling with subsequent striking against other object, initial encounter; Y93.9 Activity, unspecified; Y92.9 Unspecified place or not applicable; K21.9 Gastro-esophageal reflux disease without esophagitis; I10 Essential (primary) hypertension; K58.9 Irritable bowel syndrome, unspecified; K90.0 Celiac disease; Z79.899 Other long term (current) drug therapy
CPT/HCPCS: 70450; 70486; 72125; 99282

== ENCOUNTER 2019-10-28 08:04 | Day surgery (SDC) | payer MEDICAID, SELFPAY ==
[2019-08-05 08:24] VITALS: BMI 43.1
--- NOTE | 2019-10-21 16:47 | EKG12_ITS ---
Test Reason : PRE-OP Blood Pressure : / mmHG Vent. Rate : 068 BPM Atrial Rate : 068 BPM P-R Int : 142 ms QRS Dur : 092 ms QT Int : 394 ms P-R-T Axes : 036 -07 032 degrees QTc Int : 418 ms Normal sinus rhythm Normal ECG Confirmed by MADINA THOMPSON, KHRIS ([id number]), editor publications CARLOS A FINE ([id number]) on 10/22/2019 9:31:57 AM Referred By: Alexandre Sage Confirmed By:KHRIS PAINTER MD
[2019-10-21 17:13] LABS: Hematocrit 41.4 % (37-47); Hemoglobin 13.7 g/dL (12.0-15.0); Mean Corp Hgb Conc 33.1 g/dL (32-36); Mean Corpuscular Hgb 31.6 pg (27.0-32.0); Mean Corpuscular Volume 95.6 fL (81-99); Mean Platelet Vol. 9.8 fl (6.2-12.0); Platelet Count 266 K/mm3 (150-450); RBC Distribution Width CV 11.9 % (11.6-14.6); RBC Distribution Width SD 41.5 fl (35.1-43.9); Red Blood Count 4.33 M/mm3 (4.2-5.4); White Blood Count 7.3 K/mm3 (4.4-11.0)
[2019-10-21 17:23] LABS: Prothrombin Time (Protime)PT. 12.9 SECONDS (11.7-14.9)
[2019-10-21 17:24] LABS: Partial Thromboplast Time 27.3 Seconds (24.1-36.2)
[2019-10-21 17:28] LABS: Anion Gap 6 (5-15); BUN 11 mg/dL (7-18); Calcium,Total 8.6 mg/dL (8.5-10.1); Chloride 105 mmol/L (98-107); Creatinine, Serum 0.69 mg/dL (0.55-1.02); EST Glomerular Filtration Rate 97 mL/min (>60); Est Glom Filt Rate - Afr Amer 118 mL/min (>60); Glucose 87 mg/dL (74-106); Potassium 3.8 mmol/L (3.5-5.1); Sodium Level 140 mmol/L (136-145)
[2019-10-28] VITALS (10 sets, daily range): BP systolic 126–165; BP diastolic 72–114; PULSE 66–89; RESP 16–18; TEMP 36.1–36.8; O2SAT 93–98; BMI 40.8
[2019-10-28] MEDS: Lactated Ringers 1,000 ML 100 ML IV ×3 (09:24→14:01)
[2019-10-28] MEDS: Cefazolin 2 GM in 0.9% Normal Saline 100 ML IV (11:03)
[2019-10-28] MEDS: Epinephrine (1 mg/ml) 1 MG/ML VIAL (11:15)
--- NOTE | 2019-10-28 14:00 | OP.PCM_ITS ---
Report of Operation Date of Procedure: 10/28/19 Pre-Operative Diagnosis: SAIS, AC arthrosis, possible RCT right shoulder Post-Operative Diagnosis: Same with < 30% thickness undersurface supraspinatus tear Surgery/Procedure Performed:: ASD, [place] procedure, evaluation of rotator cuff district court bailiff: Andrea Gomez Type of Anesthesia:: General/Regional Anesthesiologist: Jim Tran - Admit VTE Documentation VTE Present on Admission: No VTE Mechan Device Prophylaxis: SCD's, Thigh High MARGARETH Hose VTE Pharm Prophylaxis ordered?: No Reason prophylaxis not ordered:: Treatment Not Indicated
[2019-10-28] MEDS: oxyCODONE 5 MG Tablet 10 MG PO (14:01)
== END 2019-10-28 15:25 | disposition home or self-care (01) ==
LOC: SDC 08:04 → AC 08:06
PROVIDERS: Anesthesiology; PCP Family Medicine; Referring Provider Orthopaedic Surgery; Visit Provider Orthopaedic Surgery
PROC: (CPT 29827; principal; 2019-10-28 10:40)
DX: M75.51 Bursitis of right shoulder (principal); M75.101 Unspecified rotator cuff tear or rupture of right shoulder, not specified as traumatic; M19.011 Primary osteoarthritis, right shoulder; M75.41 Impingement syndrome of right shoulder; Z11.59 Encounter for screening for other viral diseases; F32.9 Major depressive disorder, single episode, unspecified; E66.9 Obesity, unspecified; Z68.42 Body mass index [BMI] 45.0-49.9, adult; G25.81 Restless legs syndrome; K21.9 Gastro-esophageal reflux disease without esophagitis; D64.9 Anemia, unspecified; K76.0 Fatty (change of) liver, not elsewhere classified; F41.9 Anxiety disorder, unspecified; M19.90 Unspecified osteoarthritis, unspecified site; G43.909 Migraine, unspecified, not intractable, without status migrainosus; Z78.0 Asymptomatic menopausal state; Z98.84 Bariatric surgery status; Z79.899 Other long term (current) drug therapy
CPT/HCPCS: 01630; 29823; 29824; 36415; 80048; 85027; 85610; 85730; 87635; 93005; 94799; J7120; J2405; U0003

== ENCOUNTER → 2019-11-21 | Outpatient (CLI) | payer MEDICAID, SELFPAY ==
[2019-11-20 13:20] VITALS: BMI 40.8
[2019-11-21 10:12] LABS: Bacteria 0 SEEN /hpf (None Seen); Mucous, Urine 0 SEEN /hpf (<or=2+); Red Blood Cells-Urine 0 SEEN /hpf (0-5); White Blood Cells 0 SEEN /hpf (0-5)
[2019-11-21 10:26] LABS: Color, Urine Yellow (Yellow); Glucose, Dipstick Normal (Normal); Ketone-Dipstick Negative (Negative); Leukocyte Esterase-Dipstick Negative /ul (Negative); Nitrite-Dipstick Negative (Negative); Occult Blood-Urine Negative /ul (Negative); Protein-Dipstick Negative (Negative); Urine Bilirubin Dipstick Negative (Negative); Urine Clarity Sl. Cloudy (Clear); Urine Urobilinogen Normal (Normal)
[2019-11-21 10:36] LABS: Squamous Epithelial Cells - UA 5-10 SEEN /hpf (5-10)
== END | disposition home or self-care (01) ==
LOC: LABSPEC 10:03
PROVIDERS: PCP Family Medicine; Referring Provider Physician Assistant; Visit Provider Physician Assistant
DX: R35.0 Frequency of micturition (principal)
CPT/HCPCS: 81001; 87086; 87088

== ENCOUNTER 2019-12-17 12:47 | Emergency (ER) | payer MEDICAID, SELFPAY ==
[2019-11-20 13:20] VITALS: BMI 40.8
[2019-12-17 12:47] VITALS: BP 143/93; PULSE 84; RESP 16; TEMP 36.7; O2SAT 99; BMI 40.2
[2019-12-17 14:11] VITALS: BP 138/88; PULSE 79; RESP 17; TEMP 37.1; O2SAT 98
--- NOTE | 2019-12-17 14:41 | ED.VIS.GEN ---
History of Present Illness Chief Complaint: Abscess Detail of Chief Complaint: Nausea, vomiting and diarrhea with upper respiratory symptoms Informant: Patient Onset: Days - Onset Monday with nausea, vomiting and profuse diarrhea. She has had documented fever. She also reports mild nasal congestion, runny nose, throat pain and cough. 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 She has not been on antibiotics in the past month. Context: Sudden Onset Timing: Continuous Quality: Upper respiratory symptoms and GI symptoms Location: Respiratory and GI Current Severity: Moderate Maximum Severity: Severe Worsened by: Nothing Relieved by: Nothing Associated Symptoms: Fever and concern for abscess right periauricular area Narrative: Patient is a 49-year-old woman who presents with nausea, vomiting diarrhea that started Monday. Patient states she had profuse diarrhea on Monday. She denies blood or mucus in her stool. She has not been on antibiotics recently. She does report documented fever. She does complain of mild head discomfort. She denies photophobia, neck pain or neck stiffness. She does report congestion, rhinorrhea, throat pain and cough which is nonproductive. She does report change in taste and possibly smell. She has not noted a rash. She has not noted discoloration of her fingers or toes. She does report thirst, dry mouth and decreased urination. She denies orthostatic symptoms presently. Prior similar symptoms: No Recent Illness/Hospitalization: No - Past Medical History (1) Segmental and somatic dysfunction of cervical region Status: Acute (2) Segmental and somatic dysfunction of lumbar region Status: Acute (3) Segmental and somatic dysfunction of thoracic region Status: Acute (4) Celiac disease Status: Chronic (5) Degenerative disc disease, cervical Status: Chronic (6) GERD Status: Chronic (7) IBS (irritable bowel syndrome) Status: Chronic Past Medical History - Allergies and Home Meds Allergies/Adverse Reactions: Allergies aspirin Allergy (Verified 12/17/19 12:50) Rash hydrocodone [From Vicodin] Allergy (Verified 12/17/19 12:50) Hives ibuprofen Allergy (Verified 12/17/19 12:50) Anaphylaxis venom-honey bee [bee venom (honey bee)] Allergy (Verified 12/17/19 12:50) Anaphylaxis gluten Adverse Reaction (Verified 12/17/19 12:50) Upset Stomach Primary Care Physician: Misael Frank III, MD [Primary Care Provider] - Prior records reviewed: Yes Surgical History: - - , gastric bypass surgery 4 years ago Lives: With Family Smoking Status: Never smoker Alcohol: None Drugs: None - Family History Paternal Family History: Family History (Last Reviewed 11/20/19 @ 12:50 by Dinora Desai) Other Arthritis COPD (chronic obstructive pulmonary disease) Cancer Diabetes Osteoporosis Parkinson disease Family History: Reports: Heart Disease Review of Systems General: Reports: Fever, Malaise, Sweats. Denies: Chills, Subjective Eyes: Denies: Visual changes - bilaterally, Blurred Vision - bilaterally ENT: Reports: Rhinorrhea, Sore throat. Denies: Bilateral ear pain Cardiovascular: Denies: Chest pain, Palpitations Respiratory: Reports: Dyspnea, Cough, Dyspnea on exertion. Denies: Sputum, Orthopnea, Paroxysmal nocturnal dyspnea Gastrointestinal: Reports: Abdominal pain, Nausea, Vomiting, Diarrhea. Denies: Constipation, Melena, Hematochezia Genitourinary: Denies: Dysuria, Hematuria, Frequency Musculoskeletal: Reports: Myalgias, Arthralgias. Denies: Neck pain, Back pain, Swelling, Extremity Pain Skin: Denies: Rash, Wounds Neurological: Reports: Headache. Denies: Weakness, Parasthesia Endocrine: Denies: Polyuria, Polydipsia Hematologic: Denies: Easy bruising Physical Exam Vital Signs/Narrative: Vital Signs Temp Pulse Resp BP Pulse Ox 12/17/19 14:11 98.7 F 79 17 138/88 H 98 12/17/19 12:47 98.1 F 84 16 143/93 H 99 Inital Vital Signs reviewed: Yes General: Well nourished, Well developed, Obese, - - Patient does not appear well. She does not appear toxic. Head: Normocephalic, Atraumatic Eyes: Perrl, EOMI. Negative for: Pale conjunctiva, Scleral icterus ENT: TM's clear, Dry mucous membranes, Nasal congestion. Negative for: No rhinorrhea, Sinus tenderness Cardiovascular: Regular rate, Regular rhythm, No murmurs, Normal S1, Normal S2 Respiratory: No distress, CTA bilaterally, Chest nontender Abdomen: Soft, Nontender, Nondistended, Normal bowel sounds, No masses Rectal: Deferred Back: Nontender, Normal Inspection Extremities: Nontender, No edema Skin: Normal color, No rash, No Trauma. Negative for: Cyanosis, Diaphoresis, Jaundice Neurological: Alert, Oriented x3, Cranial nerves II-XII grossly intact, Normal Strength, Normal Sensation Psychological: Depressed Diagnostic/Tx/Re-eval Chest X-Ray - ED: 1 View, Read by ED Physician, Normal, Heart, Lungs, Mediastinum, Bony Structures, No Acute Disease Impressions Chest X-Ray 12/17/19 15:13 IMPRESSION: Normal x-ray examination of the chest. Electronically Signed: Carlton Armas, at 15:31 EDT , Service support , 12/17/19 15:13 Chest 1 View (Portable) [RAD] Stat Laboratory Results 12/17/19 12/17/19 12/17/19 14:45 14:45 14:45 WBC 4.5 RBC 3.95 L Hgb 12.5 Hct 36.9 L MCV 93.4 MCH 31.6 MCHC 33.9 RDW Std Deviation 41.5 RDW Coeff of Rubi 12.0 Plt Count 237 MPV 9.7 Immature Gran % (Auto) 0.400 Neut % (Auto) 47.7 Lymph % (Auto) 34.2 [place] % (Auto) 14.3 H Eos % (Auto) 2.7 Baso % (Auto) 0.7 Absolute Neuts (auto) 2.1 Absolute Lymphs (auto) 1.53 Nucleated RBC % 0 Sodium 137 Potassium 3.1 L Chloride 103 Carbon Dioxide 29.0 Anion Gap 5 BUN 13 Creatinine 0.60 Estim Creat Clear Calc 100.09 Est GFR (MDRD) Af Amer 139 Est GFR (MDRD) Non-Af 115 BUN/Creatinine Ratio 21.8 H Glucose 85 Lactic Acid 0.8 Calcium 8.8 Total Bilirubin 0.50 AST 12 L ALT 19 Alkaline Phosphatase 70 Total Protein 6.5 Albumin 3.0 L Globulin 3.5 Albumin/Globulin Ratio 0.9 Blood work is unremarkable. White count is slightly low. There is no lymphocytosis. Patient has passed p.o. challenge. She does feel better after IV fluids. She was discharged with prescription for Bentyl, Zofran and Imodium. She was told she needs to self quarantine. - Medical Decision Making She has viral-like symptoms. In light of her constellation of symptoms with change in taste concern patient may have COVID. Appropriate blood work was ordered, chest x-ray, screen for COVID. Clinically she appears dehydrated. She will receive a 500 cc bolus of normal saline. With regards to the lesion abscess the examination of her ear and preauricular area and scalp reveals no erythema, warmth, fluctuance, wound etc. ED Disposition - Plan for ED Patient: Disposition: Home or Assisted Living Diagnosis: Suspected 2019 novel coronavirus infection, Abdominal pain, vomiting, and diarrhea, Mild dehydration Instructions: ED Vomiting and Diarrhea Nonspecific Adult, ED Dehydration Adult Prescriptions: Dicyclomine HCl [Bentyl] 20 mg PO TIDAC #20 cap Prescription Printed Loperamide [Imodium] 2 mg PO Q4H PRN PRN #10 cap PRN Reason: Watery stool Prescription Printed Ondansetron [Zofran Odt] 4 mg PO Q8H PRN PRN #10 tab PRN Reason: Nausea Prescription Printed Referrals: Misael Frank III, MD [Primary Care Provider] - As Needed
[2019-12-17 15:03] VITALS: BP 101/63; PULSE 78; RESP 20; TEMP 37.2; O2SAT 99
[2019-12-17 15:11] LABS: Absolute Lymphocyte Count 1.53 X10^3/uL (0.83-4.51); Absolute Neutrophil Count 2.1 X10^3/uL (2.0-7.7); Basophil# 0.03 X10^3/uL; Basophil% 0.7 % (0-1); Eosinophil# 0.12 X10^3/uL; Eosinophils% 2.7 % (0-5); Hematocrit 36.9 % (37-47); Hemoglobin 12.5 g/dL (12.0-15.0); Lymphocyte # 1.53 X10^3/ul (4.0); Lymphocyte % 34.2 % (19-41); Mean Corp Hgb Conc 33.9 g/dL (32-36); Mean Corpuscular Hgb 31.6 pg (27.0-32.0); Mean Corpuscular Volume 93.4 fL (81-99); Mean Platelet Vol. 9.7 fl (6.2-12.0); Monocyte# 0.64 X10^3/uL; Monocyte% 14.3 % (0-10); NRBC Flagged by Analyzer 0 % (0-5); Neutrophil # 2.14 X10^3/uL (2.7-7.7); Neutrophil % 47.7 % (47-70); Platelet Count 237 K/mm3 (150-450); RBC Distribution Width SD 41.5 fl (35.1-43.9); Red Blood Count 3.95 M/mm3 (4.2-5.4); White Blood Count 4.5 K/mm3 (4.4-11.0)
--- NOTE | 2019-12-17 15:13 | RAD_ITS ---
STUDY: X-RAY CHEST REASON FOR EXAM: Female, 49 years old. N/V/D, FEVERS, FATIGUE. ABSCESS BEHIND EAR TECHNIQUE: Single AP portable view of the chest. COMPARISON: Comparison is made with prior study dated 05/22/2019. FINDINGS: EKG electrodes are seen. The lungs are clear and expanded. There is no demonstrated pleural abnormality. Normal size heart. Normal mediastinum and landy. Normal visualized pulmonary arteries. Normal visualized aortic arch and descending thoracic aorta. Normal visualized thoracic spine. Normal visualized ribs, clavicles, and shoulders. There is no demonstrated abnormality of the visualized soft tissue structures of the upper abdomen. RAD/Chest 1 View (Portable) IMPRESSION: Normal x-ray examination of the chest. Electronically Signed: Carlton Armas, at 15:31 EDT , Service support ,
[2019-12-17 15:22] LABS: Lactic Acid 0.8 mmol/L (0.4-1.9)
[2019-12-17 15:30] LABS: ALB/GLOB Ratio 0.9 RATIO (0.9-2.4); AST(SGOT) 12 U/L (15-37); Alanine Aminotransfer ALT/SGPT 19 U/L (13-56); Alkaline Phosphatase 70 U/L (45-117); Anion Gap 5 (5-15); BUN 13 mg/dL (7-18); BUN/Creat Ratio 21.8 RATIO (10-20); Calcium,Total 8.8 mg/dL (8.5-10.1); Chloride 103 mmol/L (98-107); EST Glomerular Filtration Rate 115 mL/min (>60); Est Glom Filt Rate - Afr Amer 139 mL/min (>60); Estimated Creatinine Clearance 100.09 ml/min; Globulin 3.5 g/dL (2.2-4.2); Glucose 85 mg/dL (74-106); Potassium 3.1 mmol/L (3.5-5.1); Protein, Total 6.5 g/dL (6.4-8.2); Sodium Level 137 mmol/L (136-145)
[2019-12-17 16:46] VITALS: BP 121/78; PULSE 77; RESP 23; O2SAT 98
[2019-12-17 17:10] VITALS: BP 126/82; PULSE 84; RESP 17; TEMP 36.7; O2SAT 98
== END 2019-12-17 17:13 | disposition home or self-care (01) ==
PROVIDERS: Emergency Provider Emergency Medicine; PCP Family Medicine
DX: R10.9 Unspecified abdominal pain (principal); R11.10 Vomiting, unspecified; R19.7 Diarrhea, unspecified; R05 Cough; R09.81 Nasal congestion; J34.89 Other specified disorders of nose and nasal sinuses; J02.9 Acute pharyngitis, unspecified; R06.00 Dyspnea, unspecified; E86.0 Dehydration; Z20.828 Contact with and (suspected) exposure to other viral communicable diseases; E66.9 Obesity, unspecified; K21.9 Gastro-esophageal reflux disease without esophagitis; K58.9 Irritable bowel syndrome, unspecified; K90.0 Celiac disease; M99.01 Segmental and somatic dysfunction of cervical region; M99.02 Segmental and somatic dysfunction of thoracic region; M99.03 Segmental and somatic dysfunction of lumbar region; M50.30 Other cervical disc degeneration, unspecified cervical region; Z98.84 Bariatric surgery status; Z79.899 Other long term (current) drug therapy
CPT/HCPCS: 36415; 71045; 80053; 83605; 85025; 87040; 87633; 87635; 96360; 99281; U0003

== ENCOUNTER → 2020-03-13 | Outpatient (CLI) | payer MEDICAID, SELFPAY | END | disposition home or self-care (01) | PROVIDERS: PCP Family Medicine; Referring Provider Physician Assistant Surgical; Visit Provider Physician Assistant Surgical | DX: U07.1 COVID-19 (principal) | CPT/HCPCS: 87635; U0005; U0003 ==

== ENCOUNTER 2020-03-18 20:43 | Emergency (ER) | payer MEDICAID, SELFPAY ==
[2020-03-18 20:44] VITALS: BP 117/40; PULSE 72; RESP 16; TEMP 36.4; O2SAT 97; BMI 37.8
--- NOTE | 2020-03-18 21:55 | RAD_ITS ---
STUDY: X-RAY CHEST REASON FOR EXAM: Female, 49 years old. COVID POSITIVE, INCREASED SOB TECHNIQUE: 1 view COMPARISON: Prior chest radiograph of 12/17/2019 and 05/22/2019 FINDINGS: The lungs are clear and expanded. There is no demonstrated pleural abnormality. Normal size heart. Normal mediastinum and landy. Normal visualized pulmonary arteries. Normal visualized aortic arch and descending thoracic aorta. Normal visualized thoracic spine. Normal visualized ribs, clavicles, and shoulders. There is no demonstrated abnormality of the visualized soft tissue structures of the upper abdomen. RAD/Chest 1 View (Portable) IMPRESSION: Normal x-ray examination of the chest. Electronically Signed: Geni Simms MD at 22:07 EST , Service support ,
[2020-03-18 22:12] VITALS: O2SAT 97
--- NOTE | 2020-03-18 22:42 | ED.VIS.URI ---
History of Present Illness Chief Complaint: Shortness of Breath Informant: Patient Onset: Weeks - 1 Context: Gradual Onset Timing: Intermittent Quality: Difficult to take a deep breath Location: Chest Current Severity: Mild Maximum Severity: Mild Worsened by: - - Exertion Relieved by: - - Rest Associated Symptoms: Diarrhea, Shortness of Breath, Chest Pain, Nonproductive cough Narrative: Patient has been having Covid symptoms for about 2 weeks along with her daughter, who is also here to be seen for similar complaints of intermittent dyspnea. They had positive Covid tests a little more than 1 week ago. Both of them have had myalgias, cough, fevers, malaise, mild intermittent shortness of breath and chest tightness. Staying hydrated. Patient's daughter has asthma but she does not. - Past Medical History (1) Celiac disease Status: Chronic (2) Degenerative disc disease, cervical Status: Chronic (3) GERD Status: Chronic (4) IBS (irritable bowel syndrome) Status: Chronic Past Medical History - Allergies and Home Meds Allergies/Adverse Reactions: Allergies aspirin Allergy (Verified 03/18/20 20:46) Rash hydrocodone [From Vicodin] Allergy (Verified 03/18/20 20:46) Hives ibuprofen Allergy (Verified 03/18/20 20:46) Anaphylaxis venom-honey bee [bee venom (honey bee)] Allergy (Verified 03/18/20 20:46) Anaphylaxis gluten Adverse Reaction (Verified 03/18/20 20:46) Upset Stomach Primary Care Physician: Misael Frank III, MD [Primary Care Provider] - Surgical History: - Lives: With Family Smoking Status: Never smoker - Family History Paternal Family History: Family History (Last Reviewed 02/18/20 @ 09:43 by Jada Muller) Other Arthritis COPD (chronic obstructive pulmonary disease) Cancer Diabetes Osteoporosis Parkinson disease Family History: Reports: Heart Disease Review of Systems General: Reports: Chills, Fever, Malaise. Denies: Sweats Eyes: Denies: Visual changes - bilaterally, Diplopia ENT: Reports: Rhinorrhea. Denies: Bilateral ear pain, Sore throat Cardiovascular: Reports: Chest pain. Denies: Palpitations Respiratory: Reports: Dyspnea, Cough, Dyspnea on exertion. Denies: Sputum Gastrointestinal: Denies: Abdominal pain, Nausea, Vomiting, Diarrhea, Melena, Hematochezia Genitourinary: Denies: Dysuria, Hematuria, Frequency Musculoskeletal: Reports: Myalgias. Denies: Back pain, Swelling, Extremity Pain Skin: Denies: Rash, Wounds Neurological: Denies: Headache, Weakness, Numbness Physical Exam Vital Signs/Narrative: Vital Signs Temp Pulse Resp BP Pulse Ox 03/18/20 20:44 97.6 F L 72 16 117/40 L 97 Inital Vital Signs reviewed: Yes General: Well nourished, Well developed, - - Very well-appearing, no distress, conversive in full sentences, smiling throughout the HPI Head: Normocephalic, Atraumatic Eyes: Perrl, EOMI Nose: Normal Inspection. Negative for: Congestion Neck: Supple, Nontender, No Lymphadenopathy Cardiovascular: Regular rate, Regular rhythm, No murmurs. Negative for: Tachycardia Respiratory: No distress, CTA bilaterally, Chest nontender Abdomen: Soft, Nontender, Nondistended, Normal bowel sounds Back: Nontender, Normal Inspection Extremities: Nontender, No edema. Negative for: Calf Tenderness Skin: Normal color, No rash, No Trauma Neurological: Alert, Oriented x3, Cranial nerves II-XII grossly intact, Normal Strength, Normal Sensation, Normal Gait Psychological: Normal affect, Normal Mood Diagnostic/Tx/Re-eval Clinical Impression(s) from Imaging Studies Chest X-Ray 03/18/20 21:55 IMPRESSION: Normal x-ray examination of the chest. Electronically Signed: Geni Simms MD at 22:07 EST , Service support , - Medical Decision Making Patient was given 3 puffs from an albuterol inhaler, it did seem to help a little. I do not think she needs steroids, she does not require oxygen even with ambulating, she did not become hypoxic. She is very well-appearing as is her daughter. I recommend supportive care and trying to get a pulse oximeter to watch their oxygen levels at home, and we discussed reasons to return. We also discussed how to use the MDI at home. She is comfortable this overall plan. Supportive care advised. ED Disposition - Plan for ED Patient: Disposition: Home or Assisted Living Diagnosis: COVID-19 Instructions: Coronavirus Disease 2019 (COVID-19): Caring for Yourself or Others Referrals: Misael Frank III, MD [Primary Care Provider] - As Needed Additional Instructions: You may use your albuterol inhaler 2 puffs up to every 4 hours as needed for any trouble breathing. If you are getting significantly worse, return to the ER. If you are able to get a pulse oximeter to use at home and check your pulse ox, make sure you are staying at or above 90% the majority of time.
== END 2020-03-18 22:52 | disposition home or self-care (01) ==
PROVIDERS: Emergency Provider Emergency Medicine; PCP Family Medicine
DX: U07.1 COVID-19 (principal); K21.9 Gastro-esophageal reflux disease without esophagitis; K58.9 Irritable bowel syndrome, unspecified; K90.0 Celiac disease
CPT/HCPCS: 71045; 99282

== ENCOUNTER 2020-11-06 19:08 | Emergency (ER) | payer MEDICAID, SELFPAY ==
[2020-11-06 19:09] VITALS: BP 133/75; PULSE 83; RESP 22; TEMP 36.6; O2SAT 100; BMI 38.6
--- NOTE | 2020-11-06 19:20 | EDS_ITS ---
HPI History of Present Illness Chief Complaint: Allergic Reaction Detail of Chief Complaint: Systemic allergic reaction to hymenoptera envenomation Informant: patient Onset/Context/Timing Onset: Hours Context: Sudden Onset Timing: Continuous Quality: Swelling, hives and shortness of breath Location: Generalized Current Severity: Mild Maximum Severity: Severe Worsened by: Hymenoptera envenomation Relieved by: EpiPen Associated Symptoms Associated Symptoms: Raised red areas site of envenomation Narrative Prior similar symptoms: Yes Recent Illness/Hospitalization: No PFSH PFS Medical History (Updated 11/06/20 @ 21:[address] Elgin Huerta MD) Anemia Arthritis Back pain Bipolar 1 disorder Celiac disease Hemorrhoids HTN (hypertension) Incontinence Knee pain Liver disease Migraines Shoulder pain Vertigo Home Medications duloxetine 20 mg PO DAILY 12/30/12 [History Last Taken 05/11/18] oxybutynin chloride 5 mg PO QHS 02/01/13 [History Last Taken 05/11/18] ferrous sulfate 325 mg PO DAILY@0800 07/27/16 [History Last Taken 05/11/18] hydroxyzine pamoate 25 mg PO TID PRN PRN #10 cap 07/27/16 [Rx Last Taken 05/11/18] cholecalciferol (vitamin D3) 25 mcg (1,000 unit) capsule 1,000 unit PO DAILY 02/17/17 [History Last Taken 05/11/18] cyanocobalamin (vitamin B-12) 1,000 mcg/mL oral drops 1,000 mcg PO QDAY 02/17/17 [History Last Taken 05/11/18] multivitamin 1 tab PO QAM 02/17/17 [History Last Taken 05/11/18] naproxen sodium 220 mg capsule 220 mg PO Q12H PRN 02/17/17 [History Last Taken 05/11/18] lamotrigine 25 mg PO DAILY 07/06/17 [History Last Taken 05/11/18] ondansetron 4 mg PO Q8H PRN PRN #10 tab 05/12/18 [Rx Last Taken Unknown] cetirizine 10 mg PO DAILY 07/26/18 [History Last Taken Unknown] meclizine 25 mg PO 4X/DAY PRN PRN #20 tab 07/26/18 [Rx Last Taken Unknown] omeprazole 20 mg PO DAILY 10/21/19 [History Last Taken Unknown] pramipexole [Mirapex] 0.25 mg PO QHS 10/21/19 [History Last Taken Unknown] sumatriptan succinate 50 mg PO .X1 PRN 10/21/19 [History Last Taken Unknown] loperamide 2 mg PO Q4H PRN PRN #10 cap 12/17/19 [Rx Last Taken Unknown] melatonin-pyridoxine HCl (B6) 1 ea PO PRN PRN 03/18/20 [History Last Taken Unknown] epinephrine [EpiPen] 0.3 mg IM .once PRN #1 ea 11/06/20 [Rx Last Taken Unknown] gabapentin 100 mg TID 11/06/20 [History Last Taken Unknown] Allergy/AdvReac Type Severity Reaction Status Date / Time aspirin Allergy Rash Verified 11/06/20 19:12 hydrocodone [From Vicodin] Allergy Hives Verified 11/06/20 19:12 ibuprofen Allergy Anaphylaxis Verified 11/06/20 19:12 venom-honey bee Allergy Anaphylaxis Verified 11/06/20 19:12 [bee venom (honey bee)] gluten AdvReac Upset Verified 11/06/20 19:12 Stomach Family History Other Arthritis COPD (chronic obstructive pulmonary disease) Cancer Diabetes Osteoporosis Parkinson disease Surgical History History of carpal tunnel surgery History of sinus surgery History of tonsillectomy and adenoidectomy Personal history of gastric bypass Social History (Updated 11/06/20 @ 19:[address] Elgin Huerta MD) household members: none Smoking Status: Never smoker alcohol intake: never substance use type: does not use ROS ROS ED Constitutional Constitutional ED: Denies chills, fever(s), subjective or sweats ENT ENT ED: Denies ear pain, rhinorrhea or sore throat Cardiovascular Cardiovascular: Reports palpitations; Denies chest pain or racing heartbeat Respiratory/Chest Respiratory/Chest: Reports dyspnea; Denies cough, dyspnea on exertion or sputum Gastrointestinal Gastrointestinal: Denies abdominal pain, nausea or vomiting Musculoskeletal Musculoskeletal: Denies arthralgias, back pain, myalgias or neck pain Integumentary Reports rash Neurologic Neurologic: Denies paresthesias or weakness Allergic/Immunologic Allergic/Immunologic ED: Reports mouth swelling and urticaria EXAM Physical Exam Const Vital Signs: 11/06/20 19:09 11/06/20 20:17 11/06/20 21:35 Temperature 98 F Temperature Source Temporal Pulse Rate 83 75 74 Respiratory Rate 22 H 21 H 17 Blood Pressure 133/75 H 109/73 104/70 Blood Pressure Mean 94 85 81 Pulse Ox 100 99 98 Oxygen Delivery Method Room Air Room Air Room Air Positive well nourished, well developed and obese General Appearance ED: well developed Nutritional Appearance: obese HEENT Reports TM's clear and moist mucous membranes HEENT Narrative: The is no angioedema. Head is atraumatic normocephalic. Ears normal. Nares normal. Tympanic Membrane ED: Yes TM's clear Eyes PERRL and EOMs intact bilaterally General Eye ED: Negative for pale conjunctiva or scleral icterus Neck no lymphadenopathy, supple and no JVD Neck Narrative: Trachea is midline. There is no inspiratory expiratory stridor. Resp normal respiratory effort and clear to auscultation bilaterally Cardio regular rate, regular rhythm, S1 normal heart sound, S2 normal heart sound and no murmurs GI normal to inspection, nondistended, normoactive bowel sounds, non-tender and non-distended Palpation: soft Back/Spine no CVA tenderness Cervical Spine: Negative for cervical spine tenderness Thoracic Spine / Upper Back: Negative for thoracic spinal tenderness or paraspinal muscle tenderness Extremity normal to inspection General Extremety ED: Negative for edema or tenderness General Extremity: Negative for edema Neuro oriented x3 and CN's II-XII intact bilaterally Sensorium / Orientation: alert Psych mental status grossly normal Skin Skin Narrative: Slight raised erythematous areas at site of envenomation which are several. MDM MDM MDM Narrative Medical decision making narrative: Patient administered epinephrine prior to arrival. Her symptoms are essentially resolved. She was treated with H1 and H2 oh and will observe. She was discharged with EpiPen. Patient was reassessed at 2026. There was a small red area noted on her left upper abdominal wall. The other lesions had resolved. 1 patient was reassessed at 2129 all of her lesions resolved and she has no symptoms. Plan is discharged home with EpiPen. Critical Care Time Critical Care Time: Yes Critical care time (excluding procedures): 30-74 minutes (21 minutes), Including time spent: (History, physical, documentation, treatment for generalized allergic reaction) and Discussing w/Patient &/or Family/Pharmaceutical Engineer Discharge Plan Triage Chief Complaint: Allergic Reaction ED Provider: Elgin Huerta Dx/Rx/DC Orders Clinical Impression: Anaphylactic reaction Instructions: ED Anaphylaxis Prescriptions: New epinephrine [EpiPen] 0.3 mg/0.3 mL auto-injector 0.3 mg IM .once PRN (Reason: anaphylaxis) Qty: 1 RF: 0 No Action cyanocobalamin (vitamin B-12) [Vitamin B-12] 1,000 mcg/mL drops 1,000 mcg PO QDAY RF: 0 cholecalciferol (vitamin D3) 1,000 unit capsule 1,000 unit PO DAILY RF: 0 naproxen sodium [Aleve] 220 mg capsule 220 mg PO Q12H PRN (Reason: Pain Or Fever) RF: 0 multivitamin tablet 1 tab PO QAM RF: 0 duloxetine 20 MG capsule 20 mg PO DAILY RF: 0 oxybutynin chloride 5 MG tablet 5 mg PO QHS RF: 0 ferrous sulfate 325 MG tablet 325 mg PO DAILY@0800 RF: 0 hydroxyzine pamoate 25 MG capsule 25 mg PO TID PRN PRN (Reason: Anxiety) Qty: 10 RF: 0 lamotrigine 25 MG tablet 25 mg PO DAILY RF: 0 ondansetron 4 MG tablet 4 mg PO Q8H PRN PRN (Reason: Nausea) Qty: 10 RF: 0 meclizine 25 MG tablet 25 mg PO 4X/DAY PRN PRN (Reason: Dizziness) Qty: 20 RF: 0 cetirizine 10 MG tablet 10 mg PO DAILY RF: 0 pramipexole [Mirapex] 0.25 MG tablet 0.25 mg PO QHS RF: 0 sumatriptan succinate 50 MG tablet 50 mg PO .X1 PRN RF: 0 omeprazole 20 MG capsule 20 mg PO DAILY RF: 0 loperamide 2 MG capsule 2 mg PO Q4H PRN PRN (Reason: Watery stool) Qty: 10 RF: 0 melatonin-pyridoxine HCl (B6) 1 EACH tablet 1 ea PO PRN PRN (Reason: Sleep) RF: 0 gabapentin 100 mg capsule 100 mg TID RF: 0 Primary Care Provider: Care Physician,No Primary Referrals: Care Physician,No Primary [Primary Care Provider] - Doctor,Your [STAFF PHYSICIAN] - Disposition Disposition: Home, Self Care
[2020-11-06] MEDS: MethylPREDNISolone 125 MG/2 ML Vial IV (19:37)
[2020-11-06] MEDS: DiphenhydrAMINE 25 MG Capsule 50 MG PO (19:37)
[2020-11-06] MEDS: Famotidine 200 MG/20 ML MDV 20 MG in 0.9% Normal Saline (Pres. free 8 ML 300 MG IV (19:53)
[2020-11-06 20:17] VITALS: BP 109/73; PULSE 75; RESP 21; O2SAT 99
[2020-11-06 21:35] VITALS: BP 104/70; PULSE 74; RESP 17; O2SAT 98
[2020-11-06 21:50] VITALS: PULSE 76; RESP 18; O2SAT 97
== END 2020-11-06 21:51 | disposition home or self-care (01) ==
PROVIDERS: Emergency Provider Emergency Medicine
DX: T78.2XXA Anaphylactic shock, unspecified, initial encounter (principal); E66.9 Obesity, unspecified; Z68.38 Body mass index [BMI] 38.0-38.9, adult; I10 Essential (primary) hypertension; K90.0 Celiac disease; F31.9 Bipolar disorder, unspecified; M19.90 Unspecified osteoarthritis, unspecified site; D64.9 Anemia, unspecified; G43.909 Migraine, unspecified, not intractable, without status migrainosus; Z79.899 Other long term (current) drug therapy
CPT/HCPCS: 96374; 96375; 99283; A4216; J3490

== ENCOUNTER 2021-05-10 18:50 | Emergency (ER) | payer MEDICAID, SELFPAY ==
[2021-05-10 18:51] VITALS: BP 149/114; PULSE 108; RESP 16; TEMP 37.2; O2SAT 97; BMI 41.1
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
[2021-05-10 19:54] LABS: Absolute Lymphocyte Count 2.38 X10^3/uL (0.83-4.51); Absolute Neutrophil Count 4.1 X10^3/uL (2.0-7.7); Basophil# 0.04 X10^3/uL; Basophil% 0.6 % (0-1); Eosinophil# 0.17 X10^3/uL; Eosinophils% 2.4 % (0-5); Hematocrit 38.7 % (37-47); Hemoglobin 13.6 g/dL (12.0-15.0); Lymphocyte # 2.38 X10^3/ul (0.83-4.51); Lymphocyte % 33.2 % (19-41); Mean Corp Hgb Conc 35.1 g/dL (32-36); Mean Corpuscular Hgb 32.5 pg (27.0-32.0); Mean Corpuscular Volume 92.6 fL (81-99); Mean Platelet Vol. 9.4 fl (6.2-12.0); Monocyte# 0.48 X10^3/uL; Monocyte% 6.7 % (0-10); NRBC Flagged by Analyzer 0 % (0-5); Neutrophil # 4.09 X10^3/uL (2.7-7.7); Platelet Count 246 K/mm3 (150-450); RBC Distribution Width CV 11.9 % (11.6-14.6); RBC Distribution Width SD 40.2 fl (35.1-43.9); Red Blood Count 4.18 M/mm3 (4.2-5.4); White Blood Count 7.2 K/mm3 (4.4-11.0)
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
[2021-05-10 20:31] LABS: Alcohol, Blood (Medical)-Serum < 3.0 mg/dL
[2021-05-10 20:33] LABS: Anion Gap 1 (5-15); BUN 14 mg/dL (7-18); BUN/Creat Ratio 16.1 RATIO (10-20); Calcium,Total 9.1 mg/dL (8.5-10.1); Chloride 112 mmol/L (98-107); Creatinine, Serum 0.87 mg/dL (0.55-1.02); EST Glomerular Filtration Rate 74 mL/min (>60); Est Glom Filt Rate - Afr Amer 89 mL/min (>60); Estimated Creatinine Clearance 68.29 ml/min; Glucose 69 mg/dL (74-106); Internal QC Validated? YES +Cl - CLEAR BKGD; Potassium 3.7 mmol/L (3.5-5.1); Pregnancy, Serum, hCG Quali. NEGATIVE Negative; Sodium Level 143 mmol/L (136-145)
[2021-05-10 21:05] LABS: Amphetamine Urine VISTA NEGATIVE (<1000 ng/mL); Barbiturate Urine VISTA NEGATIVE (< 200 ng/mL); Benzodiazepine Urine VISTA NEGATIVE (< 200 ng/mL); Cocaine Urine VISTA NEGATIVE (< 300 ng/mL); Ecstacy Urine VISTA NEGATIVE (< 500 ng/mL); Methadone Urine VISTA NEGATIVE (< 300 ng/mL); PCP Urine VISTA NEGATIVE (< 25 ng/mL); THC Urine VISTA NEGATIVE (< 50 ng/mL); Vista UDS pH Range 4
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
[2021-05-10] MEDS: Acetaminophen 325 MG Tablet 650 MG PO (22:41)
[2021-05-10 22:44] VITALS: BP 125/74; PULSE 78; RESP 16; O2SAT 96
[2021-05-11 00:20] VITALS: BP 125/74; PULSE 78; RESP 16; O2SAT 96
== END 2021-05-11 00:20 ==
PROVIDERS: Emergency Provider Emergency Medicine; PCP Family Medicine; Visit Provider Emergency Medicine
DX: F31.9 Bipolar disorder, unspecified (principal); R45.851 Suicidal ideations; I10 Essential (primary) hypertension; F41.9 Anxiety disorder, unspecified; Z20.822 Contact with and (suspected) exposure to COVID-19; K90.0 Celiac disease; Z79.899 Other long term (current) drug therapy; D64.9 Anemia, unspecified; G43.909 Migraine, unspecified, not intractable, without status migrainosus; Z98.84 Bariatric surgery status
CPT/HCPCS: 80048; 80307; 82077; 84703; 85025; 87426; 99285

== ENCOUNTER → 2021-06-25 | Outpatient (CLI) | payer MEDICAID, SELFPAY ==
[2021-06-25 11:58] LABS: Lipase 89 U/L (73-393)
== END | disposition home or self-care (01) ==
LOC: LABSPEC 11:34
PROVIDERS: PCP Family Medicine; Visit Provider Family Medicine
DX: R10.11 Right upper quadrant pain (principal)
CPT/HCPCS: 83690

== ENCOUNTER 2021-12-10 11:55 | Emergency (ER) | payer MEDICAID, SELFPAY ==
[2021-12-10] VITALS (8 sets, daily range): BP systolic 113–177; BP diastolic 71–93; PULSE 81–97; RESP 14–18; TEMP 36–36.8; O2SAT 94–99; BMI 45.4
--- NOTE | 2021-12-10 13:08 | EDS_ITS ---
HPI HPI - Psych History of Present Illness Chief Complaint: Suicidal Informant: patient Narrative Narrative: Patient is a 51 year old female with history of bipolar disorder and prior suicide attempt with cutting presenting with SI. Patient states she saw her psychiatrist a few days ago for her worsening suicidality. Her Lamictal was increased. Patient psychiatrist is Jenelle Erickson through [facility]. She notes that she was triggered by her daughter who lives with her father speaking with the patient's daughter that lives with her and blaming the patient for everything bad/talking bad about the patient. She notes in April her daughter and the daughter's father were evicted from their prior living place and she has not been in much contact with them. She was hospitalized back in May for homicidal ideations towards her ex. In January 2021 she was hospitalized for suicidal ideations. Patient feels that she is having increased mood swings and feels that she would go home she would kill herself. 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 No physical complaints at this time. [facility] Medical History Anemia Arthritis Back pain Bipolar 1 disorder Celiac disease COVID-19 Hemorrhoids HTN (hypertension) Incontinence Knee pain Liver disease Migraines Shoulder pain Vertigo Home Medications duloxetine 20 mg capsule,delayed release 20 mg PO DAILY depression 12/30/12 [History Last Taken 05/11/18] oxybutynin chloride 5 mg tablet 5 mg PO QHS bladder 02/01/13 [History Last Taken 05/11/18] ferrous sulfate 325 mg (65 mg iron) tablet 325 mg PO DAILY@0800 supplement 07/27/16 [History Last Taken 05/11/18] hydroxyzine pamoate 25 mg capsule 25 mg PO TID PRN PRN Anxiety #10 caps 07/27/16 [Rx Last Taken 05/11/18] cholecalciferol (vitamin D3) 25 mcg (1,000 unit) capsule 50,000 unit PO X1 supplement 02/17/17 [History Last Taken 05/11/18] cyanocobalamin (vitamin B-12) 1,000 mcg/mL oral drops (Vitamin B-12) 1,000 mcg PO QDAY supplement 02/17/17 [History Last Taken 05/11/18] multivitamin 1 tab PO QAM vitamin 02/17/17 [History Last Taken 05/11/18] naproxen sodium 220 mg capsule (Aleve) 220 mg PO Q12H PRN Pain Or Fever 02/17/17 [History Last Taken 05/11/18] lamotrigine 25 mg tablet 50 mg PO DAILY mood 07/06/17 [History Last Taken 05/11/18] ondansetron 4 mg disintegrating tablet 4 mg PO Q8H PRN PRN Nausea #10 tabs 05/12/18 [Rx Last Taken Unknown] cetirizine 10 mg tablet 10 mg PO DAILY allergies 07/26/18 [History Last Taken Unknown] meclizine 25 mg tablet 25 mg PO 4X/DAY PRN PRN Dizziness #20 tabs 07/26/18 [Rx Last Taken Unknown] omeprazole 20 mg capsule,delayed release 20 mg PO DAILY 10/21/19 [History Last Taken Unknown] pramipexole 0.25 mg tablet (Mirapex) 0.25 mg PO QHS RLS 10/21/19 [History Last Taken Unknown] sumatriptan succinate 50 mg tablet 50 mg PO .X1 PRN migraines 10/21/19 [History Last Taken Unknown] loperamide 2 mg capsule 2 mg PO Q4H PRN PRN Watery stool #10 caps 12/17/19 [Rx Last Taken Unknown] melatonin-pyridoxine HCl (vitamin B6) 3 mg-10 mg tablet 1 ea PO PRN PRN Sleep 03/18/20 [History Last Taken Unknown] epinephrine 0.3 mg/0.3 mL injection, auto-injector (EpiPen) 0.3 mg (0.3 mL) IM .once PRN anaphylaxis #1 ea 11/06/20 [Rx Last Taken Unknown] gabapentin 100 mg capsule 100 mg TID 11/06/20 [History Last Taken Unknown] topiramate 25 mg tablet 25 mg PO DAILY PRN Migraine Headache 11/02/21 [History Last Taken Unknown] Allergy/AdvReac Type Severity Reaction Status Date / Time aspirin Allergy Rash Verified 12/10/21 11:55 hydrocodone [From Vicodin] Allergy Hives Verified 12/10/21 11:55 ibuprofen Allergy Anaphylaxis Verified 12/10/21 11:55 venom-honey bee Allergy Anaphylaxis Verified 12/10/21 11:55 [bee venom (honey bee)] gluten AdvReac Upset Verified 12/10/21 11:55 Stomach Family History Other Arthritis COPD (chronic obstructive pulmonary disease) Cancer Diabetes Osteoporosis Parkinson disease Surgical History History of carpal tunnel surgery History of sinus surgery History of tonsillectomy and adenoidectomy Personal history of gastric bypass Social History household members: none Smoking Status: Never smoker alcohol intake: never substance use type: does not use ROS ROS ED Constitutional Constitutional ED: Denies chills or fever(s) Eyes Eyes: Denies change in vision ENT ENT ED: Denies sore throat Cardiovascular Cardiovascular: Denies chest pain Respiratory/Chest Respiratory/Chest: Denies cough Gastrointestinal Gastrointestinal: Denies abdominal pain or nausea Genitourinary Genitourinary ED: Denies dysuria or urinary frequency Musculoskeletal Musculoskeletal: Denies arthralgias or myalgias Integumentary Denies rash Neurologic Neurologic: Denies headache(s) or weakness Psychiatric Psychiatric: Reports depression, suicidal ideation and suicidal thoughts Hematologic/Lymphatic Hematologic/Lymphatic: Denies easy bleeding or easy bruising EXAM Physical Exam Const Vital Signs: 12/10/21 11:56 12/10/21 14:30 Temperature 97.6 F L Temperature Source Temporal Pulse Rate 82 Respiratory Rate 18 16 Blood Pressure 177/93 H Blood Pressure Mean 121 Pulse Ox 99 Oxygen Delivery Method Room Air Positive well nourished and well developed General Appearance ED: well developed and NAD HEENT Reports moist mucous membranes normocephalic and atraumatic Eyes PERRL and EOMs intact bilaterally Neck supple Resp normal respiratory effort and clear to auscultation bilaterally Cardio no murmurs Rate: regular rate Rhythm: regular rhythm GI non-tender and non-distended Extremity normal to inspection Neuro oriented x3 Motor Exam: Negative for general weakness Psych thought process normal and cooperative Appearance: grossly normal Attitude: calm Activity / Motor Behavior: appropriate eye contact Speech: normal speech Mood & Affect: euthymic mood Thought Content: suicidality, No homicidality, No delusion(s) and No hallucination(s) Attention / Concentration: attention grossly intact Memory / Cognition: memory grossly intact Insight: fair Judgement: poor Skin Lesions: no lesions Rashes: no rashes MDM MDM MDM Narrative Medical decision making narrative: Patient evaluate for suicidal ideations. She feels that she goes home she will kill her self. Patient is medically cleared. I do think she would benefit from inpatient psychiatric evaluation especially as her psych meds of already been increased and she is having worsening SI. Patient is accepted at [facility]. Remains stable and cooperative in the emergency room. Lab Data Labs: Laboratory Results - last 24 hr 12/10/21 12/10/21 12/10/21 13:25 13:25 13:25 WBC 6.8 RBC 4.35 Hgb 14.0 Hct 41.3 MCV 94.9 MCH 32.2 H MCHC 33.9 RDW Std Deviation 43.4 RDW Coeff of Rubi 12.5 Plt Count 231 MPV 9.3 Immature Gran % (Auto) 0.300 Neut % (Auto) 56.4 Lymph % (Auto) 34.8 [place] % (Auto) 5.6 Eos % (Auto) 2.2 Baso % (Auto) 0.7 Absolute Neuts (auto) 3.8 Absolute Lymphs (auto) 2.35 Nucleated RBC % 0 Sodium 141 Potassium 3.5 Chloride 109 H Carbon Dioxide 25.0 Anion Gap 7 BUN 13 Creatinine 0.78 Estim Creat Clear Calc 75.34 Est GFR (MDRD) Af Amer 101 Est GFR (MDRD) Non-Af 84 BUN/Creatinine Ratio 16.7 Glucose 93 Calcium 8.8 Total Bilirubin 0.30 AST 21 ALT 31 Alkaline Phosphatase 90 Total Protein 6.9 Albumin 3.5 Globulin 3.4 Albumin/Globulin Ratio 1.0 Serum , Qual Urine Opiates Screen Urine Methadone Screen Ur Barbiturates Screen Ur Phencyclidine Scrn Ur Amphetamines Screen MDMA (Ecstasy) Screen U Benzodiazepines Scrn Urine Cocaine Screen U Cannabinoids Screen Ur Drug Screen Comment Ethyl Alcohol < 3.0 12/10/21 12/10/21 13:25 14:00 WBC RBC Hgb Hct MCV MCH MCHC RDW Std Deviation RDW Coeff of Rubi Plt Count MPV Immature Gran % (Auto) Neut % (Auto) Lymph % (Auto) [place] % (Auto) Eos % (Auto) Baso % (Auto) Absolute Neuts (auto) Absolute Lymphs (auto) Nucleated RBC % Sodium Potassium Chloride Carbon Dioxide Anion Gap BUN Creatinine Estim Creat Clear Calc Est GFR (MDRD) Af Amer Est GFR (MDRD) Non-Af BUN/Creatinine Ratio Glucose Calcium Total Bilirubin AST ALT Alkaline Phosphatase Total Protein Albumin Globulin Albumin/Globulin Ratio Serum , Qual NEGATIVE Urine Opiates Screen NEGATIVE Urine Methadone Screen NEGATIVE Ur Barbiturates Screen NEGATIVE Ur Phencyclidine Scrn NEGATIVE Ur Amphetamines Screen NEGATIVE MDMA (Ecstasy) Screen NEGATIVE U Benzodiazepines Scrn NEGATIVE Urine Cocaine Screen NEGATIVE U Cannabinoids Screen NEGATIVE Ur Drug Screen Comment Ethyl Alcohol Rhythm Strip Rhythm Strip: Sinus Rhythm Rate: 66 Ectopy: None EKG Initial EKG: Attestation: I personally reviewed and interpreted this EKG as follows: Interpretation: Sinus Rhythm Comments: Normal sinus rhythm at a rate of 66 Right axis deviation Right bundle branch block Minimal voltage criteria for LVH Normal ST segments Discharge Plan Triage Chief Complaint: Suicidal Other Complaint: Allergic Reaction ED Provider: Jovanna Lamas Dx/Rx/DC Orders Clinical Impression: Depression with suicidal ideation, Bipolar disorder Prescriptions: No Action cyanocobalamin (vitamin B-12) [Vitamin B-12] 1,000 mcg/mL drops 1,000 mcg PO QDAY cholecalciferol (vitamin D3) 1,000 unit capsule 50,000 unit PO X1 Label Comments: 50,000 UNITS TWICE A WEEK naproxen sodium [Aleve] 220 mg capsule 220 mg PO Q12H PRN (Reason: Pain Or Fever) multivitamin tablet 1 tab PO QAM topiramate 25 mg tablet 25 mg PO DAILY PRN (Reason: Migraine Headache) duloxetine 20 MG capsule 20 mg PO DAILY Label Comments: depression oxybutynin chloride 5 MG tablet 5 mg PO QHS Label Comments: Urinary frequency ferrous sulfate 325 MG tablet 325 mg PO DAILY@0800 hydroxyzine pamoate 25 MG capsule 25 mg PO TID PRN PRN (Reason: Anxiety) Qty: 10 0RF lamotrigine 25 MG tablet 50 mg PO DAILY Label Comments: TAKE 1 TABLET BY MOUTH EVERY DAY ondansetron 4 MG tablet 4 mg PO Q8H PRN PRN (Reason: Nausea) Qty: 10 0RF meclizine 25 MG tablet 25 mg PO 4X/DAY PRN PRN (Reason: Dizziness) Qty: 20 0RF cetirizine 10 MG tablet 10 mg PO DAILY pramipexole [Mirapex] 0.25 MG tablet 0.25 mg PO QHS sumatriptan succinate 50 MG tablet 50 mg PO .X1 PRN omeprazole 20 MG capsule 20 mg PO DAILY loperamide 2 MG capsule 2 mg PO Q4H PRN PRN (Reason: Watery stool) Qty: 10 0RF melatonin-pyridoxine HCl (B6) 1 EACH tablet 1 ea PO PRN PRN (Reason: Sleep) gabapentin 100 mg capsule 100 mg TID Label Comments: TAKE 1 CAPSULE BY MOUTH THREE TIMES DAILY FOR 180 DAYS. epinephrine [EpiPen] 0.3 mg/0.3 mL auto-injector 0.3 mg IM .once PRN (Reason: anaphylaxis) Qty: 1 0RF Rx Instructions: for 2 doses Primary Care Provider: Alec Arndt Referrals: Alec Arndt MD [Primary Care Provider] - Disposition Disposition: Psychiatric Hospital or Unit Discharge Location: [facility]
[2021-12-10 13:38] LABS: Absolute Lymphocyte Count 2.35 X10^3/uL (0.83-4.51); Absolute Neutrophil Count 3.8 X10^3/uL (2.0-7.7); Basophil# 0.05 X10^3/uL; Basophil% 0.7 % (0-1); Eosinophil# 0.15 X10^3/uL; Eosinophils% 2.2 % (0-5); Hematocrit 41.3 % (37-47); Lymphocyte # 2.35 X10^3/ul (0.83-4.51); Lymphocyte % 34.8 % (19-41); Mean Corp Hgb Conc 33.9 g/dL (32-36); Mean Corpuscular Hgb 32.2 pg (27.0-32.0); Mean Corpuscular Volume 94.9 fL (81-99); Mean Platelet Vol. 9.3 fl (6.2-12.0); Monocyte# 0.38 X10^3/uL; Monocyte% 5.6 % (0-10); NRBC Flagged by Analyzer 0 % (0-5); Neutrophil # 3.81 X10^3/uL (2.7-7.7); Neutrophil % 56.4 % (47-70); Platelet Count 231 K/mm3 (150-450); RBC Distribution Width CV 12.5 % (11.6-14.6); RBC Distribution Width SD 43.4 fl (35.1-43.9); Red Blood Count 4.35 M/mm3 (4.2-5.4); White Blood Count 6.8 K/mm3 (4.4-11.0)
[2021-12-10 13:57] LABS: AST(SGOT) 21 U/L (15-37); Alanine Aminotransfer ALT/SGPT 31 U/L (13-56); Albumin, Serum 3.5 g/dL (3.2-5.0); Alkaline Phosphatase 90 U/L (45-117); Anion Gap 7 (5-15); BUN 13 mg/dL (7-18); BUN/Creat Ratio 16.7 RATIO (10-20); Calcium,Total 8.8 mg/dL (8.5-10.1); Chloride 109 mmol/L (98-107); Creatinine, Serum 0.78 mg/dL (0.55-1.02); EST Glomerular Filtration Rate 84 mL/min (>60); Est Glom Filt Rate - Afr Amer 101 mL/min (>60); Estimated Creatinine Clearance 75.34 ml/min; Globulin 3.4 g/dL (2.2-4.2); Glucose 93 mg/dL (74-106); Potassium 3.5 mmol/L (3.5-5.1); Protein, Total 6.9 g/dL (6.4-8.2); Sodium Level 141 mmol/L (136-145)
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
[2021-12-10 14:23] LABS: Alcohol, Blood (Medical)-Serum < 3.0 mg/dL; Internal QC Validated? YES +Cl - CLEAR BKGD; Pregnancy, Serum, hCG Quali. NEGATIVE Negative
[2021-12-10 14:27] LABS: Amphetamine Urine VISTA NEGATIVE (<1000 ng/mL); Barbiturate Urine VISTA NEGATIVE (< 200 ng/mL); Benzodiazepine Urine VISTA NEGATIVE (< 200 ng/mL); Cocaine Urine VISTA NEGATIVE (< 300 ng/mL); Ecstacy Urine VISTA NEGATIVE (< 500 ng/mL); Methadone Urine VISTA NEGATIVE (< 300 ng/mL); PCP Urine VISTA NEGATIVE (< 25 ng/mL); THC Urine VISTA NEGATIVE (< 50 ng/mL); Vista UDS pH Range 5
--- NOTE | 2021-12-10 14:40 | CM.ED ---
SIGIFREDO Note: SIGIFREDO sent referral packet to [facility] and [facility]. [facility]
--- NOTE | 2021-12-10 15:11 | ED.RN ---
Per SIGIFREDO Ace, pt [facility], ETA- 3hr.
--- NOTE | 2021-12-10 17:44 | CM.ED ---
Desiree from [facility] called. They will accept patient. SIGIFREDO updated [facility] that placement has been secured. Copy of pink slip [facility]. Accepting MD is Dr Padilla. Patient going to [address]. RN to RN [phone]. Adma called for transport and transport to be here at 6:15. SIGIFREDO updated patient that she is going to [facility]. Plan: [facility] Malk[facility]
--- NOTE | 2021-12-10 18:07 | NURSING ---
Report given to Kaylah at [facility].
--- NOTE | 2021-12-10 19:00 | ED.RN ---
CALL[facility], ETA WAS PUSHED BACK, WILL BE A FEW MORE HOURS, THEY WILL CALL US WHEN THEY ARE IN ROUTE.
--- NOTE | 2021-12-10 21:09 | ED.RN ---
[facility] THEY HAVE TO BUMP PATIENT AT THIS TIME DUE TO ANOTHER PATIENT BEING TRANSFERRED OUT. NEW ETA FOR TRANSFER 630 AM
[2021-12-11] VITALS (7 sets, daily range): BP systolic 122; BP diastolic 86; PULSE 89; RESP 14–18; O2SAT 100
== END 2021-12-11 06:35 ==
PROVIDERS: Emergency Provider Emergency Medicine; PCP Family Medicine; Visit Provider Emergency Medicine
DX: F31.9 Bipolar disorder, unspecified (principal); R45.851 Suicidal ideations; Z86.16 Personal history of COVID-19; Z79.899 Other long term (current) drug therapy
CPT/HCPCS: 80053; 80307; 82077; 84703; 85025; 87811; 93005; 99284; A4216

== ENCOUNTER → 2022-01-17 | Outpatient (CLI) | payer MEDICAID, SELFPAY ==
[2022-01-17 15:47] LABS: Mucous, Urine 0 SEEN /hpf (<or=2+); Red Blood Cells-Urine 0 SEEN /hpf (0-5)
[2022-01-17 16:49] LABS: Color, Urine Straw (Yellow); Glucose, Dipstick Normal (Normal); Ketone-Dipstick Negative (Negative); Leukocyte Esterase-Dipstick 100 /ul (Negative); Nitrite-Dipstick Negative (Negative); Occult Blood-Urine Negative /ul (Negative); Protein-Dipstick Negative (Negative); Urine Bilirubin Dipstick Negative (Negative); Urine Clarity Clear (Clear); Urine Urobilinogen Normal (Normal); Urine pH 6.5 (5.0 - 8.0)
[2022-01-17 17:29] LABS: Bacteria RARE /hpf (None Seen); Squamous Epithelial Cells - UA 0-5 SEEN /hpf (5-10); White Blood Cells 0-5 SEEN /hpf (0-5)
== END | disposition home or self-care (01) ==
LOC: LABSPEC 15:34
PROVIDERS: PCP Family Medicine; Visit Provider Physician Assistant Surgical
DX: R35.0 Frequency of micturition (principal)
CPT/HCPCS: 81001; 87086; 87088

== ENCOUNTER → 2022-03-02 | Outpatient (CLI) | payer MEDICAID, SELFPAY ==
[2022-03-02 15:16] LABS: Bacteria 0 SEEN /hpf (None Seen); Mucous, Urine 0 SEEN /hpf (<or=2+); Red Blood Cells-Urine 0 SEEN /hpf (0-5); Squamous Epithelial Cells - UA 0 SEEN /hpf (5-10); White Blood Cells 0 SEEN /hpf (0-5)
[2022-03-02 15:25] LABS: Color, Urine Straw (Yellow); Glucose, Dipstick Normal (Normal); Ketone-Dipstick Negative (Negative); Leukocyte Esterase-Dipstick Negative /ul (Negative); Nitrite-Dipstick Negative (Negative); Occult Blood-Urine Negative /ul (Negative); Protein-Dipstick Negative (Negative); Urine Bilirubin Dipstick Negative (Negative); Urine Clarity Clear (Clear); Urine Urobilinogen Normal (Normal)
== END | disposition home or self-care (01) ==
LOC: LABSPEC 15:09
PROVIDERS: PCP Family Medicine; Referring Provider Physician Assistant Surgical; Visit Provider Physician Assistant Surgical
DX: R35.0 Frequency of micturition (principal)
CPT/HCPCS: 81001; 87086; 87088

== ENCOUNTER 2022-03-29 15:44 | Emergency (ER) | payer MEDICAID, SELFPAY ==
[2022-03-29 15:45] VITALS: BP 157/80; PULSE 85; RESP 14; TEMP 36.2; O2SAT 99; BMI 46.0
--- NOTE | 2022-03-29 16:36 | EX.ED.DYSGE1 ---
HPI History of Present Illness Chief Complaint: Cold Sx Detail of Chief Complaint: Sinus infection Informant: patient Onset/Context/Timing Onset: Weeks (Onset of illness 1 month) Context: Sudden Onset Timing: Continuous Quality: Congestion and bilateral forehead pain Location: Forehead and face Current Severity: Mild Maximum Severity: Moderate Worsened by: Nothing specific Relieved by: Nothing Associated Symptoms Associated Symptoms: Initially upper respiratory infectious symptoms. Productive cough of color Narrative Narrative: Patient is a 51-year-old woman with history of sinusitis, irritable bowel syndrome, who presents with bifrontal head discomfort and by frontal facial discomfort for the past 2 weeks. Patient's illness started 1 week ago with rhinorrhea, congestion, postnasal drainage, sore throat and cough. Her cough has become productive of colored sputum, yellow. She denies documented fever. She denies subjective fever or chills. She denies ear pain or ear ache. She presently denies sore throat. She denies dyspnea or dyspnea on exertion. She denies chest discomfort. She denies nausea, vomiting or diarrhea. She denies abdominal pain. She denies rash. She denies myalgias or arthralgias. She denies joint swelling. Prior similar symptoms: Yes Recent Illness/Hospitalization: No PFSH PFSH Medical History Anemia Arthritis Back pain Bipolar 1 disorder Celiac disease COVID-19 Hemorrhoids HTN (hypertension) Incontinence Knee pain Liver disease Migraines Shoulder pain Vertigo Home Medications duloxetine 20 mg capsule,delayed release 20 mg PO DAILY depression 12/30/12 [History Last Taken 05/11/18] oxybutynin chloride 5 mg tablet 5 mg PO QHS bladder 02/01/13 [History Last Taken 05/11/18] ferrous sulfate 325 mg (65 mg iron) tablet 325 mg PO DAILY@0800 supplement 07/27/16 [History Last Taken 05/11/18] hydroxyzine pamoate 25 mg capsule 25 mg PO TID PRN PRN Anxiety #10 caps 07/27/16 [Rx Last Taken 05/11/18] cholecalciferol (vitamin D3) 25 mcg (1,000 unit) capsule 50,000 unit PO X1 supplement 02/17/17 [History Last Taken 05/11/18] cyanocobalamin (vitamin B-12) 1,000 mcg/mL oral drops (Vitamin B-12) 1,000 mcg PO QDAY supplement 02/17/17 [History Last Taken 05/11/18] multivitamin 1 tab PO QAM vitamin 02/17/17 [History Last Taken 05/11/18] naproxen sodium 220 mg capsule (Aleve) 220 mg PO Q12H PRN Pain Or Fever 02/17/17 [History Last Taken 05/11/18] lamotrigine 25 mg tablet 50 mg PO DAILY mood 07/06/17 [History Last Taken 05/11/18] ondansetron 4 mg disintegrating tablet 4 mg PO Q8H PRN PRN Nausea #10 tabs 05/12/18 [Rx Last Taken Unknown] cetirizine 10 mg tablet 10 mg PO DAILY allergies 07/26/18 [History Last Taken Unknown] meclizine 25 mg tablet 25 mg PO 4X/DAY PRN PRN Dizziness #20 tabs 07/26/18 [Rx Last Taken Unknown] omeprazole 20 mg capsule,delayed release 20 mg PO DAILY 10/21/19 [History Last Taken Unknown] pramipexole 0.25 mg tablet (Mirapex) 0.25 mg PO QHS RLS 10/21/19 [History Last Taken Unknown] sumatriptan succinate 50 mg tablet 50 mg PO .X1 PRN migraines 10/21/19 [History Last Taken Unknown] loperamide 2 mg capsule 2 mg PO Q4H PRN PRN Watery stool #10 caps 12/17/19 [Rx Last Taken Unknown] melatonin-pyridoxine HCl (vitamin B6) 3 mg-10 mg tablet 1 ea PO PRN PRN Sleep 03/18/20 [History Last Taken Unknown] epinephrine 0.3 mg/0.3 mL injection, auto-injector (EpiPen) 0.3 mg (0.3 mL) IM .once PRN anaphylaxis #1 ea 11/06/20 [Rx Last Taken Unknown] gabapentin 100 mg capsule 100 mg TID 11/06/20 [History Last Taken Unknown] topiramate 25 mg tablet 25 mg PO DAILY PRN Migraine Headache 11/02/21 [History Last Taken Unknown] doxycycline monohydrate 100 mg capsule 100 mg PO BID #14 CAPSULES 03/29/22 [Rx Last Taken Unknown] Allergy/AdvReac Type Severity Reaction Status Date / Time aspirin Allergy Rash Verified 03/29/22 15:45 hydrocodone [From Vicodin] Allergy Hives Verified 03/29/22 15:45 ibuprofen Allergy Anaphylaxis Verified 03/29/22 15:45 venom-honey bee Allergy Anaphylaxis Verified 03/29/22 15:45 [bee venom (honey bee)] gluten AdvReac Upset Verified 03/29/22 15:45 Stomach Family History Other Arthritis COPD (chronic obstructive pulmonary disease) Cancer Diabetes Osteoporosis Parkinson disease Surgical History History of carpal tunnel surgery History of sinus surgery History of tonsillectomy and adenoidectomy Personal history of gastric bypass Social History (Updated 03/29/22 @ 16:[address] Elgin Huerta MD) household members: children and none Smoking Status: Never smoker alcohol intake: never substance use type: does not use ROS ROS ED Constitutional Constitutional ED: Denies chills, fever(s), subjective, sweats or weight loss Eyes Eyes: Denies blurry vision, change in vision or diplopia ENT ENT ED: Reports other Details: Detail documented HPI narrative ; Denies ear pain, rhinorrhea or sore throat Cardiovascular Cardiovascular: Denies chest pain, orthopnea, palpitations or paroxysmal nocturnal dyspnea Respiratory/Chest Respiratory/Chest: Reports cough and sputum; Denies dyspnea, dyspnea on exertion, orthopnea or paroxysmal nocturnal dyspnea Gastrointestinal Gastrointestinal: Denies abdominal pain, diarrhea, nausea or vomiting Genitourinary Genitourinary ED: Denies dysuria, hematuria or urinary frequency Musculoskeletal Musculoskeletal: Denies arthralgias, back pain, myalgias or neck pain Integumentary Denies abscess, Abrasions or rash Neurologic Neurologic: Reports headache(s); Denies paresthesias or weakness Hematologic/Lymphatic Hematologic/Lymphatic: Reports systems reviewed and no addt'l complaints, except as documented EXAM Physical Exam Const Vital Signs: 03/29/22 15:45 03/29/22 16:23 Temperature 97.2 F L Temperature Source Temporal Pulse Rate 85 Respiratory Rate 14 Respiratory Effort Normal Non-Labored Blood Pressure 157/80 H Blood Pressure Mean 105 Pulse Ox 99 Oxygen Delivery Method Room Air Positive well nourished, well developed and obese General Appearance ED: well developed and NAD; Negative for cyanotic, diaphoretic or pallor Nutritional Appearance: obese HEENT Reports moist mucous membranes HEENT Narrative: Ears normal. TMs normal. Nares colored whitish-green discharge. There is tenderness over the frontal maxillary sinuses bilaterally. Uvula is midline. There is no deviation tongue with protrusion. There is no erythema or exudate the posterior pharynx. There is no evidence of postnasal drainage. Eyes PERRL and EOMs intact bilaterally General Eye ED: Negative for pale conjunctiva or scleral icterus Neck no lymphadenopathy, supple and no JVD Chest Wall inspection of chest normal and palpation of chest normal Resp normal respiratory effort and clear to auscultation bilaterally Cardio regular rate, regular rhythm, S1 normal heart sound, S2 normal heart sound and no murmurs Back/Spine no CVA tenderness Extremity normal to inspection Neuro oriented x3, CN's II-XII intact bilaterally and no sensory deficits noted Sensorium / Orientation: alert Psych mental status grossly normal Skin no wounds and skin turgor normal General Skin Exam: Negative for jaundice or pallor MDM MDM MDM Narrative Medical decision making narrative: History and physical exam is consistent with sinusitis and purulent bronchitis. Since patient has had symptoms for 1 month we will treat with antibiotics to cover both respiratory pathogens as well as pathogens, and for sinus infection. Patient was treated with doxycycline in light of her age and the fact that she has no allergies. Since her vital signs are unremarkable i.e. she is not tachycardic, tachypneic, febrile or hypoxic and cardiovascular exam was normal, a chest x-ray was not obtained. Review of prior records indicates that patient has been seen for sinus infection in the past. Discharge Plan Triage Chief Complaint: Cold Sx ED Provider: Elgin Huerta Dx/Rx/DC Orders Clinical Impression: Sinusitis, acute frontal, Celiac disease, Bronchitis, purulent, chronic Instructions: ED Upper Resp Infec Abx Tx, ED Sinusitis (Antibiotic Treatment) Prescriptions: New doxycycline monohydrate 100 mg capsule 100 mg PO BID Qty: 14 0RF No Action cyanocobalamin (vitamin B-12) [Vitamin B-12] 1,000 mcg/mL drops 1,000 mcg PO QDAY cholecalciferol (vitamin D3) 1,000 unit capsule 50,000 unit PO X1 Label Comments: 50,000 UNITS TWICE A WEEK naproxen sodium [Aleve] 220 mg capsule 220 mg PO Q12H PRN (Reason: Pain Or Fever) multivitamin tablet 1 tab PO QAM topiramate 25 mg tablet 25 mg PO DAILY PRN (Reason: Migraine Headache) duloxetine 20 MG capsule 20 mg PO DAILY Label Comments: depression oxybutynin chloride 5 MG tablet 5 mg PO QHS Label Comments: Urinary frequency ferrous sulfate 325 MG tablet 325 mg PO DAILY@0800 hydroxyzine pamoate 25 MG capsule 25 mg PO TID PRN PRN (Reason: Anxiety) Qty: 10 0RF lamotrigine 25 MG tablet 50 mg PO DAILY Label Comments: TAKE 1 TABLET BY MOUTH EVERY DAY ondansetron 4 MG tablet 4 mg PO Q8H PRN PRN (Reason: Nausea) Qty: 10 0RF meclizine 25 MG tablet 25 mg PO 4X/DAY PRN PRN (Reason: Dizziness) Qty: 20 0RF cetirizine 10 MG tablet 10 mg PO DAILY pramipexole [Mirapex] 0.25 MG tablet 0.25 mg PO QHS sumatriptan succinate 50 MG tablet 50 mg PO .X1 PRN omeprazole 20 MG capsule 20 mg PO DAILY loperamide 2 MG capsule 2 mg PO Q4H PRN PRN (Reason: Watery stool) Qty: 10 0RF melatonin-pyridoxine HCl (B6) 1 EACH tablet 1 ea PO PRN PRN (Reason: Sleep) gabapentin 100 mg capsule 100 mg TID Label Comments: TAKE 1 CAPSULE BY MOUTH THREE TIMES DAILY FOR 180 DAYS. epinephrine [EpiPen] 0.3 mg/0.3 mL auto-injector 0.3 mg IM .once PRN (Reason: anaphylaxis) Qty: 1 0RF Rx Instructions: for 2 doses Primary Care Provider: Alec Arndt Referrals: Alec Arndt MD [Primary Care Provider] - 1 Week if not improving Disposition Disposition: Home, Self Care
== END 2022-03-29 17:09 | disposition home or self-care (01) ==
LOC: ED 17:05
PROVIDERS: Emergency Provider Emergency Medicine; PCP Family Medicine; Visit Provider Emergency Medicine
DX: J41.1 Mucopurulent chronic bronchitis (principal); F31.9 Bipolar disorder, unspecified; J01.10 Acute frontal sinusitis, unspecified; K90.0 Celiac disease; I10 Essential (primary) hypertension; D64.9 Anemia, unspecified; M19.90 Unspecified osteoarthritis, unspecified site; Z79.899 Other long term (current) drug therapy; Z86.16 Personal history of COVID-19
CPT/HCPCS: 99282

== ENCOUNTER 2022-04-23 07:50 | Emergency (ER) | payer MEDICAID, SELFPAY ==
[2022-04-23 07:51] VITALS: BP 149/68; PULSE 88; RESP 16; TEMP 36.6; O2SAT 94; BMI 45.4
--- NOTE | 2022-04-23 08:07 | EDS_ITS ---
HPI HPI - GI History of Present Illness Chief Complaint: Abd Pain Informant: patient Abdominal Pain/Flank Pain Onset: Today and Hours Context: Gradual Onset Timing: Continuous Quality: Aching Location: RUQ Current Severity: Mild Maximum Severity: Mild Worsened by: Nothing Relieved by: Nothing Nausea/Vomiting/Emesis GI Symptom: Positive for Nausea; Negative for Vomiting Diarrhea/Melena/Hematochezia GI Symptom: Positive for Diarrhea Onset: Today Stool Quality: Positive for Loose Severity: Mild Associated Symptoms Associated Symptoms: Negative for Dysuria, Frequency, Hematuria or Urgency Narrative Narrative: 51-year-old female history of irritable bowel syndrome, partial gastrectomy for gastric bypass and prior tubal ligation. Complaining of right upper quadrant abdominal pain that began about 6 hours ago while at work. Associated nausea and loose stools no vomiting. No fever. No dysuria. Has had prior symptoms without a specific diagnosis. She had a recent ultrasound of her right upper quadrant done at [facility] which she tells me was negative. She denies any recent antibiotic use. Denies any significant constipation or any dysuria. Denies any recent significant weight change. Prior similar symptoms: Yes Recent Illness/Hospitalization: No PFSH PFSH Medical History Anemia Arthritis Back pain Bipolar 1 disorder Celiac disease COVID-19 Hemorrhoids HTN (hypertension) Incontinence Knee pain Liver disease Migraines Shoulder pain Vertigo Home Medications duloxetine 20 mg capsule,delayed release 20 mg PO DAILY depression 12/30/12 [History Last Taken 05/11/18] oxybutynin chloride 5 mg tablet 5 mg PO QHS bladder 02/01/13 [History Last Taken 05/11/18] ferrous sulfate 325 mg (65 mg iron) tablet 325 mg PO DAILY@0800 supplement 07/27/16 [History Last Taken 05/11/18] hydroxyzine pamoate 25 mg capsule 25 mg PO TID PRN PRN Anxiety #10 caps 07/27/16 [Rx Last Taken 05/11/18] cholecalciferol (vitamin D3) 25 mcg (1,000 unit) capsule 50,000 unit PO X1 supplement 02/17/17 [History Last Taken 05/11/18] cyanocobalamin (vitamin B-12) 1,000 mcg/mL oral drops (Vitamin B-12) 1,000 mcg PO QDAY supplement 02/17/17 [History Last Taken 05/11/18] multivitamin 1 tab PO QAM vitamin 02/17/17 [History Last Taken 05/11/18] naproxen sodium 220 mg capsule (Aleve) 220 mg PO Q12H PRN Pain Or Fever 02/17/17 [History Last Taken 05/11/18] lamotrigine 25 mg tablet 50 mg PO DAILY mood 07/06/17 [History Last Taken 05/11/18] ondansetron 4 mg disintegrating tablet 4 mg PO Q8H PRN PRN Nausea #10 tabs 05/12/18 [Rx Last Taken Unknown] cetirizine 10 mg tablet 10 mg PO DAILY allergies 07/26/18 [History Last Taken Unknown] meclizine 25 mg tablet 25 mg PO 4X/DAY PRN PRN Dizziness #20 tabs 07/26/18 [Rx Last Taken Unknown] omeprazole 20 mg capsule,delayed release 20 mg PO DAILY 10/21/19 [History Last Taken Unknown] pramipexole 0.25 mg tablet (Mirapex) 0.25 mg PO QHS RLS 10/21/19 [History Last Taken Unknown] sumatriptan succinate 50 mg tablet 50 mg PO .X1 PRN migraines 10/21/19 [History Last Taken Unknown] loperamide 2 mg capsule 2 mg PO Q4H PRN PRN Watery stool #10 caps 12/17/19 [Rx Last Taken Unknown] melatonin-pyridoxine HCl (vitamin B6) 3 mg-10 mg tablet 1 ea PO PRN PRN Sleep 03/18/20 [History Last Taken Unknown] epinephrine 0.3 mg/0.3 mL injection, auto-injector (EpiPen) 0.3 mg (0.3 mL) IM .once PRN anaphylaxis #1 ea 11/06/20 [Rx Last Taken Unknown] gabapentin 100 mg capsule 100 mg TID 11/06/20 [History Last Taken Unknown] topiramate 25 mg tablet 25 mg PO DAILY PRN Migraine Headache 11/02/21 [History Last Taken Unknown] doxycycline monohydrate 100 mg capsule 100 mg PO BID #14 CAPSULES 03/29/22 [Rx Last Taken Unknown] ondansetron 4 mg disintegrating tablet 4 mg PO Q6H PRN nausea and vomiting #10 tabs 04/23/22 [Rx Last Taken Unknown] Allergy/AdvReac Type Severity Reaction Status Date / Time aspirin Allergy Rash Verified 04/23/22 07:53 hydrocodone [From Vicodin] Allergy Hives Verified 04/23/22 07:53 ibuprofen Allergy Anaphylaxis Verified 04/23/22 07:53 venom-honey bee Allergy Anaphylaxis Verified 04/23/22 07:53 [bee venom (honey bee)] gluten AdvReac Upset Verified 04/23/22 07:53 Stomach Family History Other Arthritis COPD (chronic obstructive pulmonary disease) Cancer Diabetes Osteoporosis Parkinson disease Surgical History History of carpal tunnel surgery History of sinus surgery History of tonsillectomy and adenoidectomy Personal history of gastric bypass Social History household members: children and none Smoking Status: Never smoker alcohol intake: never substance use type: does not use ROS ROS ED ROS Narrative Abdominal pain. Nausea. Review of Systems ROS Unobtainable: Denies due to encephalopathy Constitutional Constitutional ED: Denies chills or fever(s) Cardiovascular Cardiovascular: Denies chest pain Respiratory/Chest Respiratory/Chest: Denies cough or dyspnea Gastrointestinal Gastrointestinal: Reports abdominal pain, diarrhea and nausea; Denies constipation, melena or vomiting Genitourinary Genitourinary ED: Denies dysuria or hematuria Musculoskeletal Musculoskeletal: Denies arthralgias Integumentary Denies abscess Neurologic Neurologic: Denies headache(s) Psychiatric Psychiatric: Denies anxiety Endocrine Endocrinology: Denies polydipsia Hematologic/Lymphatic Hematologic/Lymphatic: Denies easy bleeding Allergic/Immunologic Allergic/Immunologic ED: Denies mouth swelling or tongue swelling EXAM Physical Exam Narrative Exam Narrative: 51-year-old female no acute distress. Vital signs are stable and afebrile. H EENT exam is unremarkable. Moist mucous members. Neck nontender no lymphadenopathy. Lungs clear to auscultation bilaterally. Heart regular rate and rhythm rate about 85 no murmur. Chest wall nontender. Abdomen soft. Nondistended. Obese. No peritoneal signs. Mild right upper quadrant tenderness. No Oakes sign. No McBurney's point or lower abdominal tenderness. No left-sided tenderness. No hernia or mass no signs of obstruction. No pulsatile mass. Moving all 4 extremities. Back nontender. Neurologically she is awake alert with no focal motor deficits. Benign exam. Const Vital Signs: 04/23/22 07:51 Temperature 97.9 F Temperature Source Temporal Pulse Rate 88 Respiratory Rate 16 Blood Pressure 149/68 H Blood Pressure Mean 95 Pulse Ox 94 Oxygen Delivery Method Room Air Positive well nourished, well developed and obese; Negative for cachectic, contractures or unkempt General Appearance ED: well developed and NAD; Negative for unkempt, cachectic, contractures or pallor Nutritional Appearance: obese; Negative for cachectic HEENT Reports moist mucous membranes normocephalic and atraumatic; Negative for trauma or tenderness Eyes PERRL and EOMs intact bilaterally General Eye ED: Negative for pale conjunctiva or scleral icterus Neck no lymphadenopathy, supple and no JVD General: Negative for tenderness Carotids: Negative for other Lymph Lymphatic: Negative for other Resp normal respiratory effort and clear to auscultation bilaterally Effort and Inspection: Negative for respiratory distress Auscultation: Negative for rales, rhonchi or wheezes Cardio regular rate, regular rhythm, S1 normal heart sound, S2 normal heart sound and no murmurs GI non-distended and no masses; Negative for non-tender GI Narrative: Very mild right upper quadrant tenderness. No Oakes sign. No right lower or left-sided tenderness. Auscultation: normoactive bowel sounds Palpation: soft and tender; Negative for guarding, rigid, hepatomegaly, splenomegaly, hernia, mass, pulsatile mass or rebound tenderness present Back/Spine no CVA tenderness General Back: Negative for CVA tenderness Cervical Spine: Negative for cervical spine tenderness Thoracic Spine / Upper Back: Negative for thoracic spinal tenderness Lumbar Spine / Lower Back: Negative for lumbar spinal tenderness Extremity full ROM General Extremety ED: Negative for edema General Extremity: Negative for edema Neuro CN's II-XII intact bilaterally, moves all extremities and no sensory deficits noted Sensorium / Orientation: alert, oriented to person, oriented to place and oriented to time; Negative for orientation impaired, confused, lethargic or stuporous Motor Exam: strength 5/5 throughout Psych mental status grossly normal and thought process normal Appearance: Negative for unkempt Attitude: No agitated Mood & Affect: Negative for depressed, anxious or tearful Skin no wounds General Skin Exam: Negative for jaundice or pallor Lesions: no lesions Rashes: no rashes Trauma: Negative for abrasion Nails: Negative for discolored MDM MDM MDM Narrative Medical decision making narrative: 51-year-old female with right-sided upper abdominal pain. Has a history of irritable bowel. Prior gastric bypass. Prior tubal ligation. Has a benign exam. She has had CAT scans several times in the past. She has had a recent ultrasound of the right upper quadrant which according to her was unremarkable done in outside facility. She will be given Zofran for nausea. I initializing give her Toradol for pain but she has a Toradol allergy. We will start with labs and then determine if we need to do any imaging. Clinically is not appendicitis. Is not a bowel obstruction. I think unlikely given the area of her pain at the urinary tract infection. Gallbladder disease is definitely the differential. As is irritable bowel. Repeat exam at 10:12 AM patient I discussed all of her test results. Repeat exam her abdomen is benign. There is no Oakes sign. She is comfortable being discharged home. She will be given a prescription for Zofran for nausea. She will follow-up with her primary care physician for further evaluation. She has had a prior ultrasound of her gallbladder that was negative. We discussed the possibility of this is a continued problem they may consider HIDA scan. Given her exam and her labs she does not need any imaging today. Lab Data Attestation: I reviewed the patient's lab results. Lab results narrative: CBC normal. White count is 6. H&H 13 and 39. Platelets 267. Electrolytes unremarkable gap of 7 normal BUN and creatinine. Glucose of 217. Liver enzymes normal. Lipase normal. Urinalysis negative. Serum test negative.. Labs: Laboratory Results - last 24 hr 04/23/22 04/23/22 04/23/22 08:00 08:30 08:30 WBC 6.7 RBC 4.18 L Hgb 13.2 Hct 39.8 MCV 95.2 MCH 31.6 MCHC 33.2 RDW Std Deviation 43.3 RDW Coeff of Rubi 12.4 Plt Count 267 MPV 9.9 Immature Gran % (Auto) 0.300 Neut % (Auto) 57.3 Lymph % (Auto) 37.0 Green % (Auto) 2.2 Eos % (Auto) 2.8 Baso % (Auto) 0.4 Absolute Neuts (auto) 3.9 Absolute Lymphs (auto) 2.49 Nucleated RBC % 0 Sodium 143 Potassium 3.7 Chloride 110 H Carbon Dioxide 26.0 Anion Gap 7 BUN 12 Creatinine 0.82 Estim Creat Clear Calc 71.66 Est GFR (MDRD) Af Amer 96 Est GFR (MDRD) Non-Af 79 BUN/Creatinine Ratio 14.7 Glucose 217 H Calcium 8.8 Total Bilirubin 0.20 AST 22 ALT 32 Alkaline Phosphatase 76 Total Protein 6.6 Albumin 3.6 Globulin 3.0 Albumin/Globulin Ratio 1.2 Lipase 98 Serum , Qual Urine Color Yellow Urine Clarity Clear Urine pH 7.0 Ur Specific [place] 1.010 Urine Protein Negative Urine Glucose (UA) Normal Urine Ketones Negative Urine Occult Blood Negative Urine Nitrite Negative Urine Bilirubin Negative Urine Urobilinogen Normal Ur Leukocyte Esterase 25 H Urine RBC 0 SEEN Urine WBC 0 SEEN Ur Squamous Epith Cells 0-5 SEEN Urine Bacteria 0 SEEN Urine Mucus 0 SEEN 04/23/22 08:30 WBC RBC Hgb Hct MCV MCH MCHC RDW Std Deviation RDW Coeff of Rubi Plt Count MPV Immature Gran % (Auto) Neut % (Auto) Lymph % (Auto) Green % (Auto) Eos % (Auto) Baso % (Auto) Absolute Neuts (auto) Absolute Lymphs (auto) Nucleated RBC % Sodium Potassium Chloride Carbon Dioxide Anion Gap BUN Creatinine Estim Creat Clear Calc Est GFR (MDRD) Af Amer Est GFR (MDRD) Non-Af BUN/Creatinine Ratio Glucose Calcium Total Bilirubin AST ALT Alkaline Phosphatase Total Protein Albumin Globulin Albumin/Globulin Ratio Lipase Serum , Qual NEGATIVE Urine Color Urine Clarity Urine pH Ur Specific [place] Urine Protein Urine Glucose (UA) Urine Ketones Urine Occult Blood Urine Nitrite Urine Bilirubin Urine Urobilinogen Ur Leukocyte Esterase Urine RBC Urine WBC Ur Squamous Epith Cells Urine Bacteria Urine Mucus Discharge Plan Triage Chief Complaint: Abd Pain ED Provider: Jayden Barraza Dx/Rx/DC Orders Clinical Impression: Abdominal pain, History of IBS, History of gastric bypass Instructions: Abdominal Pain Prescriptions: New ondansetron 4 mg tablet,disintegrating 4 mg PO Q6H PRN (Reason: nausea and vomiting) Qty: 10 0RF No Action cyanocobalamin (vitamin B-12) [Vitamin B-12] 1,000 mcg/mL drops 1,000 mcg PO QDAY cholecalciferol (vitamin D3) 1,000 unit capsule 50,000 unit PO X1 Label Comments: 50,000 UNITS TWICE A WEEK naproxen sodium [Aleve] 220 mg capsule 220 mg PO Q12H PRN (Reason: Pain Or Fever) multivitamin tablet 1 tab PO QAM topiramate 25 mg tablet 25 mg PO DAILY PRN (Reason: Migraine Headache) duloxetine 20 MG capsule 20 mg PO DAILY Label Comments: depression oxybutynin chloride 5 MG tablet 5 mg PO QHS Label Comments: Urinary frequency ferrous sulfate 325 MG tablet 325 mg PO DAILY@0800 hydroxyzine pamoate 25 MG capsule 25 mg PO TID PRN PRN (Reason: Anxiety) Qty: 10 0RF lamotrigine 25 MG tablet 50 mg PO DAILY Label Comments: TAKE 1 TABLET BY MOUTH EVERY DAY ondansetron 4 MG tablet 4 mg PO Q8H PRN PRN (Reason: Nausea) Qty: 10 0RF meclizine 25 MG tablet 25 mg PO 4X/DAY PRN PRN (Reason: Dizziness) Qty: 20 0RF cetirizine 10 MG tablet 10 mg PO DAILY pramipexole [Mirapex] 0.25 MG tablet 0.25 mg PO QHS sumatriptan succinate 50 MG tablet 50 mg PO .X1 PRN omeprazole 20 MG capsule 20 mg PO DAILY loperamide 2 MG capsule 2 mg PO Q4H PRN PRN (Reason: Watery stool) Qty: 10 0RF melatonin-pyridoxine HCl (B6) 1 EACH tablet 1 ea PO PRN PRN (Reason: Sleep) gabapentin 100 mg capsule 100 mg TID Label Comments: TAKE 1 CAPSULE BY MOUTH THREE TIMES DAILY FOR 180 DAYS. epinephrine [EpiPen] 0.3 mg/0.3 mL auto-injector 0.3 mg IM .once PRN (Reason: anaphylaxis) Qty: 1 0RF Rx Instructions: for 2 doses doxycycline monohydrate 100 mg capsule 100 mg PO BID Qty: 14 0RF Primary Care Provider: Alec Arndt Referrals: Alec Arndt MD [Primary Care Provider] - 1 Week if not improving Activity Restrictions/Additional Instructions: [place] diet. Increase slowly as tolerated. Zofran as needed for nausea. Return if feeling worse. Follow-up with primary care physician if not improving. If you are still having symptoms it is much less likely but possibly can still have gallbladder disease in spite of a normal ultrasound. If you are still having right upper quadrant pain they can schedule you for what is called a HIDA scan for further evaluation of your gallbladder. Disposition Disposition: Home, Self Care
[2022-04-23] MEDS: Ondansetron 4 MG/2 ML Vial IV (08:33)
[2022-04-23 08:35] LABS: Bacteria 0 SEEN /hpf (None Seen); Mucous, Urine 0 SEEN /hpf (<or=2+); Red Blood Cells-Urine 0 SEEN /hpf (0-5); White Blood Cells 0 SEEN /hpf (0-5)
[2022-04-23 08:35] LABS: Absolute Lymphocyte Count 2.49 X10^3/uL (0.83-4.51); Absolute Neutrophil Count 3.9 X10^3/uL (2.0-7.7); Basophil# 0.03 X10^3/uL; Basophil% 0.4 % (0-1); Eosinophil# 0.19 X10^3/uL; Eosinophils% 2.8 % (0-5); Hematocrit 39.8 % (37-47); Hemoglobin 13.2 g/dL (12.0-15.0); Lymphocyte # 2.49 X10^3/ul (0.83-4.51); Mean Corp Hgb Conc 33.2 g/dL (32-36); Mean Corpuscular Hgb 31.6 pg (27.0-32.0); Mean Corpuscular Volume 95.2 fL (81-99); Mean Platelet Vol. 9.9 fl (6.2-12.0); Monocyte# 0.15 X10^3/uL; Monocyte% 2.2 % (0-10); NRBC Flagged by Analyzer 0 % (0-5); Neutrophil # 3.85 X10^3/uL (2.7-7.7); Neutrophil % 57.3 % (47-70); Platelet Count 267 K/mm3 (150-450); RBC Distribution Width CV 12.4 % (11.6-14.6); RBC Distribution Width SD 43.3 fl (35.1-43.9); Red Blood Count 4.18 M/mm3 (4.2-5.4); White Blood Count 6.7 K/mm3 (4.4-11.0)
[2022-04-23 08:39] LABS: Color, Urine Yellow (Yellow); Glucose, Dipstick Normal (Normal); Ketone-Dipstick Negative (Negative); Leukocyte Esterase-Dipstick 25 /ul (Negative); Nitrite-Dipstick Negative (Negative); Occult Blood-Urine Negative /ul (Negative); Protein-Dipstick Negative (Negative); Urine Bilirubin Dipstick Negative (Negative); Urine Clarity Clear (Clear); Urine Urobilinogen Normal (Normal)
[2022-04-23 08:45] LABS: Squamous Epithelial Cells - UA 0-5 SEEN /hpf (5-10)
[2022-04-23 08:51] LABS: Internal QC Validated? YES +Cl - CLEAR BKGD; Pregnancy, Serum, hCG Quali. NEGATIVE Negative
[2022-04-23 08:59] LABS: ALB/GLOB Ratio 1.2 RATIO (0.9-2.4); AST(SGOT) 22 U/L (15-37); Alanine Aminotransfer ALT/SGPT 32 U/L (13-56); Albumin, Serum 3.6 g/dL (3.2-5.0); Alkaline Phosphatase 76 U/L (45-117); Anion Gap 7 (5-15); BUN 12 mg/dL (7-18); BUN/Creat Ratio 14.7 RATIO (10-20); Calcium,Total 8.8 mg/dL (8.5-10.1); Chloride 110 mmol/L (98-107); Creatinine, Serum 0.82 mg/dL (0.55-1.02); EST Glomerular Filtration Rate 79 mL/min (>60); Est Glom Filt Rate - Afr Amer 96 mL/min (>60); Estimated Creatinine Clearance 71.66 ml/min; Glucose 217 mg/dL (74-106); Lipase 98 U/L (73-393); Potassium 3.7 mmol/L (3.5-5.1); Protein, Total 6.6 g/dL (6.4-8.2); Sodium Level 143 mmol/L (136-145)
[2022-04-23 10:15] VITALS: BP 135/71; PULSE 81; RESP 14; O2SAT 99
== END 2022-04-23 10:23 | disposition home or self-care (01) ==
LOC: ED 08:19
PROVIDERS: Emergency Provider Emergency Medicine; PCP Family Medicine; Visit Provider Emergency Medicine
DX: R10.11 Right upper quadrant pain (principal); F31.9 Bipolar disorder, unspecified; K58.0 Irritable bowel syndrome with diarrhea; I10 Essential (primary) hypertension; Z98.84 Bariatric surgery status; R11.0 Nausea; R19.7 Diarrhea, unspecified; Z79.899 Other long term (current) drug therapy; D64.9 Anemia, unspecified; M19.90 Unspecified osteoarthritis, unspecified site; G43.909 Migraine, unspecified, not intractable, without status migrainosus; Z98.51 Tubal ligation status; Z87.448 Personal history of other diseases of urinary system
CPT/HCPCS: 80053; 81001; 83690; 84703; 85025; 96374; 99282; A4216; J2405

== ENCOUNTER 2022-05-05 10:52 | Emergency (ER) | payer MEDICAID, SELFPAY ==
[2022-05-05 10:53] VITALS: BP 156/92; PULSE 78; RESP 18; TEMP 36.1; O2SAT 98
[2022-05-05 10:54] VITALS: BMI 45.3
--- NOTE | 2022-05-05 11:42 | EDS_ITS ---
HPI <STORMY Ferraro - Last Filed: 05/05/22 13:09> History of Present Illness Chief Complaint: General Illness Narrative Narrative: Patient is a 51-year-old female with history of bipolar disease, irritable bowel syndrome, obesity, arthritis who presents to the emergency department with 1.5 days of generalized malaise. Patient states last evening, she started to feel fatigued, she had a runny nose, sore throat. Patient denies any actual fever or chills. Denies any nausea or vomiting or sick contacts. Patient denies any dysuria or difficulty breathing, chest pain. She states has had intermittent headaches, and is here for evaluation [facility] <STORMY Ferraro - Last Filed: 05/05/22 13:09> [facility] Medical History Anemia Arthritis Back pain Bipolar 1 disorder Celiac disease COVID-19 Hemorrhoids HTN (hypertension) Incontinence Knee pain Liver disease Migraines Shoulder pain Vertigo Home Medications duloxetine 20 mg capsule,delayed release 20 mg PO DAILY depression 12/30/12 [History Last Taken 05/11/18] oxybutynin chloride 5 mg tablet 5 mg PO QHS bladder 02/01/13 [History Last Taken 05/11/18] ferrous sulfate 325 mg (65 mg iron) tablet 325 mg PO DAILY@0800 supplement 07/27/16 [History Last Taken 05/11/18] hydroxyzine pamoate 25 mg capsule 25 mg PO TID PRN PRN Anxiety #10 caps 07/27/16 [Rx Last Taken 05/11/18] cholecalciferol (vitamin D3) 25 mcg (1,000 unit) capsule 50,000 unit PO X1 supplement 02/17/17 [History Last Taken 05/11/18] cyanocobalamin (vitamin B-12) 1,000 mcg/mL oral drops (Vitamin B-12) 1,000 mcg PO QDAY supplement 02/17/17 [History Last Taken 05/11/18] multivitamin 1 tab PO QAM vitamin 02/17/17 [History Last Taken 05/11/18] naproxen sodium 220 mg capsule (Aleve) 220 mg PO Q12H PRN Pain Or Fever 02/17/17 [History Last Taken 05/11/18] lamotrigine 25 mg tablet 50 mg PO DAILY mood 07/06/17 [History Last Taken 10/22] ondansetron 4 mg disintegrating tablet 4 mg PO Q8H PRN PRN Nausea #10 tabs 05/12/18 [Rx Last Taken Unknown] cetirizine 10 mg tablet 10 mg PO DAILY allergies 07/26/18 [History Last Taken Unknown] meclizine 25 mg tablet 25 mg PO 4X/DAY PRN PRN Dizziness #20 tabs 07/26/18 [Rx Last Taken Unknown] omeprazole 20 mg capsule,delayed release 20 mg PO DAILY 10/21/19 [History Last Taken Unknown] pramipexole 0.25 mg tablet (Mirapex) 0.25 mg PO QHS RLS 10/21/19 [History Last Taken Unknown] sumatriptan succinate 50 mg tablet 50 mg PO .X1 PRN migraines 10/21/19 [History Last Taken Unknown] loperamide 2 mg capsule 2 mg PO Q4H PRN PRN Watery stool #10 caps 12/17/19 [Rx Last Taken Unknown] melatonin-pyridoxine HCl (vitamin B6) 3 mg-10 mg tablet 1 ea PO PRN PRN Sleep 03/18/20 [History Last Taken Unknown] epinephrine 0.3 mg/0.3 mL injection, auto-injector (EpiPen) 0.3 mg (0.3 mL) IM .once PRN anaphylaxis #1 ea 11/06/20 [Rx Last Taken Unknown] gabapentin 100 mg capsule 100 mg TID 11/06/20 [History Last Taken Unknown] topiramate 25 mg tablet 25 mg PO DAILY PRN Migraine Headache 11/02/21 [History Last Taken Unknown] doxycycline monohydrate 100 mg capsule 100 mg PO BID #14 CAPSULES 03/29/22 [Rx Last Taken Unknown] ondansetron 4 mg disintegrating tablet 4 mg PO Q6H PRN nausea and vomiting #10 tabs 04/23/22 [Rx Last Taken Unknown] Allergy/AdvReac Type Severity Reaction Status Date / Time aspirin Allergy Rash Verified 04/23/22 07:53 hydrocodone [From Vicodin] Allergy Hives Verified 04/23/22 07:53 ibuprofen Allergy Anaphylaxis Verified 04/23/22 07:53 venom-honey bee Allergy Anaphylaxis Verified 04/23/22 07:53 [bee venom (honey bee)] gluten AdvReac Upset Verified 04/23/22 07:53 Stomach Family History Other Arthritis COPD (chronic obstructive pulmonary disease) Cancer Diabetes Osteoporosis Parkinson disease Surgical History History of carpal tunnel surgery History of sinus surgery History of tonsillectomy and adenoidectomy Personal history of gastric bypass Social History household members: children and none Smoking Status: Never smoker alcohol intake: never substance use type: does not use ROS <STORMY Ferraro - Last Filed: 05/05/22 13:09> ROS ED ROS Narrative Constitutional: Negative for fever, chills, weight loss,. Positive weakness, fatigue Eyes: Negative for vision loss, vision change, double vision ENT: Negative for any ear pain, congestion. Positive sore throat, Cardiovascular: Negative for any chest pain, tightness, palpitations Respiratory: Negative for any cough, sputum production, hemoptysis, dyspnea, dyspnea on exertion, orthopnea Gastrointestinal: Negative for any abdominal pain, nausea, vomiting, diarrhea, constipation, blood in stool, blood in vomit : Negative for any urinary frequency, dysuria, retention, blood in urine Muscle skeletal: Negative for any muscle joint pain, stiffness, myalgias, arthralgias, neck pain, back pain Neurological: Negative for any syncope, numbness or tingling, dizziness. Positive remittent headache Skin: Negative for any rashes, lumps, itching, abrasions, lacerations Psychiatric: Negative for any depression, anxiety, stress, suicidal ideation, homicidal ideation Hematologic: Negative for any easy bruising, excessive bruising, easy bleeding Allergies: Negative for any eczema, hives, rash EXAM <STORMY Ferraro - Last Filed: 05/05/22 13:09> Physical Exam Narrative Exam Narrative: Vital signs reviewed. Patient appears generally well, vital signs are stable, patient is in no distress HEET: Head normocephalic atraumatic, TMs clear bilaterally. Posterior pharynx is clear, moist mucous membranes. Nares clear bilaterally. Neck: Supple with no lymphadenopathy or tenderness. No signs of meningismus, negative jolt sign. Cardiac: Regular rate and rhythm no murmurs gallops or rubs, equal peripheral pulses bilaterally. Respiratory: Lungs clear to auscultation bilaterally. No chest tenderness. Abdomen: Soft, nontender, nondistended. No abdominal bruit or pulsatile masses. No hepatosplenomegaly Extremities: No peripheral edema, no signs of gross trauma or deformity. Active full range of motion of all extremities. Neuro: Cranial nerves II through XII intact, no focal neurological deficits. Skin: Clean dry and intact with no rash, purpura, petechiae, vesicles or pustules. Backs/flank: No CVA tenderness, no midline spinal tenderness, no deformity. Psych: Normal mood and affect. No SI, HI or acute psychosis. Const Vital Signs: 05/05/22 10:53 Temperature 97.0 F L Temperature Source Temporal Pulse Rate 78 Respiratory Rate 18 Blood Pressure 156/92 H Blood Pressure Mean 113 Pulse Ox 98 Oxygen Delivery Method Room Air <Dr. vAtar Kumar MD - Last Filed: 05/05/22 11:56> Physical Exam Const Vital Signs: 05/05/22 10:53 Temperature 97.0 F L Temperature Source Temporal Pulse Rate 78 Respiratory Rate 18 Blood Pressure 156/92 H Blood Pressure Mean 113 Pulse Ox 98 Oxygen Delivery Method Room Air MDM <STORMY Ferraro - Last Filed: 05/05/22 13:09> [facility] Lab Data Labs: Laboratory Results - last 24 hr 05/05/22 11:41 Urine Color Yellow Urine Clarity Clear Urine pH 7.0 Ur Specific [place] 1.010 Urine Protein Negative Urine Glucose (UA) Normal Urine Ketones Negative Urine Occult Blood Negative Urine Nitrite Negative Urine Bilirubin Negative Urine Urobilinogen Normal Ur Leukocyte Esterase Negative Urine RBC 0 SEEN Urine WBC 0 SEEN Ur Squamous Epith Cells 0-5 SEEN Urine Bacteria 0 SEEN Urine Mucus 0 SEEN Radiography Diagnostic Testing: Clinical Impression(s) from Imaging Studies Chest X-Ray 05/05/22 12:04 IMPRESSION: No acute cardiopulmonary abnormality. No interval change. Electronically Signed: Jose Oneill MD at 12:18 EST , Differential Diagnosis Chest pain/SOB: pneumonia and COPD Why less likely: No fever or chills, normal x-ray. No history. Additional Tests and Interventions Diagnositc testing considered but not performed: CT of the chest, no significant concern for pulmonary embolus Medications considered but not ordered: Breathing treatments such as aerosols however no wheezing noted. Treatment and Re-Evaluation :: Patient appears generally well, patient appears nontoxic, vital signs are stable. Patient presents to the emergency department with complaints of headache, congestion, sore throat. Patient did receive a work-up concerning for any pneumonia, viral etiology. Patient's COVID-19, influenza was grossly unremarkable. That was negative. Patient's chest x-ray inter by ER physician was negative. Patient's urinalysis was negative for any infection. At this time, patient's physical examination, work-up is consistent with a viral etiology. Patient continue take Tylenol, her daily medications. She will maintain hydration. She was given return precautions. Patient stable for discharge. <Dr. Avtar Kumar MD - Last Filed: 05/05/22 11:56> [facility] Narrative Medical decision making narrative: Patient with sore throat, headache, myalgias, minor rhinorrhea but no cough. Low-grade subjective fever. Started yesterday. Appears well with normal vital signs but feels poorly. Posterior oropharynx clear without exudates or tonsillar edema/asymmetry. No petechial in the palates. No cervical lymphadenopathy. No cough. Seen and evaluated independently and in conjunction with nurse practitioner. Agree with notes above unless documented otherwise. We will obtain swabs for COVID, influenza, strep and treat accordingly. Suspect viral syndrome most likely. Lab Data Labs: Laboratory Results - last 24 hr 05/05/22 11:41 Urine Color Yellow Urine Clarity Clear Urine pH 7.0 Ur Specific [place] 1.010 Urine Protein Negative Urine Glucose (UA) Normal Urine Ketones Negative Urine Occult Blood Negative Urine Nitrite Negative Urine Bilirubin Negative Urine Urobilinogen Normal Ur Leukocyte Esterase Negative Urine RBC 0 SEEN Urine WBC 0 SEEN Ur Squamous Epith Cells 0-5 SEEN Urine Bacteria 0 SEEN Urine Mucus 0 SEEN Radiography Diagnostic Testing: Clinical Impression(s) from Imaging Studies Chest X-Ray 05/05/22 12:04 IMPRESSION: No acute cardiopulmonary abnormality. No interval change. Electronically Signed: Jose Oneill MD at 12:18 EST , Discharge Plan Triage Chief Complaint: General Illness ED Midlevel Provider: Delon Ortez ED Provider: Avtar Kumar Dx/Rx/DC Orders Prescriptions: No Action cyanocobalamin (vitamin B-12) [Vitamin B-12] 1,000 mcg/mL drops 1,000 mcg PO QDAY cholecalciferol (vitamin D3) 1,000 unit capsule 50,000 unit PO X1 Label Comments: 50,000 UNITS TWICE A WEEK naproxen sodium [Aleve] 220 mg capsule 220 mg PO Q12H PRN (Reason: Pain Or Fever) multivitamin tablet 1 tab PO QAM topiramate 25 mg tablet 25 mg PO DAILY PRN (Reason: Migraine Headache) duloxetine 20 MG capsule 20 mg PO DAILY Label Comments: depression oxybutynin chloride 5 MG tablet 5 mg PO QHS Label Comments: Urinary frequency ferrous sulfate 325 MG tablet 325 mg PO DAILY@0800 hydroxyzine pamoate 25 MG capsule 25 mg PO TID PRN PRN (Reason: Anxiety) Qty: 10 0RF lamotrigine 25 MG tablet 50 mg PO DAILY Label Comments: TAKE 1 TABLET BY MOUTH EVERY DAY ondansetron 4 MG tablet 4 mg PO Q8H PRN PRN (Reason: Nausea) Qty: 10 0RF meclizine 25 MG tablet 25 mg PO 4X/DAY PRN PRN (Reason: Dizziness) Qty: 20 0RF cetirizine 10 MG tablet 10 mg PO DAILY pramipexole [Mirapex] 0.25 MG tablet 0.25 mg PO QHS sumatriptan succinate 50 MG tablet 50 mg PO .X1 PRN omeprazole 20 MG capsule 20 mg PO DAILY loperamide 2 MG capsule 2 mg PO Q4H PRN PRN (Reason: Watery stool) Qty: 10 0RF melatonin-pyridoxine HCl (B6) 1 EACH tablet 1 ea PO PRN PRN (Reason: Sleep) gabapentin 100 mg capsule 100 mg TID Label Comments: TAKE 1 CAPSULE BY MOUTH THREE TIMES DAILY FOR 180 DAYS. epinephrine [EpiPen] 0.3 mg/0.3 mL auto-injector 0.3 mg IM .once PRN (Reason: anaphylaxis) Qty: 1 0RF Rx Instructions: for 2 doses doxycycline monohydrate 100 mg capsule 100 mg PO BID Qty: 14 0RF ondansetron 4 mg tablet,disintegrating 4 mg PO Q6H PRN (Reason: nausea and vomiting) Qty: 10 0RF Primary Care Provider: Alec Arndt Referrals: Alec Arndt MD [Primary Care Provider] -
[2022-05-05 11:49] LABS: Bacteria 0 SEEN /hpf (None Seen); Mucous, Urine 0 SEEN /hpf (<or=2+); Red Blood Cells-Urine 0 SEEN /hpf (0-5); White Blood Cells 0 SEEN /hpf (0-5)
[2022-05-05] MEDS: Acetaminophen 500 MG Tablet 1000 MG PO (11:50)
[2022-05-05 11:54] LABS: Color, Urine Yellow (Yellow); Glucose, Dipstick Normal (Normal); Ketone-Dipstick Negative (Negative); Leukocyte Esterase-Dipstick Negative /ul (Negative); Nitrite-Dipstick Negative (Negative); Occult Blood-Urine Negative /ul (Negative); Protein-Dipstick Negative (Negative); Urine Bilirubin Dipstick Negative (Negative); Urine Clarity Clear (Clear); Urine Urobilinogen Normal (Normal)
--- NOTE | 2022-05-05 12:04 | RAD_ITS ---
EXAM: XR CHEST, 2 VIEWS CLINICAL INDICATION: shortness of breath TECHNIQUE: Frontal and lateral views of the chest. This report was created using [employer] report generation technology. COMPARISON: XR Chest dated 03/18/2020 FINDINGS: LUNGS AND PLEURAL SPACES: Normal. No consolidation or edema. No pneumothorax. No effusion. HEART: Normal heart size. MEDIASTINUM: No mediastinal or hilar mass. BONES/JOINTS: No acute abnormality. SOFT TISSUES: Normal. RAD/Chest PA and Lateral IMPRESSION: No acute cardiopulmonary abnormality. No interval change. Electronically Signed: Jose Oneill MD at 12:18 EST ,
[2022-05-05 12:07] LABS: Squamous Epithelial Cells - UA 0-5 SEEN /hpf (5-10)
== END 2022-05-05 13:15 | disposition home or self-care (01) ==
PROVIDERS: Nurse Practitioner; Emergency Provider Emergency Medicine; PCP Family Medicine; Visit Provider Emergency Medicine
DX: R53.81 Other malaise (principal); F31.9 Bipolar disorder, unspecified; E66.9 Obesity, unspecified; J34.89 Other specified disorders of nose and nasal sinuses; I10 Essential (primary) hypertension; M79.10 Myalgia, unspecified site; R53.83 Other fatigue; J02.9 Acute pharyngitis, unspecified; R51.9 Headache, unspecified; R32 Unspecified urinary incontinence; R42 Dizziness and giddiness; Z79.899 Other long term (current) drug therapy
CPT/HCPCS: 71046; 81001; 87428; 87880; 99282

== ENCOUNTER → 2022-05-10 | Outpatient (CLI) | payer MEDICAID, SELFPAY ==
[2022-05-10 17:15] LABS: EST Glomerular Filtration Rate 81 mL/min (>60); Est Glom Filt Rate - Afr Amer 98 mL/min (>60)
== END | disposition home or self-care (01) ==
LOC: LAB 16:42
PROVIDERS: PCP Family Medicine; Referring Provider Specialist; Visit Provider Specialist
DX: M25.551 Pain in right hip (principal)
CPT/HCPCS: 36415; 82565

== ENCOUNTER → 2022-05-12 | Outpatient (CLI) | payer MEDICAID, SELFPAY ==
--- NOTE | 2022-05-12 12:31 | MRI_ITS ---
EXAM: MR RIGHT LOWER EXTREMITY WITH INTRAVENOUS CONTRAST, HIP CLINICAL INDICATION: right hip pain TECHNIQUE: Multiplanar and multisequence MR images of the right hip with intravenous contrast. This report was created using [employer] report [employer] technology. CONTRAST: 10cc intra-articular solution containing clariscan COMPARISON: November 15, 2017 FINDINGS: TENDONS: FLEXORS: Unremarkable. Intact. EXTENSORS/HAMSTRING: Unremarkable. Intact. ABDUCTORS: Unremarkable. Intact. ADDUCTORS: Unremarkable. Intact. ROTATORS: Unremarkable. Intact. MUSCLES: Unremarkable. Normal bulk and signal. FLUID: Unremarkable. No joint effusion. No trochanteric bursitis. LABRUM: Unremarkable. No acetabular labral tearing. CARTILAGE: Unremarkable. Articular cartilage intact. No focal chondral defects. BONES/JOINTS: Adequate distention of the right hip joint following injection performed by another radiologist under fluoroscopy. No femoral neck fracture. No avascular necrosis of the femoral head. No sacral insufficiency fracture. No suspicious bone marrow signal alteration. No other significant arthritic changes involving the right hip. OTHER SOFT TISSUES: Unremarkable. MRI/Lower Ext/Jt Only/W Contrast IMPRESSION: 1. No focal chondral defects or acetabular labral tearing. 2. No other significant internal derangement involving the right hip. Electronically Signed: Antonio Godwin MD at 1:03 EST ,
--- NOTE | 2022-05-12 12:32 | RAD_ITS ---
CLINICAL HISTORY: Female, 51 years old. Chronic right hip pain. PROCEDURE: ARTHROGRAM - RIGHT HIP RADIATION DOSAGE (If Supplied By Facility( 24.87 mCi ) mGycm. 40 seconds of fluoroscopy. CONSENT: The procedure as well as the benefits and possible complications including bleeding and infection were expanded to the patient. Informed consent was obtained. FLUOROSCOPY TIME (if supplied): (40 seconds) minutes/seconds Injection Information: 10 cc of dilute MRI contrast Number of images obtained: One TECHNIQUE: (All elements of maximal sterile barrier technique followed, including US elements as applicable) The patient was in the supine position. The overlying skin was prepped and draped in usual sterile fashion. Following local anesthetic application and under direct fluoroscopic guidance, a 22-gauge spinal needle was placed into the hip joint. 2 cc of [id number]-[id number] was injected for confirmation. Following this, 10 cc of dilute MRI contrast was injected. The patient tolerated the procedure well. RAD/Arthrogram Hip w/ MRI IMPRESSION: Right hip arthrogram for MRI imaging. The patient tolerated the procedure well. Electronically Signed: Carlton Armas MD at 13:43 EST ,
[2022-05-12] MEDS: Lidocaine 2% (5ml sdv) 5 ML VIAL.MPF INFILT (13:05)
[2022-05-12] MEDS: Iopamidol 10 ML in Syringe 1 EACH 600 ML INTRAARTIC (13:10)
[2022-05-12] MEDS: Gadoterate Meglumine Diluted 10 ML, Iopamidol 5 ML, Lidocaine 1% (20 ml mdv) 5 ML, Epin... INTRAARTIC (13:10)
== END | disposition home or self-care (01) ==
LOC: RAD 12:21
PROVIDERS: PCP Family Medicine; Referring Provider Specialist; Visit Provider Specialist
DX: M25.551 Pain in right hip (principal)
CPT/HCPCS: 27093; 73722; 77002; Q9967

== ENCOUNTER 2022-06-18 00:28 | Emergency (ER) | payer MEDICAID, SELFPAY ==
[2022-06-18 00:29] VITALS: BP 132/80; PULSE 65; RESP 18; TEMP 36.6; O2SAT 97; BMI 43.6
--- NOTE | 2022-06-18 02:17 | EX.ED.DYSGE1 ---
HPI History of Present Illness Chief Complaint: Lower Extremity Injury Narrative Narrative: Patient is a 51-year-old female who presents to the ER with complaint of left knee pain. She states that she needs to have her right hip replaced. She states that secondary to chronic pain in the hip she believes she has been walking abnormally putting increased stress on her left leg. She denies any recent trauma but states over the last few days she has been having increasing knee pain that makes it difficult to ambulate. Secondary to this she presents to the hospital for evaluation. She denies any recent surgery travel or history of DVT/PE [facility] Medical History Anemia Arthritis Back pain Bipolar 1 disorder Celiac disease COVID-19 Hemorrhoids HTN (hypertension) Incontinence Knee pain Liver disease Migraines Shoulder pain Vertigo Home Medications duloxetine 20 mg capsule,delayed release 20 mg PO DAILY depression 12/30/12 [History Last Taken 05/11/18] oxybutynin chloride 5 mg tablet 5 mg PO QHS bladder 02/01/13 [History Last Taken 05/11/18] ferrous sulfate 325 mg (65 mg iron) tablet 325 mg PO DAILY@0800 supplement 07/27/16 [History Last Taken 05/11/18] hydroxyzine pamoate 25 mg capsule 25 mg PO TID PRN PRN Anxiety #10 caps 07/27/16 [Rx Last Taken 05/11/18] cholecalciferol (vitamin D3) 25 mcg (1,000 unit) capsule 50,000 unit PO X1 supplement 02/17/17 [History Last Taken 05/11/18] cyanocobalamin (vitamin B-12) 1,000 mcg/mL oral drops (Vitamin B-12) 1,000 mcg PO QDAY supplement 02/17/17 [History Last Taken 05/11/18] multivitamin 1 tab PO QAM vitamin 02/17/17 [History Last Taken 05/11/18] naproxen sodium 220 mg capsule (Aleve) 220 mg PO Q12H PRN Pain Or Fever 02/17/17 [History Last Taken 05/11/18] lamotrigine 25 mg tablet 50 mg PO DAILY mood 07/06/17 [History Last Taken 05/11/18] ondansetron 4 mg disintegrating tablet 4 mg PO Q8H PRN PRN Nausea #10 tabs 05/12/18 [Rx Last Taken Unknown] cetirizine 10 mg tablet 10 mg PO DAILY allergies 07/26/18 [History Last Taken Unknown] meclizine 25 mg tablet 25 mg PO 4X/DAY PRN PRN Dizziness #20 tabs 07/26/18 [Rx Last Taken Unknown] omeprazole 20 mg capsule,delayed release 20 mg PO DAILY 10/21/19 [History Last Taken Unknown] pramipexole 0.25 mg tablet (Mirapex) 0.25 mg PO QHS RLS 10/21/19 [History Last Taken Unknown] sumatriptan succinate 50 mg tablet 50 mg PO .X1 PRN migraines 10/21/19 [History Last Taken Unknown] loperamide 2 mg capsule 2 mg PO Q4H PRN PRN Watery stool #10 caps 12/17/19 [Rx Last Taken Unknown] melatonin-pyridoxine HCl (vitamin B6) 3 mg-10 mg tablet 1 ea PO PRN PRN Sleep 03/18/20 [History Last Taken Unknown] epinephrine 0.3 mg/0.3 mL injection, auto-injector (EpiPen) 0.3 mg (0.3 mL) IM .once PRN anaphylaxis #1 ea 11/06/20 [Rx Last Taken Unknown] gabapentin 100 mg capsule 100 mg TID 11/06/20 [History Last Taken Unknown] topiramate 25 mg tablet 25 mg PO DAILY PRN Migraine Headache 11/02/21 [History Last Taken Unknown] doxycycline monohydrate 100 mg capsule 100 mg PO BID #14 CAPSULES 03/29/22 [Rx Last Taken Unknown] ondansetron 4 mg disintegrating tablet 4 mg PO Q6H PRN nausea and vomiting #10 tabs 04/23/22 [Rx Last Taken Unknown] oxycodone-acetaminophen 5 mg-325 mg tablet (Percocet) 1 tab PO Q6H PRN pain 3 days #12 tabs 06/18/22 [Rx Last Taken Unknown] Allergy/AdvReac Type Severity Reaction Status Date / Time aspirin Allergy Rash Verified 04/23/22 07:53 hydrocodone [From Vicodin] Allergy Hives Verified 04/23/22 07:53 ibuprofen Allergy Anaphylaxis Verified 04/23/22 07:53 venom-honey bee Allergy Anaphylaxis Verified 04/23/22 07:53 [bee venom (honey bee)] gluten AdvReac Upset Verified 04/23/22 07:53 Stomach Family History Other Arthritis COPD (chronic obstructive pulmonary disease) Cancer Diabetes Osteoporosis Parkinson disease Surgical History History of carpal tunnel surgery History of sinus surgery History of tonsillectomy and adenoidectomy Personal history of gastric bypass Social History household members: children and none Smoking Status: Never smoker alcohol intake: never substance use type: does not use ROS ROS ED Constitutional Constitutional ED: Denies chills or fever(s) ENT ENT ED: Denies sore throat Cardiovascular Cardiovascular: Denies chest pain Respiratory/Chest Respiratory/Chest: Denies cough or dyspnea Gastrointestinal Gastrointestinal: Denies abdominal pain, diarrhea, nausea or vomiting Genitourinary Genitourinary ED: Denies dysuria Musculoskeletal Musculoskeletal: Reports arthralgias and other Details: Positive left knee pain ; Denies back pain Integumentary Denies rash Neurologic Neurologic: Denies headache(s) or paresthesias Hematologic/Lymphatic Hematologic/Lymphatic: Denies easy bleeding or easy bruising EXAM Physical Exam Const Vital Signs: 06/18/22 00:29 Temperature 97.9 F Temperature Source Oral Pulse Rate 65 Respiratory Rate 18 Blood Pressure 132/80 H Blood Pressure Mean 97 Pulse Ox 97 Oxygen Delivery Method Room Air Positive well nourished, well developed and obese General Appearance ED: well developed Nutritional Appearance: obese Eyes PERRL and EOMs intact bilaterally Neck supple Resp normal respiratory effort and clear to auscultation bilaterally Cardio regular rate and regular rhythm Extremity Extremity Narrative: Left lower extremity is neurovascularly intact. No asymmetric edema no pitting edema negative Homans' sign bilaterally. There is pain on palpation diffusely of the left knee. No obvious bony deformity or joint effusion. No overlying erythema or warmth to suggest infection and no abrasions or ecchymosis to suggest trauma. Patellar tendon is intact and knee ligaments are stable. Active range of motion is decreased secondary to pain Neuro oriented x3 and CN's II-XII intact bilaterally Sensorium / Orientation: alert Psych mental status grossly normal Skin no rashes or lesions noted MDM MDM MDM Narrative Medical decision making narrative: Patient presented to ER with stable vitals and reported left knee pain without trauma. Differential includes overuse syndrome versus patellar tendon injury versus stabilize any ligament tendinitis or injury or possible DVT there is also possibility of septic joint. As patient does not have overlying erythema or warmth there is no calf tenderness my concern for septic joint or DVT is low. As there has been no recent trauma by history or exam concern for bony fracture or dislocation is low as well. Therefore at this time with history of chronic right leg issues and overuse syndrome on the left I feel this is just a knee sprain from overuse syndrome. Patient be given symptomatic medications secondary to this but there is no need for imaging or laboratory studies and she is otherwise safe for. History & Record Review Discussion w/independent historian: Patient and Friend Discharge Plan Triage Chief Complaint: Lower Extremity Injury ED Provider: Antonio Ponce Dx/Rx/DC Orders Clinical Impression: Left knee sprain, Bipolar disorder Instructions: ED Knee Sprain Prescriptions: New oxycodone-acetaminophen [Percocet] 5-325 mg tablet 1 tab PO Q6H PRN (Reason: pain) 3 Days Qty: 12 0RF No Action cyanocobalamin (vitamin B-12) [Vitamin B-12] 1,000 mcg/mL drops 1,000 mcg PO QDAY cholecalciferol (vitamin D3) 1,000 unit capsule 50,000 unit PO X1 Label Comments: 50,000 UNITS TWICE A WEEK naproxen sodium [Aleve] 220 mg capsule 220 mg PO Q12H PRN (Reason: Pain Or Fever) multivitamin tablet 1 tab PO QAM topiramate 25 mg tablet 25 mg PO DAILY PRN (Reason: Migraine Headache) duloxetine 20 MG capsule 20 mg PO DAILY Label Comments: depression oxybutynin chloride 5 MG tablet 5 mg PO QHS Label Comments: Urinary frequency ferrous sulfate 325 MG tablet 325 mg PO DAILY@0800 hydroxyzine pamoate 25 MG capsule 25 mg PO TID PRN PRN (Reason: Anxiety) Qty: 10 0RF lamotrigine 25 MG tablet 50 mg PO DAILY Label Comments: TAKE 1 TABLET BY MOUTH EVERY DAY ondansetron 4 MG tablet 4 mg PO Q8H PRN PRN (Reason: Nausea) Qty: 10 0RF meclizine 25 MG tablet 25 mg PO 4X/DAY PRN PRN (Reason: Dizziness) Qty: 20 0RF cetirizine 10 MG tablet 10 mg PO DAILY pramipexole [Mirapex] 0.25 MG tablet 0.25 mg PO QHS sumatriptan succinate 50 MG tablet 50 mg PO .X1 PRN omeprazole 20 MG capsule 20 mg PO DAILY loperamide 2 MG capsule 2 mg PO Q4H PRN PRN (Reason: Watery stool) Qty: 10 0RF melatonin-pyridoxine HCl (B6) 1 EACH tablet 1 ea PO PRN PRN (Reason: Sleep) gabapentin 100 mg capsule 100 mg TID Label Comments: TAKE 1 CAPSULE BY MOUTH THREE TIMES DAILY FOR 180 DAYS. epinephrine [EpiPen] 0.3 mg/0.3 mL auto-injector 0.3 mg IM .once PRN (Reason: anaphylaxis) Qty: 1 0RF Rx Instructions: for 2 doses doxycycline monohydrate 100 mg capsule 100 mg PO BID Qty: 14 0RF ondansetron 4 mg tablet,disintegrating 4 mg PO Q6H PRN (Reason: nausea and vomiting) Qty: 10 0RF Primary Care Provider: Alec Arndt Referrals: Alec Arndt MD [Primary Care Provider] - Disposition Disposition: Home, Self Care Discharge Date/Time: 06/18/22 02:52
[2022-06-18] MEDS: Ondansetron ODT 4 MG Tablet PO (02:41)
[2022-06-18] MEDS: Morphine 4 MG/ML Syringe 6 MG IM (02:41)
== END 2022-06-18 02:52 | disposition home or self-care (01) ==
PROVIDERS: Emergency Provider Emergency Medicine; PCP Family Medicine; Visit Provider Emergency Medicine
DX: S83.92XA Sprain of unspecified site of left knee, initial encounter (principal); F31.9 Bipolar disorder, unspecified; I10 Essential (primary) hypertension; X58.XXXA Exposure to other specified factors, initial encounter; R32 Unspecified urinary incontinence; Z79.899 Other long term (current) drug therapy; G43.909 Migraine, unspecified, not intractable, without status migrainosus; R42 Dizziness and giddiness
CPT/HCPCS: 96372; 99283

== ENCOUNTER 2022-07-03 02:20 | Emergency (ER) | payer MEDICAID, SELFPAY ==
[2022-07-03 02:21] VITALS: BP 132/83; PULSE 58; RESP 18; TEMP 36.5; O2SAT 100; BMI 43.7
--- NOTE | 2022-07-03 02:27 | EDS_ITS ---
HPI History of Present Illness Chief Complaint: Chest Pain Narrative Narrative: 51-year-old female here with chest pain, nausea and shortness of breath. This began 40 minutes prior to arrival. Notes pain is pressure, midsternal. Pain does not radiate to back. The patient denies recent surgery in the last 4 weeks or immobilization in the last 3 days, denies previous diagnosis of DVT or PE, hemoptysis, unilateral leg swelling or malignancy with treatment the last 6 months. No estrogen use noted. Patient denies sudden onset of pain, no tearing sensation, no migratory symptoms, no new numbness, weakness or loss of sensation. Patient denies family history or personal history of Marfan syndrome or Kiran-Danlos. Patient denies nausea and vomiting. Patient denies associated shortness of breath to me. Patient denies any recent bleeding diathesis or volume loss such as diarrhea. Denies any abdominal pain. [facility] Medical History Anemia Arthritis Back pain Bipolar 1 disorder Celiac disease COVID-19 Hemorrhoids HTN (hypertension) Incontinence Knee pain Liver disease Migraines Shoulder pain Vertigo Home Medications duloxetine 20 mg capsule,delayed release 20 mg PO DAILY depression 12/30/12 [History Last Taken 05/11/18] oxybutynin chloride 5 mg tablet 5 mg PO QHS bladder 02/01/13 [History Last Taken 05/11/18] ferrous sulfate 325 mg (65 mg iron) tablet 325 mg PO DAILY@0800 supplement 07/27/16 [History Last Taken 05/11/18] hydroxyzine pamoate 25 mg capsule 25 mg PO TID PRN PRN Anxiety #10 caps 07/27/16 [Rx Last Taken 05/11/18] cholecalciferol (vitamin D3) 25 mcg (1,000 unit) capsule 50,000 unit PO X1 supplement 02/17/17 [History Last Taken 05/11/18] cyanocobalamin (vitamin B-12) 1,000 mcg/mL oral drops (Vitamin B-12) 1,000 mcg PO QDAY supplement 02/17/17 [History Last Taken 05/11/18] multivitamin 1 tab PO QAM vitamin 02/17/17 [History Last Taken 05/11/18] naproxen sodium 220 mg capsule (Aleve) 220 mg PO Q12H PRN Pain Or Fever 02/17/17 [History Last Taken 05/11/18] lamotrigine 25 mg tablet 50 mg PO DAILY mood 07/06/17 [History Last Taken 05/11/18] ondansetron 4 mg disintegrating tablet 4 mg PO Q8H PRN PRN Nausea #10 tabs 05/12/18 [Rx Last Taken Unknown] cetirizine 10 mg tablet 10 mg PO DAILY allergies 07/26/18 [History Last Taken Unknown] meclizine 25 mg tablet 25 mg PO 4X/DAY PRN PRN Dizziness #20 tabs 07/26/18 [Rx Last Taken Unknown] omeprazole 20 mg capsule,delayed release 20 mg PO DAILY 10/21/19 [History Last Taken Unknown] pramipexole 0.25 mg tablet (Mirapex) 0.25 mg PO QHS RLS 10/21/19 [History Last Taken Unknown] sumatriptan succinate 50 mg tablet 50 mg PO .X1 PRN migraines 10/21/19 [History Last Taken Unknown] loperamide 2 mg capsule 2 mg PO Q4H PRN PRN Watery stool #10 caps 12/17/19 [Rx Last Taken Unknown] melatonin-pyridoxine HCl (vitamin B6) 3 mg-10 mg tablet 1 ea PO PRN PRN Sleep 03/18/20 [History Last Taken Unknown] epinephrine 0.3 mg/0.3 mL injection, auto-injector (EpiPen) 0.3 mg (0.3 mL) IM .once PRN anaphylaxis #1 ea 11/06/20 [Rx Last Taken Unknown] gabapentin 100 mg capsule 100 mg TID 11/06/20 [History Last Taken Unknown] topiramate 25 mg tablet 25 mg PO DAILY PRN Migraine Headache 11/02/21 [History Last Taken Unknown] doxycycline monohydrate 100 mg capsule 100 mg PO BID #14 CAPSULES 03/29/22 [Rx Last Taken Unknown] ondansetron 4 mg disintegrating tablet 4 mg PO Q6H PRN nausea and vomiting #10 tabs 04/23/22 [Rx Last Taken Unknown] oxycodone-acetaminophen 5 mg-325 mg tablet (Percocet) 1 tab PO Q6H PRN pain 3 days #12 tabs 06/18/22 [Rx Last Taken Unknown] Allergy/AdvReac Type Severity Reaction Status Date / Time aspirin Allergy Rash Verified 07/03/22 02:21 hydrocodone [From Vicodin] Allergy Hives Verified 07/03/22 02:21 ibuprofen Allergy Anaphylaxis Verified 07/03/22 02:21 venom-honey bee Allergy Anaphylaxis Verified 07/03/22 02:21 [bee venom (honey bee)] gluten AdvReac Upset Verified 07/03/22 02:21 Stomach Family History Other Arthritis COPD (chronic obstructive pulmonary disease) Cancer Diabetes Osteoporosis Parkinson disease Surgical History History of carpal tunnel surgery History of sinus surgery History of tonsillectomy and adenoidectomy Personal history of gastric bypass Social History household members: children and none Smoking Status: Never smoker alcohol intake: never substance use type: does not use ROS ROS ED ROS Narrative Constitutional: Denies fever HEENT: Denies sore throat Neck: Denies neck pain Cardiovascular: Endorses chest pain Respiratory: Denies shortness of breath GI: Endorses nausea : Denies changes in urinary habits Musculoskeletal: Denies muscle or joint pain Neurologic: Denies numbness weakness or loss of sensation Skin denies rash EXAM Physical Exam Narrative Exam Narrative: Nursing triage notes reviewed, Vital signs reviewed Constitutional: please see mdm HENT: MMM Eyes: Pupils equal round and reactive to light, Extraocular muscles intact Neck: No stridor, no JVD, full neck ROM Lungs: Clear to auscultation, No wheezing or rales. No increased work of breathing, no conversational dyspnea, no accessory muscle use, no nasal flaring. No respiratory distress noted Heart: Regular rate and rhythm, No murmurs, No rubs and No gallops, 2+ distal pulses (radial, femoral, posterior tibial) in all extremities Abdomen: Soft, there is no tenderness, rigidity, rebound or guarding, no obvious peritoneal signs, no palpable pulsatile abdominal masses, no auscultated abdominal bruit : No CVAT Extremities: No edema Neuro: No focal neurological deficits, cranial nerves II through XII intact, 5/5 strength in all extremities. Intact sensation to light touch in all extremities, 2+ reflexes bilateral patella dens. Normal gait. No ataxia. Skin: No rash or lesions noted Const Vital Signs: 07/03/22 02:21 07/03/22 02:53 Temperature 97.7 F L Temperature Source Temporal Pulse Rate 58 L Respiratory Rate 18 Blood Pressure 132/83 H Blood Pressure Mean 99 Pulse Ox 100 100 Oxygen Delivery Method Room Air Room Air Heart Score History: Moderately Suspicious ECG: Normal Age: >45 - <65 years Risk Factors: 1 or 2 Risk Factors Troponin: </= Normal Limit Score: 3 MDM MDM MDM Narrative Medical decision making narrative: Chief Complaint: Chest pain External records reviewed: No recent cardiac catheterizations, stress test or echocardiograms noted in the chart MDM: Patient was hemodynamically stable, afebrile, nontoxic-appearing. There are no focal cardiopulmonary normalities noted on my initial exam. Patient was hemodynamically stable, afebrile, nontoxic-appearing I considered the following differential diagnosis: ACS, arrhythmia, pneumonia, pneumothorax, anemia, aortic dissection, PE I considered aortic dissection and PE however thought this was less likely given the patient's clinical history and physical exam. She is low risk Wells score. She had no concern historical factors or physical exam findings suggestive for dissection. I did obtain a broad lab and imaging work-up to further elucidate etiology patient complaints. Initial EKG was without ischemic changes. No changes from prior EKG. Labs without evidence of severe anemia. Chest x-ray without evidence of pneumonia, pneumothorax, heart failure, cardiomegaly. There is no evidence of severe anemia, electrolyte abnormalities or myocardial ischemia on labs. Delta troponin was negative. Heart score 3 low risk patient is appropriate discharge home with close outpatient follow-up outpatient confirmatory testing. PE less likely given low risk Wells score. Aortic dissection is thought to be less likely given no sudden ripping or tearing pain, migratory pain, palpable pulse inequalities, no focal neurologic deficits concurrent with chest pain. Chance of dissection less than 03/1999. Pericarditis less likely given no pathognomonic EKG changes (no diffuse ST elevations, WI depressions). GI etiology (i.e. Boerhaave syndrome) less likely given no chest or neck crepitus, no vomiting or forced retching. I completed a HEART Score to screen for Major Adverse Cardiac Event (MACE) in this patient. The evidence indicates that the patient is very low risk for MACE and this is consistent with my clinical intuition. The risk of further workup or hospitalization for MACE is likely higher than the risk of the patient having a MACE. It is, therefore, in the patient?s best interest not to do additional emergent testing or to be hospitalized for MACE at this time. Shared Decision-Making No hospitalization indicated I have discussed with the patient my clinical impression and the result of the HEART Score to screen for MACE, as well as the risks of further testing and hospitalization. The HEART Score shows that the risk for MACE is less than 1%. Although the risk of MACE has not been completely eliminated, the risks of further testing or hospitalization for MACE likely exceed any potential benefit, and the patient agrees with not pursuing further emergent evaluation or hospitalization for MACE at this time. Factors affecting care: History of bipolar disorder, Social determinants of health: Never smoker, obesity History obtained from others: Shared decision making: I will have a discussion with the patient and or visitors regarding risk/benefits of further testing or admission. They will be made aware of of the risk/benefits inherent in this decision they will be given the opportunity to voice understanding. Consults: None Lab Data Attestation: I reviewed the patient's lab results. Lab results narrative: EKG with sinus bradycardia, left ax deviation, normal intervals, right bundle branch block, no STEMI, similar to prior EKG in December 2021 CBC without leukocytosis, severe anemia, no thrombocytopenia. BMP without evidence of significant electrolyte abnormalities, no anion gap, no acute kidney injury. Troponin is negative, no evidence of myocardial ischemia Labs: Laboratory Results - last 24 hr 07/03/22 07/03/22 07/03/22 02:27 02:27 04:58 WBC 10.3 RBC 4.58 Hgb 14.4 Hct 44.5 MCV 97.2 MCH 31.4 MCHC 32.4 RDW Std Deviation 44.3 H RDW Coeff of Rubi 12.5 Plt Count 284 MPV 9.8 Immature Gran % (Auto) 0.500 Neut % (Auto) 53.1 Lymph % (Auto) 35.2 Kane % (Auto) 8.0 Eos % (Auto) 2.6 Baso % (Auto) 0.6 Absolute Neuts (auto) 5.5 Absolute Lymphs (auto) 3.62 Nucleated RBC % 0 Sodium 140 Potassium 3.5 Chloride 110 H Carbon Dioxide 29.0 Anion Gap 1 L BUN 23 H Creatinine 0.84 Estim Creat Clear Calc 69.96 Est GFR (MDRD) Af Amer 92 Est GFR (MDRD) Non-Af 76 BUN/Creatinine Ratio 27.3 H Glucose 56 L Calcium 8.8 Troponin I High Sens 7 8 Radiography Chest X-Ray - ED: Read by ED Physician Diagnostic Testing: Clinical Impression(s) from Imaging Studies Chest X-Ray 07/03/22 02:55 IMPRESSION: No evidence of active intrathoracic disease. Electronically Signed: Desiree Guerrier MD at 3:13 EDT , I have personally reviewed the patient's chest x-ray. Chest x-ray is unremarkable for pulmonary edema, pneumothorax, pneumonia or focal cardiopulmonary abnormality. Discharge Plan Triage Chief Complaint: Chest Pain ED Provider: Jaylon Oquendo Dx/Rx/DC Orders Clinical Impression: Chest pain Instructions: ED Pain, Acute, Uncertain Cause Prescriptions: No Action cyanocobalamin (vitamin B-12) [Vitamin B-12] 1,000 mcg/mL drops 1,000 mcg PO QDAY cholecalciferol (vitamin D3) 1,000 unit capsule 50,000 unit PO X1 Label Comments: 50,000 UNITS TWICE A WEEK naproxen sodium [Aleve] 220 mg capsule 220 mg PO Q12H PRN (Reason: Pain Or Fever) multivitamin tablet 1 tab PO QAM topiramate 25 mg tablet 25 mg PO DAILY PRN (Reason: Migraine Headache) duloxetine 20 MG capsule 20 mg PO DAILY Label Comments: depression oxybutynin chloride 5 MG tablet 5 mg PO QHS Label Comments: Urinary frequency ferrous sulfate 325 MG tablet 325 mg PO DAILY@0800 hydroxyzine pamoate 25 MG capsule 25 mg PO TID PRN PRN (Reason: Anxiety) Qty: 10 0RF lamotrigine 25 MG tablet 50 mg PO DAILY Label Comments: TAKE 1 TABLET BY MOUTH EVERY DAY ondansetron 4 MG tablet 4 mg PO Q8H PRN PRN (Reason: Nausea) Qty: 10 0RF meclizine 25 MG tablet 25 mg PO 4X/DAY PRN PRN (Reason: Dizziness) Qty: 20 0RF cetirizine 10 MG tablet 10 mg PO DAILY pramipexole [Mirapex] 0.25 MG tablet 0.25 mg PO QHS sumatriptan succinate 50 MG tablet 50 mg PO .X1 PRN omeprazole 20 MG capsule 20 mg PO DAILY loperamide 2 MG capsule 2 mg PO Q4H PRN PRN (Reason: Watery stool) Qty: 10 0RF melatonin-pyridoxine HCl (B6) 1 EACH tablet 1 ea PO PRN PRN (Reason: Sleep) gabapentin 100 mg capsule 100 mg TID Label Comments: TAKE 1 CAPSULE BY MOUTH THREE TIMES DAILY FOR 180 DAYS. epinephrine [EpiPen] 0.3 mg/0.3 mL auto-injector 0.3 mg IM .once PRN (Reason: anaphylaxis) Qty: 1 0RF Rx Instructions: for 2 doses doxycycline monohydrate 100 mg capsule 100 mg PO BID Qty: 14 0RF ondansetron 4 mg tablet,disintegrating 4 mg PO Q6H PRN (Reason: nausea and vomiting) Qty: 10 0RF oxycodone-acetaminophen [Percocet] 5-325 mg tablet 1 tab PO Q6H PRN (Reason: pain) 3 Days Qty: 12 0RF Primary Care Provider: Alec Arndt Referrals: Alec Arndt MD [Primary Care Provider] - Activity Restrictions/Additional Instructions: Thank you for trusting us with your care today! Please take Tylenol (2 pills, 650 mg), ibuprofen (2 pills, 400 mg) every 6 hours as needed for pain and fever control. Please begin taking a daily 81 mg aspirin to decrease your risk of heart attack. Please return to the emergency department if your symptoms change or worsen. Specifically if you develop loss of consciousness, worsening chest pain, shortness of breath, leg swelling. Please follow with your primary care physician for further outpatient evaluation and management. Specifically for provocative testing such as stress test, stress echocardiogram Disposition Disposition: Home, Self Care
[2022-07-03 02:53] VITALS: O2SAT 100
--- NOTE | 2022-07-03 02:55 | RAD_ITS ---
INDICATION: chest pain EXAMINATION/TECHNIQUE: X-RAY - XR Chest 1 View AP portable. 2:58 AM COMPARISON: 05/05/2022 FINDINGS: LINES/DEVICES: None. LUNGS: No consolidation. No pneumothorax. MEDIASTINUM: Unremarkable. CARDIAC SILHOUETTE: Not enlarged. BONES AND SOFT TISSUES: No acute abnormalities. RAD/Chest 1 View (Portable) IMPRESSION: No evidence of active intrathoracic disease. Electronically Signed: Desiree Guerrier MD at 3:13 EDT ,
[2022-07-03 02:58] LABS: Absolute Lymphocyte Count 3.62 X10^3/uL (0.83-4.51); Absolute Neutrophil Count 5.5 X10^3/uL (2.0-7.7); Basophil# 0.06 X10^3/uL; Basophil% 0.6 % (0-1); Eosinophil# 0.27 X10^3/uL; Eosinophils% 2.6 % (0-5); Hematocrit 44.5 % (37-47); Hemoglobin 14.4 g/dL (12.0-15.0); Lymphocyte # 3.62 X10^3/ul (0.83-4.51); Lymphocyte % 35.2 % (19-41); Mean Corp Hgb Conc 32.4 g/dL (32-36); Mean Corpuscular Hgb 31.4 pg (27.0-32.0); Mean Corpuscular Volume 97.2 fL (81-99); Mean Platelet Vol. 9.8 fl (6.2-12.0); Monocyte# 0.82 X10^3/uL; NRBC Flagged by Analyzer 0 % (0-5); Neutrophil # 5.47 X10^3/uL (2.7-7.7); Neutrophil % 53.1 % (47-70); Platelet Count 284 K/mm3 (150-450); RBC Distribution Width CV 12.5 % (11.6-14.6); RBC Distribution Width SD 44.3 fl (35.1-43.9); Red Blood Count 4.58 M/mm3 (4.2-5.4); White Blood Count 10.3 K/mm3 (4.4-11.0)
[2022-07-03 03:15] LABS: Anion Gap 1 (5-15); BUN 23 mg/dL (7-18); BUN/Creat Ratio 27.3 RATIO (10-20); Calcium,Total 8.8 mg/dL (8.5-10.1); Chloride 110 mmol/L (98-107); Creatinine, Serum 0.84 mg/dL (0.55-1.02); EST Glomerular Filtration Rate 76 mL/min (>60); Est Glom Filt Rate - Afr Amer 92 mL/min (>60); Estimated Creatinine Clearance 69.96 ml/min; Glucose 56 mg/dL (74-106); Potassium 3.5 mmol/L (3.5-5.1); Sodium Level 140 mmol/L (136-145); Troponin-I HS (w/2H Reflex) 7 pg/mL (3.0-54.0)
[2022-07-03 04:54] LABS: Reflex Troponin-HS? (from REC) Y
[2022-07-03 05:51] LABS: Troponin-I HS 8 pg/mL (3.0-54.0)
[2022-07-03 06:09] VITALS: BP 140/92; PULSE 87; RESP 18; O2SAT 100
== END 2022-07-03 06:17 | disposition home or self-care (01) ==
PROVIDERS: Emergency Provider Emergency Medicine; PCP Family Medicine; Visit Provider Emergency Medicine
DX: R07.9 Chest pain, unspecified (principal); F31.9 Bipolar disorder, unspecified; I10 Essential (primary) hypertension; R42 Dizziness and giddiness; G43.909 Migraine, unspecified, not intractable, without status migrainosus
CPT/HCPCS: 71045; 80048; 84484; 85025; 93005; 99284; A4216

== ENCOUNTER 2022-08-01 20:02 | Emergency (ER) | payer MEDICAID, SELFPAY ==
[2022-08-01 20:04] VITALS: BP 147/93; PULSE 75; RESP 18; TEMP 35.8; O2SAT 99; BMI 42.9
[2022-08-01 20:41] LABS: Absolute Lymphocyte Count 2.56 X10^3/uL (0.83-4.51); Absolute Neutrophil Count 3.7 X10^3/uL (2.0-7.7); Basophil# 0.05 X10^3/uL; Basophil% 0.7 % (0-1); Eosinophils% 1.5 % (0-5); Hematocrit 40.4 % (37-47); Hemoglobin 13.6 g/dL (12.0-15.0); Lymphocyte # 2.56 X10^3/ul (0.83-4.51); Lymphocyte % 37.3 % (19-41); Mean Corp Hgb Conc 33.7 g/dL (32-36); Mean Corpuscular Hgb 31.6 pg (27.0-32.0); Mean Corpuscular Volume 93.7 fL (81-99); Mean Platelet Vol. 9.2 fl (6.2-12.0); Monocyte# 0.44 X10^3/uL; Monocyte% 6.4 % (0-10); NRBC Flagged by Analyzer 0 % (0-5); Platelet Count 302 K/mm3 (150-450); RBC Distribution Width CV 12.5 % (11.6-14.6); RBC Distribution Width SD 43.4 fl (35.1-43.9); Red Blood Count 4.31 M/mm3 (4.2-5.4); White Blood Count 6.9 K/mm3 (4.4-11.0)
[2022-08-01 20:43] LABS: Internal QC Validated? YES +Cl - CLEAR BKGD; Pregnancy, Serum, hCG Quali. NEGATIVE Negative
[2022-08-01 20:46] LABS: Alcohol, Blood (Medical)-Serum < 3.0 mg/dL
[2022-08-01 20:48] LABS: Anion Gap 9 (5-15); BUN 22 mg/dL (7-18); BUN/Creat Ratio 29.6 RATIO (10-20); Calcium,Total 8.9 mg/dL (8.5-10.1); Chloride 110 mmol/L (98-107); Creatinine, Serum 0.74 mg/dL (0.55-1.02); EST Glomerular Filtration Rate 88 mL/min (>60); Est Glom Filt Rate - Afr Amer 106 mL/min (>60); Estimated Creatinine Clearance 79.41 ml/min; Glucose 105 mg/dL (74-106); Potassium 3.7 mmol/L (3.5-5.1); Sodium Level 142 mmol/L (136-145)
[2022-08-01 20:55] LABS: Amphetamine Urine VISTA NEGATIVE (<1000 ng/mL); Barbiturate Urine VISTA NEGATIVE (< 200 ng/mL); Benzodiazepine Urine VISTA NEGATIVE (< 200 ng/mL); Cocaine Urine VISTA NEGATIVE (< 300 ng/mL); Ecstacy Urine VISTA NEGATIVE (< 500 ng/mL); Methadone Urine VISTA NEGATIVE (< 300 ng/mL); PCP Urine VISTA NEGATIVE (< 25 ng/mL); THC Urine VISTA NEGATIVE (< 50 ng/mL); Vista UDS pH Range 4
--- NOTE | 2022-08-01 21:22 | ED.RN ---
CRISIS CALLED , CHART FAXED
--- NOTE | 2022-08-01 21:58 | NUR.TO.PHY ---
EKG AND PINK SLIP NEEDED PER CRISIS
--- NOTE | 2022-08-01 22:20 | EX.ED.VIS.PS ---
HPI HPI - Psych History of Present Illness Chief Complaint: Mental Health Narrative Narrative: This is a 51-year-old female presenting with suicidal thoughts. She has been depressed. She states that her bilateral knees are [id number] and her right hip is also degenerative. She states that nobody will do surgery on her until she loses weight which is impossible because she has so much pain. She also reports a loss of family members in the last 6 months which is increasing her depression. PFSH PFS Medical History (Updated 08/01/22 @ 20:55 by Frannie Le) Acute sinusitis, unspecified Anemia Arthritis Back pain Bipolar 1 disorder Celiac disease COVID-19 Depression Hemorrhoids HTN (hypertension) Incontinence Knee pain Liver disease Migraines Shoulder pain Vertigo Home Medications duloxetine 20 mg capsule,delayed release 20 mg PO DAILY depression 12/30/12 [History Last Taken 05/11/18] oxybutynin chloride 5 mg tablet 5 mg PO QHS bladder 02/01/13 [History Last Taken 05/11/18] ferrous sulfate 325 mg (65 mg iron) tablet 325 mg PO DAILY@0800 supplement 07/27/16 [History Last Taken 05/11/18] hydroxyzine pamoate 25 mg capsule 25 mg PO TID PRN PRN Anxiety #10 caps 07/27/16 [Rx Last Taken 05/11/18] cholecalciferol (vitamin D3) 25 mcg (1,000 unit) capsule 50,000 unit PO X1 supplement 02/17/17 [History Last Taken 05/11/18] cyanocobalamin (vitamin B-12) 1,000 mcg/mL oral drops (Vitamin B-12) 1,000 mcg PO QDAY supplement 02/17/17 [History Last Taken 05/11/18] multivitamin 1 tab PO QAM vitamin 02/17/17 [History Last Taken 05/11/18] naproxen sodium 220 mg capsule (Aleve) 220 mg PO Q12H PRN Pain Or Fever 02/17/17 [History Last Taken 05/11/18] lamotrigine 25 mg tablet 50 mg PO DAILY mood 07/06/17 [History Last Taken 05/11/18] ondansetron 4 mg disintegrating tablet 4 mg PO Q8H PRN PRN Nausea #10 tabs 05/12/18 [Rx Last Taken Unknown] cetirizine 10 mg tablet 10 mg PO DAILY allergies 07/26/18 [History Last Taken Unknown] meclizine 25 mg tablet 25 mg PO 4X/DAY PRN PRN Dizziness #20 tabs 07/26/18 [Rx Last Taken Unknown] omeprazole 20 mg capsule,delayed release 20 mg PO DAILY 10/21/19 [History Last Taken Unknown] pramipexole 0.25 mg tablet (Mirapex) 0.25 mg PO QHS RLS 10/21/19 [History Last Taken Unknown] sumatriptan succinate 50 mg tablet 50 mg PO .X1 PRN migraines 10/21/19 [History Last Taken Unknown] loperamide 2 mg capsule 2 mg PO Q4H PRN PRN Watery stool #10 caps 12/17/19 [Rx Last Taken Unknown] melatonin-pyridoxine HCl (vitamin B6) 3 mg-10 mg tablet 1 ea PO PRN PRN Sleep 03/18/20 [History Last Taken Unknown] epinephrine 0.3 mg/0.3 mL injection, auto-injector (EpiPen) 0.3 mg (0.3 mL) IM .once PRN anaphylaxis #1 ea 11/06/20 [Rx Last Taken Unknown] gabapentin 100 mg capsule 100 mg TID 11/06/20 [History Last Taken Unknown] topiramate 25 mg tablet 25 mg PO DAILY PRN Migraine Headache 11/02/21 [History Last Taken Unknown] doxycycline monohydrate 100 mg capsule 100 mg PO BID #14 CAPSULES 03/29/22 [Rx Last Taken Unknown] ondansetron 4 mg disintegrating tablet 4 mg PO Q6H PRN nausea and vomiting #10 tabs 04/23/22 [Rx Last Taken Unknown] oxycodone-acetaminophen 5 mg-325 mg tablet (Percocet) 1 tab PO Q6H PRN pain 3 days #12 tabs 06/18/22 [Rx Last Taken Unknown] Allergy/AdvReac Type Severity Reaction Status Date / Time aspirin Allergy Rash Verified 08/01/22 20:04 hydrocodone [From Vicodin] Allergy Hives Verified 08/01/22 20:04 ibuprofen Allergy Anaphylaxis Verified 08/01/22 20:04 venom-honey bee Allergy Anaphylaxis Verified 08/01/22 20:04 [bee venom (honey bee)] gluten AdvReac Upset Verified 08/01/22 20:04 Stomach Family History Other Arthritis COPD (chronic obstructive pulmonary disease) Cancer Diabetes Osteoporosis Parkinson disease Surgical History History of carpal tunnel surgery History of sinus surgery History of tonsillectomy and adenoidectomy Personal history of gastric bypass Social History household members: children and none Smoking Status: Never smoker alcohol intake: never substance use type: does not use ROS ROS ED Constitutional Constitutional ED: Denies chills, fever(s) or sweats Eyes Eyes: Denies blurry vision or change in vision ENT ENT ED: Denies ear pain or sore throat Cardiovascular Cardiovascular: Denies chest pain, palpitations or racing heartbeat Respiratory/Chest Respiratory/Chest: Denies cough, dyspnea or sputum Gastrointestinal Gastrointestinal: Denies abdominal pain, constipation, diarrhea, nausea or vomiting Genitourinary Genitourinary ED: Denies dysuria, hematuria or urinary frequency Musculoskeletal Musculoskeletal: Denies arthralgias, myalgias or neck pain Integumentary Denies abscess, Abrasions or rash Neurologic Neurologic: Denies headache(s), paresthesias or weakness Psychiatric Psychiatric: Reports depression, suicidal ideation and suicidal thoughts Endocrine Endocrinology: Denies polydipsia or polyuria EXAM Physical Exam Const Vital Signs: 08/01/22 20:04 Temperature 96.4 F L Temperature Source Temporal Pulse Rate 75 Respiratory Rate 18 Blood Pressure 147/93 H Blood Pressure Mean 111 Pulse Ox 99 Oxygen Delivery Method Room Air Positive well nourished General Appearance ED: NAD; Negative for pallor HEENT Reports moist mucous membranes Eyes PERRL and EOMs intact bilaterally Resp normal respiratory effort and clear to auscultation bilaterally Auscultation: Negative for rales, rhonchi or wheezes Neuro oriented x3 and CN's II-XII intact bilaterally Psych cooperative Appearance: grossly normal Attitude: calm Activity / Motor Behavior: appropriate eye contact Mood & Affect: depressed Thought Content: suicidality and No homicidality Attention / Concentration: attention grossly intact Insight: poor Judgement: poor Skin General Skin Exam: Negative for jaundice or pallor MDM MDM MDM Narrative Medical decision making narrative: Patient presenting with suicidal thoughts. She does not have a plan current to a previous suicide attempt by cutting her wrists. Patient states that she has bipolar and her mood changes quickly. Basic lab work was obtained and she is medically cleared. hCG negative. EtOH negative. Drug screen negative. Crisis evaluated her here. They recommended admission admission. Patient is amenable to this and feels she needs it. They requested an EKG which was performed on my interpretation shows a sinus bradycardia with a ventricular rate of 52 bpm without sign of ischemic change or ectopy. Impression: 1. Depression 2. Suicidal ideation Lab Data Attestation: I reviewed the patient's lab results. Labs: Laboratory Results - last 24 hr 08/01/22 08/01/22 08/01/22 20:30 20:30 20:30 WBC 6.9 RBC 4.31 Hgb 13.6 Hct 40.4 MCV 93.7 MCH 31.6 MCHC 33.7 RDW Std Deviation 43.4 RDW Coeff of Rubi 12.5 Plt Count 302 MPV 9.2 Immature Gran % (Auto) 0.100 Neut % (Auto) 54.0 Lymph % (Auto) 37.3 [place] % (Auto) 6.4 Eos % (Auto) 1.5 Baso % (Auto) 0.7 Absolute Neuts (auto) 3.7 Absolute Lymphs (auto) 2.56 Nucleated RBC % 0 Sodium 142 Potassium 3.7 Chloride 110 H Carbon Dioxide 23.0 Anion Gap 9 BUN 22 H Creatinine 0.74 Estim Creat Clear Calc 79.41 Est GFR (MDRD) Af Amer 106 Est GFR (MDRD) Non-Af 88 BUN/Creatinine Ratio 29.6 H Glucose 105 Calcium 8.9 Serum , Qual Urine Opiates Screen Urine Methadone Screen Ur Barbiturates Screen Ur Phencyclidine Scrn Ur Amphetamines Screen MDMA (Ecstasy) Screen U Benzodiazepines Scrn Urine Cocaine Screen U Cannabinoids Screen Ur Drug Screen Comment Ethyl Alcohol < 3.0 08/01/22 08/01/22 20:30 20:35 WBC RBC Hgb Hct MCV MCH MCHC RDW Std Deviation RDW Coeff of Rubi Plt Count MPV Immature Gran % (Auto) Neut % (Auto) Lymph % (Auto) [place] % (Auto) Eos % (Auto) Baso % (Auto) Absolute Neuts (auto) Absolute Lymphs (auto) Nucleated RBC % Sodium Potassium Chloride Carbon Dioxide Anion Gap BUN Creatinine Estim Creat Clear Calc Est GFR (MDRD) Af Amer Est GFR (MDRD) Non-Af BUN/Creatinine Ratio Glucose Calcium Serum , Qual NEGATIVE Urine Opiates Screen NEGATIVE Urine Methadone Screen NEGATIVE Ur Barbiturates Screen NEGATIVE Ur Phencyclidine Scrn NEGATIVE Ur Amphetamines Screen NEGATIVE MDMA (Ecstasy) Screen NEGATIVE U Benzodiazepines Scrn NEGATIVE Urine Cocaine Screen NEGATIVE U Cannabinoids Screen NEGATIVE Ur Drug Screen Comment Ethyl Alcohol Discharge Plan Triage Chief Complaint: Mental Health ED Provider: Jaxson De Oliveira Dx/Rx/DC Orders Prescriptions: No Action cyanocobalamin (vitamin B-12) [Vitamin B-12] 1,000 mcg/mL drops 1,000 mcg PO QDAY cholecalciferol (vitamin D3) 1,000 unit capsule 50,000 unit PO X1 Label Comments: 50,000 UNITS TWICE A WEEK naproxen sodium [Aleve] 220 mg capsule 220 mg PO Q12H PRN (Reason: Pain Or Fever) multivitamin tablet 1 tab PO QAM topiramate 25 mg tablet 25 mg PO DAILY PRN (Reason: Migraine Headache) duloxetine 20 MG capsule 20 mg PO DAILY Label Comments: depression oxybutynin chloride 5 MG tablet 5 mg PO QHS Label Comments: Urinary frequency ferrous sulfate 325 MG tablet 325 mg PO DAILY@0800 hydroxyzine pamoate 25 MG capsule 25 mg PO TID PRN PRN (Reason: Anxiety) Qty: 10 0RF lamotrigine 25 MG tablet 50 mg PO DAILY Label Comments: TAKE 1 TABLET BY MOUTH EVERY DAY ondansetron 4 MG tablet 4 mg PO Q8H PRN PRN (Reason: Nausea) Qty: 10 0RF meclizine 25 MG tablet 25 mg PO 4X/DAY PRN PRN (Reason: Dizziness) Qty: 20 0RF cetirizine 10 MG tablet 10 mg PO DAILY pramipexole [Mirapex] 0.25 MG tablet 0.25 mg PO QHS sumatriptan succinate 50 MG tablet 50 mg PO .X1 PRN omeprazole 20 MG capsule 20 mg PO DAILY loperamide 2 MG capsule 2 mg PO Q4H PRN PRN (Reason: Watery stool) Qty: 10 0RF melatonin-pyridoxine HCl (B6) 1 EACH tablet 1 ea PO PRN PRN (Reason: Sleep) gabapentin 100 mg capsule 100 mg TID Label Comments: TAKE 1 CAPSULE BY MOUTH THREE TIMES DAILY FOR 180 DAYS. epinephrine [EpiPen] 0.3 mg/0.3 mL auto-injector 0.3 mg IM .once PRN (Reason: anaphylaxis) Qty: 1 0RF Rx Instructions: for 2 doses doxycycline monohydrate 100 mg capsule 100 mg PO BID Qty: 14 0RF ondansetron 4 mg tablet,disintegrating 4 mg PO Q6H PRN (Reason: nausea and vomiting) Qty: 10 0RF oxycodone-acetaminophen [Percocet] 5-325 mg tablet 1 tab PO Q6H PRN (Reason: pain) 3 Days Qty: 12 0RF Primary Care Provider: Alec Arndt Referrals: Alec Arndt MD [Primary Care Provider] -
--- NOTE | 2022-08-01 23:11 | ED.RN ---
patient has been referred to [facility]
[2022-08-02 00:45] VITALS: BP 141/89; PULSE 67; RESP 18; O2SAT 98
--- NOTE | 2022-08-02 01:10 | ED.RN ---
Report called by this RN to [facility] at [facility] at this time.
[2022-08-02 02:13] VITALS: BP 136/86; PULSE 72; RESP 16; O2SAT 98
== END 2022-08-02 02:14 ==
LOC: ED 21:06
PROVIDERS: Emergency Provider Student in an Organized Health Care Education/Training Program; PCP Family Medicine; Referring Provider Student in an Organized Health Care Education/Training Program; Visit Provider Student in an Organized Health Care Education/Training Program
DX: F32.A Depression, unspecified (principal); R45.851 Suicidal ideations; I10 Essential (primary) hypertension; Z79.899 Other long term (current) drug therapy
CPT/HCPCS: 80048; 80307; 82077; 84703; 85025; 87811; 93005; 99283

== ENCOUNTER 2022-10-27 09:10 | Emergency (ER) | payer MEDICAID, SELFPAY ==
[2022-10-27 09:11] VITALS: BP 155/98; PULSE 70; RESP 18; TEMP 36.6; O2SAT 99
--- NOTE | 2022-10-27 09:45 | RAD_ITS ---
INDICATION: injury EXAMINATION/TECHNIQUE: X-RAY - LEFT XR Shoulder Min 2 Views 4 VIEWS COMPARISON: Prior study dated: March 31, 2013 FINDINGS: SOFT TISSUES: No soft tissue swelling or gas. No radiopaque foreign body. BONES/JOINTS: No acute fracture or subluxation.. Normal alignment. Preservation of the joint space.. No sclerotic or destructive changes observed. RAD/Shoulder min 2 Views IMPRESSION: No acute osseous injury. Electronically Signed: Amanda Leger MD at 9:59 EDT ,
--- NOTE | 2022-10-27 10:10 | EX.ED.UPPERE ---
HPI History of Present Illness Chief Complaint: Upper Extremity Injury Informant: patient Narrative Narrative: Patient is a 51-year-old female with prior history of surgery on her right shoulder presenting with left shoulder pain. She is left-hand dominant. Pain states a couple days ago she fell face first and put her hands out in front of her to catch herself. Since then she been having some mild left shoulder pain. Last night she was throwing away trash and while she was lifting up the trash she suddenly had significant worsening of her shoulder pain. She states when she woke up this morning her pain was more severe now she has tingling diffusely in her left hand. It hurts to try to move her shoulder at all. She has previously seen Dr. Cee at [facility]. Denies any other complaints or concerns at this time. Patient is currently on meloxicam and did take it prior to arrival. [facility] Medical History Acute otitis externa of right ear Acute sinusitis, unspecified Anemia Arthritis Back pain Bipolar 1 disorder Celiac disease COVID-19 Depression Hemorrhoids HTN (hypertension) Incontinence Knee pain Liver disease Migraines Shoulder pain Vertigo Home Medications duloxetine 20 mg capsule,delayed release 20 mg PO DAILY depression 12/30/12 [History Last Taken 05/11/18] oxybutynin chloride 5 mg tablet 5 mg PO QHS bladder 02/01/13 [History Last Taken 05/11/18] ferrous sulfate 325 mg (65 mg iron) tablet 325 mg PO DAILY@0800 supplement 07/27/16 [History Last Taken 05/11/18] hydroxyzine pamoate 25 mg capsule 25 mg PO TID PRN PRN Anxiety #10 caps 07/27/16 [Rx Last Taken 05/11/18] cholecalciferol (vitamin D3) 25 mcg (1,000 unit) capsule 50,000 unit PO X1 supplement 02/17/17 [History Last Taken 05/11/18] cyanocobalamin (vitamin B-12) 1,000 mcg/mL oral drops (Vitamin B-12) 1,000 mcg PO QDAY supplement 02/17/17 [History Last Taken 05/11/18] multivitamin 1 tab PO QAM vitamin 02/17/17 [History Last Taken 05/11/18] naproxen sodium 220 mg capsule (Aleve) 220 mg PO Q12H PRN Pain Or Fever 02/17/17 [History Last Taken 05/11/18] lamotrigine 25 mg tablet 50 mg PO DAILY mood 07/06/17 [History Last Taken 05/11/18] cetirizine 10 mg tablet 10 mg PO DAILY allergies 07/26/18 [History Last Taken Unknown] meclizine 25 mg tablet 25 mg PO 4X/DAY PRN PRN Dizziness #20 tabs 07/26/18 [Rx Last Taken Unknown] omeprazole 20 mg capsule,delayed release 20 mg PO DAILY 10/21/19 [History Last Taken Unknown] pramipexole 0.25 mg tablet (Mirapex) 0.25 mg PO QHS RLS 10/21/19 [History Last Taken Unknown] sumatriptan succinate 50 mg tablet 50 mg PO .X1 PRN migraines 10/21/19 [History Last Taken Unknown] loperamide 2 mg capsule 2 mg PO Q4H PRN PRN Watery stool #10 caps 12/17/19 [Rx Last Taken Unknown] melatonin-pyridoxine HCl (vitamin B6) 3 mg-10 mg tablet 1 ea PO PRN PRN Sleep 03/18/20 [History Last Taken Unknown] epinephrine 0.3 mg/0.3 mL injection, auto-injector (EpiPen) 0.3 mg (0.3 mL) IM .once PRN anaphylaxis #1 ea 11/06/20 [Rx Last Taken Unknown] gabapentin 100 mg capsule 100 mg TID 11/06/20 [History Last Taken Unknown] topiramate 25 mg tablet 25 mg PO DAILY PRN Migraine Headache 11/02/21 [History Last Taken Unknown] ondansetron 4 mg disintegrating tablet 4 mg PO Q6H PRN nausea and vomiting #10 tabs 04/23/22 [Rx Last Taken Unknown] oxycodone-acetaminophen 5 mg-325 mg tablet (Percocet) 1 tab PO Q6H PRN pain 3 days #12 tabs 06/18/22 [Rx Last Taken Unknown] aripiprazole 2 mg tablet 2 mg PO DAILY 08/02/22 [History Last Taken Unknown] buspirone 7.5 mg tablet 7.5 mg PO DAILY 08/02/22 [History Last Taken Unknown] meloxicam 7.5 mg tablet 7.5 mg PO DAILY 08/02/22 [History Last Taken Unknown] oxycodone-acetaminophen 5 mg-325 mg tablet (Percocet) 1 tab PO Q8H PRN pain 3 days #10 tabs 10/27/22 [Rx Last Taken Unknown] Allergy/AdvReac Type Severity Reaction Status Date / Time aspirin Allergy Rash Verified 10/27/22 09:13 hydrocodone [From Vicodin] Allergy Hives Verified 10/27/22 09:13 ibuprofen Allergy Anaphylaxis Verified 10/27/22 09:13 venom-honey bee Allergy Anaphylaxis Verified 10/27/22 09:13 [bee venom (honey bee)] gluten AdvReac Upset Verified 10/27/22 09:13 Stomach Family History Other Arthritis COPD (chronic obstructive pulmonary disease) Cancer Diabetes Osteoporosis Parkinson disease Surgical History History of carpal tunnel surgery History of sinus surgery History of tonsillectomy and adenoidectomy Personal history of gastric bypass Social History household members: children and none Smoking Status: Never smoker alcohol intake: never substance use type: does not use ROS ROS ED Constitutional Constitutional ED: Denies chills or fever(s) Cardiovascular Cardiovascular: Denies chest pain Gastrointestinal Gastrointestinal: Denies nausea or vomiting Musculoskeletal Musculoskeletal: Reports other Details: left shoulder pain Integumentary Denies rash Neurologic Neurologic: Reports paresthesias LUE (hand) Psychiatric Psychiatric: Denies anxiety Hematologic/Lymphatic Hematologic/Lymphatic: Denies easy bleeding or easy bruising EXAM Physical Exam Const Vital Signs: 10/27/22 09:11 Temperature 97.9 F Temperature Source Temporal Pulse Rate 70 Respiratory Rate 18 Blood Pressure 155/98 H Blood Pressure Mean 117 Pulse Ox 99 Oxygen Delivery Method Room Air Positive well nourished and well developed General Appearance ED: well developed and NAD HEENT Reports moist mucous membranes Neck full ROM and supple General: Negative for tenderness Resp normal respiratory effort and clear to auscultation bilaterally Cardio regular rate, regular rhythm and no murmurs Cardio Narrative: 2+ left radial pulse Back/Spine Cervical Spine: Negative for cervical spine tenderness Thoracic Spine / Upper Back: Negative for thoracic spinal tenderness Extremity Extremity Narrative: No obvious deformity. Left upper extremity?no deformity, no pinpoint area of tenderness however patient seems to point diffusely to the anterior shoulder and into her posterior shoulder as where it hurts. Does have tenderness with palpation of the proximal humerus diffusely. Range of motion preserved through passive motion however patient has significant decreased range of motion with flexion, AB duction and rotation with active range of motion. Seems to be limited secondary to pain. No pain with range of motion of the elbow, forearm or hands. Able to go through all range of motion of the hands without difficulty or weakness. No tenderness palpation over the AC joint or clavicle. Neuro oriented x3 Neuro Narrative: Subjective paresthesias diffusely through the left hand that improve moving proximally and resolved by the time at the level of the elbow. 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 Sensorium / Orientation: alert Psych mental status grossly normal Skin Lesions: no lesions Rashes: no rashes MDM MDM MDM Narrative Medical decision making narrative: Patient evaluated for left shoulder pain and decreased range of motion. She also has subjective paresthesias of the hand. Do not think this is a central process. Differential includes shoulder strain, rotator cuff injury and less likely subluxation/dislocation. Shoulder x-ray obtained interpreted by myself as well as radiology which does not show any acute process. I did discuss with patient that there is a good chance we would not see anything on x-ray as this is likely more of a soft tissue injury. She does not have specific tenderness over the bicep muscle so I have a lower suspicion for bicep tendinitis. She took Mobic prior to arrival so we will defer NSAIDs at this time however I did discuss transitioning her for short course of anti-inflammatories such as Motrin 600 mg or naproxen 500 mg and holding her Mobic while having acute pain. Patient is not given opioid pain medication in the ER she drove her self here. Will prescribe a short course of Oxycodone for breakthrough pain. She states she is tolerated this in the past. Placed on a sling for symptom control but is counseled on range of motion exercises to prevent frozen shoulder. Patient is familiar with these and agreeable. Is given a work note for today per her request. Will follow-up with her orthopedist. Counseled return precautions. Patient is good distal pulses and is neurovascular intact. Discharged home in stable condition. Radiography Diagnostic Testing: Clinical Impression(s) from Imaging Studies Shoulder X-Ray 10/27/22 09:45 IMPRESSION: No acute osseous injury. Electronically Signed: Amanda Leger MD at 9:59 EDT , Discharge Plan Triage Chief Complaint: Upper Extremity Injury ED Provider: Jovanna Lamas Dx/Rx/DC Orders Clinical Impression: Left hand paresthesia, Injury of left shoulder Instructions: ED Shoulder Pain, Uncertain Cause Prescriptions: New oxycodone-acetaminophen [Percocet] 5-325 mg tablet 1 tab PO Q8H PRN (Reason: pain) 3 Days Qty: 10 0RF No Action cyanocobalamin (vitamin B-12) [Vitamin B-12] 1,000 mcg/mL drops 1,000 mcg PO QDAY cholecalciferol (vitamin D3) 1,000 unit capsule 50,000 unit PO X1 Patient Comments: 50,000 UNITS TWICE A WEEK naproxen sodium [Aleve] 220 mg capsule 220 mg PO Q12H PRN (Reason: Pain Or Fever) multivitamin tablet 1 tab PO QAM topiramate 25 mg tablet 25 mg PO DAILY PRN (Reason: Migraine Headache) duloxetine 20 MG capsule 20 mg PO DAILY Patient Comments: depression oxybutynin chloride 5 MG tablet 5 mg PO QHS Patient Comments: Urinary frequency ferrous sulfate 325 MG tablet 325 mg PO DAILY@0800 hydroxyzine pamoate 25 MG capsule 25 mg PO TID PRN PRN (Reason: Anxiety) Qty: 10 0RF lamotrigine 25 MG tablet 50 mg PO DAILY Patient Comments: TAKE 1 TABLET BY MOUTH EVERY DAY meclizine 25 MG tablet 25 mg PO 4X/DAY PRN PRN (Reason: Dizziness) Qty: 20 0RF cetirizine 10 MG tablet 10 mg PO DAILY pramipexole [Mirapex] 0.25 MG tablet 0.25 mg PO QHS sumatriptan succinate 50 MG tablet 50 mg PO .X1 PRN omeprazole 20 MG capsule 20 mg PO DAILY loperamide 2 MG capsule 2 mg PO Q4H PRN PRN (Reason: Watery stool) Qty: 10 0RF melatonin-pyridoxine HCl (B6) 1 EACH tablet 1 ea PO PRN PRN (Reason: Sleep) gabapentin 100 mg capsule 100 mg TID Patient Comments: TAKE 1 CAPSULE BY MOUTH THREE TIMES DAILY FOR 180 DAYS. epinephrine [EpiPen] 0.3 mg/0.3 mL auto-injector 0.3 mg IM .once PRN (Reason: anaphylaxis) Qty: 1 0RF Rx Instructions: for 2 doses ondansetron 4 mg tablet,disintegrating 4 mg PO Q6H PRN (Reason: nausea and vomiting) Qty: 10 0RF oxycodone-acetaminophen [Percocet] 5-325 mg tablet 1 tab PO Q6H PRN (Reason: pain) 3 Days Qty: 12 0RF meloxicam 7.5 mg tablet 7.5 mg PO DAILY buspirone 7.5 mg tablet 7.5 mg PO DAILY aripiprazole 2 mg tablet 2 mg PO DAILY Primary Care Provider: Alec Arndt Referrals: Alec Arndt MD [Primary Care Provider] - Sher Cee MD [Med Staff - Active Staff] - 1-2 Days if not improving Activity Restrictions/Additional Instructions: Please stop taking the meloxicam for the next few days and instead you can take [id number] Aleve or Advil. Only take the Percocet as needed for severe pain. If wearing the sling make sure you take your arm out of the sling a couple times a day and do range of motion exercises (big circles little circles) to prevent frozen shoulder. Please follow-up with your orthopedist. Your x-ray did not show any dislocation or broken bone/severe arthritis however I am concerned you could have a possible rotator cuff injury. Disposition Disposition: Home, Self Care
== END 2022-10-27 10:48 | disposition home or self-care (01) ==
PROVIDERS: Emergency Provider Emergency Medicine; PCP Family Medicine; Visit Provider Emergency Medicine
DX: R20.2 Paresthesia of skin (principal); F31.9 Bipolar disorder, unspecified; S49.92XA Unspecified injury of left shoulder and upper arm, initial encounter; I10 Essential (primary) hypertension; G43.909 Migraine, unspecified, not intractable, without status migrainosus; Z79.899 Other long term (current) drug therapy; W19.XXXA Unspecified fall, initial encounter; X58.XXXA Exposure to other specified factors, initial encounter; Y93.89 Activity, other specified
CPT/HCPCS: 73030; 99283

== ENCOUNTER 2022-11-26 11:48 | Emergency (ER) | payer MEDICAID, SELFPAY ==
[2022-11-26 11:49] VITALS: BP 150/93; PULSE 53; RESP 15; TEMP 36.6; O2SAT 100; BMI 41.5
--- NOTE | 2022-11-26 12:06 | EKG12_ITS ---
Test Reason : CP Blood Pressure : / mmHG Vent. Rate : 052 BPM Atrial Rate : 052 BPM P-R Int : 134 ms QRS Dur : 136 ms QT Int : 470 ms P-R-T Axes : 029 -05 024 degrees QTc Int : 437 ms Sinus bradycardia Right bundle branch block Minimal voltage criteria for LVH, may be normal variant ( R in aVL ) Abnormal ECG Confirmed by CAROLYN THOMPSON, EFE ([id number]), publishing editor MARIO IDAZ ([id number]) on 11/29/2022 10:34:50 AM Referred By: DONAVON/GRETEL Confirmed By:ELEAZAR LEON MD
--- NOTE | 2022-11-26 12:08 | RAD_ITS ---
INDICATION: chest pain EXAMINATION/TECHNIQUE: X-RAY - XR Chest 1 View COMPARISON: Prior study dated: 07/03/2022. FINDINGS: LINES/DEVICES: None. LUNGS: No consolidation, edema or effusion. No pneumothorax. MEDIASTINUM AND CARDIOVASCULAR STRUCTURES: Cardiac silhouette not enlarged. Central airways and mediastinal contour are unremarkable. BONES AND SOFT TISSUES: Unremarkable. RAD/Chest 1 View (Portable) IMPRESSION: No radiographic evidence of acute cardiopulmonary disease. Electronically Signed: Alex Kennedy MD at 12:51 EDT ,
--- NOTE | 2022-11-26 12:09 | EDS_ITS ---
HPI History of Present Illness Chief Complaint: Chest Pain Narrative Narrative: Patient presents with chest pain that started about half hour prior to arrival. It is right-sided and radiates to her right neck. She has no pleuritic component. She has no back pain or tearing sensation. No lower extremity MOSES or calf pain. This pain seems to subside. [facility] Medical History Acute otitis externa of right ear Acute sinusitis, unspecified Anemia Arthritis Back pain Bipolar 1 disorder Celiac disease COVID-19 Depression Hemorrhoids HTN (hypertension) Incontinence Knee pain Liver disease Migraines Shoulder pain Vertigo Home Medications duloxetine 20 mg capsule,delayed release 20 mg PO DAILY depression 12/30/12 [History Last Taken 05/11/18] oxybutynin chloride 5 mg tablet 5 mg PO QHS bladder 02/01/13 [History Last Taken 05/11/18] ferrous sulfate 325 mg (65 mg iron) tablet 325 mg PO DAILY@0800 supplement 07/27/16 [History Last Taken 05/11/18] hydroxyzine pamoate 25 mg capsule 25 mg PO TID PRN PRN Anxiety #10 caps 07/27/16 [Rx Last Taken 05/11/18] cholecalciferol (vitamin D3) 25 mcg (1,000 unit) capsule 50,000 unit PO QWEEK supplement 02/17/17 [History Last Taken 05/11/18] cyanocobalamin (vitamin B-12) 1,000 mcg/mL oral drops (Vitamin B-12) 1,000 mcg PO QDAY supplement 02/17/17 [History Last Taken 05/11/18] multivitamin 1 tab PO QAM vitamin 02/17/17 [History Last Taken 05/11/18] naproxen sodium 220 mg capsule (Aleve) 220 mg PO Q12H PRN Pain Or Fever 02/17/17 [History Last Taken 05/11/18] lamotrigine 25 mg tablet 50 mg PO DAILY mood 07/06/17 [History Last Taken 05/11/18] cetirizine 10 mg tablet 10 mg PO DAILY allergies 07/26/18 [History Last Taken Unknown] meclizine 25 mg tablet 25 mg PO 4X/DAY PRN PRN Dizziness #20 tabs 07/26/18 [Rx Last Taken Unknown] omeprazole 20 mg capsule,delayed release 20 mg PO DAILY 10/21/19 [History Last Taken Unknown] pramipexole 0.25 mg tablet (Mirapex) 0.25 mg PO QHS RLS 10/21/19 [History Last Taken Unknown] sumatriptan succinate 50 mg tablet 50 mg PO .X1 PRN migraines 10/21/19 [History Last Taken Unknown] loperamide 2 mg capsule 2 mg PO Q4H PRN PRN Watery stool #10 caps 12/17/19 [Rx Last Taken Unknown] melatonin-pyridoxine HCl (vitamin B6) 3 mg-10 mg tablet 1 ea PO PRN PRN Sleep 03/18/20 [History Last Taken Unknown] epinephrine 0.3 mg/0.3 mL injection, auto-injector (EpiPen) 0.3 mg (0.3 mL) IM .once PRN anaphylaxis #1 ea 11/06/20 [Rx Last Taken Unknown] gabapentin 100 mg capsule 100 mg PO TID 11/06/20 [History Last Taken Unknown] topiramate 25 mg tablet 25 mg PO DAILY PRN Migraine Headache 11/02/21 [History Last Taken Unknown] ondansetron 4 mg disintegrating tablet 4 mg PO Q6H PRN nausea and vomiting #10 tabs 04/23/22 [Rx Last Taken Unknown] aripiprazole 2 mg tablet 2 mg PO DAILY 08/02/22 [History Last Taken Unknown] buspirone 7.5 mg tablet 7.5 mg PO DAILY 08/02/22 [History Last Taken Unknown] meloxicam 7.5 mg tablet 7.5 mg PO DAILY 08/02/22 [History Last Taken Unknown] Allergy/AdvReac Type Severity Reaction Status Date / Time aspirin Allergy Rash Verified 11/26/22 11:49 hydrocodone [From Vicodin] Allergy Hives Verified 11/26/22 11:49 ibuprofen Allergy Anaphylaxis Verified 11/26/22 11:49 venom-honey bee Allergy Anaphylaxis Verified 11/26/22 11:49 [bee venom (honey bee)] gluten AdvReac Upset Verified 11/26/22 11:49 Stomach Family History Other Arthritis COPD (chronic obstructive pulmonary disease) Cancer Diabetes Osteoporosis Parkinson disease Surgical History History of carpal tunnel surgery History of sinus surgery History of tonsillectomy and adenoidectomy Personal history of gastric bypass Social History household members: children and none Smoking Status: Never smoker alcohol intake: never substance use type: does not use ROS ROS ED ROS Narrative Past medical history: Reviewed Medications: Reviewed Social history: Noncontributory Review of systems: All systems negative except as indicated General: No fever Eyes: No visual changes ENT: No upper airway congestion, normal voice Neck: No neck pain Cardiovascular: Chest pain as in HPI Respiratory: No shortness of breath or cough Gastrointestinal: No abdominal pain, nausea vomiting or diarrhea Genitourinary: No dysuria Musculoskeletal: Denies myalgias no difficulty with ambulation Skin: No rash Neurological: No memory loss, confusion or any focal weakness Psych: No recent behavioral changes Hematologic: No easy bleeding or easy bruising EXAM Physical Exam Narrative Exam Narrative: Physical exam General: Well nourished, Well developed, No Acute Distress Head: Normocephalic, Atraumatic Eyes: Conjunctiva not pale ENT: Moist mucous membranes Neck: Supple, Nontender, No lymphadenopathy Cardiovascular: Regular rate, Regular rhythm Respiratory: No distress, CTA bilaterally Abdomen: Soft, Nontender, Nondistended Back: Nontender, Normal Inspection. Negative for: CVA tenderness Extremities: Nontender, No edema Skin: Normal color, No rash Neurological: Alert, Normal Strength, Normal Sensation Psychological: Normal affect Const Vital Signs: 11/26/22 11:49 11/26/22 11:55 11/26/22 12:10 Temperature 97.8 F Temperature Source Oral Pulse Rate 53 L Respiratory Rate 15 Respiratory Pattern Normal Blood Pressure 150/93 H Blood Pressure Mean 112 Pulse Ox 100 95 Oxygen Delivery Method Room Air Room Air MDM MDM MDM Narrative Medical decision making narrative: EKG interpretation: Sinus rhythm with a rate of 52. Normal AL and QTc intervals. Right bundle branch block pattern. No acute ischemic changes. Interpreted by emergency doctor. Chest x-ray: Normal cardiac silhouette, normal lung markings. No acute findings Interpreted by me MDM: Patient is a normal cardiac work-up, symptoms are now gone. There is no pleuritic component, PERC is negative I do not believe a PE work-up is needed. I have ruled out pneumothorax, pneumonia or any lung etiology, there is no evidence of ACS. Patient does not meet admission criteria I talked to her about all of this and she agrees. She will be discharged in stable condition Lab Data Labs: Laboratory Results - last 24 hr 11/26/22 11/26/22 11:50 15:05 WBC 11.6 H RBC 4.45 Hgb 14.0 Hct 42.1 MCV 94.6 MCH 31.5 MCHC 33.3 RDW Std Deviation 43.3 RDW Coeff of Rubi 12.5 Plt Count 278 MPV 9.4 Immature Gran % (Auto) 0.800 Neut % (Auto) 54.4 Lymph % (Auto) 37.1 [place] % (Auto) 7.1 Eos % (Auto) 0.3 Baso % (Auto) 0.3 Absolute Neuts (auto) 6.3 Absolute Lymphs (auto) 4.31 Nucleated RBC % 0 Sodium 140 Potassium 3.8 Chloride 106 Carbon Dioxide 29.0 Anion Gap 5 BUN 18 Creatinine 0.84 Estim Creat Clear Calc 69.96 Est GFR (MDRD) Af Amer 93 Est GFR (MDRD) Non-Af 77 BUN/Creatinine Ratio 21.5 H Glucose 90 Calcium 8.9 Troponin I High Sens 9 11 Radiography Diagnostic Testing: Clinical Impression(s) from Imaging Studies Chest X-Ray 11/26/22 12:08 IMPRESSION: No radiographic evidence of acute cardiopulmonary disease. Electronically Signed: Alex Kennedy MD at 12:51 EDT Reading Location ID and State: [facility] / [place] Tel , Service support , Discharge Plan Triage Chief Complaint: Chest Pain ED Provider: Delon Estrada Dx/Rx/DC Orders Clinical Impression: Chest pain Instructions: ED Chest Pain, Uncertain Cause Prescriptions: No Action cyanocobalamin (vitamin B-12) [Vitamin B-12] 1,000 mcg/mL drops 1,000 mcg PO QDAY cholecalciferol (vitamin D3) 1,000 unit capsule 50,000 unit PO QWEEK Patient Comments: 50,000 UNITS TWICE A WEEK naproxen sodium [Aleve] 220 mg capsule 220 mg PO Q12H PRN (Reason: Pain Or Fever) multivitamin tablet 1 tab PO QAM topiramate 25 mg tablet 25 mg PO DAILY PRN (Reason: Migraine Headache) duloxetine 20 MG capsule 20 mg PO DAILY Patient Comments: depression oxybutynin chloride 5 MG tablet 5 mg PO QHS Patient Comments: Urinary frequency ferrous sulfate 325 MG tablet 325 mg PO DAILY@0800 hydroxyzine pamoate 25 MG capsule 25 mg PO TID PRN PRN (Reason: Anxiety) Qty: 10 0RF lamotrigine 25 MG tablet 50 mg PO DAILY Patient Comments: TAKE 1 TABLET BY MOUTH EVERY DAY meclizine 25 MG tablet 25 mg PO 4X/DAY PRN PRN (Reason: Dizziness) Qty: 20 0RF cetirizine 10 MG tablet 10 mg PO DAILY pramipexole [Mirapex] 0.25 MG tablet 0.25 mg PO QHS sumatriptan succinate 50 MG tablet 50 mg PO .X1 PRN omeprazole 20 MG capsule 20 mg PO DAILY loperamide 2 MG capsule 2 mg PO Q4H PRN PRN (Reason: Watery stool) Qty: 10 0RF melatonin-pyridoxine HCl (B6) 1 EACH tablet 1 ea PO PRN PRN (Reason: Sleep) gabapentin 100 mg capsule 100 mg PO TID Patient Comments: TAKE 1 CAPSULE BY MOUTH THREE TIMES DAILY FOR 180 DAYS. epinephrine [EpiPen] 0.3 mg/0.3 mL auto-injector 0.3 mg IM .once PRN (Reason: anaphylaxis) Qty: 1 0RF Rx Instructions: for 2 doses ondansetron 4 mg tablet,disintegrating 4 mg PO Q6H PRN (Reason: nausea and vomiting) Qty: 10 0RF meloxicam 7.5 mg tablet 7.5 mg PO DAILY buspirone 7.5 mg tablet 7.5 mg PO DAILY aripiprazole 2 mg tablet 2 mg PO DAILY Stand Alone Forms: Work / School Excuse Primary Care Provider: Alec Arndt Referrals: Alec Arndt MD [Primary Care Provider] - Disposition Disposition: Home, Self Care
[2022-11-26 12:10] VITALS: O2SAT 95
[2022-11-26] MEDS: Oxycodone/Apap 5/325 Tablet PO (12:20)
[2022-11-26 12:37] LABS: Absolute Lymphocyte Count 4.31 X10^3/uL (0.83-4.51); Absolute Neutrophil Count 6.3 X10^3/uL (2.0-7.7); Basophil# 0.04 X10^3/uL; Basophil% 0.3 % (0-1); Eosinophil# 0.04 X10^3/uL; Eosinophils% 0.3 % (0-5); Hematocrit 42.1 % (37-47); Lymphocyte # 4.31 X10^3/ul (0.83-4.51); Lymphocyte % 37.1 % (19-41); Mean Corp Hgb Conc 33.3 g/dL (32-36); Mean Corpuscular Hgb 31.5 pg (27.0-32.0); Mean Corpuscular Volume 94.6 fL (81-99); Mean Platelet Vol. 9.4 fl (6.2-12.0); Monocyte# 0.82 X10^3/uL; Monocyte% 7.1 % (0-10); NRBC Flagged by Analyzer 0 % (0-5); Neutrophil # 6.33 X10^3/uL (2.7-7.7); Neutrophil % 54.4 % (47-70); Platelet Count 278 K/mm3 (150-450); RBC Distribution Width CV 12.5 % (11.6-14.6); RBC Distribution Width SD 43.3 fl (35.1-43.9); Red Blood Count 4.45 M/mm3 (4.2-5.4); White Blood Count 11.6 K/mm3 (4.4-11.0)
[2022-11-26 12:56] LABS: Anion Gap 5 (5-15); BUN 18 mg/dL (7-18); BUN/Creat Ratio 21.5 RATIO (10-20); Calcium,Total 8.9 mg/dL (8.5-10.1); Chloride 106 mmol/L (98-107); Creatinine, Serum 0.84 mg/dL (0.55-1.02); EST Glomerular Filtration Rate 77 mL/min (>60); Est Glom Filt Rate - Afr Amer 93 mL/min (>60); Estimated Creatinine Clearance 69.96 ml/min; Glucose 90 mg/dL (74-106); Potassium 3.8 mmol/L (3.5-5.1); Sodium Level 140 mmol/L (136-145); Troponin-I HS (w/2H Reflex) 9 pg/mL (3.0-54.0)
[2022-11-26 14:31] LABS: Reflex Troponin-HS? (from REC) Y
[2022-11-26 15:39] LABS: Troponin-I HS 11 pg/mL (3.0-54.0)
[2022-11-26 15:45] VITALS: BP 136/98; PULSE 62; RESP 18; O2SAT 97
== END 2022-11-26 15:54 | disposition home or self-care (01) ==
PROVIDERS: Emergency Provider Emergency Medicine; PCP Family Medicine; Visit Provider Emergency Medicine
DX: R07.89 Other chest pain (principal); F31.9 Bipolar disorder, unspecified; I10 Essential (primary) hypertension; G43.909 Migraine, unspecified, not intractable, without status migrainosus; M19.90 Unspecified osteoarthritis, unspecified site
CPT/HCPCS: 71045; 80048; 84484; 85025; 93005; 99283; A4216

== ENCOUNTER 2022-12-12 13:21 | Emergency (ER) | payer MEDICAID, SELFPAY ==
[2022-12-12 13:22] VITALS: BP 150/95; PULSE 80; RESP 16; TEMP 36.4; O2SAT 98; BMI 44.7
--- NOTE | 2022-12-12 13:36 | EX.ED.DYSGE1 ---
HPI History of Present Illness Chief Complaint: Diarrhea Narrative Narrative: Patient presents with nausea vomiting, this has subsided somewhat she now has significant diarrhea over the past 2 days, she was having 10-15 a day although today its slowed down. No fevers or chills. She has intermittent abdominal cramping. [facility] Medical History Acute otitis externa of right ear Acute sinusitis, unspecified Anemia Arthritis Back pain Bipolar 1 disorder Celiac disease COVID-19 Depression Hemorrhoids HTN (hypertension) Incontinence Knee pain Liver disease Migraines Shoulder pain Vertigo Home Medications duloxetine 20 mg capsule,delayed release 20 mg PO DAILY depression 12/30/12 [History Last Taken 05/11/18] oxybutynin chloride 5 mg tablet 5 mg PO QHS bladder 02/01/13 [History Last Taken 05/11/18] ferrous sulfate 325 mg (65 mg iron) tablet 325 mg PO DAILY@0800 supplement 07/27/16 [History Last Taken 05/11/18] hydroxyzine pamoate 25 mg capsule 25 mg PO TID PRN PRN Anxiety #10 caps 07/27/16 [Rx Last Taken 05/11/18] cholecalciferol (vitamin D3) 25 mcg (1,000 unit) capsule 50,000 unit PO QWEEK supplement 02/17/17 [History Last Taken 05/11/18] cyanocobalamin (vitamin B-12) 1,000 mcg/mL oral drops (Vitamin B-12) 1,000 mcg PO QDAY supplement 02/17/17 [History Last Taken 05/11/18] multivitamin 1 tab PO QAM vitamin 02/17/17 [History Last Taken 05/11/18] naproxen sodium 220 mg capsule (Aleve) 220 mg PO Q12H PRN Pain Or Fever 02/17/17 [History Last Taken 05/11/18] lamotrigine 25 mg tablet 50 mg PO DAILY mood 07/06/17 [History Last Taken 05/11/18] cetirizine 10 mg tablet 10 mg PO DAILY allergies 07/26/18 [History Last Taken Unknown] meclizine 25 mg tablet 25 mg PO 4X/DAY PRN PRN Dizziness #20 tabs 07/26/18 [Rx Last Taken Unknown] omeprazole 20 mg capsule,delayed release 20 mg PO DAILY 10/21/19 [History Last Taken Unknown] pramipexole 0.25 mg tablet (Mirapex) 0.25 mg PO QHS RLS 10/21/19 [History Last Taken Unknown] sumatriptan succinate 50 mg tablet 50 mg PO .X1 PRN migraines 10/21/19 [History Last Taken Unknown] loperamide 2 mg capsule 2 mg PO Q4H PRN PRN Watery stool #10 caps 12/17/19 [Rx Last Taken Unknown] melatonin-pyridoxine HCl (vitamin B6) 3 mg-10 mg tablet 1 ea PO PRN PRN Sleep 03/18/20 [History Last Taken Unknown] epinephrine 0.3 mg/0.3 mL injection, auto-injector (EpiPen) 0.3 mg (0.3 mL) IM .once PRN anaphylaxis #1 ea 11/06/20 [Rx Last Taken Unknown] gabapentin 100 mg capsule 100 mg PO TID 11/06/20 [History Last Taken Unknown] topiramate 25 mg tablet 25 mg PO DAILY PRN Migraine Headache 11/02/21 [History Last Taken Unknown] ondansetron 4 mg disintegrating tablet 4 mg PO Q6H PRN nausea and vomiting #10 tabs 04/23/22 [Rx Last Taken Unknown] aripiprazole 2 mg tablet 2 mg PO DAILY 08/02/22 [History Last Taken Unknown] buspirone 7.5 mg tablet 7.5 mg PO DAILY 08/02/22 [History Last Taken Unknown] meloxicam 7.5 mg tablet 7.5 mg PO DAILY 08/02/22 [History Last Taken Unknown] dicyclomine 20 mg tablet 20 mg PO BID #14 tabs 12/12/22 [Rx Last Taken Unknown] ondansetron 4 mg disintegrating tablet 4 mg PO Q8H PRN PRN Nausea #10 tabs 12/12/22 [Rx Last Taken Unknown] Allergy/AdvReac Type Severity Reaction Status Date / Time aspirin Allergy Rash Verified 12/12/22 13:22 hydrocodone [From Vicodin] Allergy Hives Verified 12/12/22 13:22 ibuprofen Allergy Anaphylaxis Verified 12/12/22 13:22 venom-honey bee Allergy Anaphylaxis Verified 12/12/22 13:22 [bee venom (honey bee)] gluten AdvReac Upset Verified 12/12/22 13:22 Stomach Family History Other Arthritis COPD (chronic obstructive pulmonary disease) Cancer Diabetes Osteoporosis Parkinson disease Surgical History History of carpal tunnel surgery History of sinus surgery History of tonsillectomy and adenoidectomy Personal history of gastric bypass Social History household members: children and none Smoking Status: Never smoker alcohol intake: never substance use type: does not use ROS ROS ED ROS Narrative All systems negative except as indicated General: No fever some lightheadedness when she stands up Eyes: No visual changes ENT: No upper airway congestion, normal voice Neck: No neck pain Cardiovascular: No chest pain Respiratory: No shortness of breath or cough Gastrointestinal: As in HPI Genitourinary: No dysuria Musculoskeletal: Denies myalgias no difficulty with ambulation Skin: No rash Neurological: No memory loss, confusion or any focal weakness EXAM Physical Exam Narrative Exam Narrative: Physical exam General: Well nourished, Well developed, No Acute Distress Head: Normocephalic, Atraumatic Eyes: Conjunctiva not pale ENT: Dry mucous membranes Neck: Supple, Nontender, No lymphadenopathy Cardiovascular: Regular rate, Regular rhythm Respiratory: No distress, CTA bilaterally Abdomen: Soft, I am pressing throughout the abdomen and she does not seem to have any abdominal pain. Back: Nontender, Normal Inspection. Negative for: CVA tenderness Extremities: Nontender, No edema Skin: Normal color, No rash Neurological: Alert, Normal Strength, Normal Sensation Const Vital Signs: 12/12/22 13:22 Temperature 97.6 F L Temperature Source Temporal Pulse Rate 80 Respiratory Rate 16 Blood Pressure 150/95 H Blood Pressure Mean 113 Pulse Ox 98 Oxygen Delivery Method Room Air MDM MDM MDM Narrative Medical decision making narrative: Patient has an unremarkable work-up she likely has gastroenteritis based on exam. She does not have any abdominal pain she is given Bentyl and IV fluids and she felt better. I do not believe imaging is needed right now. Patient appears well I will discharge in stable condition. I will give Zofran and Bentyl for home. He does not have any risk factors for C. difficile, this does not sound like C. difficile therefore I did not order it. I do not believe antibiotics are needed even if it is bacterial it is likely self-limiting. Lab Data Labs: Laboratory Results - last 24 hr 12/12/22 14:55 WBC 6.5 RBC 4.28 Hgb 13.4 Hct 40.9 MCV 95.6 MCH 31.3 MCHC 32.8 RDW Std Deviation 43.6 RDW Coeff of Rubi 12.5 Plt Count 224 MPV 9.3 Immature Gran % (Auto) 0.300 Neut % (Auto) 55.0 Lymph % (Auto) 36.0 [place] % (Auto) 6.0 Eos % (Auto) 1.6 Baso % (Auto) 1.1 H Absolute Neuts (auto) 3.6 Absolute Lymphs (auto) 2.32 Nucleated RBC % 0 Sodium 143 Potassium 3.9 Chloride 109 H Carbon Dioxide 28.0 Anion Gap 6 BUN 7 Creatinine 0.63 Estim Creat Clear Calc 92.25 Est GFR (MDRD) Af Amer 129 Est GFR (MDRD) Non-Af 107 BUN/Creatinine Ratio 11.1 Glucose 91 Calcium 8.6 Total Bilirubin 0.30 AST 16 ALT 32 Alkaline Phosphatase 76 Total Protein 6.3 L Albumin 3.4 Globulin 2.9 Albumin/Globulin Ratio 1.2 Discharge Plan Triage Chief Complaint: Diarrhea ED Provider: Delon Estrada Dx/Rx/DC Orders Clinical Impression: Diarrhea, Gastroenteritis Instructions: ED Diet Vomiting Diarrhea Prescriptions: New ondansetron 4 mg tablet,disintegrating 4 mg PO Q8H PRN PRN (Reason: Nausea) Qty: 10 0RF dicyclomine 20 mg tablet 20 mg PO BID Qty: 14 0RF No Action cyanocobalamin (vitamin B-12) [Vitamin B-12] 1,000 mcg/mL drops 1,000 mcg PO QDAY cholecalciferol (vitamin D3) 1,000 unit capsule 50,000 unit PO QWEEK Patient Comments: 50,000 UNITS TWICE A WEEK naproxen sodium [Aleve] 220 mg capsule 220 mg PO Q12H PRN (Reason: Pain Or Fever) multivitamin tablet 1 tab PO QAM topiramate 25 mg tablet 25 mg PO DAILY PRN (Reason: Migraine Headache) duloxetine 20 MG capsule 20 mg PO DAILY Patient Comments: depression oxybutynin chloride 5 MG tablet 5 mg PO QHS Patient Comments: Urinary frequency ferrous sulfate 325 MG tablet 325 mg PO DAILY@0800 hydroxyzine pamoate 25 MG capsule 25 mg PO TID PRN PRN (Reason: Anxiety) Qty: 10 0RF lamotrigine 25 MG tablet 50 mg PO DAILY Patient Comments: TAKE 1 TABLET BY MOUTH EVERY DAY meclizine 25 MG tablet 25 mg PO 4X/DAY PRN PRN (Reason: Dizziness) Qty: 20 0RF cetirizine 10 MG tablet 10 mg PO DAILY pramipexole [Mirapex] 0.25 MG tablet 0.25 mg PO QHS sumatriptan succinate 50 MG tablet 50 mg PO .X1 PRN omeprazole 20 MG capsule 20 mg PO DAILY loperamide 2 MG capsule 2 mg PO Q4H PRN PRN (Reason: Watery stool) Qty: 10 0RF melatonin-pyridoxine HCl (B6) 1 EACH tablet 1 ea PO PRN PRN (Reason: Sleep) gabapentin 100 mg capsule 100 mg PO TID Patient Comments: TAKE 1 CAPSULE BY MOUTH THREE TIMES DAILY FOR 180 DAYS. epinephrine [EpiPen] 0.3 mg/0.3 mL auto-injector 0.3 mg IM .once PRN (Reason: anaphylaxis) Qty: 1 0RF Rx Instructions: for 2 doses ondansetron 4 mg tablet,disintegrating 4 mg PO Q6H PRN (Reason: nausea and vomiting) Qty: 10 0RF meloxicam 7.5 mg tablet 7.5 mg PO DAILY buspirone 7.5 mg tablet 7.5 mg PO DAILY aripiprazole 2 mg tablet 2 mg PO DAILY Primary Care Provider: Alec Arndt Referrals: Alec Arndt MD [Primary Care Provider] - 3-5 Days
[2022-12-12] MEDS: Dicyclomine 10 MG Capsule 20 MG PO (14:51)
[2022-12-12] MEDS: 0.9% Normal Saline (1000mL) 1,000 ML 1000 ML IV (14:53)
[2022-12-12] MEDS: Ondansetron 4 MG/2 ML Vial IV (14:54)
[2022-12-12 15:10] LABS: Absolute Lymphocyte Count 2.32 X10^3/uL (0.83-4.51); Absolute Neutrophil Count 3.6 X10^3/uL (2.0-7.7); Basophil# 0.07 X10^3/uL; Basophil% 1.1 % (0-1); Eosinophils% 1.6 % (0-5); Hematocrit 40.9 % (37-47); Hemoglobin 13.4 g/dL (12.0-15.0); Lymphocyte # 2.32 X10^3/ul (0.83-4.51); Mean Corp Hgb Conc 32.8 g/dL (32-36); Mean Corpuscular Hgb 31.3 pg (27.0-32.0); Mean Corpuscular Volume 95.6 fL (81-99); Mean Platelet Vol. 9.3 fl (6.2-12.0); Monocyte# 0.39 X10^3/uL; NRBC Flagged by Analyzer 0 % (0-5); Neutrophil # 3.55 X10^3/uL (2.7-7.7); Platelet Count 224 K/mm3 (150-450); RBC Distribution Width CV 12.5 % (11.6-14.6); RBC Distribution Width SD 43.6 fl (35.1-43.9); Red Blood Count 4.28 M/mm3 (4.2-5.4); White Blood Count 6.5 K/mm3 (4.4-11.0)
[2022-12-12 15:18] LABS: ALB/GLOB Ratio 1.2 RATIO (0.9-2.4); AST(SGOT) 16 U/L (15-37); Alanine Aminotransfer ALT/SGPT 32 U/L (13-56); Albumin, Serum 3.4 g/dL (3.2-5.0); Alkaline Phosphatase 76 U/L (45-117); Anion Gap 6 (5-15); BUN 7 mg/dL (7-18); BUN/Creat Ratio 11.1 RATIO (10-20); Calcium,Total 8.6 mg/dL (8.5-10.1); Chloride 109 mmol/L (98-107); Creatinine, Serum 0.63 mg/dL (0.55-1.02); EST Glomerular Filtration Rate 107 mL/min (>60); Est Glom Filt Rate - Afr Amer 129 mL/min (>60); Estimated Creatinine Clearance 92.25 ml/min; Globulin 2.9 g/dL (2.2-4.2); Glucose 91 mg/dL (74-106); Potassium 3.9 mmol/L (3.5-5.1); Protein, Total 6.3 g/dL (6.4-8.2); Sodium Level 143 mmol/L (136-145)
== END 2022-12-12 15:55 | disposition home or self-care (01) ==
PROVIDERS: Emergency Provider Emergency Medicine; PCP Family Medicine; Visit Provider Emergency Medicine
DX: K52.9 Noninfective gastroenteritis and colitis, unspecified (principal); F31.9 Bipolar disorder, unspecified; I10 Essential (primary) hypertension; G43.909 Migraine, unspecified, not intractable, without status migrainosus
CPT/HCPCS: 80053; 85025; 96361; 96374; 99283; J7030; J2405

== ENCOUNTER 2023-03-10 10:58 | Emergency (ER) | payer MEDICAID, SELFPAY ==
[2023-03-10 11:01] VITALS: BP 161/107; PULSE 70; RESP 14; TEMP 36.8; O2SAT 98; BMI 44.6
--- NOTE | 2023-03-10 11:38 | EDS_ITS ---
HPI HPI - URI History of Present Illness Chief Complaint: Weakness Informant: patient Onset/Context/Timing Onset: Days Context: Gradual Onset Timing: Continuous Current Severity: Mild Maximum Severity: Mild Associated Symptoms Associated Symptoms: Positive for Myalgias and Diarrhea Narrative Narrative: 52-year-old female history of bipolar. States she had the vaccine for shingles on Monday. She has had mild nausea no vomiting. Sore throat. Some loose stools. No dysuria. No vomiting. No abdominal pain. No documented fever. Prior similar symptoms: Yes Recent Illness/Hospitalization: No ROS ROS ED ROS Narrative Nausea. Loose stools. Body aches. Review of Systems ROS Unobtainable: Denies due to encephalopathy Constitutional Constitutional ED: Denies chills or fever(s) Eyes Eyes: Denies blurry vision ENT ENT ED: Denies ear pain or rhinorrhea Cardiovascular Cardiovascular: Denies chest pain Respiratory/Chest Respiratory/Chest: Denies cough Gastrointestinal Gastrointestinal: Reports diarrhea and nausea; Denies abdominal pain, constipation, melena or vomiting Genitourinary Genitourinary ED: Denies dysuria or hematuria Musculoskeletal Musculoskeletal: Denies arthralgias Integumentary Denies abscess Neurologic Neurologic: Denies headache(s) Psychiatric Psychiatric: Denies anxiety Endocrine Endocrinology: Denies cold intolerance Hematologic/Lymphatic Hematologic/Lymphatic: Denies easy bleeding, easy bruising or lymphadenopathy Allergic/Immunologic Allergic/Immunologic ED: Denies mouth swelling, tongue swelling or urticaria PFSH [facility] Medical History Acute maxillary sinusitis, unspecified Acute otitis externa of right ear Acute sinusitis, unspecified Anemia Arthritis Back pain Bipolar 1 disorder Celiac disease COVID-19 Depression Hemorrhoids HTN (hypertension) Incontinence Knee pain Liver disease Migraines Shoulder pain Vertigo Home Medications duloxetine 20 mg capsule,delayed release 20 mg PO DAILY depression 12/30/12 [History Last Taken 05/11/18] oxybutynin chloride 5 mg tablet 5 mg PO QHS bladder 02/01/13 [History Last Taken 05/11/18] ferrous sulfate 325 mg (65 mg iron) tablet 325 mg PO DAILY@0800 supplement 07/27/16 [History Last Taken 05/11/18] hydroxyzine pamoate 25 mg capsule 25 mg PO TID PRN PRN Anxiety #10 caps 07/27/16 [Rx Last Taken 05/11/18] cholecalciferol (vitamin D3) 25 mcg (1,000 unit) capsule 50,000 unit PO QWEEK supplement 02/17/17 [History Last Taken 05/11/18] cyanocobalamin (vitamin B-12) 1,000 mcg/mL oral drops (Vitamin B-12) 1,000 mcg PO QDAY supplement 02/17/17 [History Last Taken 05/11/18] multivitamin 1 tab PO QAM vitamin 02/17/17 [History Last Taken 05/11/18] naproxen sodium 220 mg capsule (Aleve) 220 mg PO Q12H PRN Pain Or Fever 02/17/17 [History Last Taken 05/11/18] lamotrigine 25 mg tablet 50 mg PO DAILY mood 07/06/17 [History Last Taken 05/11/18] cetirizine 10 mg tablet 10 mg PO DAILY allergies 07/26/18 [History Last Taken Unknown] meclizine 25 mg tablet 25 mg PO 4X/DAY PRN PRN Dizziness #20 tabs 07/26/18 [Rx Last Taken Unknown] omeprazole 20 mg capsule,delayed release 20 mg PO DAILY 10/21/19 [History Last Taken Unknown] pramipexole 0.25 mg tablet (Mirapex) 0.25 mg PO QHS RLS 10/21/19 [History Last Taken Unknown] sumatriptan succinate 50 mg tablet 50 mg PO .X1 PRN migraines 10/21/19 [History Last Taken Unknown] loperamide 2 mg capsule 2 mg PO Q4H PRN PRN Watery stool #10 caps 12/17/19 [Rx Last Taken Unknown] melatonin-pyridoxine HCl (vitamin B6) 3 mg-10 mg tablet 1 ea PO PRN PRN Sleep 03/18/20 [History Last Taken Unknown] epinephrine 0.3 mg/0.3 mL injection, auto-injector (EpiPen) 0.3 mg (0.3 mL) IM .once PRN anaphylaxis #1 ea 11/06/20 [Rx Last Taken Unknown] gabapentin 100 mg capsule 100 mg PO TID 11/06/20 [History Last Taken Unknown] topiramate 25 mg tablet 25 mg PO DAILY PRN Migraine Headache 11/02/21 [History Last Taken Unknown] aripiprazole 2 mg tablet 2 mg PO DAILY 08/02/22 [History Last Taken Unknown] buspirone 7.5 mg tablet 7.5 mg PO DAILY 08/02/22 [History Last Taken Unknown] meloxicam 7.5 mg tablet 7.5 mg PO DAILY 08/02/22 [History Last Taken Unknown] dicyclomine 20 mg tablet 20 mg PO BID #14 tabs 12/12/22 [Rx Last Taken Unknown] dexamethasone 6 mg tablet 6 mg PO DAILY #5 tabs 12/13/22 [Rx Last Taken Unknown] Allergy/AdvReac Type Severity Reaction Status Date / Time aspirin Allergy Rash Verified 03/10/23 11:01 hydrocodone [From Vicodin] Allergy Hives Verified 03/10/23 11:01 ibuprofen Allergy Anaphylaxis Verified 03/10/23 11:01 venom-honey bee Allergy Anaphylaxis Verified 03/10/23 11:01 [bee venom (honey bee)] gluten AdvReac Upset Verified 03/10/23 11:01 Stomach Family History Other Arthritis COPD (chronic obstructive pulmonary disease) Cancer Diabetes Osteoporosis Parkinson disease Surgical History History of carpal tunnel surgery History of sinus surgery History of tonsillectomy and adenoidectomy Personal history of gastric bypass Social History household members: children and none Smoking Status: Never smoker alcohol intake: never substance use type: does not use EXAM Physical Exam Narrative Exam Narrative: Well-appearing 52-year-old female. Vital signs stable afebrile. Pulse ox 90% room air no hypoxia. H EENT exam unremarkable. Moist mucous membranes. TMs normal. Posterior pharynx unremarkable. Neck nontender no lymphadenopathy. No meningismus. Lungs clear to auscultation bilaterally. Heart regular rhythm no murmur. Rate about 70. Chest wall nontender. Abdomen soft nontender. Back nontender. Moving all 4 extremities. Nontender no edema. Skin no rashes. No petechiae or purpura. No cellulitis. Neurologically she is awake alert with no focal motor deficits. Clinically looks well. Benign exam. Const Vital Signs: 03/10/23 11:01 03/10/23 11:17 Temperature 98.2 F Temperature Source Temporal Pulse Rate 70 Respiratory Rate 14 Respiratory Effort Normal Non-Labored Respiratory Pattern Normal Blood Pressure 161/107 H Blood Pressure Mean 125 Pulse Ox 98 Oxygen Delivery Method Room Air Positive well nourished and well developed; Negative for cachectic or contractures General Appearance ED: well developed and NAD; Negative for cachectic, contractures, cyanotic, diaphoretic or pallor Nutritional Appearance: Negative for cachectic HEENT Reports moist mucous membranes normocephalic and atraumatic; Negative for scalp tenderness Face and Sinus: Negative for sinus tenderness, maxillary instability or facial tenderness Throat: posterior oropharynx normal Eyes PERRL and EOMs intact bilaterally General Eye ED: Negative for pale conjunctiva or scleral icterus Neck no lymphadenopathy, supple, no meningeal signs and no JVD General: Negative for anterior neck swelling, lymphadenopathy or other Resp normal respiratory effort and clear to auscultation bilaterally Effort and Inspection: Negative for retractions Auscultation: Negative for rales, rhonchi or wheezes Cardio S1 normal heart sound, S2 normal heart sound and no murmurs Rate: regular rate Rhythm: regular rhythm GI non-tender, non-distended and no masses Inspection: Negative for abdominal distention Auscultation: normoactive bowel sounds Palpation: soft; Negative for tender or guarding Back/Spine no CVA tenderness and normal ROM General Back: Negative for CVA tenderness Cervical Spine: Negative for cervical spine tenderness Thoracic Spine / Upper Back: Negative for thoracic spinal tenderness Lumbar Spine / Lower Back: Negative for lumbar spinal tenderness Sacrum: Negative for tenderness Extremity normal to inspection and full ROM General Extremety ED: Negative for cyanosis or tenderness General Extremity: Negative for cyanosis Neuro oriented x3 and CN's II-XII intact bilaterally Sensorium / Orientation: alert, oriented to person, oriented to place and oriented to time; Negative for orientation impaired, lethargic or stuporous Motor Exam: strength 5/5 throughout Psych Appearance: Negative for other Attitude: No agitated Mood & Affect: Negative for depressed, anxious or tearful Skin General Skin Exam: Negative for jaundice or pallor Lesions: no lesions Rashes: no rashes Trauma: Negative for abrasion or laceration MDM MDM MDM Narrative Medical decision making narrative: 52-year-old and has a viral syndrome. Fluids and rest. Tylenol Motrin. She and I discussed and deferred testing. She does not need any lab works. She is well-hydrated. Comfortable being discharged home. Discharge Plan Triage Chief Complaint: Weakness ED Provider: Jayden Barraza Dx/Rx/DC Orders Clinical Impression: Viral syndrome Instructions: ED Viral Syndrome (Adult) Prescriptions: No Action cyanocobalamin (vitamin B-12) [Vitamin B-12] 1,000 mcg/mL drops 1,000 mcg PO QDAY cholecalciferol (vitamin D3) 1,000 unit capsule 50,000 unit PO QWEEK Patient Comments: 50,000 UNITS TWICE A WEEK naproxen sodium [Aleve] 220 mg capsule 220 mg PO Q12H PRN (Reason: Pain Or Fever) multivitamin tablet 1 tab PO QAM topiramate 25 mg tablet 25 mg PO DAILY PRN (Reason: Migraine Headache) dexamethasone 6 mg tablet 6 mg PO DAILY Qty: 5 0RF duloxetine 20 MG capsule 20 mg PO DAILY Patient Comments: depression oxybutynin chloride 5 MG tablet 5 mg PO QHS Patient Comments: Urinary frequency ferrous sulfate 325 MG tablet 325 mg PO DAILY@0800 hydroxyzine pamoate 25 MG capsule 25 mg PO TID PRN PRN (Reason: Anxiety) Qty: 10 0RF lamotrigine 25 MG tablet 50 mg PO DAILY Patient Comments: TAKE 1 TABLET BY MOUTH EVERY DAY meclizine 25 MG tablet 25 mg PO 4X/DAY PRN PRN (Reason: Dizziness) Qty: 20 0RF cetirizine 10 MG tablet 10 mg PO DAILY pramipexole [Mirapex] 0.25 MG tablet 0.25 mg PO QHS sumatriptan succinate 50 MG tablet 50 mg PO .X1 PRN omeprazole 20 MG capsule 20 mg PO DAILY loperamide 2 MG capsule 2 mg PO Q4H PRN PRN (Reason: Watery stool) Qty: 10 0RF melatonin-pyridoxine HCl (B6) 1 EACH tablet 1 ea PO PRN PRN (Reason: Sleep) gabapentin 100 mg capsule 100 mg PO TID Patient Comments: TAKE 1 CAPSULE BY MOUTH THREE TIMES DAILY FOR 180 DAYS. epinephrine [EpiPen] 0.3 mg/0.3 mL auto-injector 0.3 mg IM .once PRN (Reason: anaphylaxis) Qty: 1 0RF Rx Instructions: for 2 doses meloxicam 7.5 mg tablet 7.5 mg PO DAILY buspirone 7.5 mg tablet 7.5 mg PO DAILY aripiprazole 2 mg tablet 2 mg PO DAILY dicyclomine 20 mg tablet 20 mg PO BID Qty: 14 0RF Primary Care Provider: Alec Arndt Referrals: Alec Arndt MD [Primary Care Provider] - 1 Week if not improving Activity Restrictions/Additional Instructions: Plenty of fluids and rest. Alternate Tylenol Motrin as needed for body aches and/or fever. You should start feeling better in the next 3 days. If you are not improving follow-up with your doctor in a week. Disposition Disposition: Home, Self Care
[2023-03-10 11:49] VITALS: BP 109/77; PULSE 62; RESP 15; O2SAT 97
== END 2023-03-10 11:49 | disposition home or self-care (01) ==
LOC: ED 11:47
PROVIDERS: Emergency Provider Emergency Medicine; PCP Family Medicine; Visit Provider Emergency Medicine
DX: R53.1 Weakness (principal); F31.9 Bipolar disorder, unspecified; B34.9 Viral infection, unspecified; G43.909 Migraine, unspecified, not intractable, without status migrainosus; Z79.899 Other long term (current) drug therapy; I10 Essential (primary) hypertension; R42 Dizziness and giddiness
CPT/HCPCS: 99282

== ENCOUNTER 2023-04-18 09:24 | Emergency (ER) | payer MEDICAID, SELFPAY ==
[2023-04-18 09:25] VITALS: BP 194/90; PULSE 99; RESP 16; TEMP 35.8; O2SAT 99; BMI 44.6
--- NOTE | 2023-04-18 09:49 | EDS_ITS ---
HPI History of Present Illness HPI Narrative: Patient presents with right hip pain that became worse yesterday. Patient states she missed a step 2 days ago. Patient states that she is having worsening pain in her right hip. Patient states she chronically has right hip pain that is dull and aching. Patient states her pain is worse with ambulation. Patient states her pain radiates down her thigh. Patient states she has been taking her meloxicam with minimal relief. Patient states she has been using ice and elevation with some relief. Patient admits to some tingling in her right leg. Patient denies any weakness. Chief Complaint: Lower Extremity Injury Informant: patient Occured/Mechanism Comment: Patient missed a step 2 days ago Onset/Context/Timing Onset: Yesterday Context: Gradual Onset Timing: Continuous Quality of Pain: Aching and Stabbing Location: Right hip Worsened by: Ambulation Relieved by: Ice, elevation Associated Symptoms Associated Symptoms: Positive for Parasthesia; Negative for Weakness or Loss of Funtion PFSH PFS Medical History Acute maxillary sinusitis, unspecified Acute otitis externa of right ear Acute sinusitis, unspecified Anemia Arthritis Back pain Bipolar 1 disorder Celiac disease COVID-19 Depression Hemorrhoids HTN (hypertension) Incontinence Knee pain Liver disease Migraines Shoulder pain Vertigo Home Medications duloxetine 20 mg capsule,delayed release 20 mg PO DAILY depression 12/30/12 [History Last Taken 05/11/18] oxybutynin chloride 5 mg tablet 5 mg PO QHS bladder 02/01/13 [History Last Taken 05/11/18] ferrous sulfate 325 mg (65 mg iron) tablet 325 mg PO DAILY@0800 supplement 07/27/16 [History Last Taken 05/11/18] hydroxyzine pamoate 25 mg capsule 25 mg PO TID PRN PRN Anxiety #10 caps 07/27/16 [Rx Last Taken 05/11/18] cholecalciferol (vitamin D3) 25 mcg (1,000 unit) capsule 50,000 unit PO QWEEK supplement 02/17/17 [History Last Taken 05/11/18] cyanocobalamin (vitamin B-12) 1,000 mcg/mL oral drops (Vitamin B-12) 1,000 mcg PO QDAY supplement 02/17/17 [History Last Taken 05/11/18] multivitamin 1 tab PO QAM vitamin 02/17/17 [History Last Taken 05/11/18] naproxen sodium 220 mg capsule (Aleve) 220 mg PO Q12H PRN Pain Or Fever 02/17/17 [History Last Taken 05/11/18] lamotrigine 25 mg tablet 50 mg PO DAILY mood 07/06/17 [History Last Taken 05/11/18] cetirizine 10 mg tablet 10 mg PO DAILY allergies 07/26/18 [History Last Taken Unknown] meclizine 25 mg tablet 25 mg PO 4X/DAY PRN PRN Dizziness #20 tabs 07/26/18 [Rx Last Taken Unknown] omeprazole 20 mg capsule,delayed release 20 mg PO DAILY 10/21/19 [History Last Taken Unknown] pramipexole 0.25 mg tablet (Mirapex) 0.25 mg PO QHS RLS 10/21/19 [History Last Taken Unknown] sumatriptan succinate 50 mg tablet 50 mg PO .X1 PRN migraines 10/21/19 [History Last Taken Unknown] loperamide 2 mg capsule 2 mg PO Q4H PRN PRN Watery stool #10 caps 12/17/19 [Rx Last Taken Unknown] melatonin-pyridoxine HCl (vitamin B6) 3 mg-10 mg tablet 1 ea PO PRN PRN Sleep 03/18/20 [History Last Taken Unknown] epinephrine 0.3 mg/0.3 mL injection, auto-injector (EpiPen) 0.3 mg (0.3 mL) IM .once PRN anaphylaxis #1 ea 11/06/20 [Rx Last Taken Unknown] gabapentin 100 mg capsule 100 mg PO TID 11/06/20 [History Last Taken Unknown] topiramate 25 mg tablet 25 mg PO DAILY PRN Migraine Headache 11/02/21 [History Last Taken Unknown] aripiprazole 2 mg tablet 2 mg PO DAILY 08/02/22 [History Last Taken Unknown] buspirone 7.5 mg tablet 7.5 mg PO DAILY 08/02/22 [History Last Taken Unknown] meloxicam 7.5 mg tablet 7.5 mg PO DAILY 08/02/22 [History Last Taken Unknown] dicyclomine 20 mg tablet 20 mg PO BID #14 tabs 12/12/22 [Rx Last Taken Unknown] dexamethasone 6 mg tablet 6 mg PO DAILY #5 tabs 12/13/22 [Rx Last Taken Unknown] oxycodone-acetaminophen 5 mg-325 mg tablet (Percocet) 1 tab PO Q8H PRN pain 3 days #10 tabs 04/18/23 [Rx Last Taken Unknown] Allergy/AdvReac Type Severity Reaction Status Date / Time aspirin Allergy Rash Verified 04/18/23 09:25 hydrocodone [From Vicodin] Allergy Hives Verified 04/18/23 09:25 ibuprofen Allergy Anaphylaxis Verified 04/18/23 09:25 venom-honey bee Allergy Anaphylaxis Verified 04/18/23 09:25 [bee venom (honey bee)] gluten AdvReac Upset Verified 04/18/23 09:25 Stomach Family History Other Arthritis COPD (chronic obstructive pulmonary disease) Cancer Diabetes Osteoporosis Parkinson disease Surgical History History of carpal tunnel surgery History of sinus surgery History of tonsillectomy and adenoidectomy Personal history of gastric bypass Social History household members: children and none Smoking Status: Never smoker alcohol intake: never substance use type: does not use ROS ROS ED Constitutional Constitutional ED: Denies chills or fever(s) Eyes Eyes: Denies blurry vision or change in vision ENT ENT ED: Denies rhinorrhea or sore throat Cardiovascular Cardiovascular: Denies chest pain or palpitations Respiratory/Chest Respiratory/Chest: Denies cough or dyspnea Gastrointestinal Gastrointestinal: Denies nausea or vomiting Genitourinary Genitourinary ED: Denies dysuria or hematuria Musculoskeletal Musculoskeletal: Reports back pain; Denies neck pain Integumentary Denies abscess or rash Neurologic Neurologic: Denies headache(s) or weakness Allergic/Immunologic Allergic/Immunologic ED: Denies mouth swelling or urticaria EXAM Physical Exam Const Vital Signs: 04/18/23 09:25 Temperature 96.5 F L Temperature Source Temporal Pulse Rate 99 Respiratory Rate 16 Blood Pressure 194/90 H Blood Pressure Mean 124 Pulse Ox 99 Oxygen Delivery Method Room Air Positive well nourished, well developed and obese General Appearance ED: well developed and NAD Nutritional Appearance: obese HEENT Reports moist mucous membranes Neck full ROM and supple Extremity Extremity Narrative: There is tenderness over the right hip. There is no obvious deformity noted. There is no shortening or external rotation noted. There is pain with internal and external rotation. There is also some pain with flexion. Strength is 5/5 bilaterally in the lower extremities. There are no sensory deficits noted. Pedal pulses are equal bilaterally. Neuro oriented x3, CN's II-XII intact bilaterally, moves all extremities and no sensory deficits noted Sensorium / Orientation: alert Motor Exam: strength 5/5 throughout Psych mental status grossly normal Skin no wounds MDM MDM MDM Narrative Medical decision making narrative: Differential diagnosis includes degenerative arthritis, occult fracture, and muscle strain. X-rays of the right hip will be obtained to assess for occult fracture. Radiography Diagnostic Testing: Clinical Impression(s) from Imaging Studies Hip/Pelvis X-Ray 04/18/23 10:07 IMPRESSION: Mild degree of joint space narrowing of the right hip joint. Findings suggestive of a calcific tendinitis of the right hip joint. Electronically Signed: Carlton Armas MD at 10:30 EST , X-rays of the right hip were obtained. There are 3 views. On my independent interpretation, there is no acute fracture or dislocation noted. There is some mild degenerative changes noted. There is some calcific tendinitis in the right hip joint. Radiologist also interpreted the x-rays and agrees. Treatment and Re-Evaluation Narrative: Patient was given a dose of morphine here. Patient is feeling better on reevaluation. Patient was advised of her findings. Patient was given a prescription for a short course of Percocet. Patient was instructed to follow- up with her primary care physician in 5 to 7 days. Patient was instructed to continue using ice to the area. Patient was instructed to continue her meloxicam as prescribed. Patient understood and was agreeable with the plan. All questions were answered. Discharge Plan Triage Chief Complaint: Lower Extremity Injury ED Provider: Jim Parsons Dx/Rx/DC Orders Clinical Impression: Acute pain of right hip Instructions: ED Hip Strain Prescriptions: New oxycodone-acetaminophen [Percocet] 5-325 mg tablet 1 tab PO Q8H PRN (Reason: pain) 3 Days Qty: 10 0RF No Action cyanocobalamin (vitamin B-12) [Vitamin B-12] 1,000 mcg/mL drops 1,000 mcg PO QDAY cholecalciferol (vitamin D3) 1,000 unit capsule 50,000 unit PO QWEEK Patient Comments: 50,000 UNITS TWICE A WEEK naproxen sodium [Aleve] 220 mg capsule 220 mg PO Q12H PRN (Reason: Pain Or Fever) multivitamin tablet 1 tab PO QAM topiramate 25 mg tablet 25 mg PO DAILY PRN (Reason: Migraine Headache) dexamethasone 6 mg tablet 6 mg PO DAILY Qty: 5 0RF duloxetine 20 MG capsule 20 mg PO DAILY Patient Comments: depression oxybutynin chloride 5 MG tablet 5 mg PO QHS Patient Comments: Urinary frequency ferrous sulfate 325 MG tablet 325 mg PO DAILY@0800 hydroxyzine pamoate 25 MG capsule 25 mg PO TID PRN PRN (Reason: Anxiety) Qty: 10 0RF lamotrigine 25 MG tablet 50 mg PO DAILY Patient Comments: TAKE 1 TABLET BY MOUTH EVERY DAY meclizine 25 MG tablet 25 mg PO 4X/DAY PRN PRN (Reason: Dizziness) Qty: 20 0RF cetirizine 10 MG tablet 10 mg PO DAILY pramipexole [Mirapex] 0.25 MG tablet 0.25 mg PO QHS sumatriptan succinate 50 MG tablet 50 mg PO .X1 PRN omeprazole 20 MG capsule 20 mg PO DAILY loperamide 2 MG capsule 2 mg PO Q4H PRN PRN (Reason: Watery stool) Qty: 10 0RF melatonin-pyridoxine HCl (B6) 1 EACH tablet 1 ea PO PRN PRN (Reason: Sleep) gabapentin 100 mg capsule 100 mg PO TID Patient Comments: TAKE 1 CAPSULE BY MOUTH THREE TIMES DAILY FOR 180 DAYS. epinephrine [EpiPen] 0.3 mg/0.3 mL auto-injector 0.3 mg IM .once PRN (Reason: anaphylaxis) Qty: 1 0RF Rx Instructions: for 2 doses meloxicam 7.5 mg tablet 7.5 mg PO DAILY buspirone 7.5 mg tablet 7.5 mg PO DAILY aripiprazole 2 mg tablet 2 mg PO DAILY dicyclomine 20 mg tablet 20 mg PO BID Qty: 14 0RF Primary Care Provider: Alec Arndt Referrals: Alec Arndt MD [Primary Care Provider] - 3-5 Days Disposition Disposition: Home, Self Care
--- NOTE | 2023-04-18 10:07 | RAD_ITS ---
STUDY: X-RAY - PELVIS AND RIGHT HIP REASON FOR EXAM: Female, 52 years old. Injury/Pain TECHNIQUE: 3 views of the pelvis and hip. COMPARISON: None. FINDINGS: There is a non-specific bowel gas pattern. Tubal ligation metallic clips are seen. Normal bilateral iliac wings, sacroiliac joints and visualized sacrum. Normal bilateral superior and inferior pubic rami. Normal pubic symphysis. Normal bilateral ischial tuberosities. Normal visualized femoral head. Normal acetabulum. There is mild articular joint space narrowing of the hip. There is a 1.6 cm well-defined bony density overlying the lateral aspect of the right acetabulum. This may represent a focal area of calcific tendinitis. RAD/HIP, UNI W/ Pelvis 2-3 Views IMPRESSION: Mild degree of joint space narrowing of the right hip joint. Findings suggestive of a calcific tendinitis of the right hip joint. Electronically Signed: Carlton Armas MD at 10:30 EST ,
[2023-04-18] MEDS: Morphine 4 MG/ML Syringe IM (10:18)
[2023-04-18 11:14] VITALS: BP 134/76; PULSE 64; RESP 16; TEMP 36.6; O2SAT 99
== END 2023-04-18 11:15 | disposition home or self-care (01) ==
PROVIDERS: Emergency Provider Emergency Medicine; PCP Family Medicine; Visit Provider Emergency Medicine
DX: M25.551 Pain in right hip (principal); F31.9 Bipolar disorder, unspecified; X58.XXXA Exposure to other specified factors, initial encounter; I10 Essential (primary) hypertension; Z79.899 Other long term (current) drug therapy
CPT/HCPCS: 73502; 96372; 99282

== ENCOUNTER 2023-06-29 08:16 | Day surgery (SDC) | payer MEDICAID, SELFPAY ==
--- NOTE | 2023-06-23 07:55 | HP.PCM_ITS ---
History and Physical History and Physical? Patient Name: Krys Aaron : 1970 From:? JEANETTE LAY PA-C? DATE OF PRE-OPERATIVE EXAM: 06/22/2023 DATE OF SURGERY:? 06/29/2023 SCHEDULED PROCEDURE:? Left shoulder arthroscopy with rotator cuff repair HISTORY OF PRESENT ILLNESS: Preoperative history and physical exam was performed on June 22, 2023.? This is a 52-year-old female who is been having ongoing pain in her left dominant shoulder since October 2022.? Patient did have a fall onto the left side at that time.? Her pain initially was an 8/10 with activity.? Pain located over the anterior and lateral shoulder.? She has pain with any overhead movement.? She does feel weaker with the left shoulder compared to the right.? She has had previous MRI on March 09, 2023 which did reveal rotator cuff tear.? She has also attempted formal physical therapy with no relief.? She has had a previous subacromial corticosteroid injection on March 22, 2023 with approximately 1 month of relief.? Despite conservative measures patient has continued to have pain with activities of daily living.? After failing conservative measures and discussing all treatment options with Dr. Eduardo Muhammad, patient does wish to proceed with a left shoulder arthroscopy with rotator cuff repair.? Patient has received surgical clearance from the primary care provider Dr. Arndt.? Patient has a medical history pertinent for hypertension, fatty liver disease, gastroesophageal reflux disease, anxiety/depression, adjustment disorder, migraines, celiac disease, polycystic ovarian syndrome.? She denies past history of DVT or pulmonary embolism.? No recent chest pain, shortness of breath, fevers chills or recent infections.? Patient has had previous gastric bypass surgery.? She states she has been taking meloxicam and Aleve.? I did advise her to not be taking to anti-inflammatories.? She states she is allowed to take this despite having gastric bypass surgery.? Labs and EKG have been reviewed.? Patient does document a allergy to aspirin. REVIEW OF SYSTEMS: Review Of Systems: Constitutional: Denies change in appetite, fever,or weight change. Cardiovasular: Denies chest pain, heart murmur and irregular heartbeat. Respiratory: Denies cough, pneumonia, shortness of breath, tuberculosis and wheezing. Gastrointestinal: Reports constipation, diarrhea, heartburn and nausea, but denies rectal itching, bloody stools and vomiting. Genitourinary: Denies incontinence. Musculoskeletal: Reports leg swelling, pain, trouble walking and weakness. Skin: Reports tattoo, but denies Raynaud's and history of shingles. Neurological: Reports dizziness and numbness/tingling but denies ambulatory dysfunction and tremor. Psychiatric: Denies anxiety, insomnia and stress. Hematologic/Lymphatic: Reports anemia, but denies bleeding/bruising tendency and past transfusion. Reviewed, no changes. PAST MEDICAL HISTORY: Advance Care Plan: Other Directive, LIVING WILL Effective Date: 03/16/2017 Past Medical History: Medical Problems: Arthritis, High Blood Pressure, Vision Problems/Blind, Fibromyalgia, Acid Reflux, Fatty Liver Disease, Anxiety Depression Adjustment Disorder, Migraines, Celiac disease, Polycystic ovarian syndrome Accidents: Fracture - LT LEG RT Knee - (12/22/2016) LT 2ND Toe FX - (2017) HIT COFFE TABLE Other - (10/25/2022) LT SHOULDER INJURY FROM FALL Surgical Hx: Tubal Ligation, Tonsillectomy Sinus - (2014) Gastric Bypass RT Shoulder Athroscopy - (10/28/2019) MSK @ [facility] Anesthesia Complications: None Assistive Devices: Glasses, Walker Reviewed and updated. SOCIAL HISTORY: Social History: Marital: .Occupation: Currently Working - [employer].Work Status: Currently Working.Hand Dominance: Left-handed. Personal Habits:? Cigarette Use: Never Smoked Cigarettes.Smokeless Tobacco: Never Used Smokeless Tobacco.E-Cigarette Use: Never used.Alcohol: Has consumed alcohol in the past.Drug Use: Former Illegal Drug User.Enjoy Exercising: Exercises 1-3 X/Week. Reviewed, no changes. VITALS: Ht: 64.3 Wt: 264lb Wt k.750 BMI: 44.9 BP: 122/78 Pulse: 80 Resp: 16 T: 97.5 T: 36.4C Pain Level: 5 O2SatR: 97 ALLERGIES: Aspirin Ibuprofen Vicodin Gluten NSAIDs? MEDICATIONS: Oxycodone HCL 5 mg 1-2 tab by mouth every 6 hours, Aripiprazole 2 mg daily, Meloxicam 7.5 mg 1 by mouth twice a day, Ondansetron 4 mg every 6 hours, Topiramate 25 mg daily, Epinephrine 0.3 mg/0.3ml for 2 doses, Loperamide HCL 2 mg every 4 hours as needed, Sumatriptan Succinate 50 mg .x1 prn, Omeprazole 20 mg daily, Meclizine HCL 25 mg 4 times daily as needed, Cetirizine HCL 10 mg daily, Lamotrigine 25 mg daily, Ra Vitamin B-12 1000 mcg/ML daily, CVS D3 25 mcg (1000 Ut) one time, Ferrous Sulfate 325 (65 Fe) MG daily@0800, Hydroxyzine Pamoate 25 mg 3 times daily as needed, Cymbalta 20 mg po 1 every day, Oxybutynin Chloride 5 mg one po daily, Zyrtec Allergy 10 mg one po daily, Vitamin D (Ergocalciferol) 54356 Unit one po bid, Katerin Allergy 60 mg one po daily, Lisinopril 20 mg 1 by mouth every day, Aleve 220 mg 1-2po bid, prn, Buspirone HCL 7.5 mg 1 po qdaily, Vitamin C 500 mg 1 by mouth every day, Vitamin B12 1000 mcg 1 by mouth every day, Calcium 600 1500 (600 Ca) MG 1 by mouth twice a day PRE-OP EXAM:? General appearance:NORMAL? ? ? Other: Eyes: Conjunctivae and lids: NORMAL? Pupils: ERR Ears, Nose, Mouth, and Throat: NORMAL? Other: Inspection of lips, teeth and gums: NORMAL? ?Other: Neck: Examination of neck: no masses noted. Respiratory: Assessment of respiratory effort: NORMAL? ?Other: ?Auscultation of lungs: clear to auscultation no wheezes, rhonchi or rales. Cardiovascular:? Auscultation of heart: regular rate and rhythm, no murmurs, gallops or rubs. PHYSICAL EXAMINATION: On exam of the left shoulder there is no erythema or signs of infection.? Patient has tenderness to palpation of the acromioclavicular joint, anterior shoulder at the biceps tendon.? She has some lateral shoulder pain on palpation at the subacromial space.? Active range of motion forward elevation 150 on the left, external rotation 10, internal rotation PSIS.? Resisted range of motion 4+/5 supraspinatus on the left.? Sensation intact to light touch in axillary, radial, median, ulnar nerve distribution. IMAGING STUDIES: Previous MRI on March 09, 2023 of the left shoulder did reveal interstitial delamination tear of the supraspinatus with capsulitis and bursitis. IMPRESSION: 1.? Left shoulder rotator cuff tear 2.? Hypertension next find 3.? Fibromyalgia 4.? Gastroesophageal reflux disease 5.? Fatty liver disease 6.? Anxiety 7.? Depression adjustment disorder 8.? Migraines 9.? Celiac disease 10.? Polycystic ovarian syndrome 11.? History of gastric bypass surgery 12.? Morbid obesity with BMI 44.9 PLAN: Dr. Eduardo Muhammad did discuss and review with the patient all treatment options including surgical versus nonsurgical options.? Patient does wish to proceed with the above-stated procedure.? Potential risks, benefits, and complications of the procedure were discussed in detail including but not limited to , infection, nerve and blood vessel damage, persistent pain, numbness, tingling, paresthesias, blood clot, pulmonary embolism, and requirement for possible further surgery.? The patient expressed full understanding and has no further questions for the doctor.? Patient does agree to proceed with the above-stated procedure and has signed the surgery consent form. POST-OP MEDICATION PLAN: Pain Medications:? Patient was given the following medication at the preoperative visit: Oxycodone.? She was instructed to continue with exercise strength Tylenol 500 mg 2 tablets 3 times daily postoperatively.? With regards to nonsteroidal anti-inflammatories I did advise patient that she should not be taking 2 different anti-inflammatories.? I would recommend that she continue with the meloxicam postoperatively.? She will stop this 5 days prior to surgery.? She reports that she is allowed to take this medication despite having previous gastric bypass surgery.? UltraSling will be addressed at the hospital. DVT Prophylaxis: I will defer to Dr. Eduardo Muhammad for appropriate DVT prophylaxis as patient does have history of aspirin allergy including rash.? She denies past history of DVT or pulmonary embolism. This dictation was created using voice recognition software. Phonetic and/or grammatical errors may exist. ___? I have re-examined the patient.? There are no clinical changes since date of exam. ___? See progress notes for changes. ___? Dictated on admission Date: ? ? ?Time: Signature:
[2023-06-29] VITALS (7 sets, daily range): BP systolic 118–162; BP diastolic 76–102; PULSE 66–93; RESP 16; TEMP 36.2–36.6; O2SAT 87–99; BMI 45.1
[2023-06-29] MEDS: Lactated Ringers 1,000 ML 15 ML IV (09:48)
[2023-06-29] MEDS: Cefazolin 2 GM in 0.9% Normal Saline (100mL Bag) 100 ML IV (10:07)
[2023-06-29] MEDS: Epinephrine (1 mg/ml) 1 MG/ML VIAL (10:51)
--- NOTE | 2023-06-29 11:53 | PCM.OPRPT ---
Report of Operation Date of Procedure: 06/29/23 Description of Surgical Findings:: Preoperative diagnosis: 1. Left shoulder rotator cuff tear Postoperative diagnosis: 1. Left shoulder rotator cuff tear 2. Left shoulder type II SLAP tear with biceps tendinosis 3. Left shoulder capsulitis 4. Left shoulder osteoarthritis and chondromalacia Procedure 1. Left shoulder arthroscopic rotator cuff repair 2. Extensive debridement left shoulder with debridement of biceps tendon, biceps tenotomy, debridement of biceps labral junction, labrum, glenoid cartilage, humeral head cartilage, subacromial bursa, capsule Surgeon: Eduardo Muhammad DO [employer] Black Belt: Goldie Barrios PA-C Anesthesia: General LMA with interscalene block Director Online Marketing: Samm Saenz CRNA Estimated blood loss: 5 cc IV fluids: Per anesthesia record Urine output: None recorded Packing/drains: None Implants: Arthrex 4.75 mm bio composite swivel lock anchor Preoperative indications: This is a 52-year-old female seen in outpatient setting for atraumatic left shoulder pain. She underwent corticosteroid injections, physical therapy. Patient has allergy to NSAIDs. She attempted Tylenol without relief. MRI was obtained and demonstrated concealed interstitial delamination tearing of the supraspinatus. She felt she adequately failed nonoperative treatment and wished proceed with surgical intervention in the form of left shoulder arthroscopic rotator cuff repair. The risks, benefits, terms the procedure reviewed with the patient at length and he agreed to proceed. Risk included but were not limited to bleeding, infection, loss of life or limb, need for additional surgery, persistent pain, nonhealing tendon or wounds, stiffness, neurovascular injury, DVT or PE. Patient expressed understanding of these risks and wished to proceed with surgery. Description of procedure: Patient was identified in preoperative holding area by name, medical record number, and date of . The operative extremity was marked. All questions were answered to the patient's satisfaction. An interscalene block was administered by anesthesia prior to the procedure. Patient was then brought to the operative suite at time of her procedure. He was positioned supine a sterile operating table. General anesthesia was induced and LMA was placed. Patient was then placed in lateral decubitus position with the left side up. A beanbag was used to hold the patient in the lateral decubitus position. An axillary roll was placed. Pillows were placed beneath and between his legs to for any bony prominences. We prepped and draped the left upper extremity in normal, sterile orthopedic fashion. The operative extremity was placed in traction utilizing arthroscopic bedroom with 10 pounds of tension applied to the operative extremity throughout the arthroscopic portion of the case. We performed a timeout with all parties in attendance in agreement with the side, site, and operation be performed. No concerns were voiced and we elected to proceed with surgery. 3 g Ancef was administered IV prior to incision by anesthesia staff. I first established a standard posterior portal 2 fingerbreadths inferior medial to the posterior lateral border of the scapular spine. Blunt tipped trocar and arthroscopic cannula was introduced into the glenohumeral joint. Joint was inflated with normal saline with epinephrine. Arthroscope was then introduced. Diagnostic arthroscopy was commenced. Capsulitis was noted in the rotator interval along the articular side of the supraspinatus. Anterior interval portal was established. I debrided the capsulitis with the arthroscopic cautery. Type II SLAP tear was noted with significant tendinosis noted in the intra-articular portion of the long of the biceps tendon. I proceeded with a biceps tenotomy at the biceps labral junction. This was then subsequently debrided with a radial resector. Degenerative labral fraying and unstable chondral margins were noted and resected to a stable rim with the arthroscopic shaver. Grade 3?4 chondromalacia was noted in the humeral head and glenoid. Unstable chondral margins were debrided to stable margins with a radial resector. I then marked the articular side of the supraspinatus which was degenerative like torn approximately 3 mm with a PDS suture. I then turned my attention to the subacromial space. Arthroscopic instruments were removed. I reentered the shoulder in the subacromial space with blunt tipped trocar. Standard lateral portal was established with an 11 blade scalpel. Passport was placed for suture management during rotator cuff repair. I then skeletonized the undersurface of the acromion. Identified the tag suture. Using a blunt tipped probe, I was able to probe into the concealed interstitial delamination tear. I proceeded with takedown of the remaining footprint of the supraspinatus generating a crescent shaped tear. I then lightly decorticated the footprint. I proceeded with modified Truong-Edenilson type fixation with an inverted mattress fiber tape and a fiber link suture medial to the fiber tape with a scorpion suture passer. Sutures were passed through the eyelet of a swivel lock anchor. We used the vendor supplied punch to generate a submersible pilot hole for the suture anchor in the lateral margin of the footprint. Sutures were tensioned and anchor placed with excellent cortical purchase. No identifiable dogears were seen and sutures were cut flush with the anchor. I then thoroughly lavaged the subacromial space. Arthroscopic instruments were removed. Portal sites were closed in standard fashion with a [id number] 3-0 nylon suture. Bulky sterile compression dressing was applied. Patient was placed in UltraSling. She tolerated the procedure well without apparent complication. She was safely awoken the operative suite and extubated. She was transferred to his gurney and subsequently to PACU in stable condition. Need for skilled food and beverage assistant manager: Goldie Barrios PA-C was critical to the outcome of the case. During the course of the procedure the physician food and beverage assistant manager played a vital role. Her intimate knowledge of my steps in the procedure aided in safe and expedient completion of the procedure. The PA played a vital role in positioning particularly in obtaining the appropriate positioning. The PA was also vital in the retraction of soft tissues during the exposure and protecting vital structures. The PA was also vital and obtaining tendon reduction and assisting with hardware placement. She also played a vital role in closure and sling application with my direct supervision. Post Operative Plan: Weightbearing: Nonweightbearing left upper extremity, okay for pendulums. Range of motion of wrist elbow and hand as tolerated. Antibiotics:3 g Ancef IV prior to incision DVT Prophylaxis: Patient reports allergy to aspirin but this was as a child with a mild rash. I made the joint decision with the patient to attempt a test dose tomorrow of 81 mg aspirin which she should take for 2 weeks if she does not have a reaction, otherwise we will forego any formal anticoagulation due to her lack of any history of VTE. Layne: None Dressing: Maintain dressing x 2 days then ok to shower X-Rays: 2 weeks postop in the office Pain Medication: Oxycodone Rx upon discharge Follow-up: 2 weeks post-operatively in the office Outpatient physical therapy to start in 2 weeks.
== END 2023-06-29 13:16 | disposition home or self-care (01) ==
LOC: SDC 08:18 → AC 08:19
PROVIDERS: PCP Family Medicine; Referring Provider Student in an Organized Health Care Education/Training Program; Visit Provider Student in an Organized Health Care Education/Training Program
PROC: (CPT 29827; principal; 2023-06-29 10:05)
DX: M19.012 Primary osteoarthritis, left shoulder (principal); E66.01 Morbid (severe) obesity due to excess calories; Z68.41 Body mass index [BMI] 40.0-44.9, adult; K90.0 Celiac disease; I10 Essential (primary) hypertension; M94.212 Chondromalacia, left shoulder; E28.2 Polycystic ovarian syndrome; F43.23 Adjustment disorder with mixed anxiety and depressed mood; S43.432A Superior glenoid labrum lesion of left shoulder, initial encounter; G43.909 Migraine, unspecified, not intractable, without status migrainosus; M75.102 Unspecified rotator cuff tear or rupture of left shoulder, not specified as traumatic; F41.9 Anxiety disorder, unspecified; K21.9 Gastro-esophageal reflux disease without esophagitis; M77.9 Enthesopathy, unspecified; K76.0 Fatty (change of) liver, not elsewhere classified; M79.7 Fibromyalgia; I45.10 Unspecified right bundle-branch block; Z98.51 Tubal ligation status; Z98.84 Bariatric surgery status
CPT/HCPCS: 29827; 29823; 01630; J7120; J2405

== ENCOUNTER → 2023-07-13 | Outpatient (CLI) | payer MEDICAID, SELFPAY ==
[2023-07-13 17:34] LABS: Bacteria 0 SEEN /hpf (None Seen); Mucous, Urine 0 SEEN /hpf (<or=2+); Red Blood Cells-Urine 0 SEEN /hpf (0-5)
[2023-07-13 17:42] LABS: Color, Urine Yellow (Yellow); Glucose, Dipstick Normal (Normal); Ketone-Dipstick Negative (Negative); Leukocyte Esterase-Dipstick Negative /ul (Negative); Nitrite-Dipstick Negative (Negative); Occult Blood-Urine Negative /ul (Negative); Protein-Dipstick Negative (Negative); Urine Bilirubin Dipstick Negative (Negative); Urine Clarity Clear (Clear); Urine Urobilinogen 1 mg/dl (Normal); Urine pH 6.5 (5.0 - 8.0)
[2023-07-13 17:53] LABS: Squamous Epithelial Cells - UA 0-5 SEEN /hpf (5-10); White Blood Cells 0-5 SEEN /hpf (0-5)
== END | disposition home or self-care (01) ==
PROVIDERS: PCP Family Medicine; Referring Provider Physician Assistant Surgical; Visit Provider Physician Assistant Surgical
DX: R30.0 Dysuria (principal)
CPT/HCPCS: 81001; 87086

== ENCOUNTER 2024-04-21 08:57 | Emergency (ER) | payer MEDICAID, SELFPAY ==
[2024-04-21 08:59] VITALS: BP 149/87; PULSE 89; RESP 18; TEMP 36.6; O2SAT 100; BMI 44.2
[2024-04-21 09:02] VITALS: BP 149/87; PULSE 89; RESP 18; TEMP 36.6; O2SAT 100
--- NOTE | 2024-04-21 09:56 | RAD_ITS ---
PROCEDURE: CHEST 1 VIEW (PORTABLE) REASON FOR EXAM: 53-year-old female, fever, sweating, general illness. TECHNIQUE: Frontal view of the chest. COMPARISON: Chest radiograph 11/26/2022. FINDINGS: The heart size is normal. The lungs are clear. No focal consolidation, pleural effusion or pneumothorax. The bones are unremarkable. RAD/Chest 1 View (Portable) IMPRESSION: NEGATIVE CHEST. Reading Location: [id number]
[2024-04-21 10:07] LABS: Absolute Lymphocyte Count 2.27 X10^3/uL (0.83-4.51); Absolute Neutrophil Count 4.8 X10^3/uL (2.0-7.7); Basophil# 0.04 X10^3/uL; Basophil% 0.5 % (0-1); Eosinophil# 0.12 X10^3/uL; Eosinophils% 1.5 % (0-5); Hematocrit 42.3 % (37-47); Hemoglobin 14.1 g/dL (12.0-15.0); Lymphocyte # 2.27 X10^3/ul (0.83-4.51); Lymphocyte % 28.6 % (19-41); Mean Corp Hgb Conc 33.3 g/dL (32-36); Mean Corpuscular Hgb 32.2 pg (27.0-32.0); Mean Corpuscular Volume 96.6 fL (81-99); Mean Platelet Vol. 9.9 fl (6.2-12.0); Monocyte# 0.64 X10^3/uL; Monocyte% 8.1 % (0-10); NRBC Flagged by Analyzer 0 % (0-5); Neutrophil # 4.84 X10^3/uL (2.7-7.7); Neutrophil % 60.9 % (47-70); Platelet Count 259 K/mm3 (150-450); RBC Distribution Width CV 12.9 % (11.6-14.6); RBC Distribution Width SD 45.6 fl (35.1-43.9); Red Blood Count 4.38 M/mm3 (4.2-5.4); White Blood Count 7.9 K/mm3 (4.4-11.0)
[2024-04-21 10:15] VITALS: BP 135/87; PULSE 92; RESP 16; TEMP 36.7; O2SAT 93
[2024-04-21 10:30] LABS: Anion Gap 8 (5-15); BUN 23 mg/dL (7-18); BUN/Creat Ratio 31.6 RATIO (10-20); Chloride 106 mmol/L (98-107); Creatinine, Serum 0.73 mg/dL (0.55-1.02); EST Glomerular Filtration Rate 90 mL/min (>60); Est Glom Filt Rate - Afr Amer 108 mL/min (>60); Estimated Creatinine Clearance 114.61 ml/min; Glucose 89 mg/dL (74-106); Potassium 3.7 mmol/L (3.5-5.1); Sodium Level 139 mmol/L (136-145)
--- NOTE | 2024-04-21 10:49 | EX.ED.DYSGE1 ---
HPI History of Present Illness Chief Complaint: General Illness Detail of Chief Complaint: Multiple symptoms Informant: patient Onset/Context/Timing Onset: Yesterday Timing: Continuous Quality: Flulike symptoms and right-sided abdominal pain Location: Generalized Current Severity: Mild Maximum Severity: Severe Worsened by: Nothing specific Relieved by: Nothing Associated Symptoms Associated Symptoms: Chills and subjective fever Narrative Narrative: Patient is a 53-year-old woman who underwent gastric extension surgery at [facility]. She had a prior [id number]. She has been taking Tylenol. When she did check her temperature it was 99 ?F. She states last evening early this morning she felt feverish, had shaking chills and was diaphoretic. Patient does complain of headache. Patient denies neck stiffness. Patient reports photophobia. She denies double vision blurred vision loss of vision. She does endorse mild congestion. She also endorses cough. Initially she denied she began to cough and her mother corrected and said you have been coughing since last evening. She does report right-sided and upper abdominal pain. Ports are noted to be on the right side and upper abdomen. Patient denies dysuria, frequency, urgency or hematuria. Patient is not noted any skin lesions. Patient denies vomiting or diarrhea. Patient's daughter states she was diagnosed with the flu approximately 2 weeks ago. Prior similar symptoms: No Recent Illness/Hospitalization: Yes [facility] Medical History Thrush, oral Acute pharyngitis Wears glasses History of steroid therapy Injury of head and neck Dietary restriction Gastric reflux Non-smoker History of pain when walking History of echocardiogram Acute maxillary sinusitis, unspecified Acute otitis externa of right ear Depression Acute sinusitis, unspecified COVID-19 Vertigo Bipolar 1 disorder Incontinence Back pain Celiac disease Knee pain Migraines Anemia Liver disease Shoulder pain Hemorrhoids Arthritis HTN (hypertension) Home Medications ?Medication ?Instructions ?Recorded ?Last Taken ?Type oxybutynin chloride 5 mg tablet 5 mg PO QHS bladder 02/01/13 05/11/18 History ferrous sulfate 325 mg (65 mg 325 mg PO DAILY@0800 supplement 07/27/16 05/11/18 History iron) tablet hydroxyzine pamoate 25 mg capsule 25 mg PO TID PRN PRN Anxiety #10 07/27/16 06/29/23 06:30 Rx caps naproxen sodium 220 mg capsule 220 mg PO Q12H PRN Pain Or Fever 02/17/17 05/11/18 History (Aleve) meclizine 25 mg tablet 25 mg PO 4X/DAY PRN PRN Dizziness 07/26/18 Unknown Rx #20 tabs omeprazole 20 mg capsule,delayed 20 mg PO DAILY 10/21/19 Unknown History release pramipexole 0.25 mg tablet 0.25 mg PO QHS RLS 10/21/19 Unknown History (Mirapex) sumatriptan succinate 50 mg tablet 50 mg PO .X1 PRN migraines 10/21/19 Unknown History melatonin-pyridoxine HCl (vitamin 1 ea PO PRN PRN Sleep 03/18/20 Unknown History B6) 3 mg-10 mg tablet epinephrine 0.3 mg/0.3 mL 0.3 mg (0.3 mL) IM .once PRN 11/06/20 Unknown Rx injection, auto-injector (EpiPen) anaphylaxis #1 ea gabapentin 100 mg capsule 100 mg PO TID 11/06/20 Unknown History topiramate 25 mg tablet 25 mg PO BID Migraine Headache 11/02/21 Unknown History meloxicam 7.5 mg tablet 7.5 mg PO DAILY PRN pain 08/02/22 Unknown History aripiprazole 5 mg tablet 5 mg PO DAILY 06/12/23 Unknown History ascorbic acid (vitamin C) 500 mg 500 mg PO DAILY 06/12/23 Unknown History tablet (Vitamin C) buspirone 10 mg tablet 10 mg PO BID 06/12/23 Unknown History calcium carbonate 600 mg PO BID 06/12/23 Unknown History cyanocobalamin (vitamin B-12) 1,000 mcg PO DAILY 06/12/23 Unknown History 1,000 mcg tablet (Vitamin B-12) duloxetine 30 mg capsule,delayed 30 mg PO DAILY 06/12/23 Unknown History release duloxetine 60 mg capsule,delayed 60 mg PO DAILY 06/12/23 Unknown History release fluticasone propionate 50 1 spray intranasal Q12H PRN nasal 06/12/23 Unknown History mcg/actuation nasal congestion spray,suspension lamotrigine 200 mg tablet 200 mg PO DAILY 06/12/23 Unknown History nystatin 100,000 unit/gram topical 1 applic topical TID #60 grams 07/13/23 Unknown Rx powder dexamethasone 6 mg tablet 6 mg PO DAILY #5 tabs 11/10/23 Unknown Rx methylprednisolone 4 mg tablets in See Rx Instructions PO PER PKG DIR 03/20/24 Unknown Rx a dose pack (Medrol (Steve)) #21 tabs Allergy/AdvReac Type Severity Reaction Status Date / Time aspirin Allergy Rash Verified 04/21/24 08:59 hydrocodone (From Vicodin) Allergy Hives Verified 04/21/24 08:59 ibuprofen Allergy Anaphylaxis Verified 04/21/24 08:59 venom-honey bee (bee venom Allergy Anaphylaxis Verified 04/21/24 08:59 (honey bee)) gluten AdvReac Upset Verified 04/21/24 08:59 Stomach Family History Other Arthritis COPD (chronic obstructive pulmonary disease) Cancer Diabetes Osteoporosis Parkinson disease Surgical History Hx of tubal ligation Hx of section Hx of rotator cuff surgery History of sinus surgery History of carpal tunnel surgery History of tonsillectomy and adenoidectomy Personal history of gastric bypass Social History household members: children and none Smoking Status: Never smoker alcohol intake: never substance use type: does not use ROS ROS ED Constitutional Constitutional ED: Reports chills, fever(s), subjective and sweats; Denies weight loss Eyes Eyes: Denies blurry vision, change in vision or diplopia ENT ENT ED: Reports rhinorrhea and sore throat; Denies ear pain Cardiovascular Cardiovascular: Denies chest pain, orthopnea, palpitations, paroxysmal nocturnal dyspnea or racing heartbeat Respiratory/Chest Respiratory/Chest: Reports cough; Denies dyspnea, dyspnea on exertion, orthopnea, paroxysmal nocturnal dyspnea or sputum Gastrointestinal Gastrointestinal: Reports abdominal pain and nausea; Denies constipation, diarrhea, melena or vomiting Genitourinary Genitourinary ED: Denies dysuria, hematuria or urinary frequency Musculoskeletal Musculoskeletal: Reports arthralgias and myalgias; Denies neck pain Integumentary Denies rash Neurologic Neurologic: Reports headache(s) Hematologic/Lymphatic Hematologic/Lymphatic: Reports systems reviewed and no addt'l complaints, except as documented EXAM Physical Exam Narrative Exam Narrative: Vital signs are remarkable for an elevated blood pressure. She is not hypoxic. Const Vital Signs: 04/21/24 08:59 04/21/24 09:02 04/21/24 09:34 Temperature 97.9 F 97.9 F Temperature Source Oral Temporal Pulse Rate 89 89 Respiratory Rate 18 18 Respiratory Effort Normal Non-Labored Respiratory Pattern Normal Blood Pressure 149/87 H 149/87 H Blood Pressure Mean 107 107 Pulse Ox 100 100 Oxygen Delivery Method Room Air Room Air 04/21/24 10:15 Temperature 98.1 F Temperature Source Oral Pulse Rate 92 Respiratory Rate 16 Respiratory Effort Respiratory Pattern Blood Pressure 135/87 H Blood Pressure Mean 103 Pulse Ox 93 Oxygen Delivery Method Room Air Positive well nourished and well developed Constitutional Narrative: BMI is 44.3. General Appearance ED: well developed and NAD; Negative for diaphoretic or pallor HEENT Reports moist mucous membranes HEENT Narrative: Head is atraumatic normocephalic. Ears normal. Posterior pharynx is normal. Nares slight clear drainage. Eyes PERRL and EOMs intact bilaterally General Eye ED: Negative for pale conjunctiva or scleral icterus Neck no lymphadenopathy, supple and no JVD Neck Narrative: There is no meningeal findings. Chest Wall inspection of chest normal and palpation of chest normal Resp normal respiratory effort and clear to auscultation bilaterally Cardio regular rate, regular rhythm, S1 normal heart sound, S2 normal heart sound and no murmurs GI non-distended and no masses; Negative for non-tender or hepatosplenomegaly GI Narrative: Patient has appropriate tenderness in light of her being postop from . She has increased tenderness around the port sites. Port sites appear fine with no evidence of infection. Auscultation: hypoactive bowel sounds Palpation: soft Extremity normal to inspection General Extremety ED: Negative for edema or tenderness General Extremity: Negative for edema Neuro oriented x3 and CN's II-XII intact bilaterally Sensorium / Orientation: alert Psych mental status grossly normal Skin no rashes or lesions noted, no wounds and skin turgor normal General Skin Exam: elasticity normal; Negative for jaundice or pallor MDM MDM MDM Narrative Medical decision making narrative: Concern is atelectasis versus postop pneumonia versus possible viral illness believe her abdominal pain is normal. Nurse protocol orders were entered. Rapid antigen for COVID, RSV and influenza was obtained as well as CBC to assess white count H&H and differential and BMP to assess renal function as well as CO2 anion gap. Chest x-ray to evaluate for pneumonia and will determine if there is evidence of free air which 1 would expect. Lab Data Attestation: I reviewed the patient's lab results. Lab results narrative: CBC is unremarkable. BMP is remarked for an elevated BUN to creatinine ratio of 31 the 1. Labs: Laboratory Results - last 24 hr 04/21/24 09:30 WBC 7.9 RBC 4.38 Hgb 14.1 Hct 42.3 MCV 96.6 MCH 32.2 H MCHC 33.3 RDW Std Deviation 45.6 H RDW Coeff of Rubi 12.9 Plt Count 259 MPV 9.9 Immature Gran % (Auto) 0.400 Neut % (Auto) 60.9 Lymph % (Auto) 28.6 Glades % (Auto) 8.1 Eos % (Auto) 1.5 Baso % (Auto) 0.5 Absolute Neuts (auto) 4.8 Absolute Lymphs (auto) 2.27 Nucleated RBC % 0 Sodium 139 Potassium 3.7 Chloride 106 Carbon Dioxide 24.0 Anion Gap 8 BUN 23 H Creatinine 0.73 Estim Creat Clear Calc 114.61 Est GFR (MDRD) Af Amer 108 Est GFR (MDRD) Non-Af 90 BUN/Creatinine Ratio 31.6 H Glucose 89 Calcium 9.0 Rapid antigen for COVID, RSV and influenza was positive for influenza A. Radiography Chest X-Ray - ED: 1 View and Read by ED Physician (Cardiac silhouette and size normal. Lung parenchyma normal. There is no effusion. There is no pneumoperitoneum. Mediastinum is normal. Osseous structures reveal no acute process.) Diagnostic Testing: Clinical Impression(s) from Imaging Studies Chest X-Ray 04/21/24 09:56 IMPRESSION: NEGATIVE CHEST. Reading Location: [facility] Treatment and Re-Evaluation :: Patient and family were informed that she has influenza A. This is not surprising since her daughter was diagnosed with that. Treatment is symptomatic. Discharge Plan Triage Chief Complaint: General Illness ED Provider: Elgin Huerta Dx/Rx/DC Orders Clinical Impression: Influenza A, Celiac disease, Post-op pain, Adult BMI 40.0-44.9 kg/sq m, Family history of GERD Instructions: ED Influenza (Adult) Prescriptions: No Action naproxen sodium [Aleve] 220 mg capsule 220 mg PO Q12H PRN (Reason: Pain Or Fever) topiramate 25 mg tablet 25 mg PO BID nystatin 100,000 unit/gram powder 1 applic topical TID Qty: 60 0RF dexamethasone 6 mg tablet 6 mg PO DAILY Qty: 5 0RF methylprednisolone [Medrol (Steve)] 4 mg tablets,dose pack See Rx Instructions PO PER PKG DIR Qty: 21 0RF Rx Instructions: PO PER PKG DIR oxybutynin chloride 5 MG tablet 5 mg PO QHS Patient Comments: Urinary frequency ferrous sulfate 325 MG tablet 325 mg PO DAILY@0800 hydroxyzine pamoate 25 MG capsule 25 mg PO TID PRN PRN (Reason: Anxiety) Qty: 10 0RF meclizine 25 MG tablet 25 mg PO 4X/DAY PRN PRN (Reason: Dizziness) Qty: 20 0RF pramipexole [Mirapex] 0.25 MG tablet 0.25 mg PO QHS sumatriptan succinate 50 MG tablet 50 mg PO .X1 PRN omeprazole 20 MG capsule 20 mg PO DAILY melatonin-pyridoxine HCl (B6) 1 EACH tablet 1 ea PO PRN PRN (Reason: Sleep) gabapentin 100 mg capsule 100 mg PO TID Patient Comments: TAKE 1 CAPSULE BY MOUTH THREE TIMES DAILY FOR 180 DAYS. epinephrine [EpiPen] 0.3 mg/0.3 mL auto-injector 0.3 mg IM .once PRN (Reason: anaphylaxis) Qty: 1 0RF Rx Instructions: for 2 doses meloxicam 7.5 mg tablet 7.5 mg PO DAILY PRN (Reason: pain) aripiprazole 5 mg tablet 5 mg PO DAILY buspirone 10 mg tablet 10 mg PO BID calcium carbonate 600 mg calcium (1,500 mg) tablet 600 mg PO BID duloxetine 30 mg capsule,delayed release(DR/EC) 30 mg PO DAILY duloxetine 60 mg capsule,delayed release(DR/EC) 60 mg PO DAILY lamotrigine 200 mg tablet 200 mg PO DAILY cyanocobalamin (vitamin B-12) [Vitamin B-12] 1,000 mcg tablet 1,000 mcg PO DAILY ascorbic acid (vitamin C) [Vitamin C] 500 mg tablet 500 mg PO DAILY fluticasone propionate 50 mcg/actuation spray,suspension 1 spray INTRANASAL Q12H PRN (Reason: nasal congestion) Primary Care Provider: Alec Arndt Referrals: Alec Arndt MD [Primary Care Provider] - 1 Week if not improving Print Language: Turkmen Disposition Disposition: Home, Self Care
[2024-04-21 11:01] VITALS: BP 139/89; PULSE 90; RESP 16; TEMP 36.6; O2SAT 93
== END 2024-04-21 11:13 | disposition home or self-care (01) ==
LOC: ED 11:05
PROVIDERS: Emergency Provider Emergency Medicine; PCP Family Medicine; Visit Provider Emergency Medicine
DX: J10.1 Influenza due to other identified influenza virus with other respiratory manifestations (principal); F31.9 Bipolar disorder, unspecified; K90.0 Celiac disease; G89.18 Other acute postprocedural pain; I10 Essential (primary) hypertension; K21.9 Gastro-esophageal reflux disease without esophagitis; Z79.899 Other long term (current) drug therapy; Z98.51 Tubal ligation status; Z98.84 Bariatric surgery status
CPT/HCPCS: 71045; 80048; 85025; 99283; A4216

== ENCOUNTER 2024-05-08 16:10 | Emergency (ER) | payer MEDICAID, SELFPAY ==
[2024-05-08 16:11] VITALS: BP 139/96; PULSE 76; RESP 15; TEMP 36.4; O2SAT 98; BMI 42.0
--- NOTE | 2024-05-08 17:38 | EX.ED.DYSGE1 ---
HPI History of Present Illness Chief Complaint: Abd Pain [facility] Medical History Thrush, oral Acute pharyngitis Wears glasses History of steroid therapy Injury of head and neck Dietary restriction Gastric reflux Non-smoker History of pain when walking History of echocardiogram Acute maxillary sinusitis, unspecified Acute otitis externa of right ear Depression Acute sinusitis, unspecified COVID-19 Vertigo Bipolar 1 disorder Incontinence Back pain Celiac disease Knee pain Migraines Anemia Liver disease Shoulder pain Hemorrhoids Arthritis HTN (hypertension) Home Medications ?Medication ?Instructions ?Recorded ?Last Taken ?Type oxybutynin chloride 5 mg tablet 5 mg PO QHS bladder 02/01/13 05/11/18 History ferrous sulfate 325 mg (65 mg 325 mg PO DAILY@0800 supplement 07/27/16 05/11/18 History iron) tablet hydroxyzine pamoate 25 mg capsule 25 mg PO TID PRN PRN Anxiety #10 07/27/16 06/29/23 06:30 Rx caps naproxen sodium 220 mg capsule 220 mg PO Q12H PRN Pain Or Fever 02/17/17 05/11/18 History (Aleve) meclizine 25 mg tablet 25 mg PO 4X/DAY PRN PRN Dizziness 07/26/18 Unknown Rx #20 tabs omeprazole 20 mg capsule,delayed 20 mg PO DAILY 10/21/19 Unknown History release pramipexole 0.25 mg tablet 0.25 mg PO QHS RLS 10/21/19 Unknown History (Mirapex) sumatriptan succinate 50 mg tablet 50 mg PO .X1 PRN migraines 10/21/19 Unknown History melatonin-pyridoxine HCl (vitamin 1 ea PO PRN PRN Sleep 03/18/20 Unknown History B6) 3 mg-10 mg tablet epinephrine 0.3 mg/0.3 mL 0.3 mg (0.3 mL) IM .once PRN 11/06/20 Unknown Rx injection, auto-injector (EpiPen) anaphylaxis #1 ea gabapentin 100 mg capsule 100 mg PO TID 11/06/20 Unknown History topiramate 25 mg tablet 25 mg PO BID Migraine Headache 11/02/21 Unknown History meloxicam 7.5 mg tablet 7.5 mg PO DAILY PRN pain 08/02/22 Unknown History aripiprazole 5 mg tablet 5 mg PO DAILY 06/12/23 Unknown History ascorbic acid (vitamin C) 500 mg 500 mg PO DAILY 06/12/23 Unknown History tablet (Vitamin C) buspirone 10 mg tablet 10 mg PO BID 06/12/23 Unknown History calcium carbonate 600 mg PO BID 06/12/23 Unknown History cyanocobalamin (vitamin B-12) 1,000 mcg PO DAILY 06/12/23 Unknown History 1,000 mcg tablet (Vitamin B-12) duloxetine 30 mg capsule,delayed 30 mg PO DAILY 06/12/23 Unknown History release duloxetine 60 mg capsule,delayed 60 mg PO DAILY 06/12/23 Unknown History release fluticasone propionate 50 1 spray intranasal Q12H PRN nasal 06/12/23 Unknown History mcg/actuation nasal congestion spray,suspension lamotrigine 200 mg tablet 200 mg PO DAILY 06/12/23 Unknown History nystatin 100,000 unit/gram topical 1 applic topical TID #60 grams 07/13/23 Unknown Rx powder dexamethasone 6 mg tablet 6 mg PO DAILY #5 tabs 11/10/23 Unknown Rx methylprednisolone 4 mg tablets in See Rx Instructions PO PER PKG DIR 03/20/24 Unknown Rx a dose pack (Medrol (Steve)) #21 tabs Allergy/AdvReac Type Severity Reaction Status Date / Time aspirin Allergy Rash Verified 05/08/24 18:15 hydrocodone (From Vicodin) Allergy Hives Verified 05/08/24 18:15 ibuprofen Allergy Anaphylaxis Verified 05/08/24 18:15 venom-honey bee (bee venom Allergy Anaphylaxis Verified 05/08/24 18:15 (honey bee)) gluten AdvReac Upset Verified 05/08/24 18:15 Stomach Family History Other Arthritis COPD (chronic obstructive pulmonary disease) Cancer Diabetes Osteoporosis Parkinson disease Surgical History Hx of tubal ligation Hx of section Hx of rotator cuff surgery History of sinus surgery History of carpal tunnel surgery History of tonsillectomy and adenoidectomy Personal history of gastric bypass Social History household members: children and none Smoking Status: Never smoker alcohol intake: never substance use type: does not use EXAM Physical Exam Const Vital Signs: 05/08/24 16:11 05/08/24 18:16 05/08/24 20:00 Temperature 97.6 F L Temperature Source Temporal Pulse Rate 76 73 73 Respiratory Rate 15 16 18 Blood Pressure 139/96 H 104/58 L 125/75 H Blood Pressure Mean 110 73 91 Pulse Ox 98 94 95 Oxygen Delivery Method Room Air Room Air Room Air 05/08/24 21:50 05/08/24 22:42 Temperature Temperature Source Pulse Rate 72 Respiratory Rate 16 Blood Pressure Blood Pressure Mean Pulse Ox 95 Oxygen Delivery Method Room Air Room Air [facility] [place] Medical decision making narrative: HISTORY OF PRESENT ILLNESS: 53-year-old female history of gastric bypass presenting with abdominal pain diarrhea. She notes this began 2 to 3 days ago and had copious amounts of nonbloody diarrhea. No melena noted. No vomiting. She notes nausea. Denies chest pain. Denies sick contacts, recent antibiotics or hospitalizations. Denies fever. She endorses pain in the right side of her abdomen. She also endorses feeling depressed and suicidal. She notes that she has a plan to maybe take some of her medicine to kill herself. She notes she would like to be evaluated by behavioral health social work. Patient denies homicidal ideation, auditory visual hallucinations. Notes compliance with all of her psychiatric medication including aripiprazole, lamotrigine, REVIEW OF SYSTEMS: Pertinent positives: Abdominal pain, diarrhea, suicidal ideation Pertinent negatives: Blood in stool, fever PHYSICAL EXAM: Nursing triage notes reviewed, Vital signs reviewed Constitutional: please see mdm HENT: MMM Eyes: Pupils equal round and reactive to light, Extraocular muscles intact Neck: No stridor, no JVD, full neck ROM Lungs: Clear to auscultation, No wheezing or rales. No increased work of breathing, no conversational dyspnea, no accessory muscle use, no nasal flaring. No respiratory distress noted Heart: Regular rate and rhythm, No murmurs, No rubs and No gallops, 2+ distal pulses (radial, femoral, posterior tibial) in all extremities Abdomen: Soft, there is no tenderness, rigidity, rebound or guarding, no obvious peritoneal signs, no palpable pulsatile abdominal masses, no auscultated abdominal bruit : No CVAT Extremities: No edema Neuro: No new focal neurological deficits, cranial nerves II through XII intact, 5/5 strength in all present extremities. Intact sensation to light touch in all present extremities, 2+ reflexes bilateral patella tendons. Skin: No rash or lesions noted MEDICAL DECISION MAKING: Chief Complaint: Abdominal pain, depression External records reviewed: Reviewed recent ED visit from 04/21/2024 approximate 3 weeks ago. That time patient had flulike symptoms and right abdominal pain. Factors affecting care: Gastric bypass Social determinants of health: Mental health disorder History obtained from others: none Consults: Behavioral social work [facility] Narrative: The patient was initially hemodynamically stable, afebrile and nontoxic-appearing. Abdominal exam overall benign. Well-appearing surgical sites. There is some slight tenderness along the right side of the abdomen. There is no CVA tenderness initially. Patient's affect was normal she did not appear depressed. She had a goal-directed thought process. I considered the following differential diagnosis: AAA, small bowel obstruction, abdominal perforation, appendicitis, pancreatitis, hepatobiliary pathology (acute cholecystitis), mesenteric ischemia, pathology (ie nephrolithiasis, pyelonephritis). I obtained a broad lab and imaging workup to further elucidate etiology the patient complaints. Specifically ordered a CT scan with both IV and oral contrast to further assess patient's recent gastric bypass procedure. Initially treated the patient with 1 L IV fluid, 4 mg IV Zofran and 4 mg IV morphine. In addition to her abdominal pain workup also added on urine drug screen and alcohol level for behavioral health clearance. ALL IMAGES (IF OBTAINED) HAVE BEEN PERSONALLY REVIEWED AND INTERPRETED BY MYSELF. CBC without leukocytosis, severe anemia, no thrombocytopenia. CMP without evidence of acute kidney injury, significant electrolyte abnormality, anion gap to suggest end organ hypo-perfusion, no evidence of metabolic acidosis with a normal bicarbonate, no evidence of hepatobiliary obstructive pathology. Lipase is wnl indicating no pancreatic inflammation. Urinalysis shows no evidence of urinary inflammation suggestive of UTI Urine tox cream negative Serum alcohol negative CT scan of the abdomen and pelvis with IV and p.o. contrast showed no evidence of obvious acute surgical emergencies in the abdomen. Pending behavioral health evaluation. Signed out to p.m. physician pending behavioral health evaluation and final disposition. The patient and/or family, caregivers express understanding. The patient and/or family, caregivers agrees with the plan. Shared decision making: I will have a discussion with the patient and or visitors regarding risk/benefits of further testing or admission. They will be made aware of of the risk/benefits inherent in this decision they will be given the opportunity to voice understanding. Total critical care time today provided was at least 0 minutes. This excludes separately billable procedures. Critical care time (if documented) is secondary to the patient having high probability of clinically significant/life threatening deterioration in the patient's condition which required my urgent intervention. Impression: 1. Abdominal pain 2. Suicidal ideation Dispo: Pending behavioral evaluation and final disposition This note was generated with [employer] dictation software. It may contain incorrect words, spelling, and punctuation that were not noted in review of the chart prior to signing. Lab Data Labs: Laboratory Results - last 24 hr 05/08/24 05/08/24 18:10 19:45 WBC 6.6 RBC 3.85 L Hgb 12.3 Hct 37.4 MCV 97.1 MCH 31.9 MCHC 32.9 RDW Std Deviation 47.4 H RDW Coeff of Rubi 13.2 Plt Count 374 MPV 9.7 Immature Gran % (Auto) 0.300 Neut % (Auto) 50.9 Lymph % (Auto) 37.8 Harper % (Auto) 5.7 Eos % (Auto) 4.5 Baso % (Auto) 0.8 Absolute Neuts (auto) 3.4 Absolute Lymphs (auto) 2.50 Nucleated RBC % 0 Sodium 143 Potassium 3.6 Chloride 109 H Carbon Dioxide 23.2 Anion Gap 11 BUN 10 Creatinine 0.73 Estim Creat Clear Calc 111.22 Est GFR (MDRD) Non-Af 100 BUN/Creatinine Ratio 13.2 Glucose 79 Calcium 9.4 Total Bilirubin 0.25 AST 47 H ALT 149 H Alkaline Phosphatase 90 Total Protein 6.7 Albumin 4.1 Globulin 2.6 Albumin/Globulin Ratio 1.6 Lipase 26 Urine Color Yellow Urine Clarity Clear Urine pH 6.5 Ur Specific [place] 1.005 Urine Protein Negative Urine Glucose (UA) Normal Urine Ketones Negative Urine Occult Blood Negative Urine Nitrite Negative Urine Bilirubin Negative Urine Urobilinogen Normal Ur Leukocyte Esterase Negative Urine RBC 0 SEEN Urine WBC 0 SEEN Ur Squamous Epith Cells 0 SEEN Urine Bacteria 0 SEEN Urine Mucus 0 SEEN Urine Opiates Screen PRESUMPTIVE POSITIVE U Buprenorphine Qual NEGATIVE Ur Oxycodone Screen NEGATIVE Urine Methadone Screen NEGATIVE Urine Fentanyl Screen NEGATIVE Ur Barbiturates Screen NEGATIVE Ur Phencyclidine Scrn NEGATIVE Ur Amphetamines Screen NEGATIVE U Benzodiazepines Scrn NEGATIVE Urine Cocaine Screen NEGATIVE U Cannabinoids Screen NEGATIVE Ethyl Alcohol < 10.1 Radiography Diagnostic Testing: Clinical Impression(s) from Imaging Studies Abdomen/Pelvis CT 05/08/24 19:30 IMPRESSION: 1. Mild hazy fat stranding about postsurgical small bowel. No obstruction. Findings may represent postsurgical changes versus inflammatory changes/phlegmon 2. Hepatic steatosis 3. Distended gallbladder 4. Significant amount of stool in the right colon and transverse colon. Correlate with constipation.. One or more dose reduction techniques were used (e.g., Automated exposure control, adjustment of the mA and/or kV according to patient size, use of iterative reconstruction technique). Reading [facility] Dis[facility] Triage Chief Complaint: Abd Pain ED Provider: Jaylon Oquendo Dx/Rx/DC Orders Prescriptions: No Action naproxen sodium [Aleve] 220 mg capsule 220 mg PO Q12H PRN (Reason: Pain Or Fever) topiramate 25 mg tablet 25 mg PO BID nystatin 100,000 unit/gram powder 1 applic topical TID Qty: 60 0RF dexamethasone 6 mg tablet 6 mg PO DAILY Qty: 5 0RF methylprednisolone [Medrol (Steve)] 4 mg tablets,dose pack See Rx Instructions PO PER PKG DIR Qty: 21 0RF Rx Instructions: PO PER PKG DIR oxybutynin chloride 5 MG tablet 5 mg PO QHS Patient Comments: Urinary frequency ferrous sulfate 325 MG tablet 325 mg PO DAILY@0800 hydroxyzine pamoate 25 MG capsule 25 mg PO TID PRN PRN (Reason: Anxiety) Qty: 10 0RF meclizine 25 MG tablet 25 mg PO 4X/DAY PRN PRN (Reason: Dizziness) Qty: 20 0RF pramipexole [Mirapex] 0.25 MG tablet 0.25 mg PO QHS sumatriptan succinate 50 MG tablet 50 mg PO .X1 PRN omeprazole 20 MG capsule 20 mg PO DAILY melatonin-pyridoxine HCl (B6) 1 EACH tablet 1 ea PO PRN PRN (Reason: Sleep) gabapentin 100 mg capsule 100 mg PO TID Patient Comments: TAKE 1 CAPSULE BY MOUTH THREE TIMES DAILY FOR 180 DAYS. epinephrine [EpiPen] 0.3 mg/0.3 mL auto-injector 0.3 mg IM .once PRN (Reason: anaphylaxis) Qty: 1 0RF Rx Instructions: for 2 doses meloxicam 7.5 mg tablet 7.5 mg PO DAILY PRN (Reason: pain) aripiprazole 5 mg tablet 5 mg PO DAILY buspirone 10 mg tablet 10 mg PO BID calcium carbonate 600 mg calcium (1,500 mg) tablet 600 mg PO BID duloxetine 30 mg capsule,delayed release(DR/EC) 30 mg PO DAILY duloxetine 60 mg capsule,delayed release(DR/EC) 60 mg PO DAILY lamotrigine 200 mg tablet 200 mg PO DAILY cyanocobalamin (vitamin B-12) [Vitamin B-12] 1,000 mcg tablet 1,000 mcg PO DAILY ascorbic acid (vitamin C) [Vitamin C] 500 mg tablet 500 mg PO DAILY fluticasone propionate 50 mcg/actuation spray,suspension 1 spray INTRANASAL Q12H PRN (Reason: nasal congestion) Primary Care Provider: Alec Arndt Referrals: Alec Arndt MD [Primary Care Provider] - Print Language: Venezuelan
[2024-05-08] MEDS: 0.9% Normal Saline (1000mL) 1,000 ML 999 ML IV (18:10)
[2024-05-08] MEDS: Morphine 4 MG/ML Syringe IV (18:10)
[2024-05-08] MEDS: Ondansetron 4 MG/2 ML Vial IV (18:10)
[2024-05-08 18:16] VITALS: BP 104/58; PULSE 73; RESP 16; O2SAT 94
[2024-05-08 18:26] LABS: Absolute Neutrophil Count 3.4 X10^3/uL (2.0-7.7); Basophil# 0.05 X10^3/uL; Basophil% 0.8 % (0-1); Eosinophils% 4.5 % (0-5); Hematocrit 37.4 % (37-47); Hemoglobin 12.3 g/dL (12.0-15.0); Lymphocyte % 37.8 % (19-41); Mean Corp Hgb Conc 32.9 g/dL (32-36); Mean Corpuscular Hgb 31.9 pg (27.0-32.0); Mean Corpuscular Volume 97.1 fL (81-99); Mean Platelet Vol. 9.7 fl (6.2-12.0); Monocyte# 0.38 X10^3/uL; Monocyte% 5.7 % (0-10); NRBC Flagged by Analyzer 0 % (0-5); Neutrophil # 3.36 X10^3/uL (2.7-7.7); Neutrophil % 50.9 % (47-70); Platelet Count 374 K/mm3 (150-450); RBC Distribution Width CV 13.2 % (11.6-14.6); RBC Distribution Width SD 47.4 fl (35.1-43.9); Red Blood Count 3.85 M/mm3 (4.2-5.4); White Blood Count 6.6 K/mm3 (4.4-11.0)
[2024-05-08 19:01] LABS: Alcohol, Blood (Medical)-Serum < 10.1 mg/dL (<=10.0)
[2024-05-08 19:02] LABS: ALB/GLOB Ratio 1.6 RATIO (0.9-2.4); AST(SGOT) 47 U/L (<=31); Alanine Aminotransfer ALT/SGPT 149 U/L (<=34); Albumin, Serum 4.1 g/dL (3.5-5.0); Alkaline Phosphatase 90 U/L (35-104); Anion Gap 11 (5-15); BUN 10 mg/dL (4-19); BUN/Creat Ratio 13.2 RATIO (10-20); Calcium,Total 9.4 mg/dL (7.6-11.0); Carbon Dioxide 23.2 mmol/L (21.0-32.0); Chloride 109 mmol/L (98-108); Creatinine, Serum 0.73 mg/dL (0.70-1.20); EST Glomerular Filtration Rate 100 (>60); Estimated Creatinine Clearance 111.22 ml/min (50-250); Globulin 2.6 g/dL (2.2-4.2); Glucose 79 mg/dL (70-99); Lipase 26 U/L (13-75); Potassium 3.6 mmol/L (3.3-5.1); Protein, Total 6.7 g/dL (5.9-8.4); Sodium Level 143 mmol/L (133-145); Total Bilirubin 0.25 mg/dL (0.00-1.30)
--- NOTE | 2024-05-08 19:30 | CT_ITS ---
PROCEDURE: ABDOMEN/PELVIS WITH CONTRAST REASON FOR EXAM: Right-sided abdominal pain status post gastric bypass TECHNIQUE: Abdomen and pelvis CT with intravenous contrast. COMPARISON: None. FINDINGS: Lung bases: Clear Stomach: Postsurgical changes of gastric bypass. Liver: Diffuse fatty infiltration. Gallbladder: Distended Spleen: Normal size. Pancreas: Unremarkable. Adrenals: Unremarkable. Kidneys: Symmetric in size with no hydronephrosis. 6.0 cm right renal cyst.. Bladder: Unremarkable. Reproductive Organs: Normal uterine size and contour. Ovaries are unremarkable. Bowel: Postsurgical changes in small bowel. There is hazy mesenteric fat stranding about the small bowel. Significant amount of stool noted in the right colon and transverse colon. Appendix: Normal. Lymph nodes: No suspicious lymph node enlargement. Vasculature: Major vascular structures are unremarkable. Peritoneum / Retroperitoneum: No ascites. No free air. Bones: Degenerative changes of the spine. CT/Abdomen/Pelvis WITH Contrast IMPRESSION: 1. Mild hazy fat stranding about postsurgical small bowel. No obstruction. F indings may represent postsurgical changes versus inflammatory changes/phlegmon 2. Hepatic steatosis 3. Distended gallbladder 4. Significant amount of stool in the right colon and transverse colon. Corre late with constipation.. One or more dose reduction techniques were used (e.g., Automated exposure contr ol, adjustment of the mA and/or kV according to patient size, use of iterative reconstruction technique). Reading Location: [facility]
[2024-05-08 19:52] LABS: Bacteria 0 SEEN /hpf (None Seen); Mucous, Urine 0 SEEN /hpf (<or=2+); Squamous Epithelial Cells - UA 0 SEEN /hpf (5-10); White Blood Cells 0 SEEN /hpf (0-5)
[2024-05-08 19:55] LABS: Color, Urine Yellow (Yellow); Glucose, Dipstick Normal (Normal); Ketone-Dipstick Negative (Negative); Leukocyte Esterase-Dipstick Negative /ul (Negative); Nitrite-Dipstick Negative (Negative); Occult Blood-Urine Negative /ul (Negative); Protein-Dipstick Negative (Negative); Specific Gravity, Urine 1.005 (1.002-1.030); Urine Bilirubin Dipstick Negative (Negative); Urine Clarity Clear (Clear); Urine Urobilinogen Normal (Normal); Urine pH 6.5 (5.0 - 8.0)
[2024-05-08 20:00] VITALS: BP 125/75; PULSE 73; RESP 18; O2SAT 95
[2024-05-08 20:04] LABS: Red Blood Cells-Urine 0 SEEN /hpf (0-5)
[2024-05-08 20:21] LABS: Amphetamine Urine NEGATIVE (<1000 ng/mL); Barbiturate Urine NEGATIVE (< 200 ng/mL); Benzodiazepine Urine NEGATIVE (< 200 ng/mL); Buprenorphine Urine NEGATIVE (< 200 ng/mL); Cocaine Urine NEGATIVE (< 300 ng/mL); Fentanyl, Urine NEGATIVE; Methadone Urine NEGATIVE (< 300 ng/mL); Opiates Urine PRESUMPTIVE POSITIVE (< 300 ng/mL); Oxycodone, Urine NEGATIVE (< 100 ng/mL); PCP Urine NEGATIVE (< 25 ng/mL); THC Urine NEGATIVE (< 50 ng/mL)
[2024-05-08 21:50] VITALS: PULSE 72; RESP 16; O2SAT 95
[2024-05-09 00:42] VITALS: BP 128/69; PULSE 80; RESP 18; TEMP 36.8; O2SAT 97
--- NOTE | 2024-05-09 00:52 | ED.RN ---
This RN called report to [place]. Mo took report.
--- NOTE | 2024-05-09 01:15 | ED.RN ---
This RN called physicians due to them leaving her belongings behind. Physicians stated they would turn around and come back for her belongings.
== END 2024-05-09 00:53 ==
PROVIDERS: Emergency Provider Emergency Medicine; PCP Family Medicine; Visit Provider Emergency Medicine
DX: R10.9 Unspecified abdominal pain (principal); F31.9 Bipolar disorder, unspecified; R11.0 Nausea; I10 Essential (primary) hypertension; Z98.84 Bariatric surgery status; R45.851 Suicidal ideations; K21.9 Gastro-esophageal reflux disease without esophagitis; Z79.899 Other long term (current) drug therapy; Z98.51 Tubal ligation status
CPT/HCPCS: 74177; 80053; 80307; 81001; 82077; 83690; 85025; 96361; 96374; 96375; 99284; Q9967; A4216; J2405

== ENCOUNTER → 2024-07-09 | Outpatient (CLI) | payer MEDICAID, SELFPAY ==
--- NOTE | 2024-07-09 06:47 | BD_ITS ---
PROCEDURE: DEXA BONE DENSITY STUDY 07/09/2024 REASON FOR EXAM: PAIN F, age 53 y/o . Patient is postmenopausal. TECHNIQUE: DEXA scan of sites with data reported below. Scanner utilized: [email or web address] REFERENCE LINKS: ISCD Adult Positions COMPARISON: None FINDINGS: BMD and T-SCORES Lumbar spine: 1.096 g/cm2, T-score 0.4 Levels: L1 through L4 Left femoral neck: 0.739 g/cm2, T-score -1.0 Left total hip: 0.891 g/cm2, T-score -0.4 Right femoral neck: 0.836 g/cm2, T-score -0.1 Right total hip: 0.883 g/cm2, T-score -0.5 The World Health Organization has defined the following categories based on bone density: Normal bone density: T-score equal to or greater than -1.0 Osteopenia: T-score between -1.0 and -2.5 Osteoporosis: T-score equal to or less than -2.5 FRAX (or Comparable) Fracture Risk Assessment: 10 Year Probability of Fracture: Major Osteoporotic Fracture: 14% Hip Fracture: 0.4% (Note: FRAX is not to be reported in setting of normal range bone density, osteoporosis on DEXA, known history of osteoporosis, prior osteoporotic hip or vertebral fracture, or for any patient undergoing pharmacological treatment for bone loss.) The National Osteoporosis Foundation (NOF) recommends pharmacological treatment for patients with a FRAX 10-year risk of 3% or higher for a hip fracture, or 20% or higher for a major osteoporotic fracture, to prevent osteoporosis and reduce fracture risk. The patient does not meet the pharmacological treatment recommendations for prevention of osteoporosis. BD/Dexa Bone Density Study IMPRESSION: Osteopenia of the left femoral neck. Normal bone mineral density of the remain ing osseous structures evaluated as described above. Recommend follow-up as clinically warranted. Reading Location: [id number]
== END | disposition home or self-care (01) ==
PROVIDERS: PCP Family Medicine; Referring Provider Student in an Organized Health Care Education/Training Program; Visit Provider Student in an Organized Health Care Education/Training Program
DX: M85.852 Other specified disorders of bone density and structure, left thigh (principal)
CPT/HCPCS: 77080